=== PATIENT | male | born 1940 | race Caucasian/White ===

== ENCOUNTER 2019-04-06 12:00 | Observation (INO) ==
[~2019-04-06 12:00] MED LIST: ZOFRAN INJ 4 MG VIAL ONE
--- NOTE | 2019-04-06 12:14 | DR.GENAD ---
HPI Time Seen Time Seen by Provider: 04/06/19 12:06 PMH PMH Past Medical History: Coronary Artery Disease, Dyslipidemia, GERD, Hypertension and Hypothyroidism Past Surgical History: Yes Surgical History: Angioplasty/Stents Family History Family Medical History: Diabetes Mellitus, Cancer, [place] and Coronary Artery Disease Social History Do you use any recreational Drugs:: No PE Vital Signs Vitals: Temperature 98.6 F Pulse Rate 87 Respiratory Rate 16 Blood Pressure [Right Arm] 155/79 Blood Pressure 118/80 O2 Sat by Pulse Oximetry 100 ROR Labs Reviewed Result Diagrams: 04/06/19 13:40 04/06/19 13:40 Laboratory: WBC 19.1 X10^3/uL (3.6-10.0) H 04/06/19 13:40 RBC 5.04 X10^6/uL (4.7-6.0) 04/06/19 13:40 Hgb 15.9 g/dL (13.5-18.0) 04/06/19 13:40 Hct 46.4 % (42.0-54.0) 04/06/19 13:40 MCV 92.2 fL (80.0-100.0) 04/06/19 13:40 MCH 31.5 pg (27.0-34.0) 04/06/19 13:40 MCHC 34.2 g/dL (33.0-35.0) 04/06/19 13:40 RDW 13.7 % (11.6-16.5) 04/06/19 13:40 Plt Count 173 X10^3/uL (150.0-450.0) 04/06/19 13:40 Plt Count Comment Adequate (ADEQUATE) 04/06/19 13:40 MPV 10.0 fL (7.4-11.0) 04/06/19 13:40 Neut % (Auto) 90.4 % (42.0-75.0) H 04/06/19 13:40 Lymph % (Auto) 5.4 % (21.0-51.0) L 04/06/19 13:40 [place] % (Auto) 3.9 % (0.0-13.0) 04/06/19 13:40 Eos % (Auto) 0.0 % (0.9-2.9) L 04/06/19 13:40 Baso % (Auto) 0.3 % (0.2-1.0) 04/06/19 13:40 Neut # (Auto) 17.2 x10^3/uL (2.2-4.8) H 04/06/19 13:40 Lymph # (Auto) 1.0 X10^3/uL (1.3-2.9) L 04/06/19 13:40 [place] # (Auto) 0.7 x10^3/uL (0.3-0.8) 04/06/19 13:40 Eos # (Auto) 0.0 x10^3/uL (0.0-0.2) 04/06/19 13:40 Baso # (Auto) 0.1 X10^3/uL (0.0-0.1) 04/06/19 13:40 Absolute Nucleated RBC 0.1 /100WBC 04/06/19 13:40 Total Counted 100 04/06/19 13:40 Neutrophils % (Manual) 68 % (39-76) 04/06/19 13:40 Band Neutrophils % 22 % (0-10) H 04/06/19 13:40 Lymphocytes % (Manual) 5 % (13-43) L 04/06/19 13:40 Monocytes % (Manual) 5 % (4-9) 04/06/19 13:40 Plt Morphology Comment Normal (NORMAL) 04/06/19 13:40 RBC Morphology Normal (NORMAL) 04/06/19 13:40 Sodium 139 mmol/L (136-145) 04/06/19 13:40 Corrected Sodium 140 mmol/L (136-145) 04/06/19 13:40 Potassium 3.7 mmol/L (3.5-5.1) 04/06/19 13:40 Chloride 100 mmol/L (98-107) 04/06/19 13:40 Carbon Dioxide 25.0 mmol/L (21-32) 04/06/19 13:40 BUN 26 mg/dL (7-18) H 04/06/19 13:40 Creatinine 1.75 mg/dL (0.70-1.30) H 04/06/19 13:40 Est GFR (MDRD) Af Amer 49 (>60) L 04/06/19 13:40 Est GFR (MDRD) Non-Af 40 (>60) L 04/06/19 13:40 Glucose 150 mg/dL (65-99) H 04/06/19 13:40 Calcium 9.7 mg/dL (8.5-10.1) 04/06/19 13:40 Corrected Calcium TNP 04/06/19 13:40 Total Bilirubin 1.70 mg/dL (0.2-1.0) H 04/06/19 13:40 AST 33 Units/L (15-37) 04/06/19 13:40 ALT 37 Units/L (12-78) 04/06/19 13:40 Alkaline Phosphatase 81 Units/L (46-116) 04/06/19 13:40 Total Protein 8.8 g/dL (6.4-8.2) H 04/06/19 13:40 Albumin 4.5 g/dL (3.4-5.0) 04/06/19 13:40 Globulin 4.3 g/dL (2.5-4.5) 04/06/19 13:40 Albumin/Globulin Ratio 1.0 Ratio (1.1-2.1) L 04/06/19 13:40 Opioid Opioid Risk Tool Total: 0 Total Score Risk Category: Low Risk Copyright: Juanito BARRETT predicting aberrant behaviors
--- NOTE | 2019-04-06 12:52 | RAD ---
HISTORY: Severe constipation. Study: KUB Comparison: No priors Findings: There is a large amount of stool present involving the cecum and ascending colon regions. There is a 6.5 cm rectal fecal impaction. Mild gaseous distention of small bowel loops is seen in the right abdomen. The findings have the appearance of a small bowel ileus. No evidence of bowel obstruction is seen. There is no evidence of opaque stone. Osseous structures are intact. IMPRESSION: Large amount of stool present in the cecum and ascending colon regions. 6.5 cm rectal fecal impaction. Mild small bowel ileus pattern. No bowel obstruction is seen. Reported By:
[2019-04-06 13:47] LABS: BASOPHILS # (AUTO) 0.1 X10^3/uL (0.0-0.1); BASOPHILS % (AUTO) 0.3 % (0.2-1.0); HEMATOCRIT 46.4 % (42.0-54.0); HEMOGLOBIN 15.9 g/dL (13.5-18.0); LYMPHOCYTES % (AUTO) 5.4 % (21.0-51.0); MEAN CORPUSCULAR HEMOGLOBIN 31.5 pg (27.0-34.0); MEAN CORPUSCULAR HGB CONC 34.2 g/dL (33.0-35.0); MEAN CORPUSCULAR VOLUME 92.2 fL (80.0-100.0); MONOCYTES # (AUTO) 0.7 x10^3/uL (0.3-0.8); MONOCYTES % (AUTO) 3.9 % (0.0-13.0); NEUTROPHILS # (AUTO) 17.2 x10^3/uL (2.2-4.8); NEUTROPHILS % (AUTO) 90.4 % (42.0-75.0); PLATELET COUNT 173 X10^3/uL (150.0-450.0); RED BLOOD COUNT 5.04 X10^6/uL (4.7-6.0); RED CELL DISTRIBUTION WIDTH 13.7 % (11.6-16.5); WHITE BLOOD COUNT 19.1 X10^3/uL (3.6-10.0)
[2019-04-06 14:01] LABS: ALANINE AMINOTRANSFERASE 37 Units/L (12-78); ALBUMIN 4.5 g/dL (3.4-5.0); ALKALINE PHOSPHATASE 81 Units/L (46-116); ASPARTATE AMINO TRANSFERASE 33 Units/L (15-37); BLOOD UREA NITROGEN 26 mg/dL (7-18); CALCIUM 9.7 mg/dL (8.5-10.1); CHLORIDE 100 mmol/L (98-107); COR NA(FOR HYPERGLY) 140 mmol/L (136-145); CREATININE 1.75 mg/dL (0.70-1.30); SODIUM 139 mmol/L (136-145); TOTAL PROTEIN 8.8 g/dL (6.4-8.2); eGFR NON BLACK RACES 40 (>60)
[2019-04-06 14:11] LABS: BAND NEUTROPHILS % 22 % (0-10); PLATELET MORPHOLOGY COMMENT NORMAL (NORMAL)
[2019-04-06 16:14] VITALS: BMI 22.6
[2019-04-06] MEDS ORDERED: PATIENT'S HOME MEDICATION (Lisinopril 20 MG) PO SCH (21:00)
[2019-04-06] MEDS ORDERED: PATIENT'S HOME MEDICATION (Metoprolol Tartrate [Lopressor Tab 100 Mg] 100 MG) PO SCH (21:00)
[2019-04-06] MEDS: LIPITOR TAB 20 MG PO SCH (21:11)
[2019-04-06] MEDS: LOPRESSOR TAB 50 MG PO SCH (21:12)
[2019-04-06] MEDS: AMBIEN PO SCH (21:12)
[2019-04-06] MEDS: ZESTRIL TAB 10 MG PO SCH (21:13)
--- NOTE | 2019-04-06 21:49 | DR.H&P ---
H&P - History & Physical for Day of: H&P Date: 04/06/19 - Chief Complaint Chief Complaint: ABDOMINAL PAIN, CONSTIPATION - History of Present Illness History of Present Illness: IS A 79 YEAR OLD PATIENT OF OURS. HE PRESENTED TO THE ER WITH COMPLAINTS OF SEVERE PRESSURE TO RECTUM, ABDOMINAL PAIN, AND UNABLE TO HAVE A BOWEL MOVMEMENT. SYMPTOMS REPORTEDLY STARTED TODAY. ON ARRIVAL TO THE ER, VITALS WERE 98.6-16-87-100%-118/80. LABS WERE OBTAINED. ABNORMAL LAB VALUES INCLUDE THE FOLLOWING: WBC 19.1, BUN 26, CREATININE 1.75, GLUCOSE 150, TOTAL BILI 1.70, TOTAL PROTEIN 8.8. A KUB WAS OBTAINED AND REVEALED: Large amount of stool present in the cecum and ascending colon regions. 6.5 cm rectal fecal impaction. Mild small bowel ileus pattern. No bowel obstruction is seen. HE WAS ADMITTED TO THE HOSPITAL FOR FURTHER EVALUATION AND TREATMENT. ON ADMISSION, WE PLAN TO ADMINISTER SOAP SUDS ENEMAS UNTIL CLEAR. OTHERWISE, WE WILL FOLLOW UP WITH AM LABS AND CONTINUE TO MONITOR. - Past Medical History Past Medical History: Coronary Artery Disease, Hypertension, Dyslipidemia, Hypothyroidism, GERD - Past Surgical History Surgical History: Angioplasty/Stents, CABG/Valve Surgery - Family History Family Medical History: Diabetes Mellitus, Cancer, [place], Hypertension - Social History Does patient currently use any type of tobacco product: No Have you used tobacco products in the last 12 months: No Type of Tobacco Use: None Does any household member use tobacco: No Alcohol Use: None Drug Use: None - Medications Home Medications: Penicillins Allergy (Verified 04/06/19 12:01) - Review of Systems Constitutional: See HPI Eyes: No Symptoms Reported ENT: No Symptoms Reported Respiratory: No Symptoms Reported Cardiovascular: No Symptoms Reported Gastrointestinal: Abdominal Pain, Constipation Genitourinary: No Symptoms Reported Musculoskeletal: No Symptoms Reported Skin: No Symptoms Reported Neurological: No Symptoms Reported - Physical Exam Vital Signs: Temperature 98.1 F Pulse Rate [Bilateral Radial] 80 Pulse Rate 75 Respiratory Rate 10 Blood Pressure [Right Arm] 132/79 Blood Pressure 160/81 O2 Sat by Pulse Oximetry 98 Oriented: Normal Eyes: Normal Ear: Normal Nose: Normal Throat: Normal Respiratory: Diminished Throughout Cardiovascular: Normal : Normal Auscultation: Bowel Sounds: Decreased Tenderness: Diffuse, Severe Skin: Normal Musculoskeletal: Normal Psychiatric: Normal Mood Description: Calm Affect: Normal Speech Pattern: Clear - Assessment/Plan (1) Fecal impaction Status: Acute Plan: SOAP SUDS ENEMAS UNTIL CLEAR, CONTINUE TO MONITOR - Allergies Allergies/Adverse Reactions: Allergies Allergy/AdvReac Type Severity Reaction Status Date / Time Penicillins Allergy Verified 04/06/19 12:01
[2019-04-07 05:43] LABS: BASOPHILS # (AUTO) 0.1 X10^3/uL (0.0-0.1); BASOPHILS % (AUTO) 0.4 % (0.2-1.0); EOSINOPHILS # (AUTO) 0.1 x10^3/uL (0.0-0.2); EOSINOPHILS % (AUTO) 0.4 % (0.9-2.9); HEMATOCRIT 37.7 % (42.0-54.0); LYMPHOCYTES # (AUTO) 1.7 X10^3/uL (1.3-2.9); LYMPHOCYTES % (AUTO) 11.9 % (21.0-51.0); MEAN CORPUSCULAR HEMOGLOBIN 31.5 pg (27.0-34.0); MEAN CORPUSCULAR HGB CONC 34.1 g/dL (33.0-35.0); MEAN CORPUSCULAR VOLUME 92.4 fL (80.0-100.0); MEAN PLATELET VOLUME 10.6 fL (7.4-11.0); MONOCYTES # (AUTO) 1.1 x10^3/uL (0.3-0.8); MONOCYTES % (AUTO) 7.5 % (0.0-13.0); NEUTROPHILS # (AUTO) 11.2 x10^3/uL (2.2-4.8); NEUTROPHILS % (AUTO) 79.8 % (42.0-75.0); PLATELET COUNT 111 X10^3/uL (150.0-450.0); RED BLOOD COUNT 4.09 X10^6/uL (4.7-6.0); RED CELL DISTRIBUTION WIDTH 13.4 % (11.6-16.5); WHITE BLOOD COUNT 14.1 X10^3/uL (3.6-10.0)
[2019-04-07 05:51] LABS: HEMOGLOBIN 12.9 g/dL (13.5-18.0)
[2019-04-07 05:53] LABS: ALBUMIN 3.1 g/dL (3.4-5.0); CALCIUM 8.7 mg/dL (8.5-10.1); CARBON DIOXIDE 28.8 mmol/L (21-32); COR CA(FOR HYPOALB) 9.4 mg/dL (8.5-10.1); CREATININE 1.49 mg/dL (0.70-1.30); TOTAL PROTEIN 6.3 g/dL (6.4-8.2)
--- NOTE | 2019-04-07 08:11 | RAD ---
Examination: KUB History: Constipation Comparison 04/06/2019 Findings: There is mild gaseous distention of scattered segments of small bowel and colon in a nonobstructing pattern. No discrete mass, fecal excess or ascites is demonstrated. The previously described fecal impaction is no longer seen. Impression: Interval decrease in fecal distention of the colon. Residual mild nonobstructive distention. Reported By:
[2019-04-07] MEDS: LOPRESSOR TAB 50 MG PO SCH ×2 (09:10→20:28)
[2019-04-07] MEDS: PriLOSEC PO SCH ×2 (09:13→09:16)
[2019-04-07] MEDS: SYNTHROID 100 mcg TAB PO SCH (09:13)
[2019-04-07] MEDS: PROCARDIA XL PO SCH (09:14)
[2019-04-07] MEDS: FOLIC ACID TAB 1 MG PO SCH (09:14)
[2019-04-07] MEDS: COLACE CAP 100 MG PO SCH ×2 (15:22→20:29)
[2019-04-07] MEDS: MILK OF MAGNESIA PO SCH ×3 (15:22→20:28)
[2019-04-07] MEDS: MIRALAX POWDER (1 DOSE 17 G) PO SCH (15:22)
[2019-04-07] MEDS: ASPIRIN 81 MG CHEWTAB PO SCH (20:29)
[2019-04-07] MEDS: ZESTRIL TAB 10 MG PO SCH (20:29)
[2019-04-07] MEDS: AMBIEN PO SCH (20:29)
[2019-04-07] MEDS: LIPITOR TAB 20 MG PO SCH (20:29)
[2019-04-08 05:52] LABS: BASOPHILS # (AUTO) 0.1 X10^3/uL (0.0-0.1); BASOPHILS % (AUTO) 0.6 % (0.2-1.0); EOSINOPHILS # (AUTO) 0.3 x10^3/uL (0.0-0.2); EOSINOPHILS % (AUTO) 3.2 % (0.9-2.9); HEMATOCRIT 38.5 % (42.0-54.0); HEMOGLOBIN 13.1 g/dL (13.5-18.0); LYMPHOCYTES # (AUTO) 1.8 X10^3/uL (1.3-2.9); LYMPHOCYTES % (AUTO) 18.8 % (21.0-51.0); MEAN CORPUSCULAR HEMOGLOBIN 31.7 pg (27.0-34.0); MEAN CORPUSCULAR VOLUME 93.4 fL (80.0-100.0); MEAN PLATELET VOLUME 10.4 fL (7.4-11.0); MONOCYTES # (AUTO) 0.8 x10^3/uL (0.3-0.8); MONOCYTES % (AUTO) 7.8 % (0.0-13.0); NEUTROPHILS # (AUTO) 6.8 x10^3/uL (2.2-4.8); NEUTROPHILS % (AUTO) 69.6 % (42.0-75.0); PLATELET COUNT 112 X10^3/uL (150.0-450.0); RED BLOOD COUNT 4.12 X10^6/uL (4.7-6.0); RED CELL DISTRIBUTION WIDTH 13.9 % (11.6-16.5); WHITE BLOOD COUNT 9.8 X10^3/uL (3.6-10.0)
[2019-04-08 06:02] LABS: ALANINE AMINOTRANSFERASE 32 Units/L (12-78); ALKALINE PHOSPHATASE 56 Units/L (46-116); ASPARTATE AMINO TRANSFERASE 28 Units/L (15-37); BLOOD UREA NITROGEN 15 mg/dL (7-18); CALCIUM 8.8 mg/dL (8.5-10.1); CARBON DIOXIDE 28.8 mmol/L (21-32); CHLORIDE 105 mmol/L (98-107); COR CA(FOR HYPOALB) 9.6 mg/dL (8.5-10.1); COR NA(FOR HYPERGLY) 141 mmol/L (136-145); CREATININE 1.33 mg/dL (0.70-1.30); SODIUM 141 mmol/L (136-145); TOTAL PROTEIN 6.5 g/dL (6.4-8.2); eGFR NON BLACK RACES 55 (>60)
--- NOTE | 2019-04-08 06:45 | RAD ---
HISTORY: Abdominal pain Study: Two views of the abdomen Comparison: 04/07/2019 Findings: Bowel gas pattern is nonobstructive with decreased stool in the colon and rectum. No free intraperitoneal air. Lung bases are clear. No abnormal calcification or soft tissue mass identified. The bony structures are intact. IMPRESSION: 1. Normal bowel gas pattern. Reported By:
[2019-04-08] MEDS: MIRALAX POWDER (1 DOSE 17 G) PO SCH (08:42)
[2019-04-08] MEDS: ASPIRIN 81 MG CHEWTAB PO SCH (08:43)
[2019-04-08] MEDS: PriLOSEC PO SCH (08:43)
[2019-04-08] MEDS: COLACE CAP 100 MG PO SCH (08:43)
[2019-04-08] MEDS: SYNTHROID 100 mcg TAB PO SCH (08:43)
[2019-04-08] MEDS: PROCARDIA XL PO SCH (08:43)
[2019-04-08] MEDS: MILK OF MAGNESIA PO SCH (08:43)
[2019-04-08] MEDS: LOPRESSOR TAB 50 MG PO SCH (08:44)
[2019-04-08] MEDS: FOLIC ACID TAB 1 MG PO SCH (08:45)
[2019-04-08 09:31] VITALS: BP 118/68
--- NOTE | 2019-04-08 21:29 | PCM.PROG ---
Progress Note - Progress Note for Day of Date of Exam: 04/07/19 - Subjective Subjective: WAS ADMITTED FOR FECAL IMPACTION. TODAY, HE IS ALERT AND ORIENTED, LYING IN BED ON MORNING ROUNDS. HE CONTINUES WITH DIFFUSE ABDOMINAL PAIN. HE RECEIVED A SOAP SUDS ENEMA YESTERDAY, AND HAD A LARGE BOWEL MOVEMENT. ON EXAMINATION, HEART IS REGULAR IN RATE AND RHYTHM. BILATERAL LUNGS ARE CLEAR TO AUSCULTATION. ABDOMEN IS DISTENDED AND NOTED WITH DIFFUSE TENDERNESS. HYPOACTIVE BOWEL SOUNDS NOTED TO AUSCULTATION. HIS VITALS THIS MORNING ARE: 98.7-69-18-97%-143/69. LABS WERE OBTAINED. ABNORMAL LAB VALUES INCLUDE THE FOLLOWING: WBC 14.1, RBC 4.09, HGB 12.9, HCT 37.7, PLT 111, BUN 22, CREATININE 1.49, GLUCOSE 120, TOTAL BILI 1.80, TOTAL PROTEIN 6.3, ALBUMIN 3.1. A KUB WAS OBTAINED AND REVEALED: Interval decrease in fecal distention of the colon. Residual mild nonobstructive distention. TODAY, WE WILL START MILK OF MAGNESIA QID, COLACE BID, AND MIRALAX DAILY. WE WILL REPEAT A KUB IN THE MORNING. OTHERWISE, WE WILL FOLLOW UP WITH AM LABS AND CONTINUE TO MONITOR. - Past Medical Family Social History Past Med/Fam/Surg Hx: No changes since H&P Allergies: Allergies Penicillins Allergy (Verified 04/06/19 12:01) - Review of Systems ROS: No change since H&P - Vital Signs and I&O's Vital Signs: Temperature 98.6 F Pulse Rate [Bilateral Radial] 80 Pulse Rate 63 Respiratory Rate 17 Blood Pressure [Right Arm] 132/79 Blood Pressure 118/68 O2 Sat by Pulse Oximetry 97 Intake and Output: Intake & Output 04/06/19 04/07/19 04/08/19 04/09/19 11:59 11:59 11:59 11:59 Intake Total 240 / 240 490 / 490 Balance 240 / 240 490 / 490 - Physical Exam Oriented: Normal Eyes: Normal Ear: Normal Nose: Normal Throat: Normal Cardiovascular: Normal : Normal Auscultation: Bowel Sounds: Decreased Tenderness: Diffuse, Mild Skin: Normal Musculoskeletal: Normal Psychiatric: Normal Mood Description: Calm Affect: Normal Speech Pattern: Clear, Appropriate - Laboratory and Diagnostics Result Diagrams: 04/08/19 05:39 04/08/19 05:39 Labs: Laboratory WBC 9.8 X10^3/uL (3.6-10.0) 04/08/19 05:39 RBC 4.12 X10^6/uL (4.7-6.0) L 04/08/19 05:39 Hgb 13.1 g/dL (13.5-18.0) L 04/08/19 05:39 Hct 38.5 % (42.0-54.0) L 04/08/19 05:39 MCV 93.4 fL (80.0-100.0) 04/08/19 05:39 MCH 31.7 pg (27.0-34.0) 04/08/19 05:39 MCHC 34.0 g/dL (33.0-35.0) 04/08/19 05:39 RDW 13.9 % (11.6-16.5) 04/08/19 05:39 Plt Count 112 X10^3/uL (150.0-450.0) L 04/08/19 05:39 Plt Count Comment Adequate (ADEQUATE) 04/06/19 13:40 MPV 10.4 fL (7.4-11.0) 04/08/19 05:39 Neut % (Auto) 69.6 % (42.0-75.0) 04/08/19 05:39 Lymph % (Auto) 18.8 % (21.0-51.0) L 04/08/19 05:39 [place] % (Auto) 7.8 % (0.0-13.0) 04/08/19 05:39 Eos % (Auto) 3.2 % (0.9-2.9) H 04/08/19 05:39 Baso % (Auto) 0.6 % (0.2-1.0) 04/08/19 05:39 Neut # (Auto) 6.8 x10^3/uL (2.2-4.8) H 04/08/19 05:39 Lymph # (Auto) 1.8 X10^3/uL (1.3-2.9) 04/08/19 05:39 [place] # (Auto) 0.8 x10^3/uL (0.3-0.8) 04/08/19 05:39 Eos # (Auto) 0.3 x10^3/uL (0.0-0.2) H 04/08/19 05:39 Baso # (Auto) 0.1 X10^3/uL (0.0-0.1) 04/08/19 05:39 Absolute Nucleated RBC 0.0 /100WBC 04/08/19 05:39 Total Counted 100 04/06/19 13:40 Neutrophils % (Manual) 68 % (39-76) 04/06/19 13:40 Band Neutrophils % 22 % (0-10) H 04/06/19 13:40 Lymphocytes % (Manual) 5 % (13-43) L 04/06/19 13:40 Monocytes % (Manual) 5 % (4-9) 04/06/19 13:40 Plt Morphology Comment Normal (NORMAL) 04/06/19 13:40 RBC Morphology Normal (NORMAL) 04/06/19 13:40 Sodium 141 mmol/L (136-145) 04/08/19 05:39 Corrected Sodium 141 mmol/L (136-145) 04/08/19 05:39 Potassium 4.2 mmol/L (3.5-5.1) 04/08/19 05:39 Chloride 105 mmol/L (98-107) 04/08/19 05:39 Carbon Dioxide 28.8 mmol/L (21-32) 04/08/19 05:39 BUN 15 mg/dL (7-18) 04/08/19 05:39 Creatinine 1.33 mg/dL (0.70-1.30) H 04/08/19 05:39 Est GFR (MDRD) Af Amer > 60 (>60) 04/08/19 05:39 Est GFR (MDRD) Non-Af 55 (>60) L 04/08/19 05:39 Glucose 119 mg/dL (65-99) H 04/08/19 05:39 Calcium 8.8 mg/dL (8.5-10.1) 04/08/19 05:39 Corrected Calcium 9.6 mg/dL (8.5-10.1) 04/08/19 05:39 Magnesium 2.0 mg/dL (1.7-2.9) 04/06/19 13:40 Total Bilirubin 1.10 mg/dL (0.2-1.0) H 04/08/19 05:39 AST 28 Units/L (15-37) 04/08/19 05:39 ALT 32 Units/L (12-78) 04/08/19 05:39 Alkaline Phosphatase 56 Units/L (46-116) 04/08/19 05:39 Total Protein 6.5 g/dL (6.4-8.2) 04/08/19 05:39 Albumin 3.0 g/dL (3.4-5.0) L 04/08/19 05:39 Globulin 3.5 g/dL (2.5-4.5) 04/08/19 05:39 Albumin/Globulin Ratio 0.9 Ratio (1.1-2.1) L 04/08/19 05:39 - Plan (1) Fecal impaction Status: Acute Plan: MILK OF MAGNESIA, COLACE, MIRALAX, CONTINUE TO MONITOR
== END 2019-04-08 10:00 | disposition home or self-care (01) ==
LOC: ICU 12:00 → ER 12:00 → ICU 14:50
PROVIDERS: ADMIT Internal Medicine; ATTEND Internal Medicine
DX: E80.6 Other disorders of bilirubin metabolism; E03.8 Other specified hypothyroidism; Z79.899 Other long term (current) drug therapy; R94.4 Abnormal results of kidney function studies; K56.41 Fecal impaction; I25.10 Atherosclerotic heart disease of native coronary artery without angina pectoris; I10 Essential (primary) hypertension; R73.09 Other abnormal glucose; E78.2 Mixed hyperlipidemia; R10.84 Generalized abdominal pain; K21.9 Gastro-esophageal reflux disease without esophagitis
CPT/HCPCS: 36415; 74000; 74018; 80053; 83735; 85025; 96365; 96374; 99284; A4216; A4222; G0378; J2405

== ENCOUNTER 2023-04-14 19:23 | Inpatient (IN) ==
[2023-04-14 19:42] VITALS: BMI 23.6
--- NOTE | 2023-04-14 20:07 | DR.GENAD ---
HPI Time Seen Time Seen by Provider: 04/14/23 19:51 PCP Primary Care Physician: Humberto Complaint/Symptoms Chief Complaint Doctors Comments: Patient's son states that he fell on 04/05/2023 he had a bourbon and coke at son's house.Got home took his ambien and went to bed awoke to go to bathroom and fell hitting his chest. He went to his pcp the next day and found out he had a rib fx.Patient fell yesterday and fell today. Patient felt dizzy, unsteady on his feet, and has nausea.He take asa BID. Patient denies: chest pain,abdl pain,back pain,sob,headache, Chief Complaint:: Patient was brought in via [facility] due to increased falls. Patient stated that he has been unsteady on his feet and dizzy he fell two weeks ago and broke his ribs the patient stated that he also fell yesterday and today as well. COVID-19 Coronavirus risk:travel/contact w/high risk person: No Has patient experienced Coronavirus symptoms: No Source History Provided: Patient Mode of Arrival Mode of Arrival: EMS Timing Onset of Chief Complaint: 04/05/23 PMH PMH Past Medical History: Yes Past Medical History: Coronary Artery Disease, Dyslipidemia, GERD, Hypertension and Hypothyroidism Past Surgical History: Yes Surgical History: Angioplasty/Stents and CABG/Valve Surgery Family History History of Family Medical Conditions: Yes Family Medical History: Diabetes Mellitus, Cancer, [place] and Coronary Artery Dise ase Social History Do you use any recreational Drugs:: No Travel Risk Coronavirus risk:travel/contact w/high risk person: No Has patient experienced Coronavirus symptoms: No Infectious screening In the last 2 months have you had wt loss of >10#?: NO Have you had fever, night sweats or hemotysis?: No Have you traveled outside the country in the last 6 months?: No Isolation: Standard ROS Review of Systems Constitutional: No Symptoms Reported Eyes: No Symptoms Reported ENTM: No Symptoms Reported Respiratoy: No Symptoms Reported Cardiovascular: No Symptoms Reported; negative Chest Pain, Palpitations or Syncope Gastrointestinal/Abdominal: No Symptoms Reported Genitourinary: No Symptoms Reported Neurological: No Symptoms Reported, Dizziness and Problems Walking (Gait instability); negative Headache, Numbness, Paresthesia or Tingling Musculoskeletal: No Symptoms Reported Integumentary: No Symptoms Reported Hematologic/Lymphatic: No Symptoms Reported Endocrine: No Symptoms Reported Psychiatric: No Symptoms Reported All Other Systems: Reviewed and Negative PE Vital Signs Vitals: Vital Signs Temperature 98.5 F Pulse Rate 56 Pulse Rate 56 Pulse Rate 57 Pulse Rate 56 Pulse Rate 60 Pulse Rate 60 Pulse Rate 63 Pulse Rate 68 Respiratory Rate 24 Respiratory Rate 30 Respiratory Rate 15 Respiratory Rate 19 Respiratory Rate 28 Respiratory Rate 19 Respiratory Rate 17 Respiratory Rate 20 Blood Pressure 166/86 Blood Pressure 137/77 Blood Pressure 124/74 Blood Pressure 146/79 O2 Sat by Pulse Oximetry 100 O2 Sat by Pulse Oximetry 98 O2 Sat by Pulse Oximetry 98 O2 Sat by Pulse Oximetry 98 O2 Sat by Pulse Oximetry 97 O2 Sat by Pulse Oximetry 97 O2 Sat by Pulse Oximetry 98 General Limitations: No Limitations General Appearance: Alert and In No Apparent Distress Head Head Exam: Normal Inspection Eyes Eye exam: Normal Appearance ENT ENT Exam: Normal Exam External Ear Exam: Normal External Inspection TM/Canal Exam: Bilateral: Normal Nose Exam: Normal Nose Exam Mouth Exam: Normal Inspection Throat Exam: Normal Inspection Neck Neck Exam: Normal Inspection Chest Chest Inspection: Normal Inspection Respiratory Respiratory Exam: Normal Lung Sounds Bilat Respiratory Exam: Bilateral: Clear to Auscultation Cardiovascular Cardiovascular Exam: Regular Rate and Normal Rhythm Abdominal Exam Abdominal Exam: Normal Inspection, Normal Bowel Sounds and Soft Extremities Extremities Exam: Normal Inspection Back Back Exam: Normal Inspection Neurologic Neurological Exam: Alert, Oriented X3 and CN II-XII Intact Psychiatric Psychiatric Exam: Normal Affect and Normal Mood Skin Skin Exam: Warm, Dry, Intact and Normal Color MDM Differential Diagnosis Differential Diagnosis: Electrolyte abnormality,CVA,Intracranial bleed,UTI,[place],a rrhythmia COURSE Treatment Treatment: 19:51 Examined patient 20:28 Lab called to state that irma has a sodium of 111.Order NS @ 90ml/hr iv 20:31 Reviewed patient's labs: Mg 1.5., creat 1.50.Ordered MgS04 2g iv. 21:[address] Paul who accepts patient to his service.Patient's heda CT w/o contrats revealed probable dural lesion and Rt frontoparietal lesion. Dr Paul requested MRI w/ contrast to be done tomorrow.Patient has been stable in the ED.His EKG does not reveal ischemic changes his trop #1 is nml.U/A is neg. ROR Labs Reviewed Laboratory Results Reviewed?: Yes Result Diagrams: 04/14/23 19:58 04/14/23 19:58 Laboratory: WBC 9.9 X10^3/uL (3.6-10.0) 04/14/23 19:58 RBC 3.75 X10^6/uL (4.7-6.0) L 04/14/23 19:58 Hgb 11.6 g/dL (13.5-18.0) L 04/14/23 19:58 Hct 31.5 % (42.0-54.0) L 04/14/23 19:58 MCV 84.0 fL (80.0-100.0) 04/14/23 19:58 MCH 31.0 pg (27.0-34.0) 04/14/23 19:58 MCHC 36.9 g/dL (33.0-35.0) H 04/14/23 19:58 RDW 13.8 % (11.6-16.5) 04/14/23 19:58 Plt Count 207 X10^3/uL (150.0-450.0) 04/14/23 19:58 MPV 8.6 fL (7.4-11.0) 04/14/23 19:58 Neut % (Auto) 78.5 % (42.0-75.0) H 04/14/23 19:58 Lymph % (Auto) 11.3 % (21.0-51.0) L 04/14/23 19:58 [place] % (Auto) 9.8 % (0.0-13.0) 04/14/23 19:58 Eos % (Auto) 0.1 % (0.9-2.9) L 04/14/23 19:58 Baso % (Auto) 0.3 % (0.2-1.0) 04/14/23 19:58 Neut # (Auto) 7.8 x10^3/uL (2.2-4.8) H 04/14/23 19:58 Lymph # (Auto) 1.1 X10^3/uL (1.3-2.9) L 04/14/23 19:58 [place] # (Auto) 1.0 x10^3/uL (0.3-0.8) H 04/14/23 19:58 Eos # (Auto) 0.0 x10^3/uL (0.0-0.2) 04/14/23 19:58 Baso # (Auto) 0.0 X10^3/uL (0.0-0.1) 04/14/23 19:58 Absolute Nucleated RBC 0.0 /100WBC 04/14/23 19:58 Sodium 111 mmol/L (136-145) L* 04/14/23 19:58 Corrected Sodium 112 mmol/L (136-145) L 04/14/23 19:58 Potassium 3.8 mmol/L (3.5-5.1) 04/14/23 19:58 Chloride 77 mmol/L (98-107) L* 04/14/23 19:58 Carbon Dioxide 27.1 mmol/L (21-32) 04/14/23 19:58 BUN 17 mg/dL (7-18) 04/14/23 19:58 Creatinine 1.50 mg/dL (0.70-1.30) H 04/14/23 19:58 Est GFR (MDRD) Af Amer 57 (>60) L 04/14/23 19:58 Est GFR (MDRD) Non-Af 48 (>60) L 04/14/23 19:58 Glucose 140 mg/dL (65-99) H 04/14/23 19:58 Calcium 8.0 mg/dL (8.5-10.1) L 04/14/23 19:58 Corrected Calcium TNP 04/14/23 19:58 Magnesium 1.5 mg/dL (2.0-2.9) L 04/14/23 19:58 Total Bilirubin 2.30 mg/dL (0.2-1.0) H 04/14/23 19:58 AST 59 Units/L (15-37) H 04/14/23 19:58 ALT 46 Units/L (12-78) 04/14/23 19:58 Alkaline Phosphatase 87 Units/L (46-116) 04/14/23 19:58 Creatine Kinase 845 Units/L (39-308) H 04/14/23 19:58 Troponin I High Sens 13.6 ng/L (4.0-60.0) 04/14/23 19:58 Total Protein 6.5 g/dL (6.4-8.2) 04/14/23 19:58 Albumin 3.7 g/dL (3.4-5.0) 04/14/23 19:58 Globulin 2.8 g/dL (2.5-4.5) 04/14/23 19:58 Albumin/Globulin Ratio 1.3 Ratio (1.1-2.1) 04/14/23 19:58 Specimen Type Clean catch urine 04/14/23 20:52 Urine Color Pale yellow (YELLOW) 04/14/23 20:52 Urine Appearance Clear (CLEAR) 04/14/23 20:52 Urine pH 7.0 (5.0 - 8.0) 04/14/23 20:52 Ur Specific [place] 1.015 (1.000-1.030) 04/14/23 20:52 Urine Protein 2+ (NEGATIVE) 04/14/23 20:52 Urine Glucose (UA) Negative (NEGATIVE) 04/14/23 20:52 Urine Ketones Negative (NEGATIVE) 04/14/23 20:52 Urine Blood Negative (NEGATIVE) 04/14/23 20:52 Urine Nitrite Negative (NEGATIVE) 04/14/23 20:52 Urine Bilirubin Negative (NEGATIVE) 04/14/23 20:52 Urine Urobilinogen 1+ (NORMAL) 04/14/23 20:52 Ur Leukocyte Esterase Negative (NEGATIVE) 04/14/23 20:52 Urine RBC None seen /HPF (0-3) 04/14/23 20:52 Urine WBC None seen /HPF (0-5) 04/14/23 20:52 Ur Squamous Epith Cells Rare /HPF (NEGATIVE) 04/14/23 20:52 Urine Bacteria Negative /HPF (NEGATIVE) 04/14/23 20:52 Ur Culture Indicated? No/not indicated 04/14/23 20:52 XRAY XRAY Interpreted by: Radiologist X-ray Results: BRAIN W/O CON CLINICAL INDICATION: Increased falls TECHNIQUE: Images were obtained through the head per standard CT protocol. Multiplanar reformatted images were generated from the CT dataset. Dose reduction techniques including Automated Exposure Control (AEC) and adjustment of mA and kV were utlized. COMPARISON:None FINDINGS: Diffuse patchy and confluent periventricular and subcortical hypoattenuation with associated volume loss. Small region of hyperattenuation along the right paramedian falx for example on series 7, image 20 and series 6, image 22. There appear to be dural tails particularly on axial. Questionable region of gyral hyperattenuation within the left frontoparietal lobe on series 6, image 23. This may represent volume averaging. There is no evidence of acute infarction, intracranial hemorrhage, mass effect, or abnormal extra-axial collection . The density of the larger dural venous sinuses is normal. Age-related, ex-vacuo dilatation of the ventricles and sulci . The skull base and calvarium are normal . The included paranasal sinuses and mastoid air cells are predominantly clear . IMPRESSION: 1. No acute intracranial abnormality. Chronic microangiopathic changes and ex vacuo dilatation of the ventricles and sulci. [2. Parasagittal common presumably dural-based lesion on the right as above. This may represent a meningioma. This could be further evaluated by nonemergent MRI with without contrast. 3. Questionable hyperattenuation in a right frontoparietal sulcus/gyrus]. This is indeterminate and may be artifactual however further evaluation with MRI of the brain with without contrast on a nonemergent basis could be performed to evaluate for lesion. Electronically signed by: STEFFANIE ZARATE (Apr 14, 2023 20:44:59) EKG Compared to prior EKG Dated: 04/14/23 Rate: 58 [place]: Normal (Negative axis) Rhythm: SB Opioid Opioid Risk Tool Age (Angelito box if 16-45): No History of Preadolescent Sexual Abuse: No Total: 0 Total Score Risk Category: Low Risk Copyright: Juanito BARRETT predicting aberrant behaviors Discharge Plan Diagnosis Discharge Problem: Acute hyponatremia, Hypomagnesemia Discharge Plan Patient Disposition: 09 ADMITTED INPATIENT Condition: Stable Prescriptions: No Action celecoxib 200 mg capsule 1 tab PO BID atorvastatin 10 mg tablet 1 tab PO QDAY azithromycin 250 mg tablet 1 tab PO DIRECTED azithromycin 250 mg tablet 1 tab PO DIRECTED ondansetron 8 mg tablet,disintegrating 1 tab PO TID levothyroxine 100 mcg tablet 1 tab PO QDAY lisinopril 10 mg tablet 1 tab PO QDAY omeprazole 20 mg capsule,delayed release(DR/EC) 1 cap PO QDAY methylprednisolone 4 mg tablets,dose pack 4 mg PO PRN PRN metoprolol tartrate 25 mg tablet 1 tab PO BID Health Concerns: Post Hospitalization: new medications and changes needed to prevent readmission or further decline. Pt educated and given instructions on all concerns. Plan of Treatment: Continue with present treatment and follow up plan. Pt is to keep follow up appointment as instructed and take medications as ordered. Follow ups/Referrals Follow ups/Referrals: Avni Paul [Primary Care Provider] - 3 days Instructions Stand Alone Forms: Post Hospital Follow Up Care
--- NOTE | 2023-04-14 20:16 | EKG ---
Test Reason : frequent falls Blood Pressure : */* mmHG Vent. Rate : 58 BPM Atrial Rate : 58 BPM P-R Int : 130 ms QRS Dur : 84 ms QT Int : 424 ms P-R-T Axes : 33 -34 45 degrees QTc Int : 416 ms Sinus bradycardia Left axis deviation Minimal voltage criteria for LVH, may be normal variant ( R in aVL ) Abnormal ECG No previous ECGs available Confirmed by Manuel Brown ([id number]) on 04/15/2023 7:29:13 AM Referred By: Confirmed By: Manuel Brown
[2023-04-14 20:18] LABS: BASOPHILS % (AUTO) 0.3 % (0.2-1.0); EOSINOPHILS % (AUTO) 0.1 % (0.9-2.9); HEMATOCRIT 31.5 % (42.0-54.0); HEMOGLOBIN 11.6 g/dL (13.5-18.0); LYMPHOCYTES # (AUTO) 1.1 X10^3/uL (1.3-2.9); LYMPHOCYTES % (AUTO) 11.3 % (21.0-51.0); MEAN CORPUSCULAR HGB CONC 36.9 g/dL (33.0-35.0); MEAN PLATELET VOLUME 8.6 fL (7.4-11.0); MONOCYTES % (AUTO) 9.8 % (0.0-13.0); NEUTROPHILS # (AUTO) 7.8 x10^3/uL (2.2-4.8); NEUTROPHILS % (AUTO) 78.5 % (42.0-75.0); PLATELET COUNT 207 X10^3/uL (150.0-450.0); RED BLOOD COUNT 3.75 X10^6/uL (4.7-6.0); RED CELL DISTRIBUTION WIDTH 13.8 % (11.6-16.5); WHITE BLOOD COUNT 9.9 X10^3/uL (3.6-10.0)
[2023-04-14 20:24] LABS: ALANINE AMINOTRANSFERASE 46 Units/L (12-78); ALBUMIN 3.7 g/dL (3.4-5.0); ALKALINE PHOSPHATASE 87 Units/L (46-116); ASPARTATE AMINO TRANSFERASE 59 Units/L (15-37); BLOOD UREA NITROGEN 17 mg/dL (7-18); CARBON DIOXIDE 27.1 mmol/L (21-32); COR NA(FOR HYPERGLY) 112 mmol/L (136-145); CREATINE KINASE 845 Units/L (39-308); GLUCOSE 140 mg/dL (65-99); MAGNESIUM 1.5 mg/dL (2.0-2.9); POTASSIUM 3.8 mmol/L (3.5-5.1); TOTAL PROTEIN 6.5 g/dL (6.4-8.2); eGFR NON BLACK RACES 48 (>60)
[2023-04-14 20:27] LABS: CHLORIDE 77 mmol/L (98-107); SODIUM 111 mmol/L (136-145)
[2023-04-14] MEDS ORDERED: MAGNESIUM SULFATE 1 GRAM/100 mL PREMIX 1 G/100 ML BAG IV ONE ×4 (20:30→21:14)
[2023-04-14] MEDS ORDERED: NS 1,000 ML IV 1,000 ML ONE (20:31)
[2023-04-14] MEDS: NS 1,000 ML IV 1,000 ML IV SCH (20:36)
--- NOTE | 2023-04-14 20:46 | CT ---
BRAIN W/O CONCLINICAL INDICATION: Increased fallsTECHNIQUE: Images were obtained through the head per standard CT protocol. Multiplanar reformatted images were generated from the CT dataset. Dose reduction techniques including Automated Exposure Control (AEC) and adjustment of mA and kV were utlized.COMPARISON:NoneFINDINGS:Diffuse patchy and confluent periventricular and subcortical hypoattenuation with associated volume loss. Small region of hyperattenuation along the right paramedian falx for example on series 7, image 20 and series 6, image 22. There appear to be dural tails particularly on axial. Questionable region of gyral hyperattenuation within the left frontoparietal lobe on series 6, image 23. This may represent volume averaging. There is no evidence of acute infarction, intracranial hemorrhage, mass effect, or abnormal extra-axial collection . The density of the larger dural venous sinuses is normal. Age-related, ex-vacuo dilatation of the ventricles and sulci . The skull base and calvarium are normal . The included paranasal sinuses and mastoid air cells are predominantly clear .IMPRESSION:1. No acute intracranial abnormality. Chronic microangiopathic changes and ex vacuo dilatation of the ventricles and sulci.[2. Parasagittal common presumably dural-based lesion on the right as above. This may represent a meningioma. This could be further evaluated by nonemergent MRI with without contrast.3. Questionable hyperattenuation in a right frontoparietal sulcus/gyrus]. This is indeterminate and may be artifactual however further evaluation with MRI of the brain with without contrast on a nonemergent basis could be performed to evaluate for lesion.Electronically signed by: STEFFANIE ZARATE (Apr 14, 2023 20:44:59)
[2023-04-14 21:06] LABS: BILIRUBIN,URINE NEGATIVE (NEGATIVE); BLOOD/HEMOGLOBIN,URINE NEGATIVE (NEGATIVE); GLUCOSE, URINE NEGATIVE (NEGATIVE); KETONES,URINE NEGATIVE (NEGATIVE); LEUKOCYTE ESTERASE ,URINE NEGATIVE (NEGATIVE); NITRITES,URINE NEGATIVE (NEGATIVE); PROTEIN,URINE 2+ (NEGATIVE); UROBILINOGEN,URINE 1+ (NORMAL)
[2023-04-14 21:13] LABS: APPEARANCE,URINE CLEAR (CLEAR); BACTERIA,URINE NEGATIVE /HPF (NEGATIVE); COLOR,URINE PALE YELLOW (YELLOW); RBC,URINE NONE SEEN /HPF (0-3); SQUAMOUS EPITHELIAL CELL,UR RARE /HPF (NEGATIVE)
[2023-04-14] MEDS: ZOFRAN TAB 4 MG PO SCH (23:19)
[2023-04-15 05:13] LABS: BASOPHILS % (AUTO) 0.3 % (0.2-1.0); EOSINOPHILS # (AUTO) 0.1 x10^3/uL (0.0-0.2); EOSINOPHILS % (AUTO) 0.7 % (0.9-2.9); HEMATOCRIT 33.5 % (42.0-54.0); LYMPHOCYTES # (AUTO) 1.4 X10^3/uL (1.3-2.9); LYMPHOCYTES % (AUTO) 17.1 % (21.0-51.0); MEAN CORPUSCULAR HEMOGLOBIN 30.8 pg (27.0-34.0); MEAN CORPUSCULAR HGB CONC 35.9 g/dL (33.0-35.0); MEAN CORPUSCULAR VOLUME 85.8 fL (80.0-100.0); MEAN PLATELET VOLUME 8.8 fL (7.4-11.0); MONOCYTES # (AUTO) 0.9 x10^3/uL (0.3-0.8); MONOCYTES % (AUTO) 11.7 % (0.0-13.0); NEUTROPHILS # (AUTO) 5.6 x10^3/uL (2.2-4.8); NEUTROPHILS % (AUTO) 70.2 % (42.0-75.0); PLATELET COUNT 188 X10^3/uL (150.0-450.0); RED BLOOD COUNT 3.91 X10^6/uL (4.7-6.0); RED CELL DISTRIBUTION WIDTH 13.8 % (11.6-16.5)
[2023-04-15] MEDS: ZOFRAN TAB 4 MG PO SCH ×3 (05:25→22:09)
[2023-04-15 05:45] LABS: ALANINE AMINOTRANSFERASE 50 Units/L (12-78); ALBUMIN 3.8 g/dL (3.4-5.0); ALKALINE PHOSPHATASE 94 Units/L (46-116); ASPARTATE AMINO TRANSFERASE 62 Units/L (15-37); BLOOD UREA NITROGEN 15 mg/dL (7-18); CALCIUM 8.1 mg/dL (8.5-10.1); CARBON DIOXIDE 27.9 mmol/L (21-32); CREATININE 1.37 mg/dL (0.70-1.30); GLUCOSE 97 mg/dL (65-99); POTASSIUM 3.5 mmol/L (3.5-5.1); TOTAL PROTEIN 6.7 g/dL (6.4-8.2); eGFR NON BLACK RACES 53 (>60)
[2023-04-15 05:50] LABS: CHLORIDE 79 mmol/L (98-107); SODIUM 114 mmol/L (136-145)
[2023-04-15] MEDS ORDERED: CONSULT PHARMACY - POTASSIUM & MAGNESIUM XX SCH (07:00)
[2023-04-15] MEDS: LOPRESSOR TAB 25 MG PO SCH ×2 (08:52→21:47)
[2023-04-15] MEDS: CELEBREX PO SCH ×2 (08:56→21:47)
[2023-04-15] MEDS: NS 1,000 ML IV 1,000 ML IV SCH ×4 (08:57→22:14)
[2023-04-15] MEDS ORDERED: K-DUR TAB 20 MEQ PO SCH (09:00)
[2023-04-15] MEDS ORDERED: LIPITOR TAB 10 MG PO SCH (09:00)
[2023-04-15] MEDS: SYNTHROID 100 mcg TAB PO SCH (09:06)
[2023-04-15] MEDS: ZESTRIL TAB 10 MG PO SCH (12:00)
[2023-04-15] MEDS: FLOMAX PO SCH (12:00)
[2023-04-15] MEDS: PriLOSEC PO SCH (13:19)
[2023-04-15] MEDS ORDERED: MULTIHANCE INJ VIAL ONE (14:19)
--- NOTE | 2023-04-15 19:44 | MRI ---
EXAM: MRI OF THE BRAIN WITHOUT AND WITH CONTRASTHISTORY: Acute hyponatremia.TECHNIQUE: Multiplanar (axial, sagittal, and coronal) T1, T2, FLAIR, diffusion, and gradient echo images are obtained through the brain without administration of gadolinium. Additional axial and coronal T1 weighted images were obtained after the administration of 16 mL IV gadolinium (MultiHance).COMPARISON: Head CT dated April 14, 2023.FINDINGS:There is evidence for an approximately 2 cm x 1.3 cm area of hyperintense FLAIR signal and diffusion restriction within the right posterior lateral inferior cerebellum (axial image 4, series 502 and 503), right side of the posterior corpus callosum (axial image 14, series 502 and 503), and medial parafalcine left posterior frontal lobe (axial image 16, series 502 and 503), in keeping with acute multifocal cerebral infarctions in the appropriate clinical setting; DDx includes embolic disease.There is no evidence for intraparenchymal mass lesion, hemorrhage, or demyelinating plaque disease seen. There is moderate to severe diffuse cerebral cortical atrophy. The centrum semiovale, basal ganglia, cerebellum and brain stem are otherwise unremarkable. There is no extra-axial mass lesion or abnormal fluid collection seen. No midline shift or other mass effect is evident. No cerebellar tonsillar herniation is identified.There is no ventriculomegaly. The third and fourth ventricles are widely patent. The cerebello-pontine angles and internal acoustic canals are within normal limits. The vestibulocochlear nerves are unremarkable. There is no abnormal fluid signal seen within the temporal bones or mastoid air cells. The paranasal sinuses are clear. No suprasellar mass lesion or optic chiasm compression is observed. The cerebrovascular structures are grossly unremarkable for a nondedicated exam. No gross intra-orbital abnormality is evident.IMPRESSION:1. Approximately 2 cm x 1.3 cm area of hyperintense FLAIR signal and diffusion restriction within the right posterior lateral inferior cerebellum (axial image 4, series 502 and 503), right side of the posterior corpus callosum (axial image 14, series 502 and 503), and medial parafalcine left posterior frontal lobe (axial image 16, series 502 and 503), in keeping with acute multifocal cerebral infarctions in the appropriate clinical setting; DDx includes embolic disease.2. Moderate to severe diffuse cerebral cortical atrophy.3. Otherwise unremarkable MRI of the brain with IV contrast, as described above.Electronically signed by: Alejandro Mantilla 14, 2023 19:42:34)
--- NOTE | 2023-04-15 21:20 | DR.H&P ---
H&P - History & Physical for Day of: H&P Date: 04/14/23 - Chief Complaint Chief Complaint: WEAKNESS AND FREQUENT FALLS - History of Present Illness History of Present Illness: IS A 83 YEAR OLD PATIENT OF OURS. HE HAS A PMH OF CAD, DYSLIPIDEMIA, GERD, HTN, HYPOTHYROIDISM, CARDIAC STENTS, CABG. HE PRESENTED TO THE ER WITH COMPLAINTS OF INCREASING WEAKNESS AND FREQUENT FALLS FOR THE PAST TWO WEEKS. HE REPORTS THAT HE FELL TWO WEEKS AGO AND HIT HIS CHEST. A CHEST XRAY WAS OBTAINED AT THAT TIME AND REVEALED A RIB FRACTURE. HE HAS FALLEN AT LEAST TWO MORE TIMES SINCE THEN. ON ARRIVAL TO THE HOSPITAL, HIS VITALS WERE: 98.5-68-20-98%-146/79. LABS WERE OBTAINED. WBC 9.9, RBC 3.75, HGB 11.6, HCT 31, HCT 31.5, PLT COUNT 207, SODIUM 111, POTASSIUM 3.8, CHLORIDE 77, BUN 17, CREATININE 1.50, GLUCOSE 140, CALCIUM 8.0, MAGNESIUM 1.5, TOTAL BILIRUBIN 2.30, AST 2.30, ALT 46, ALK PHOS 87, CREATINE KINASE 845, TROPONIN 13.6, TOTAL PROTEIN 6.5, ALBUMIN 3.7. A URINALYSIS WAS OBTAINED AND WAS UNREMARKABLE. A BRAIN CT WITHOUT CONTRAST WAS OBTAINED AND REVEALED: 1. No acute intracranial abnormality. Chronic microangiopathic changes and ex vacuo dilatation of the ventricles and sulci. 2. Parasagittal common presumably dural- based lesion on the right. This may represent a meningioma. This could be further evaluated by nonemergent MRI with without contrast. 3. Questionable hyperattenuation in a right frontoparietal sulcus/gyrus]. This is indeterminate and may be artifactual however further evaluation with MRI of the brain with without contrast on a nonemergent basis could be performed to evaluate for lesion. AN EKG WAS OBTAINED AND REVEALED SINUS BRADYCARDIA WITH HR 58 BPM. IN THE ER, HE WAS GIVEN MAGNESIUM 2G. HE WAS ADMITTED TO THE HOSPITAL INPATIENT STATUS FOR FURTHER EVALUATION AND TREATMENT OF ACUTE HYPONATREMIA, GENERALIZED WEAKNESS, FREQUENT FALLS. HE WAS STARTED ON NORMAL SALINE AT 90 ML/HR AND HIS HOME MEDICATIONS WERE RESUMED. HOME MEDS INCLUDE: LIPITOR, CELEBREX, SYNTHROID, ZESTRIL, LOPRESSOR, PRILOSEC, ZOFRAN, AND FLOMAX. WE WILL OBTAIN A BRAIN MRI WITH AND WITHOUT CONTRAST. WE WILL HAVE PT/OT EVALUATE HIM. OTHERWISE, WE WILL FOLLOW UP WITH AM LABS AND CONTINUE TO MONITOR. TIME SPENT ON CLINICAL ASSESSMENT, REVIEWING LABS AND IMAGING, DECISION MAKING, AND DOCUMENTATION GREATER THAN 75 MINUTES. - Past Medical History Past Medical History: Coronary Artery Disease, Hypertension, Dyslipidemia, Hypothyroidism, GERD - Past Surgical History Surgical History: Angioplasty/Stents, CABG/Valve Surgery - Family History Family Medical History: Diabetes Mellitus, Cancer, [place], Coronary Artery Disease - Social History Does patient currently use any type of tobacco product: No Type of Tobacco Use: None Does any household member use tobacco: Yes Alcohol Use: None Drug Use: None - Review of Systems Constitutional: Weakness, Other (FREQUENT FALLS) Eyes: No Symptoms Reported ENT: No Symptoms Reported Respiratory: No Symptoms Reported Cardiovascular: No Symptoms Reported Gastrointestinal: No Symptoms Reported Genitourinary: No Symptoms Reported Musculoskeletal: No Symptoms Reported Skin: No Symptoms Reported Neurological: Weakness - Physical Exam Vital Signs: Vital Signs Temperature 97.5 F Temperature 97.4 F Pulse Rate 57 Pulse Rate 60 Pulse Rate 60 Pulse Rate 54 Pulse Rate 60 Pulse Rate 61 Pulse Rate 60 Pulse Rate 71 Pulse Rate 68 Pulse Rate 58 Respiratory Rate 23 Respiratory Rate 24 Respiratory Rate 32 Respiratory Rate 26 Respiratory Rate 22 Respiratory Rate 25 Respiratory Rate 29 Respiratory Rate 20 Blood Pressure 115/60 Blood Pressure 108/57 Blood Pressure 111/62 Blood Pressure 104/58 Blood Pressure 122/60 Blood Pressure 140/87 Blood Pressure 139/76 O2 Sat by Pulse Oximetry 99 O2 Sat by Pulse Oximetry 98 O2 Sat by Pulse Oximetry 94 O2 Sat by Pulse Oximetry 99 O2 Sat by Pulse Oximetry 97 O2 Sat by Pulse Oximetry 98 O2 Sat by Pulse Oximetry 97 O2 Sat by Pulse Oximetry 100 O2 Sat by Pulse Oximetry 99 O2 Sat by Pulse Oximetry 100 Oriented: Normal Eyes: Normal Ear: Normal Nose: Normal Throat: Normal Respiratory: Clear Throughout Cardiovascular: Normal : Normal Auscultation: Bowel Sounds: Normal Palpation: Normal Tenderness: Normal Skin: Decreased [place] Musculoskeletal: Normal Psychiatric: Normal Mood Description: Calm Affect: Normal Speech Pattern: Clear - Assessment/Plan (1) Acute hyponatremia Status: Acute Plan: ADMIT, NORMAL SALINE AT 90 ML/HR, RESUME HOME MEDS (2) Frequent falls Status: Acute Plan: PT/OT, OBTAIN BRAIN MRI (3) Generalized weakness Status: Acute Plan: PT/OT, OBTAIN BRAIN MRI (4) HTN (hypertension) Qualifiers: Hypertension type: primary hypertension Qualified Code(s): I10 - Essential (primary) hypertension Status: Chronic Plan: CONTINUE ZESTRIL AND LOPRESSOR (5) CAD (coronary artery disease) Qualifiers: Coronary Disease-Associated Artery/Lesion type: bypass graft [place] vs. transplanted heart: [place] heart Associated angina: without angina Qualified Code(s): I25.810 - Atherosclerosis of coronary artery bypass graft(s) without angina pectoris Status: Chronic (6) Hyperlipidemia Qualifiers: Hyperlipidemia type: mixed hyperlipidemia Qualified Code(s): E78.2 - Mixed hyperlipidemia Status: Chronic Plan: CONTINUE LIPITOR (7) GERD (gastroesophageal reflux disease) Qualifiers: Esophagitis presence: esophagitis presence not specified Qualified Code(s): K21.9 - Gastro-esophageal reflux disease without esophagitis Status: Chronic Plan: CONTINUE PRILOSEC (8) Hypothyroidism Qualifiers: Hypothyroidism type: acquired Qualified Code(s): E03.9 - Hypothyroidism, unspecified Status: Chronic Plan: CONTINUE SYNTHROID - Allergies Allergies/Adverse Reactions: Allergies Allergy/AdvReac Type Severity Reaction Status Date / Time Penicillins Allergy Verified 04/14/23 19:42 - Medications Home Medications: Home Medications Medication Instructions Recorded Confirmed atorvastatin 10 mg tablet 1 tab PO QDAY 04/14/23 04/14/23 azithromycin 250 mg tablet 1 tab PO DIRECTED 04/14/23 04/14/23 azithromycin 250 mg tablet 1 tab PO DIRECTED 04/14/23 04/14/23 celecoxib 200 mg capsule 1 tab PO BID 04/14/23 04/14/23 levothyroxine 100 mcg tablet 1 tab PO QDAY 04/14/23 04/14/23 lisinopril 10 mg tablet 1 tab PO QDAY 04/14/23 04/14/23 methylprednisolone 4 mg tablets in 4 mg PO PRN PRN 04/14/23 04/14/23 a dose pack metoprolol tartrate 25 mg tablet 1 tab PO BID 04/14/23 04/14/23 omeprazole 20 mg capsule,delayed 1 cap PO QDAY 04/14/23 04/14/23 release ondansetron 8 mg disintegrating 1 tab PO TID 04/14/23 04/14/23 tablet
[2023-04-15] MEDS: LIPITOR TAB 10 MG PO SCH (21:47)
[2023-04-16] MEDS: NS 1,000 ML IV 1,000 ML IV SCH ×5 (04:28→18:28)
[2023-04-16] MEDS: ZOFRAN TAB 4 MG PO SCH ×3 (05:46→23:40)
[2023-04-16 06:39] LABS: BASOPHILS % (AUTO) 0.3 % (0.2-1.0); EOSINOPHILS # (AUTO) 0.1 x10^3/uL (0.0-0.2); EOSINOPHILS % (AUTO) 1.2 % (0.9-2.9); HEMATOCRIT 31.2 % (42.0-54.0); HEMOGLOBIN 11.3 g/dL (13.5-18.0); LYMPHOCYTES % (AUTO) 12.6 % (21.0-51.0); MEAN CORPUSCULAR HEMOGLOBIN 31.1 pg (27.0-34.0); MEAN CORPUSCULAR HGB CONC 36.1 g/dL (33.0-35.0); MEAN CORPUSCULAR VOLUME 86.1 fL (80.0-100.0); MEAN PLATELET VOLUME 8.6 fL (7.4-11.0); MONOCYTES # (AUTO) 1.1 x10^3/uL (0.3-0.8); MONOCYTES % (AUTO) 13.6 % (0.0-13.0); NEUTROPHILS % (AUTO) 72.3 % (42.0-75.0); PLATELET COUNT 162 X10^3/uL (150.0-450.0); RED BLOOD COUNT 3.63 X10^6/uL (4.7-6.0); RED CELL DISTRIBUTION WIDTH 13.7 % (11.6-16.5); WHITE BLOOD COUNT 8.3 X10^3/uL (3.6-10.0)
[2023-04-16 06:50] LABS: AMMONIA 16 umol/L (11-32)
[2023-04-16 07:22] LABS: ALANINE AMINOTRANSFERASE 48 Units/L (12-78); ALBUMIN 3.4 g/dL (3.4-5.0); ALKALINE PHOSPHATASE 102 Units/L (46-116); ASPARTATE AMINO TRANSFERASE 53 Units/L (15-37); BLOOD UREA NITROGEN 16 mg/dL (7-18); CALCIUM 7.8 mg/dL (8.5-10.1); CARBON DIOXIDE 24.8 mmol/L (21-32); CHLORIDE 88 mmol/L (98-107); CREATININE 1.33 mg/dL (0.70-1.30); GLUCOSE 103 mg/dL (65-99); POTASSIUM 4.2 mmol/L (3.5-5.1); eGFR NON BLACK RACES 55 (>60)
[2023-04-16 07:29] LABS: SODIUM 120 mmol/L (136-145)
[2023-04-16 07:33] LABS: T4 (THYROXINE) 7.9 ug/dL (4.7-13.3); TSH (3RD GENERATION) 2.662 uIU/mL (0.358-3.74)
[2023-04-16 08:31] LABS: PLATELET MORPHOLOGY COMMENT NORMAL (NORMAL)
[2023-04-16] MEDS: PriLOSEC PO SCH (08:39)
[2023-04-16] MEDS: SYNTHROID 100 mcg TAB PO SCH (08:39)
[2023-04-16] MEDS: CELEBREX PO SCH ×2 (08:40→20:42)
[2023-04-16] MEDS: ASPIRIN 81 MG CHEWTAB PO SCH (08:40)
[2023-04-16] MEDS: FLOMAX PO SCH (08:40)
[2023-04-16] MEDS: LOPRESSOR TAB 25 MG PO SCH ×2 (08:40→20:42)
[2023-04-16] MEDS: ZESTRIL TAB 10 MG PO SCH (08:40)
[2023-04-16] MEDS ORDERED: ATIVAN TAB 0.5 MG PO PRN (10:15)
[2023-04-16] MEDS ORDERED: RESTORIL CAP 15 MG PO PRN (10:15)
--- NOTE | 2023-04-16 11:41 | PCM.PROG ---
Progress Note Progress Note for Day of Date of Exam: 04/16/23 Subjective Subjective: Patient is a 83-year-old male admitted for acute CVA and hyponatremia. This morning patient is resting comfortably in a recliner. No acute events overnight. Per nursing patient will have episodes of agitation. Labs/imaging: WBC 8.3, Hgb 11.3, Platelets 162, Sodium 120, Potassium 4.2, Crea tinine 1.33, Glucose 103. MRI was obtained that revealed: Approximately 2 cm x 1.3 cm area of hyperintense FLAIR signal and diffusion restriction within the right posterior lateral inferior cerebellum, right side of the posterior corpus callosum, and medial parafalcine left posterior frontal lobe, in keeping with acute multifocal cerebral infarctions in the appropriate clinical setting. Will continue neuro-checks, physical therapy, home medications, optimizing medications to reduce stroke risk. [facility], appreciate the recommendations. Continue IVF and monitor sodium levels. Added low dose seroquel BID for agitation. Carotid U/S and Echo will need to be ordered Tuesday when services are available. Otherwise, continue to closely monitor. Follow up labs in the morning. Past Medical Family Social History Allergies: Allergies Penicillins Allergy (Verified 04/14/23 19:42) Review of Systems ROS changes noted: See HPI Vital Signs and I&O's Vital Signs: Vital Signs Temperature 97.0 F Pulse Rate 56 Pulse Rate 57 Pulse Rate 65 Respiratory Rate 17 Respiratory Rate 19 Blood Pressure 125/64 Blood Pressure 131/66 Blood Pressure 131/66 O2 Sat by Pulse Oximetry 100 O2 Sat by Pulse Oximetry 100 O2 Sat by Pulse Oximetry 100 O2 Sat by Pulse Oximetry 97 Intake and Output: Intake & Output 04/13/23 04/14/23 04/15/23 04/16/23 23:59 23:59 23:59 23:59 Intake Total 2161 / 2161 0 / 0 Output Total 1225 / 1225 Balance 936 / 936 0 / 0 Physical Exam Oriented: Normal Eyes: Normal Ear: Normal Nose: Normal Throat: Normal Respiratory: Normal Cardiovascular: Normal : Normal Auscultation: Bowel Sounds: Normal Tenderness: Normal Skin: Normal Musculoskeletal: Normal Psychiatric: Normal Mood Description: Calm Affect: Normal Speech Pattern: Clear and Appropriate Laboratory and Diagnostics Result Diagrams: 04/16/23 06:20 04/16/23 06:20 Labs: Laboratory WBC 8.3 X10^3/uL (3.6-10.0) 04/16/23 06:20 RBC 3.63 X10^6/uL (4.7-6.0) L 04/16/23 06:20 Hgb 11.3 g/dL (13.5-18.0) L 04/16/23 06:20 Hct 31.2 % (42.0-54.0) L 04/16/23 06:20 MCV 86.1 fL (80.0-100.0) 04/16/23 06:20 MCH 31.1 pg (27.0-34.0) 04/16/23 06:20 MCHC 36.1 g/dL (33.0-35.0) H 04/16/23 06:20 RDW 13.7 % (11.6-16.5) 04/16/23 06:20 Plt Count 162 X10^3/uL (150.0-450.0) 04/16/23 06:20 Plt Count Comment Adequate (ADEQUATE) 04/16/23 06:20 MPV 8.6 fL (7.4-11.0) 04/16/23 06:20 Neut % (Auto) 72.3 % (42.0-75.0) 04/16/23 06:20 Lymph % (Auto) 12.6 % (21.0-51.0) L 04/16/23 06:20 [place] % (Auto) 13.6 % (0.0-13.0) H 04/16/23 06:20 Eos % (Auto) 1.2 % (0.9-2.9) 04/16/23 06:20 Baso % (Auto) 0.3 % (0.2-1.0) 04/16/23 06:20 Neut # (Auto) 6.0 x10^3/uL (2.2-4.8) H 04/16/23 06:20 Lymph # (Auto) 1.0 X10^3/uL (1.3-2.9) L 04/16/23 06:20 [place] # (Auto) 1.1 x10^3/uL (0.3-0.8) H 04/16/23 06:20 Eos # (Auto) 0.1 x10^3/uL (0.0-0.2) 04/16/23 06:20 Baso # (Auto) 0.0 X10^3/uL (0.0-0.1) 04/16/23 06:20 Absolute Nucleated RBC 0.0 /100WBC 04/16/23 06:20 Total Counted 100 04/16/23 06:20 Neutrophils % (Manual) 73 % (39-76) 04/16/23 06:20 Lymphocytes % (Manual) 12 % (13-43) L 04/16/23 06:20 Monocytes % (Manual) 13 % (4-9) H 04/16/23 06:20 Eosinophils % (Manual) 2 % (0-6) 04/16/23 06:20 Plt Morphology Comment Normal (NORMAL) 04/16/23 06:20 RBC Morphology Normal (NORMAL) 04/16/23 06:20 Sodium 120 mmol/L (136-145) L* 04/16/23 06:20 Corrected Sodium TNP 04/16/23 06:20 Potassium 4.2 mmol/L (3.5-5.1) 04/16/23 06:20 Potassium Cancelled 04/16/23 06:20 Chloride 88 mmol/L (98-107) L 04/16/23 06:20 Carbon Dioxide 24.8 mmol/L (21-32) 04/16/23 06:20 BUN 16 mg/dL (7-18) 04/16/23 06:20 Creatinine 1.33 mg/dL (0.70-1.30) H 04/16/23 06:20 Est GFR (MDRD) Af Amer > 60 (>60) 04/16/23 06:20 Est GFR (MDRD) Non-Af 55 (>60) L 04/16/23 06:20 Glucose 103 mg/dL (65-99) H 04/16/23 06:20 Calcium 7.8 mg/dL (8.5-10.1) L 04/16/23 06:20 Corrected Calcium TNP 04/16/23 06:20 Magnesium 2.0 mg/dL (2.0-2.9) 04/15/23 04:40 Total Bilirubin 1.30 mg/dL (0.2-1.0) H 04/16/23 06:20 AST 53 Units/L (15-37) H 04/16/23 06:20 ALT 48 Units/L (12-78) 04/16/23 06:20 Alkaline Phosphatase 102 Units/L (46-116) 04/16/23 06:20 Ammonia 16 umol/L (11-32) 04/16/23 06:20 Creatine Kinase 858 Units/L (39-308) H 04/14/23 22:05 Troponin I High Sens 15.6 ng/L (4.0-60.0) 04/14/23 22:05 Total Protein 6.0 g/dL (6.4-8.2) L 04/16/23 06:20 Albumin 3.4 g/dL (3.4-5.0) 04/16/23 06:20 Globulin 2.6 g/dL (2.5-4.5) 04/16/23 06:20 Albumin/Globulin Ratio 1.3 Ratio (1.1-2.1) 04/16/23 06:20 Vitamin B12 520 pg/mL (193-986) 04/16/23 06:20 Folate > 20.0 ng/mL (>8.6) 04/16/23 06:20 Thyroxine (T4) 7.9 ug/dL (4.7-13.3) 04/16/23 06:20 TSH 3rd Generation 2.662 uIU/mL (0.358-3.74) 04/16/23 06:20 Specimen Type Clean catch urine 04/14/23 20:52 Urine Color Pale yellow (YELLOW) 04/14/23 20:52 Urine Appearance Clear (CLEAR) 04/14/23 20:52 Urine pH 7.0 (5.0 - 8.0) 04/14/23 20:52 Ur Specific [place] 1.015 (1.000-1.030) 04/14/23 20:52 Urine Protein 2+ (NEGATIVE) 04/14/23 20:52 Urine Glucose (UA) Negative (NEGATIVE) 04/14/23 20:52 Urine Ketones Negative (NEGATIVE) 04/14/23 20:52 Urine Blood Negative (NEGATIVE) 04/14/23 20:52 Urine Nitrite Negative (NEGATIVE) 04/14/23 20:52 Urine Bilirubin Negative (NEGATIVE) 04/14/23 20:52 Urine Urobilinogen 1+ (NORMAL) 04/14/23 20:52 Ur Leukocyte Esterase Negative (NEGATIVE) 04/14/23 20:52 Urine RBC None seen /HPF (0-3) 04/14/23 20:52 Urine WBC None seen /HPF (0-5) 04/14/23 20:52 Ur Squamous Epith Cells Rare /HPF (NEGATIVE) 04/14/23 20:52 Urine Bacteria Negative /HPF (NEGATIVE) 04/14/23 20:52 Ur Culture Indicated? No/not indicated 04/14/23 20:52 RPR Nonreactive (NONREACTIVE) 04/16/23 06:20 Plan (1) Acute CVA (cerebrovascular accident): Status: Acute (2) Acute hyponatremia: Status: Acute Plan: ADMIT, NORMAL SALINE AT 90 ML/HR, RESUME HOME MEDS (3) Frequent falls: Status: Acute Plan: PT/OT, (4) Generalized weakness: Status: Acute Plan: PT/OT, (5) HTN (hypertension): Status: Chronic Qualifiers: Hypertension type: primary hypertension Qualified Code(s): I10 - Essent ial (primary) hypertension Plan: CONTINUE ZESTRIL AND LOPRESSOR (6) CAD (coronary artery disease): Status: Chronic Qualifiers: Coronary Disease-Associated Artery/Lesion type: bypass graft [place] vs. transplanted heart: [place] heart Associated angina: without angina Qualified Code(s): I25.810 - Atherosclerosis of coronary artery bypass graft(s) without angina pectoris (7) Hyperlipidemia: Status: Chronic Qualifiers: Hyperlipidemia type: mixed hyperlipidemia Qualified Code(s): E78.2 - Mixed hyperlipidemia Plan: CONTINUE LIPITOR (8) GERD (gastroesophageal reflux disease): Status: Chronic Qualifiers: Esophagitis presence: esophagitis presence not specified Qualified Code(s): K21.9 - Gastro-esophageal reflux disease without esophagitis Plan: CONTINUE PRILOSEC (9) Hypothyroidism: Status: Chronic Qualifiers: Hypothyroidism type: acquired Qualified Code(s): E03.9 - Hypothyroidism, unspecified Plan: CONTINUE SYNTHROID
[2023-04-16 12:50] LABS: BILIRUBIN,URINE NEGATIVE (NEGATIVE); BLOOD/HEMOGLOBIN,URINE 2+ (NEGATIVE); GLUCOSE, URINE NEGATIVE (NEGATIVE); KETONES,URINE NEGATIVE (NEGATIVE); LEUKOCYTE ESTERASE ,URINE NEGATIVE (NEGATIVE); NITRITES,URINE NEGATIVE (NEGATIVE); PROTEIN,URINE NEGATIVE (NEGATIVE); UROBILINOGEN,URINE NORMAL (NORMAL)
[2023-04-16 13:00] LABS: APPEARANCE,URINE CLEAR (CLEAR); BACTERIA,URINE NEGATIVE /HPF (NEGATIVE); COLOR,URINE STRAW (YELLOW); RBC,URINE 0-2 /HPF (0-3); SQUAMOUS EPITHELIAL CELL,UR NEGATIVE /HPF (NEGATIVE)
[2023-04-16 13:01] LABS: RENAL EPITHELIAL CELLS,URINE RARE /HPF (NEGATIVE)
[2023-04-16 17:25] LABS: BLOOD UREA NITROGEN 14 mg/dL (7-18); CALCIUM 7.9 mg/dL (8.5-10.1); CARBON DIOXIDE 26.8 mmol/L (21-32); CHLORIDE 92 mmol/L (98-107); COR NA(FOR HYPERGLY) 128 mmol/L (136-145); CREATININE 1.32 mg/dL (0.70-1.30); GLUCOSE 125 mg/dL (65-99); SODIUM 127 mmol/L (136-145); eGFR NON BLACK RACES 55 (>60)
[2023-04-16] MEDS: SEROquel TAB 25 mg PO SCH (17:30)
[2023-04-16] MEDS: LIPITOR TAB 10 MG PO SCH (20:43)
[2023-04-16] MEDS: RESTORIL CAP 15 MG PO PRN (20:47)
[2023-04-17] MEDS: NS 1,000 ML IV 1,000 ML IV SCH ×4 (01:37→20:11)
[2023-04-17 04:45] LABS: BASOPHILS # (AUTO) 0.1 X10^3/uL (0.0-0.1); BASOPHILS % (AUTO) 0.9 % (0.2-1.0); EOSINOPHILS # (AUTO) 0.3 x10^3/uL (0.0-0.2); EOSINOPHILS % (AUTO) 3.7 % (0.9-2.9); LYMPHOCYTES # (AUTO) 1.6 X10^3/uL (1.3-2.9); LYMPHOCYTES % (AUTO) 21.8 % (21.0-51.0); MEAN CORPUSCULAR HEMOGLOBIN 30.9 pg (27.0-34.0); MEAN CORPUSCULAR HGB CONC 35.4 g/dL (33.0-35.0); MEAN CORPUSCULAR VOLUME 87.4 fL (80.0-100.0); MEAN PLATELET VOLUME 8.8 fL (7.4-11.0); MONOCYTES # (AUTO) 0.5 x10^3/uL (0.3-0.8); NEUTROPHILS # (AUTO) 4.8 x10^3/uL (2.2-4.8); NEUTROPHILS % (AUTO) 66.6 % (42.0-75.0); PLATELET COUNT 165 X10^3/uL (150.0-450.0); RED BLOOD COUNT 3.55 X10^6/uL (4.7-6.0); RED CELL DISTRIBUTION WIDTH 14.2 % (11.6-16.5); WHITE BLOOD COUNT 7.2 X10^3/uL (3.6-10.0)
[2023-04-17 04:55] LABS: ALANINE AMINOTRANSFERASE 44 Units/L (12-78); ALBUMIN 3.2 g/dL (3.4-5.0); ALKALINE PHOSPHATASE 106 Units/L (46-116); ASPARTATE AMINO TRANSFERASE 42 Units/L (15-37); BLOOD UREA NITROGEN 13 mg/dL (7-18); CALCIUM 7.9 mg/dL (8.5-10.1); CHLORIDE 99 mmol/L (98-107); COR CA(FOR HYPOALB) 8.5 mg/dL (8.5-10.1); CREATININE 1.22 mg/dL (0.70-1.30); GLUCOSE 87 mg/dL (65-99); POTASSIUM 4.1 mmol/L (3.5-5.1); SODIUM 133 mmol/L (136-145); TOTAL PROTEIN 5.7 g/dL (6.4-8.2); eGFR NON BLACK RACES > 60 (>60)
[2023-04-17] MEDS: ZOFRAN TAB 4 MG PO SCH ×3 (06:41→22:20)
--- NOTE | 2023-04-17 07:32 | RAD ---
HISTORYHyponatremiaSTUDYPortable AP chestCOMPARISONNoneFINDINGSThe heart is not significantly enlarged. Sternal wires are present. The lungs and pleural spaces are clear of active disease. There is no evidence for CHF or pneumonia. Air-containing colon segments are interposed between the right diaphragm and the liver.IMPRESSIONNo acute or significant findings.Electronically signed by: MARGARET HAWLEY (Apr 17, 2023 07:30:10)
[2023-04-17] MEDS ORDERED: MILK OF MAGNESIA ONE (08:19)
[2023-04-17] MEDS: ASPIRIN 81 MG CHEWTAB PO SCH (08:31)
[2023-04-17] MEDS: SYNTHROID 100 mcg TAB PO SCH (08:31)
[2023-04-17] MEDS: PriLOSEC PO SCH (08:31)
[2023-04-17] MEDS: LOPRESSOR TAB 25 MG PO SCH ×2 (08:31→20:12)
[2023-04-17] MEDS: MILK OF MAGNESIA PO SCH ×2 (08:31→20:12)
[2023-04-17] MEDS: SEROquel TAB 25 mg PO SCH ×2 (08:31→17:05)
[2023-04-17] MEDS: ZESTRIL TAB 10 MG PO SCH (08:31)
[2023-04-17] MEDS: FLOMAX PO SCH (08:31)
[2023-04-17] MEDS: CELEBREX PO SCH ×2 (08:32→20:12)
--- NOTE | 2023-04-17 12:17 | PCM.PROG ---
Progress Note Progress Note for Day of Date of Exam: 04/17/23 Subjective Subjective: Patient is a 83-year-old male admitted for acute CVA and hyponatremia. This morning patient sitting in recliner chair. He reports feeling better and eating well. Per family his mood has improved with the addition of seroquel and he was able to sleep well at night. Labs/imaging: WBC 7.2, Hgb 11, Platelets 165, Sodium 133, Potassium 4.1, Creatinine 1.22, Glucose 87. MRI was obtained that revealed: Approximately 2 cm x 1.3 cm area of hyperintense FLAIR signal and diffusion restriction within the right posterior lateral inferior cerebellum, right side of the posterior corpus callosum, and medial parafalcine left posterior frontal lobe, in keeping with acute multifocal cerebral infarctions in the appropriate clinical setting. Will continue neuro- checks, physical therapy, home medications, optimizing medications to reduce stroke risk. [id number] consulted, appreciate the recommendations. Continue IVF and can decrease rate to 75ml/h. Monitor sodium levels. Hyponatremia improved almost to wnl. Continue seroquel BID for agitation. Carotid U/S and Echo ordered for Tuesday when services are available. Pt is on aspirin will start on plavix tomorrow. Lipitor increased to 40mg. Otherwise continue with current treatment plan. Closely monitor. Follow up labs in the morning. Past Medical Family Social History Allergies: Allergies Penicillins Allergy (Verified 04/14/23 19:42) Review of Systems ROS changes noted: see HPI Vital Signs and I&O's Vital Signs: Vital Signs Pulse Rate 60 Pulse Rate 56 Pulse Rate 57 Pulse Rate 57 Pulse Rate 58 Pulse Rate 62 Pulse Rate 61 Pulse Rate 61 Pulse Rate 65 Pulse Rate 52 Pulse Rate 72 Pulse Rate 50 Pulse Rate 50 Pulse Rate 53 Respiratory Rate 20 Respiratory Rate 29 Respiratory Rate 15 Respiratory Rate 19 Respiratory Rate 23 Respiratory Rate 21 Respiratory Rate 14 Respiratory Rate 25 Respiratory Rate 22 Respiratory Rate 21 Respiratory Rate 19 Respiratory Rate 12 Respiratory Rate 11 Respiratory Rate 11 Blood Pressure 160/76 Blood Pressure 168/76 Blood Pressure 153/72 Blood Pressure 173/78 Blood Pressure 159/85 Blood Pressure 144/70 Blood Pressure 143/72 Blood Pressure 121/65 Blood Pressure 92/54 O2 Sat by Pulse Oximetry 100 O2 Sat by Pulse Oximetry 92 O2 Sat by Pulse Oximetry 97 O2 Sat by Pulse Oximetry 100 O2 Sat by Pulse Oximetry 100 O2 Sat by Pulse Oximetry 100 O2 Sat by Pulse Oximetry 100 O2 Sat by Pulse Oximetry 99 O2 Sat by Pulse Oximetry 100 O2 Sat by Pulse Oximetry 100 O2 Sat by Pulse Oximetry 100 O2 Sat by Pulse Oximetry 99 O2 Sat by Pulse Oximetry 99 O2 Sat by Pulse Oximetry 97 Intake and Output: Intake & Output 04/14/23 04/15/23 04/16/23 04/17/23 23:59 23:59 23:59 23:59 Intake Total 2161 / 2161 3045 / 3045 633 / 633 Output Total 1225 / 1225 3200 / 3200 300 / 300 Balance 936 / 936 -155 / -155 333 / 333 Physical Exam Oriented: Normal Eyes: Normal Ear: Normal Nose: Normal Throat: Normal Respiratory: Normal Cardiovascular: Normal : Normal Auscultation: Bowel Sounds: Normal Tenderness: Normal Skin: Normal Musculoskeletal: Normal Psychiatric: Normal Mood Description: Calm Affect: Normal Speech Pattern: Clear and Appropriate Laboratory and Diagnostics Result Diagrams: 04/17/23 04:18 04/17/23 04:18 Labs: Laboratory WBC 7.2 X10^3/uL (3.6-10.0) 04/17/23 04:18 RBC 3.55 X10^6/uL (4.7-6.0) L 04/17/23 04:18 Hgb 11.0 g/dL (13.5-18.0) L 04/17/23 04:18 Hct 31.0 % (42.0-54.0) L 04/17/23 04:18 MCV 87.4 fL (80.0-100.0) 04/17/23 04:18 MCH 30.9 pg (27.0-34.0) 04/17/23 04:18 MCHC 35.4 g/dL (33.0-35.0) H 04/17/23 04:18 RDW 14.2 % (11.6-16.5) 04/17/23 04:18 Plt Count 165 X10^3/uL (150.0-450.0) 04/17/23 04:18 Plt Count Comment Adequate (ADEQUATE) 04/16/23 06:20 MPV 8.8 fL (7.4-11.0) 04/17/23 04:18 Neut % (Auto) 66.6 % (42.0-75.0) 04/17/23 04:18 Lymph % (Auto) 21.8 % (21.0-51.0) 04/17/23 04:18 [place] % (Auto) 7.0 % (0.0-13.0) 04/17/23 04:18 Eos % (Auto) 3.7 % (0.9-2.9) H 04/17/23 04:18 Baso % (Auto) 0.9 % (0.2-1.0) 04/17/23 04:18 Neut # (Auto) 4.8 x10^3/uL (2.2-4.8) 04/17/23 04:18 Lymph # (Auto) 1.6 X10^3/uL (1.3-2.9) 04/17/23 04:18 [place] # (Auto) 0.5 x10^3/uL (0.3-0.8) 04/17/23 04:18 Eos # (Auto) 0.3 x10^3/uL (0.0-0.2) H 04/17/23 04:18 Baso # (Auto) 0.1 X10^3/uL (0.0-0.1) 04/17/23 04:18 Absolute Nucleated RBC 0.0 /100WBC 04/17/23 04:18 Total Counted 100 04/16/23 06:20 Neutrophils % (Manual) 73 % (39-76) 04/16/23 06:20 Lymphocytes % (Manual) 12 % (13-43) L 04/16/23 06:20 Monocytes % (Manual) 13 % (4-9) H 04/16/23 06:20 Eosinophils % (Manual) 2 % (0-6) 04/16/23 06:20 Plt Morphology Comment Normal (NORMAL) 04/16/23 06:20 RBC Morphology Normal (NORMAL) 04/16/23 06:20 Sodium 133 mmol/L (136-145) L 04/17/23 04:18 Corrected Sodium TNP 04/17/23 04:18 Potassium 4.1 mmol/L (3.5-5.1) 04/17/23 04:18 Chloride 99 mmol/L (98-107) 04/17/23 04:18 Carbon Dioxide 26.0 mmol/L (21-32) 04/17/23 04:18 BUN 13 mg/dL (7-18) 04/17/23 04:18 Creatinine 1.22 mg/dL (0.70-1.30) 04/17/23 04:18 Est GFR (MDRD) Af Amer > 60 (>60) 04/17/23 04:18 Est GFR (MDRD) Non-Af > 60 (>60) 04/17/23 04:18 Glucose 87 mg/dL (65-99) 04/17/23 04:18 Calcium 7.9 mg/dL (8.5-10.1) L 04/17/23 04:18 Corrected Calcium 8.5 mg/dL (8.5-10.1) 04/17/23 04:18 Magnesium 2.0 mg/dL (2.0-2.9) 04/15/23 04:40 Total Bilirubin 0.90 mg/dL (0.2-1.0) 04/17/23 04:18 AST 42 Units/L (15-37) H 04/17/23 04:18 ALT 44 Units/L (12-78) 04/17/23 04:18 Alkaline Phosphatase 106 Units/L (46-116) 04/17/23 04:18 Ammonia 16 umol/L (11-32) 04/16/23 06:20 Creatine Kinase 858 Units/L (39-308) H 04/14/23 22:05 Troponin I High Sens 15.6 ng/L (4.0-60.0) 04/14/23 22:05 Total Protein 5.7 g/dL (6.4-8.2) L 04/17/23 04:18 Albumin 3.2 g/dL (3.4-5.0) L 04/17/23 04:18 Globulin 2.5 g/dL (2.5-4.5) 04/17/23 04:18 Albumin/Globulin Ratio 1.3 Ratio (1.1-2.1) 04/17/23 04:18 Vitamin B12 520 pg/mL (193-986) 04/16/23 06:20 Folate > 20.0 ng/mL (>8.6) 04/16/23 06:20 Thyroxine (T4) 7.9 ug/dL (4.7-13.3) 04/16/23 06:20 TSH 3rd Generation 2.662 uIU/mL (0.358-3.74) 04/16/23 06:20 Specimen Type Clean catch urine 04/16/23 12:35 Urine Color Straw (YELLOW) 04/16/23 12:35 Urine Appearance Clear (CLEAR) 04/16/23 12:35 Urine pH 6.0 (5.0 - 8.0) 04/16/23 12:35 Ur Specific [place] 1.015 (1.000-1.030) 04/16/23 12:35 Urine Protein Negative (NEGATIVE) 04/16/23 12:35 Urine Glucose (UA) Negative (NEGATIVE) 04/16/23 12:35 Urine Ketones Negative (NEGATIVE) 04/16/23 12:35 Urine Blood 2+ (NEGATIVE) 04/16/23 12:35 Urine Nitrite Negative (NEGATIVE) 04/16/23 12:35 Urine Bilirubin Negative (NEGATIVE) 04/16/23 12:35 Urine Urobilinogen Normal (NORMAL) 04/16/23 12:35 Ur Leukocyte Esterase Negative (NEGATIVE) 04/16/23 12:35 Urine RBC 0-2 /HPF (0-3) 04/16/23 12:35 Urine WBC None seen /HPF (0-5) 04/16/23 12:35 Ur Squamous Epith Cells Negative /HPF (NEGATIVE) 04/16/23 12:35 Ur Renal Epithelial Cell Rare /HPF (NEGATIVE) 04/16/23 12:35 Urine Bacteria Negative /HPF (NEGATIVE) 04/16/23 12:35 Ur Culture Indicated? No/not indicated 04/16/23 12:35 RPR Nonreactive (NONREACTIVE) 04/16/23 06:20 Plan (1) Acute CVA (cerebrovascular accident): Status: Acute (2) Acute hyponatremia: Status: Acute Plan: NORMAL SALINE AT 75 ML/HR, RESUME HOME MEDS (3) Frequent falls: Status: Acute Plan: PT/OT, (4) Generalized weakness: Status: Acute Plan: PT/OT, (5) HTN (hypertension): Status: Chronic Qualifiers: Hypertension type: primary hypertension Qualified Code(s): I10 - Essential (primary) hypertension Plan: CONTINUE ZESTRIL AND LOPRESSOR (6) CAD (coronary artery disease): Status: Chronic Qualifiers: Coronary Disease-Associated Artery/Lesion type: bypass graft [place] vs. transplanted heart: [place] heart Associated angina: without angina Qualified Code(s): I25.810 - Atherosclerosis of coronary artery bypass graft(s) without angina pectoris (7) Hyperlipidemia: Status: Chronic Qualifiers: Hyperlipidemia type: mixed hyperlipidemia Qualified Code(s): E78.2 - Mixed hyperlipidemia Plan: CONTINUE LIPITOR (8) GERD (gastroesophageal reflux disease): Status: Chronic Qualifiers: Esophagitis presence: esophagitis presence not specified Qualified Code(s): K21.9 - Gastro-esophageal reflux disease without esophagitis Plan: CONTINUE PRILOSEC (9) Hypothyroidism: Status: Chronic Qualifiers: Hypothyroidism type: acquired Qualified Code(s): E03.9 - Hy pothyroidism, unspecified Plan: CONTINUE SYNTHROID
[2023-04-17 17:11] LABS: CALCIUM 7.5 mg/dL (8.5-10.1); CARBON DIOXIDE 28.7 mmol/L (21-32); CREATININE 1.45 mg/dL (0.70-1.30); POTASSIUM 4.3 mmol/L (3.5-5.1)
[2023-04-17] MEDS: LIPITOR TAB 40 MG PO SCH (20:11)
[2023-04-17] MEDS: COLACE CAP 100 MG PO SCH (20:11)
[2023-04-17] MEDS: RESTORIL CAP 15 MG PO PRN (20:12)
[2023-04-18] MEDS: NS 1,000 ML IV 1,000 ML IV SCH ×5 (01:18→20:21)
[2023-04-18 05:47] LABS: BASOPHILS # (AUTO) 0.1 X10^3/uL (0.0-0.1); BASOPHILS % (AUTO) 0.8 % (0.2-1.0); EOSINOPHILS # (AUTO) 0.4 x10^3/uL (0.0-0.2); EOSINOPHILS % (AUTO) 4.9 % (0.9-2.9); HEMATOCRIT 27.3 % (42.0-54.0); HEMOGLOBIN 9.7 g/dL (13.5-18.0); LYMPHOCYTES # (AUTO) 1.9 X10^3/uL (1.3-2.9); LYMPHOCYTES % (AUTO) 23.8 % (21.0-51.0); MEAN CORPUSCULAR HEMOGLOBIN 31.5 pg (27.0-34.0); MEAN CORPUSCULAR HGB CONC 35.6 g/dL (33.0-35.0); MEAN CORPUSCULAR VOLUME 88.5 fL (80.0-100.0); MEAN PLATELET VOLUME 8.6 fL (7.4-11.0); MONOCYTES # (AUTO) 0.8 x10^3/uL (0.3-0.8); MONOCYTES % (AUTO) 10.3 % (0.0-13.0); NEUTROPHILS # (AUTO) 4.8 x10^3/uL (2.2-4.8); NEUTROPHILS % (AUTO) 60.2 % (42.0-75.0); PLATELET COUNT 175 X10^3/uL (150.0-450.0); RED BLOOD COUNT 3.09 X10^6/uL (4.7-6.0); RED CELL DISTRIBUTION WIDTH 14.7 % (11.6-16.5); WHITE BLOOD COUNT 7.9 X10^3/uL (3.6-10.0)
[2023-04-18 05:54] LABS: ALANINE AMINOTRANSFERASE 39 Units/L (12-78); ALBUMIN 2.5 g/dL (3.4-5.0); ALKALINE PHOSPHATASE 117 Units/L (46-116); ASPARTATE AMINO TRANSFERASE 32 Units/L (15-37); BLOOD UREA NITROGEN 13 mg/dL (7-18); CALCIUM 7.4 mg/dL (8.5-10.1); CARBON DIOXIDE 28.5 mmol/L (21-32); CHLORIDE 103 mmol/L (98-107); COR CA(FOR HYPOALB) 8.6 mg/dL (8.5-10.1); CREATININE 1.25 mg/dL (0.70-1.30); GLUCOSE 101 mg/dL (65-99); POTASSIUM 4.1 mmol/L (3.5-5.1); SODIUM 136 mmol/L (136-145); TOTAL PROTEIN 4.9 g/dL (6.4-8.2); eGFR NON BLACK RACES 59 (>60)
[2023-04-18] MEDS: ZOFRAN TAB 4 MG PO SCH ×3 (06:04→21:51)
[2023-04-18] MEDS ORDERED: CELEBREX PO ONE (09:16)
[2023-04-18] MEDS: SEROquel TAB 25 mg PO SCH ×2 (09:40→18:27)
[2023-04-18] MEDS: CELEBREX PO SCH ×2 (09:40→20:20)
[2023-04-18] MEDS: FLOMAX PO SCH (09:40)
[2023-04-18] MEDS: LOPRESSOR TAB 25 MG PO SCH ×2 (09:40→20:21)
[2023-04-18] MEDS: ASPIRIN EC 81 MG PO SCH (09:40)
[2023-04-18] MEDS: PLAVIX PO SCH (09:41)
[2023-04-18] MEDS: MILK OF MAGNESIA PO SCH ×2 (09:41→20:21)
[2023-04-18] MEDS: SYNTHROID 100 mcg TAB PO SCH (09:44)
[2023-04-18] MEDS: PriLOSEC PO SCH (09:44)
[2023-04-18] MEDS: ZESTRIL TAB 10 MG PO SCH (09:44)
[2023-04-18 13:03] LABS: BASOPHILS # (AUTO) 0.1 X10^3/uL (0.0-0.1); BASOPHILS % (AUTO) 1.5 % (0.2-1.0); EOSINOPHILS # (AUTO) 0.4 x10^3/uL (0.0-0.2); HEMATOCRIT 31.8 % (42.0-54.0); HEMOGLOBIN 11.4 g/dL (13.5-18.0); LYMPHOCYTES # (AUTO) 1.8 X10^3/uL (1.3-2.9); LYMPHOCYTES % (AUTO) 18.7 % (21.0-51.0); MEAN CORPUSCULAR HEMOGLOBIN 31.8 pg (27.0-34.0); MEAN CORPUSCULAR HGB CONC 35.7 g/dL (33.0-35.0); MEAN CORPUSCULAR VOLUME 88.9 fL (80.0-100.0); MONOCYTES # (AUTO) 0.9 x10^3/uL (0.3-0.8); MONOCYTES % (AUTO) 9.1 % (0.0-13.0); NEUTROPHILS # (AUTO) 6.3 x10^3/uL (2.2-4.8); NEUTROPHILS % (AUTO) 66.7 % (42.0-75.0); PLATELET COUNT 201 X10^3/uL (150.0-450.0); RED BLOOD COUNT 3.58 X10^6/uL (4.7-6.0); RED CELL DISTRIBUTION WIDTH 14.4 % (11.6-16.5); WHITE BLOOD COUNT 9.5 X10^3/uL (3.6-10.0)
--- NOTE | 2023-04-18 14:20 | VAS ---
HISTORY: Concern for carotid artery stenosis. [Carotid atherosclerosis].EXAM: BILATERAL DOPPLER CAROTID ULTRASOUND EXAMTechnique: Multiple potts scale and color flow Doppler images of the right and left carotid arterial system were obtained. The vertebral arterial system was evaluated as well.Findings:Nonocclusive color flow Doppler is seen throughout the right and left carotid arterial system. No hemodynamically significant carotid arterial stenosis is seen based on velocity criteria. There is [qibc-ju-mkklerfa carotid] atherosclerosis and [mixed atherosclerotic] plaque formation of the bilateral carotid bulbs and ICAs with associated intimal thickening but [without] evidence for high-grade stenosis (>70%) or occlusion of the carotid arteries. The right and left vertebral artery demonstrate antegrade flow.IMPRESSION:[Ssqo-gx-jiipcamd carotid] atherosclerosis and [mixed atherosclerotic] plaque formation of the bilateral carotid bulbs and [in both] ICAs with [[id number]-[id number]] associated carotid intimal thickening but without evidence for high-grade stenosis or occlusion of the carotid arteries, based on Doppler velocity criteria.Appropriate, antegrade, vertebral arterial flow.[place] right ICA velocity: [82] centimeter/seconds.Peak right CCA velocity: [55] centimeter/seconds.Peak left ICA velocity: [67] centimeter/seconds.Peak left CCA velocity: [52] centimeter/seconds.Right ICA to CCA ratio: [2.1].Left ICA to CCA ratio: [1.9].Electronically signed by: DAMI BERNARD III (Apr 18, 2023 14:18:31)
[2023-04-18] MEDS: LIPITOR TAB 40 MG PO SCH (20:20)
[2023-04-18] MEDS: COLACE CAP 100 MG PO SCH (20:20)
[2023-04-18] MEDS: RESTORIL CAP 15 MG PO PRN (20:21)
--- NOTE | 2023-04-18 20:41 | PCM.PROG ---
Progress Note - Progress Note for Day of Date of Exam: 04/18/23 - Subjective Subjective: IS A 83 YEAR OLD PATIENT OF OURS. HE IS CURRENTLY INPATIENT STATUS. HE WAS ADMITTED FOR TREATMENT OF ACUTE HYPONATREMIA, FREQUENT FALLS, AND GENERALIZED WEAKNESS. HE HAS A PMH OF HTN, CAD, HYPERLIPIDEMIA, GERD, AND HYPOTHYRODISM. A BRAIN MRI WAS OBTAINED ON TUESDAY AND REVEALED: Approximately 2 cm x 1.3 cm area of hyperintense FLAIR signal and diffusion restriction within the right posterior lateral inferior cerebellum, right side of the posterior corpus callosum, and medial parafalcine left posterior frontal lobe, in keeping with acute multifocal cerebral infarctions in the appropriate clinical setting. TODAY, HE IS ALERT, LYING IN BED ON MORNING ROUNDS. HE IS ABLE TO ANSWER QUESTIONS APPROPRIATELY THIS MORNING. HE REPORTS FEELING WELL, OTHER THAN SOME CONTINUED WEAKNESS. HE HAD AN UNEVENTFUL NIGHT. HE HAD APPARENTLY BEEN AGITATED OVER THE WEEKEND AND HAD SOME CONFUSION. HE WAS STARTED ON ATIVAN AND SEROQUEL. THIS DID CALM HIM DOWN AND HELPED HIM SLEEP BETTER. HIS FAMILY REPORTS THAT HE CONTINUES WITH WEAKNESS AND DIFFICULTY EXPRESSING WHAT HE IS TRYING TO SAY AT TIMES. THEY REPORT THAT HE IS UNSTEADY ON AMBULATION AND STANDING. ON EXAMINATION TODAY, HEART IS REGULAR IN RATE AND RHYTHM. BILATERAL LUNGS ARE CLEAR TO AUSCULTAITON. ABDOMEN IS ROUND, SOFT, AND NON-TENDER WITH NORMAL BOWEL SOUNDS NOTED IN ALL QUADRANTS. WEAKNESS OF LOWER EXTREMITIES NOTED. NO EDEMA N OTED TO UPPER OR LOWER EXTREMITIES. HIS VITALS THIS MORNING ARE: 98.6-67-22-100%-162/76. LABS WERE OBTAINED. WBC 7.9, RBC 3.09, HGB 9.7, HCT 27.3, PLT COUNT 175, SODIUM 136, POTASSIUM 4.1, CHLORIDE 103, BUN 13, CREATININE 1.25, GLUCOSE 101, CALCIUM 7.4, AST 32, ALT 39, ALK PHOS 117, TOTAL PROTEIN 4.9, ALBUMIN 2.5. A CAROTID ARTERY ULTRASOUND WAS OBTAINED THIS MORNING AND REVEALED: [Fafc-ot-thzjqtgl carotid] atherosclerosis and [mixed atherosclerotic] plaque formation of the bilateral carotid bulbs and [in both] ICAs with [ilku-qi-yrxrgqdm] associated carotid intimal thickening but without evidence for high-grade stenosis or occlusion of the carotid arteries, based on Doppler velocity criteria. AN ECHO WAS OBTAINED AND REVEALED AN EJECTION FRACTION OF 62%. PHYSICAL THERAPY WORKED WITH HIM TODAY AND REPORT THAT HE WAS UNSTEADY STANDING AND AMBULATING. HE REQUIRED MODERATE ASSISTANCE TO STAND. PT FEELS THAT HE WOULD BENEFIT FROM SKILLED REHAB FACILITY TO REGAIN HIGHEST LEVEL OF FUNCTIONING BEFORE RETURNING HOME. HE IS CURRENTLY RECEIVING NORMAL SALINE AT 75 ML/HR, ECOTRIN 81MG DAILY, PLAVIX 75MG DAILY, COLACE 200MG HS, MILK OF MAGNESIA 30ML BID, SEROQUEL 25MG BID, RESTORIL 15MG HS PRN, AND HIS HOME MEDICATIONS WERE RESUMED. HOME MEDS INCLUDE: LIPITOR, CELEBREX, SYNTHROID, ZESTRIL, L OPRESSOR, PRILOSEC, ZOFRAN, AND FLOMAX. WE WILL HAVE SPEECH THERAPY EVALUATE HIM. WE WILL DISCUSS PLAN OF CARE WITH PATIENT AND HIS FAMILY AND MAKE FURTHER DECISIONS REGARDING REHAB. OTHERWISE, WE WILL FOLLOW-UP WITH AM LABS AND CONTINUE TO MONITOR. TIME SPENT ON CLINICAL ASSESSMENT, REVIEWING LABS AND IMAGING, DECISION MAKING, AND DOCUMENTATION GREATER THAN 45 MINUTES. - Past Medical Family Social History Past Med/Fam/Surg Hx: No changes since H&P Allergies: Allergies Penicillins Allergy (Verified 04/14/23 19:42) - Review of Systems ROS: No change since H&P - Vital Signs and I&O's Vital Signs: Vital Signs Temperature 97.3 F Pulse Rate 68 Pulse Rate 63 Pulse Rate 62 Pulse Rate 74 Pulse Rate 59 Pulse Rate 63 Respiratory Rate 23 Respiratory Rate 20 Respiratory Rate 22 Respiratory Rate 22 Respiratory Rate 25 Respiratory Rate 20 Blood Pressure 173/92 Blood Pressure 172/85 Blood Pressure 170/85 Blood Pressure 133/109 Blood Pressure 160/76 Blood Pressure 176/133 Blood Pressure 176/133 O2 Sat by Pulse Oximetry 97 O2 Sat by Pulse Oximetry 97 O2 Sat by Pulse Oximetry 100 O2 Sat by Pulse Oximetry 100 O2 Sat by Pulse Oximetry 100 O2 Sat by Pulse Oximetry 100 Intake and Output: Intake & Output 04/16/23 04/17/23 04/18/23 04/19/23 11:59 11:59 11:59 11:59 Intake Total 1531 / 1531 3678 / 3678 2628 / 2628 1348 / 1348 Output Total 375 / 375 3500 / 3500 3200 / 3200 550 / 550 Balance 1156 / 1156 178 / 178 -572 / -572 798 / 798 - Physical Exam Oriented: Normal Eyes: Normal Ear: Normal Nose: Normal Throat: Normal Respiratory: Normal Cardiovascular: Normal : Normal Auscultation: Bowel Sounds: Normal Palpation: Normal Tenderness: Normal Skin: Normal Musculoskeletal: Normal Psychiatric: Normal Mood Description: Calm Affect: Normal Speech Pattern: Clear, Appropriate - Laboratory and Diagnostics Result Diagrams: 04/18/23 12:45 04/18/23 04:13 Labs: Laboratory WBC 9.5 X10^3/uL (3.6-10.0) 04/18/23 12:45 RBC 3.58 X10^6/uL (4.7-6.0) L 04/18/23 12:45 Hgb 11.4 g/dL (13.5-18.0) L 04/18/23 12:45 Hct 31.8 % (42.0-54.0) L 04/18/23 12:45 MCV 88.9 fL (80.0-100.0) 04/18/23 12:45 MCH 31.8 pg (27.0-34.0) 04/18/23 12:45 MCHC 35.7 g/dL (33.0-35.0) H 04/18/23 12:45 RDW 14.4 % (11.6-16.5) 04/18/23 12:45 Plt Count 201 X10^3/uL (150.0-450.0) 04/18/23 12:45 Plt Count Comment Adequate (ADEQUATE) 04/16/23 06:20 MPV 8.0 fL (7.4-11.0) 04/18/23 12:45 Neut % (Auto) 66.7 % (42.0-75.0) 04/18/23 12:45 Lymph % (Auto) 18.7 % (21.0-51.0) L 04/18/23 12:45 [place] % (Auto) 9.1 % (0.0-13.0) 04/18/23 12:45 Eos % (Auto) 4.0 % (0.9-2.9) H 04/18/23 12:45 Baso % (Auto) 1.5 % (0.2-1.0) H 04/18/23 12:45 Neut # (Auto) 6.3 x10^3/uL (2.2-4.8) H 04/18/23 12:45 Lymph # (Auto) 1.8 X10^3/uL (1.3-2.9) 04/18/23 12:45 [place] # (Auto) 0.9 x10^3/uL (0.3-0.8) H 04/18/23 12:45 Eos # (Auto) 0.4 x10^3/uL (0.0-0.2) H 04/18/23 12:45 Baso # (Auto) 0.1 X10^3/uL (0.0-0.1) 04/18/23 12:45 Absolute Nucleated RBC 0.1 /100WBC 04/18/23 12:45 Total Counted 100 04/16/23 06:20 Neutrophils % (Manual) 73 % (39-76) 04/16/23 06:20 Lymphocytes % (Manual) 12 % (13-43) L 04/16/23 06:20 Monocytes % (Manual) 13 % (4-9) H 04/16/23 06:20 Eosinophils % (Manual) 2 % (0-6) 04/16/23 06:20 Plt Morphology Comment Normal (NORMAL) 04/16/23 06:20 RBC Morphology Normal (NORMAL) 04/16/23 06:20 Sodium 136 mmol/L (136-145) 04/18/23 04:13 Corrected Sodium TNP 04/18/23 04:13 Potassium 4.1 mmol/L (3.5-5.1) 04/18/23 04:13 Chloride 103 mmol/L (98-107) 04/18/23 04:13 Carbon Dioxide 28.5 mmol/L (21-32) 04/18/23 04:13 BUN 13 mg/dL (7-18) 04/18/23 04:13 Creatinine 1.25 mg/dL (0.70-1.30) 04/18/23 04:13 Est GFR (MDRD) Af Amer > 60 (>60) 04/18/23 04:13 Est GFR (MDRD) Non-Af 59 (>60) 04/18/23 04:13 Glucose 101 mg/dL (65-99) H 04/18/23 04:13 Calcium 7.4 mg/dL (8.5-10.1) L 04/18/23 04:13 Corrected Calcium 8.6 mg/dL (8.5-10.1) 04/18/23 04:13 Magnesium 2.0 mg/dL (2.0-2.9) 04/15/23 04:40 Total Bilirubin 0.60 mg/dL (0.2-1.0) 04/18/23 04:13 AST 32 Units/L (15-37) 04/18/23 04:13 ALT 39 Units/L (12-78) 04/18/23 04:13 Alkaline Phosphatase 117 Units/L (46-116) H 04/18/23 04:13 Ammonia 16 umol/L (11-32) 04/16/23 06:20 Creatine Kinase 858 Units/L (39-308) H 04/14/23 22:05 Troponin I High Sens 15.6 ng/L (4.0-60.0) 04/14/23 22:05 Total Protein 4.9 g/dL (6.4-8.2) L 04/18/23 04:13 Albumin 2.5 g/dL (3.4-5.0) L 04/18/23 04:13 Globulin 2.4 g/dL (2.5-4.5) L 04/18/23 04:13 Albumin/Globulin Ratio 1.0 Ratio (1.1-2.1) L 04/18/23 04:13 Vitamin B12 520 pg/mL (193-986) 04/16/23 06:20 Folate > 20.0 ng/mL (>8.6) 04/16/23 06:20 Thyroxine (T4) 7.9 ug/dL (4.7-13.3) 04/16/23 06:20 TSH 3rd Generation 2.662 uIU/mL (0.358-3.74) 04/16/23 06:20 Specimen Type Clean catch urine 04/16/23 12:35 Urine Color Straw (YELLOW) 04/16/23 12:35 Urine Appearance Clear (CLEAR) 04/16/23 12:35 Urine pH 6.0 (5.0 - 8.0) 04/16/23 12:35 Ur Specific [place] 1.015 (1.000-1.030) 04/16/23 12:35 Urine Protein Negative (NEGATIVE) 04/16/23 12:35 Urine Glucose (UA) Negative (NEGATIVE) 04/16/23 12:35 Urine Ketones Negative (NEGATIVE) 04/16/23 12:35 Urine Blood 2+ (NEGATIVE) 04/16/23 12:35 Urine Nitrite Negative (NEGATIVE) 04/16/23 12:35 Urine Bilirubin Negative (NEGATIVE) 04/16/23 12:35 Urine Urobilinogen Normal (NORMAL) 04/16/23 12:35 Ur Leukocyte Esterase Negative (NEGATIVE) 04/16/23 12:35 Urine RBC 0-2 /HPF (0-3) 04/16/23 12:35 Urine WBC None seen /HPF (0-5) 04/16/23 12:35 Ur Squamous Epith Cells Negative /HPF (NEGATIVE) 04/16/23 12:35 Ur Renal Epithelial Cell Rare /HPF (NEGATIVE) 04/16/23 12:35 Urine Bacteria Negative /HPF (NEGATIVE) 04/16/23 12:35 Ur Culture Indicated? No/not indicated 04/16/23 12:35 RPR Nonreactive (NONREACTIVE) 04/16/23 06:20 - Plan (1) Acute CVA (cerebrovascular accident) Status: Acute Plan: PT/OT, SPEECH THERAPY, NORMAL SALINE AT 75ML/HR, ECOTRIN 81MG DAILY, PLAVIX 75MG DAILY, COLACE 200MG HS, MILK OF MAGNESIA 30ML BID, SEROQUEL 25MG BID, RESTORIL 15MG HS PRN, AND HIS HOME MEDICATIONS WERE RESUMED. HOME MEDS INCLUDE: LIPITOR, CELEBREX, SYNTHROID, ZESTRIL, LOPRESSOR, PRILOSEC, ZOFRAN, AND FLOMAX. (2) Acute hyponatremia Status: Acute (3) Frequent falls Status: Acute Plan: PT/OT, (4) Generalized weakness Status: Acute Plan: PT/OT, (5) HTN (hypertension) Status: Chronic Qualifiers: Hypertension type: primary hypertension Qualified Code(s): I10 - Essential (primary) hypertension Plan: CONTINUE ZESTRIL AND LOPRESSOR (6) CAD (coronary artery disease) Status: Chronic Qualifiers: Coronary Disease-Associated Artery/Lesion type: bypass graft [place] vs. transplanted heart: [place] heart Associated angina: without angina Qualified Code(s): I25.810 - Atherosclerosis of coronary artery bypass graft(s) without angina pectoris (7) Hyperlipidemia Status: Chronic Qualifiers: Hyperlipidemia type: mixed hyperlipidemia Qualified Code(s): E78.2 - Mixed hyperlipidemia Plan: CONTINUE LIPITOR (8) GERD (gastroesophageal reflux disease) Status: Chronic Qualifiers: Esophagitis presence: esophagitis presence not specified Qualified Code(s): K21.9 - Gastro-esophageal reflux disease without esophagitis Plan: CONTINUE PRILOSEC (9) Hypothyroidism Status: Chronic Qualifiers: Hypothyroidism type: acquired Qualified Code(s): E03.9 - Hypothyroidism, unspecified Plan: CONTINUE SYNTHROID
[2023-04-19] MEDS: NS 1,000 ML IV 1,000 ML IV SCH ×4 (01:22→17:34)
[2023-04-19] MEDS: ZOFRAN TAB 4 MG PO SCH ×3 (05:17→22:07)
[2023-04-19 05:21] LABS: BASOPHILS # (AUTO) 0.1 X10^3/uL (0.0-0.1); BASOPHILS % (AUTO) 0.6 % (0.2-1.0); EOSINOPHILS # (AUTO) 0.5 x10^3/uL (0.0-0.2); EOSINOPHILS % (AUTO) 5.3 % (0.9-2.9); HEMATOCRIT 29.7 % (42.0-54.0); HEMOGLOBIN 10.4 g/dL (13.5-18.0); LYMPHOCYTES # (AUTO) 1.8 X10^3/uL (1.3-2.9); LYMPHOCYTES % (AUTO) 17.6 % (21.0-51.0); MEAN CORPUSCULAR HEMOGLOBIN 31.3 pg (27.0-34.0); MEAN CORPUSCULAR VOLUME 89.2 fL (80.0-100.0); MEAN PLATELET VOLUME 8.3 fL (7.4-11.0); MONOCYTES # (AUTO) 0.7 x10^3/uL (0.3-0.8); MONOCYTES % (AUTO) 7.1 % (0.0-13.0); NEUTROPHILS # (AUTO) 6.9 x10^3/uL (2.2-4.8); NEUTROPHILS % (AUTO) 69.4 % (42.0-75.0); PLATELET COUNT 183 X10^3/uL (150.0-450.0); RED BLOOD COUNT 3.33 X10^6/uL (4.7-6.0); RED CELL DISTRIBUTION WIDTH 14.6 % (11.6-16.5)
[2023-04-19 05:44] LABS: ALANINE AMINOTRANSFERASE 44 Units/L (12-78); ALBUMIN 2.7 g/dL (3.4-5.0); ALKALINE PHOSPHATASE 124 Units/L (46-116); ASPARTATE AMINO TRANSFERASE 31 Units/L (15-37); BLOOD UREA NITROGEN 15 mg/dL (7-18); CALCIUM 7.6 mg/dL (8.5-10.1); CARBON DIOXIDE 28.2 mmol/L (21-32); CHLORIDE 102 mmol/L (98-107); COR CA(FOR HYPOALB) 8.6 mg/dL (8.5-10.1); CREATININE 1.33 mg/dL (0.70-1.30); GLUCOSE 110 mg/dL (65-99); POTASSIUM 4.2 mmol/L (3.5-5.1); SODIUM 137 mmol/L (136-145); TOTAL PROTEIN 5.3 g/dL (6.4-8.2); eGFR NON BLACK RACES 55 (>60)
[2023-04-19] MEDS: SYNTHROID 100 mcg TAB PO SCH ×2 (06:16→09:50)
[2023-04-19] MEDS: MILK OF MAGNESIA PO SCH ×3 (09:46→20:09)
[2023-04-19] MEDS: FLOMAX PO SCH (09:48)
[2023-04-19] MEDS: SEROquel TAB 25 mg PO SCH ×2 (09:49→17:46)
[2023-04-19] MEDS: ASPIRIN EC 81 MG PO SCH (09:49)
[2023-04-19] MEDS: LOPRESSOR TAB 25 MG PO SCH ×2 (09:49→20:09)
[2023-04-19] MEDS: ZESTRIL TAB 10 MG PO SCH (09:49)
[2023-04-19] MEDS: PriLOSEC PO SCH (09:49)
[2023-04-19] MEDS: CELEBREX PO SCH ×2 (09:49→20:08)
[2023-04-19] MEDS: PLAVIX PO SCH (09:49)
--- NOTE | 2023-04-19 19:24 | PCM.PROG ---
Progress Note - Progress Note for Day of Date of Exam: 04/19/23 - Subjective Subjective: IS A 83 YEAR OLD PATIENT OF OURS. HE IS CURRENTLY INPATIENT STATUS. HE WAS ADMITTED FOR TREATMENT OF ACUTE HYPONATREMIA, FREQUENT FALLS, AND GENERALIZED WEAKNESS. HE HAS A PMH OF HTN, CAD, HYPERLIPIDEMIA, GERD, AND HYPOTHYRODISM. A BRAIN MRI WAS OBTAINED ON TUESDAY AND REVEALED: Approximately 2 cm x 1.3 cm area of hyperintense FLAIR signal and diffusion restriction within the right posterior lateral inferior cerebellum, right side of the posterior corpus callosum, and medial parafalcine left posterior frontal lobe, in keeping with acute multifocal cerebral infarctions in the appropriate clinical setting. TODAY, HE IS ALERT, LYING IN BED ON MORNING ROUNDS. HE IS ABLE TO ANSWER QUESTIONS APPROPRIATELY THIS MORNING. HE REPORTS FEELING WELL, OTHER THAN SOME CONTINUED WEAKNESS. HE HAD AN UNEVENTFUL NIGHT. HIS FAMILY REPORTS THAT HE CONTINUES WITH WEAKNESS AND DIFFICULTY EXPRESSING WHAT HE IS TRYING TO SAY AT TIMES. THEY REPORT THAT HE IS UNSTEADY ON AMBULATION AND STANDING. ON EXAMINATION TODAY, HEART IS REGULAR IN RATE AND RHYTHM. BILATERAL LUNGS ARE CLEAR TO AUSCULTAITON. ABDOMEN IS ROUND, SOFT, AND NON-TENDER WITH NORMAL BOWEL SOUNDS NOTED IN ALL QUADRANTS. WEAKNESS OF LOWER EXTREMITIES NOTED. NO EDEMA NOTED TO UPPER OR LOWER EXTREMITIES. HIS VITALS THIS MORNING ARE: 98.2-60-22-100%-147/78. LABS WERE OBTAINED. WBC 10.0, RBC 3.33, HGB 10.4, HCT 29.7, SODIUM 137, POTASSIUM 4.2, CHLORIDE 102, CARBON DIOXIDE 28.2, BUN 15, CREATININE 1.33, GLUCOSE 110, CALCIUM 7.6, AST 31, ALT 44, ALK PHOS 124, TOTAL PROTEIN 5.3, ALBUMIN 2.7. A CAROTID ARTERY ULTRASOUND WAS OBTAINED THIS MORNING AND REVEALED: [[id number] carotid] atherosclerosis and [mixed atherosclerotic] plaque formation of the bilateral carotid bulbs and [in both] ICAs with [[id number]] associated carotid intimal thickening but without evidence for high-grade stenosis or occlusion of the carotid arteries, based on Doppler velocity criteria. AN ECHO WAS OBTAINED AND REVEALED AN EJECTION FRACTIO N OF 62%, GRADE I DIASTOLIC DYSFUNCTION, LEFT ATRIAL CAVITY SEVERELY DILATED, MILD ATHEROSCLEROTIC CHANGES IN THE AORTA, STRUCTURALLY NORMAL MITRAL VALVE WITH MILD TO MODERATE REGURGITATION. PHYSICAL THERAPY HAS WORKED WITH HIM FOR THE PAST FEW DAYS AND REPORT THAT HE WAS UNSTEADY STANDING AND AMBULATING. HE REQUIRED MODERATE ASSISTANCE TO STAND. PT FEELS THAT HE WOULD BENEFIT FROM SKILLED REHAB FACILITY TO REGAIN HIGHEST LEVEL OF FUNCTIONING BEFORE RETURNING HOME. HE IS CURRENTLY RECEIVING NORMAL SALINE AT 75 ML/HR, ECOTRIN 81MG DAILY, PLAVIX 75MG DAILY, COLACE 200MG HS, MILK OF MAGNESIA 30ML BID, SEROQUEL 25MG BID, RESTORIL 15MG HS PRN, AND HIS HOME MEDICATIONS WERE RESUMED. HOME MEDS INCL UDE: LIPITOR, CELEBREX, SYNTHROID, ZESTRIL, LOPRESSOR, PRILOSEC, ZOFRAN, AND FLOMAX. WE WILL HAVE SPEECH THERAPY EVALUATE HIM. PATIENTS DAUGHTER REPORTS THAT PATIENT HAD AN EPISODE OF CHEST PAIN A FEW WEEKS AGO. WE WILL HAVE , C WEB DEVELOPER, CONSULT WITH HIM TOMORORW. IF PATIENT IS CLEARED FOR DISCHARGE FOR REHAB, WE WILL DISCHARGE HIM TO [facility] IN [place], [place]. OTHERWISE, WE WILL FOLLOW-UP WITH AM LABS AND CONTINUE TO MONITOR. TIME SPENT ON CLINICAL ASSESSMENT, REVIEWING LABS AND IMAGING, DECISION MAKING, AND DOCUMENTATION GREATER THAN 45 MINUTES. - Past Medical Family Social History Past Med/Fam/Surg Hx: No changes since H&P Allergies: Allergies Penicillins Allergy (Verified 04/14/23 19:42) - Review of Systems ROS: No change since H&P - Vital Signs and I&O's Vital Signs: Vital Signs Pulse Rate 59 Pulse Rate 59 Pulse Rate 54 Respiratory Rate 18 Respiratory Rate 17 Respiratory Rate 17 Respiratory Rate 16 Blood Pressure 152/79 Blood Pressure 143/72 Blood Pressure 178/78 Blood Pressure 165/80 O2 Sat by Pulse Oximetry 97 Intake and Output: Intake & Output 04/17/23 04/18/23 04/19/23 04/20/23 11:59 11:59 11:59 11:59 Intake Total 3678 / 3678 2628 / 2628 2429 / 2429 1973 Output Total 3500 / 3500 3200 / 3200 1750 / 1750 2600 / 2600 Balance 178 / 178 -572 / -572 679 / 679 -626 / -626 - Physical Exam Oriented: Normal Eyes: Normal Ear: Normal Nose: Normal Throat: Normal Respiratory: Normal Cardiovascular: Normal : Normal Auscultation: Bowel Sounds: Normal Palpation: Normal Tenderness: Normal Skin: Normal Musculoskeletal: Normal Psychiatric: Normal Mood Description: Calm Affect: Normal Speech Pattern: Clear, Appropriate - Laboratory and Diagnostics Result Diagrams: 04/19/23 04:18 04/19/23 04:18 Labs: Laboratory WBC 10.0 X10^3/uL (3.6-10.0) 04/19/23 04:18 RBC 3.33 X10^6/uL (4.7-6.0) L 04/19/23 04:18 Hgb 10.4 g/dL (13.5-18.0) L 04/19/23 04:18 Hct 29.7 % (42.0-54.0) L 04/19/23 04:18 MCV 89.2 fL (80.0-100.0) 04/19/23 04:18 MCH 31.3 pg (27.0-34.0) 04/19/23 04:18 MCHC 35.0 g/dL (33.0-35.0) 04/19/23 04:18 RDW 14.6 % (11.6-16.5) 04/19/23 04:18 Plt Count 183 X10^3/uL (150.0-450.0) 04/19/23 04:18 Plt Count Comment Adequate (ADEQUATE) 04/16/23 06:20 MPV 8.3 fL (7.4-11.0) 04/19/23 04:18 Neut % (Auto) 69.4 % (42.0-75.0) 04/19/23 04:18 Lymph % (Auto) 17.6 % (21.0-51.0) L 04/19/23 04:18 [place] % (Auto) 7.1 % (0.0-13.0) 04/19/23 04:18 Eos % (Auto) 5.3 % (0.9-2.9) H 04/19/23 04:18 Baso % (Auto) 0.6 % (0.2-1.0) 04/19/23 04:18 Neut # (Auto) 6.9 x10^3/uL (2.2-4.8) H 04/19/23 04:18 Lymph # (Auto) 1.8 X10^3/uL (1.3-2.9) 04/19/23 04:18 [place] # (Auto) 0.7 x10^3/uL (0.3-0.8) 04/19/23 04:18 Eos # (Auto) 0.5 x10^3/uL (0.0-0.2) H 04/19/23 04:18 Baso # (Auto) 0.1 X10^3/uL (0.0-0.1) 04/19/23 04:18 Absolute Nucleated RBC 0.0 /100WBC 04/19/23 04:18 Total Counted 100 04/16/23 06:20 Neutrophils % (Manual) 73 % (39-76) 04/16/23 06:20 Lymphocytes % (Manual) 12 % (13-43) L 04/16/23 06:20 Monocytes % (Manual) 13 % (4-9) H 04/16/23 06:20 Eosinophils % (Manual) 2 % (0-6) 04/16/23 06:20 Plt Morphology Comment Normal (NORMAL) 04/16/23 06:20 RBC Morphology Normal (NORMAL) 04/16/23 06:20 Sodium 137 mmol/L (136-145) 04/19/23 04:18 Corrected Sodium TNP 04/19/23 04:18 Potassium 4.2 mmol/L (3.5-5.1) 04/19/23 04:18 Chloride 102 mmol/L (98-107) 04/19/23 04:18 Carbon Dioxide 28.2 mmol/L (21-32) 04/19/23 04:18 BUN 15 mg/dL (7-18) 04/19/23 04:18 Creatinine 1.33 mg/dL (0.70-1.30) H 04/19/23 04:18 Est GFR (MDRD) Af Amer > 60 (>60) 04/19/23 04:18 Est GFR (MDRD) Non-Af 55 (>60) L 04/19/23 04:18 Glucose 110 mg/dL (65-99) H 04/19/23 04:18 Calcium 7.6 mg/dL (8.5-10.1) L 04/19/23 04:18 Corrected Calcium 8.6 mg/dL (8.5-10.1) 04/19/23 04:18 Magnesium 2.0 mg/dL (2.0-2.9) 04/15/23 04:40 Total Bilirubin 0.60 mg/dL (0.2-1.0) 04/19/23 04:18 AST 31 Units/L (15-37) 04/19/23 04:18 ALT 44 Units/L (12-78) 04/19/23 04:18 Alkaline Phosphatase 124 Units/L (46-116) H 04/19/23 04:18 Ammonia 16 umol/L (11-32) 04/16/23 06:20 Creatine Kinase 858 Units/L (39-308) H 04/14/23 22:05 Troponin I High Sens 15.6 ng/L (4.0-60.0) 04/14/23 22:05 Total Protein 5.3 g/dL (6.4-8.2) L 04/19/23 04:18 Albumin 2.7 g/dL (3.4-5.0) L 04/19/23 04:18 Globulin 2.6 g/dL (2.5-4.5) 04/19/23 04:18 Albumin/Globulin Ratio 1.0 Ratio (1.1-2.1) L 04/19/23 04:18 Vitamin B12 520 pg/mL (193-986) 04/16/23 06:20 Folate > 20.0 ng/mL (>8.6) 04/16/23 06:20 Thyroxine (T4) 7.9 ug/dL (4.7-13.3) 04/16/23 06:20 TSH 3rd Generation 2.662 uIU/mL (0.358-3.74) 04/16/23 06:20 Specimen Type Clean catch urine 04/16/23 12:35 Urine Color Straw (YELLOW) 04/16/23 12:35 Urine Appearance Clear (CLEAR) 04/16/23 12:35 Urine pH 6.0 (5.0 - 8.0) 04/16/23 12:35 Ur Specific [place] 1.015 (1.000-1.030) 04/16/23 12:35 Urine Protein Negative (NEGATIVE) 04/16/23 12:35 Urine Glucose (UA) Negative (NEGATIVE) 04/16/23 12:35 Urine Ketones Negative (NEGATIVE) 04/16/23 12:35 Urine Blood 2+ (NEGATIVE) 04/16/23 12:35 Urine Nitrite Negative (NEGATIVE) 04/16/23 12:35 Urine Bilirubin Negative (NEGATIVE) 04/16/23 12:35 Urine Urobilinogen Normal (NORMAL) 04/16/23 12:35 Ur Leukocyte Esterase Negative (NEGATIVE) 04/16/23 12:35 Urine RBC 0-2 /HPF (0-3) 04/16/23 12:35 Urine WBC None seen /HPF (0-5) 04/16/23 12:35 Ur Squamous Epith Cells Negative /HPF (NEGATIVE) 04/16/23 12:35 Ur Renal Epithelial Cell Rare /HPF (NEGATIVE) 04/16/23 12:35 Urine Bacteria Negative /HPF (NEGATIVE) 04/16/23 12:35 Ur Culture Indicated? No/not indicated 04/16/23 12:35 RPR Nonreactive (NONREACTIVE) 04/16/23 06:20 - Plan (1) Acute CVA (cerebrovascular accident) Status: Acute Plan: PT/OT, SPEECH THERAPY, NORMAL SALINE AT 75ML/HR, ECOTRIN 81MG DAILY, PLAVIX 75MG DAILY, COLACE 200MG HS, MILK OF MAGNESIA 30ML BID, SEROQUEL 25MG BID, RESTORIL 15MG HS PRN, AND HIS HOME MEDICATIONS WERE RESUMED. HOME MEDS INCLUDE: LIPITOR, CELEBREX, SYNTHROID, ZESTRIL, LOPRESSOR, PRILOSEC, ZOFRAN, AND FLOMAX. (2) Acute hyponatremia Status: Acute Plan: NORMAL SALINE AT 75 ML/HR, RESUME HOME MEDS (3) Frequent falls Status: Acute Plan: PT/OT, (4) Generalized weakness Status: Acute Plan: PT/OT, (5) HTN (hypertension) Status: Chronic Qualifiers: Hypertension type: primary hypertension Qualified Code(s): I10 - Essential (primary) hypertension Plan: CONTINUE ZESTRIL AND LOPRESSOR (6) CAD (coronary artery disease) Status: Chronic Qualifiers: Coronary Disease-Associated Artery/Lesion type: bypass graft [place] vs. transplanted heart: [place]mi heart Associated angina: without angina Qualified Code(s): I25.810 - Atherosclerosis of coronary artery bypass graft(s) without angina pectoris (7) Hyperlipidemia Status: Chronic Qualifiers: Hyperlipidemia type: mixed hyperlipidemia Qualified Code(s): E78.2 - Mixed hyperlipidemia Plan: CONTINUE LIPITOR (8) GERD (gastroesophageal reflux disease) Status: Chronic Qualifiers: Esophagitis presence: esophagitis presence not specified Qualified Code(s): K21.9 - Gastro-esophageal reflux disease without esophagitis Plan: CONTINUE PRILOSEC (9) Hypothyroidism Status: Chronic Qualifiers: Hypothyroidism type: acquired Qualified Code(s): E03.9 - Hypothyroidism, unspecified Plan: CONTINUE SYNTHROID
[2023-04-19] MEDS: COLACE CAP 100 MG PO SCH (20:08)
[2023-04-19] MEDS: LIPITOR TAB 40 MG PO SCH (20:08)
[2023-04-19] MEDS: DULCOLAX SUPPOSITORY 10 MG RECTAL ONE (20:09)
[2023-04-19] MEDS: RESTORIL CAP 15 MG PO PRN (20:09)
[2023-04-20 00:04] VITALS: RESP 20
[2023-04-20] MEDS: NS 1,000 ML IV 1,000 ML IV SCH ×2 (01:00→09:09)
[2023-04-20 04:56] VITALS: BP 164/96; TEMP 97.6
[2023-04-20] MEDS: DULCOLAX SUPPOSITORY 10 MG RECTAL ONE (04:58)
[2023-04-20 05:08] LABS: BASOPHILS # (AUTO) 0.1 X10^3/uL (0.0-0.1); BASOPHILS % (AUTO) 0.6 % (0.2-1.0); EOSINOPHILS # (AUTO) 0.7 x10^3/uL (0.0-0.2); EOSINOPHILS % (AUTO) 6.5 % (0.9-2.9); HEMATOCRIT 29.6 % (42.0-54.0); HEMOGLOBIN 10.4 g/dL (13.5-18.0); LYMPHOCYTES % (AUTO) 18.9 % (21.0-51.0); MEAN CORPUSCULAR HEMOGLOBIN 31.3 pg (27.0-34.0); MEAN CORPUSCULAR HGB CONC 35.2 g/dL (33.0-35.0); MEAN PLATELET VOLUME 8.1 fL (7.4-11.0); MONOCYTES # (AUTO) 0.8 x10^3/uL (0.3-0.8); MONOCYTES % (AUTO) 7.3 % (0.0-13.0); NEUTROPHILS # (AUTO) 6.9 x10^3/uL (2.2-4.8); NEUTROPHILS % (AUTO) 66.7 % (42.0-75.0); PLATELET COUNT 176 X10^3/uL (150.0-450.0); RED BLOOD COUNT 3.33 X10^6/uL (4.7-6.0); RED CELL DISTRIBUTION WIDTH 14.4 % (11.6-16.5); WHITE BLOOD COUNT 10.3 X10^3/uL (3.6-10.0)
[2023-04-20 05:21] LABS: ALANINE AMINOTRANSFERASE 44 Units/L (12-78); ALBUMIN 2.8 g/dL (3.4-5.0); ALKALINE PHOSPHATASE 123 Units/L (46-116); ASPARTATE AMINO TRANSFERASE 30 Units/L (15-37); BLOOD UREA NITROGEN 16 mg/dL (7-18); CARBON DIOXIDE 30.5 mmol/L (21-32); CHLORIDE 103 mmol/L (98-107); CREATININE 1.23 mg/dL (0.70-1.30); GLUCOSE 108 mg/dL (65-99); POTASSIUM 4.1 mmol/L (3.5-5.1); SODIUM 138 mmol/L (136-145); TOTAL PROTEIN 5.4 g/dL (6.4-8.2); eGFR NON BLACK RACES 60 (>60)
[2023-04-20] MEDS: ZOFRAN TAB 4 MG PO SCH (05:43)
[2023-04-20] MEDS: LOPRESSOR TAB 25 MG PO SCH ×2 (05:43→09:08)
[2023-04-20] MEDS: SYNTHROID 100 mcg TAB PO SCH ×2 (05:44→09:08)
[2023-04-20] MEDS: MILK OF MAGNESIA PO SCH (09:06)
[2023-04-20] MEDS: PLAVIX PO SCH (09:06)
[2023-04-20] MEDS: ASPIRIN EC 81 MG PO SCH (09:06)
[2023-04-20] MEDS: FLOMAX PO SCH (09:06)
[2023-04-20] MEDS: SEROquel TAB 25 mg PO SCH (09:07)
[2023-04-20] MEDS: ZESTRIL TAB 10 MG PO SCH (09:07)
[2023-04-20] MEDS: PriLOSEC PO SCH (09:09)
[2023-04-20] MEDS: CELEBREX PO SCH (09:09)
[2023-04-20 09:14] VITALS: PULSE 65; O2SAT 98
== END 2023-04-20 12:10 | DRG 65 ==
LOC: ER 19:23 → ICU 21:21
PROVIDERS: ADMIT Internal Medicine; ATTEND Internal Medicine

== ENCOUNTER 2024-08-21 10:55 | Inpatient (IN) ==
[2024-08-21 11:15] VITALS: BMI 23.3
[2024-08-21] MEDS: NS 1,000 ML IV 1,000 ML IV ONE (11:26)
[2024-08-21] MEDS: ZOFRAN INJ 4 MG VIAL IVP ONE (11:48)
[2024-08-21 11:49] LABS: BASOPHILS # (AUTO) 0.1 X10^3/uL (0.0-0.1); BASOPHILS % (AUTO) 0.4 % (0.2-1.0); EOSINOPHILS # (AUTO) 0.1 x10^3/uL (0.0-0.2); EOSINOPHILS % (AUTO) 0.7 % (0.9-2.9); HEMATOCRIT 30.9 % (42.0-54.0); HEMOGLOBIN 10.3 g/dL (13.5-18.0); LYMPHOCYTES # (AUTO) 1.3 X10^3/uL (1.3-2.9); LYMPHOCYTES % (AUTO) 6.3 % (21.0-51.0); MEAN CORPUSCULAR HEMOGLOBIN 28.4 pg (27.0-34.0); MEAN CORPUSCULAR HGB CONC 33.1 g/dL (33.0-35.0); MEAN CORPUSCULAR VOLUME 85.5 fL (80.0-100.0); MEAN PLATELET VOLUME 8.7 fL (7.4-11.0); MONOCYTES # (AUTO) 1.4 x10^3/uL (0.3-0.8); NEUTROPHILS # (AUTO) 17.2 x10^3/uL (2.2-4.8); NEUTROPHILS % (AUTO) 85.6 % (42.0-75.0); PLATELET COUNT 237 X10^3/uL (150.0-450.0); RED BLOOD COUNT 3.62 X10^6/uL (4.7-6.0); RED CELL DISTRIBUTION WIDTH 14.5 % (11.6-16.5); WHITE BLOOD COUNT 20.1 X10^3/uL (3.6-10.0)
[2024-08-21 12:04] LABS: ALBUMIN 2.2 g/dL (3.4-5.0); CALCIUM 9.2 mg/dL (8.5-10.1); CARBON DIOXIDE 22.6 mmol/L (21-32); COR CA(FOR HYPOALB) 10.6 mg/dL (8.5-10.1); CREATININE 1.93 mg/dL (0.70-1.30); POTASSIUM 4.7 mmol/L (3.5-5.1); TOTAL PROTEIN 6.2 g/dL (6.4-8.2)
--- NOTE | 2024-08-21 13:06 | DR.GENAD ---
HPI Time Seen Time Seen by Provider: 08/21/24 13:02 PCP Primary Care Physician: Avni Paul Complaint/Symptoms Chief Complaint Doctors Comments: Weakness with intractable nausea and vomiting since August 15. Chief Complaint:: Pt family states pt has been "sluggish, weak and been throwing up since the ". Pt was 95% on RA when EMS arrived, so pt placed on 2 L NC. Pt 100%. Nurses notes reviewed Nurses Notes Review: Yes Source History Provided: Patient, Family Member and EMS Mode of Arrival Mode of Arrival: EMS Timing Onset of Chief Complaint: 08/15/24 Duration Duration: Since Onset (Since August 15 patient has had intractable nausea and vomiting.) Severity Severity: Severe PMH PMH Past Medical History: Yes Past Medical History: Anxiety, Coronary Artery Disease, CVA, Depression, Dyslipidemia, GERD, Hypertension and Hypothyroidism Past Surgical History: Yes Surgical History: Angioplasty/Stents and CABG/Valve Surgery Family History History of Family Medical Conditions: Yes Family Medical History: Diabetes Mellitus, Cancer, [place], Coronary Artery Disease, Heart Failure and Hypertension Social History Alcohol Use: None Do you use any recreational Drugs:: No Lives With: Spouse Lives Where: Home Infectious screening Have you traveled outside the country in the last 6 months?: No Isolation: Standard ROS Review of Systems Constitutional: No Symptoms Reported, Weakness and Fatigue Eyes: No Symptoms Reported ENTM: No Symptoms Reported Respiratoy: No Symptoms Reported Cardiovascular: No Symptoms Reported, See HPI and Other Gastrointestinal/Abdominal: No Symptoms Reported, See HPI and Vomiting Genitourinary: No Symptoms Reported Neurological: No Symptoms Reported Musculoskeletal: No Symptoms Reported Integumentary: No Symptoms Reported Hematologic/Lymphatic: No Symptoms Reported Endocrine: No Symptoms Reported Psychiatric: No Symptoms Reported All Other Systems: Reviewed and Negative PE Vital Signs Vitals: Vital Signs Temperature 98.9 F Pulse Rate 89 Pulse Rate 89 Pulse Rate 90 Pulse Rate 76 Pulse Rate 91 Pulse Rate 76 Pulse Rate 78 Pulse Rate 92 Pulse Rate 93 Pulse Rate 92 Pulse Rate 94 Pulse Rate 96 Pulse Rate 83 Pulse Rate 93 Pulse Rate 94 Pulse Rate 97 Pulse Rate 97 Pulse Rate 103 Respiratory Rate 16 Respiratory Rate 18 Respiratory Rate 15 Respiratory Rate 15 Respiratory Rate 17 Respiratory Rate 19 Respiratory Rate 23 Respiratory Rate 20 Respiratory Rate 16 Respiratory Rate 19 Respiratory Rate 17 Respiratory Rate 17 Respiratory Rate 18 Respiratory Rate 16 Blood Pressure 121/74 Blood Pressure 139/84 Blood Pressure 139/84 Blood Pressure 107/71 Blood Pressure 112/72 Blood Pressure 110/79 O2 Sat by Pulse Oximetry 99 O2 Sat by Pulse Oximetry 100 O2 Sat by Pulse Oximetry 100 O2 Sat by Pulse Oximetry 100 O2 Sat by Pulse Oximetry 99 O2 Sat by Pulse Oximetry 100 O2 Sat by Pulse Oximetry 98 O2 Sat by Pulse Oximetry 97 O2 Sat by Pulse Oximetry 97 O2 Sat by Pulse Oximetry 97 O2 Sat by Pulse Oximetry 97 O2 Sat by Pulse Oximetry 98 O2 Sat by Pulse Oximetry 97 O2 Sat by Pulse Oximetry 99 O2 Sat by Pulse Oximetry 99 O2 Sat by Pulse Oximetry 100 O2 Sat by Pulse Oximetry 100 O2 Sat by Pulse Oximetry 100 General Limitations: No Limitations General Appearance: Alert and In No Apparent Distress Head Head Exam: Normal Inspection Eyes Eye exam: Normal Appearance ENT ENT Exam: Normal Exam External Ear Exam: Normal External Inspection TM/Canal Exam: Bilateral: Normal Nose Exam: Normal Nose Exam Mouth Exam: Normal Inspection Throat Exam: Normal Inspection Neck Neck Exam: Normal Inspection Chest Chest Inspection: Normal Inspection Respiratory Respiratory Exam: Normal Lung Sounds Bilat Respiratory Exam: Bilateral: Clear to Auscultation Cardiovascular Cardiovascular Exam: Regular Rate and Normal Rhythm Abdominal Exam Abdominal Exam: Normal Inspection, Normal Bowel Sounds and Soft Extremities Extremities Exam: Normal Inspection and Full ROM Back Back Exam: Normal Inspection Neurologic Neurological Exam: Alert, Oriented X3 and Motor Sensory Deficit Psychiatric Psychiatric Exam: Normal Affect and Normal Mood Skin Skin Exam: Warm, Dry, Intact and Normal Color COURSE Reevaluation 1st: Unchanged 2nd: Unchanged 3rd: Unchanged ROR Labs Reviewed 08/21/24 11:46 08/21/24 11:46 Laboratory: WBC 20.1 X10^3/uL (3.6-10.0) H 08/21/24 11:46 RBC 3.62 X10^6/uL (4.7-6.0) L 08/21/24 11:46 Hgb 10.3 g/dL (13.5-18.0) L 08/21/24 11:46 Hct 30.9 % (42.0-54.0) L 08/21/24 11:46 MCV 85.5 fL (80.0-100.0) 08/21/24 11:46 MCH 28.4 pg (27.0-34.0) 08/21/24 11:46 MCHC 33.1 g/dL (33.0-35.0) 08/21/24 11:46 RDW 14.5 % (11.6-16.5) 08/21/24 11:46 Plt Count 237 X10^3/uL (150.0-450.0) 08/21/24 11:46 MPV 8.7 fL (7.4-11.0) 08/21/24 11:46 Neut % (Auto) 85.6 % (42.0-75.0) H 08/21/24 11:46 Lymph % (Auto) 6.3 % (21.0-51.0) L 08/21/24 11:46 [place] % (Auto) 7.0 % (0.0-13.0) 08/21/24 11:46 Eos % (Auto) 0.7 % (0.9-2.9) L 08/21/24 11:46 Baso % (Auto) 0.4 % (0.2-1.0) 08/21/24 11:46 Neut # (Auto) 17.2 x10^3/uL (2.2-4.8) H 08/21/24 11:46 Lymph # (Auto) 1.3 X10^3/uL (1.3-2.9) 08/21/24 11:46 [place] # (Auto) 1.4 x10^3/uL (0.3-0.8) H 08/21/24 11:46 Eos # (Auto) 0.1 x10^3/uL (0.0-0.2) 08/21/24 11:46 Baso # (Auto) 0.1 X10^3/uL (0.0-0.1) 08/21/24 11:46 Absolute Nucleated RBC 0.0 /100WBC 08/21/24 11:46 PT 15.1 SECONDS (11.8-14.3) 08/21/24 15:53 INR Target Range - 08/21/24 15:53 INR 1.22 (0.8-1.3) 08/21/24 15:53 APTT 38.8 SECONDS (22.9-36.5) H 08/21/24 15:53 PTT Comment - 08/21/24 15:53 Sodium 136 mmol/L (136-145) 08/21/24 11:46 Corrected Sodium 136 mmol/L (136-145) 08/21/24 11:46 Potassium 4.7 mmol/L (3.5-5.1) 08/21/24 11:46 Chloride 101 mmol/L (98-107) 08/21/24 11:46 Carbon Dioxide 22.6 mmol/L (21-32) 08/21/24 11:46 BUN 22 mg/dL (7-18) H 08/21/24 11:46 Creatinine 1.93 mg/dL (0.70-1.30) H 08/21/24 11:46 Est GFR (MDRD) Af Amer 43 (>60) L 08/21/24 11:46 Est GFR (MDRD) Non-Af 35 (>60) L 08/21/24 11:46 Glucose 116 mg/dL (65-99) H 08/21/24 11:46 Lactic Acid 4.0 mmol/L (0.4-2.0) H* 08/21/24 14:10 Calcium 9.2 mg/dL (8.5-10.1) 08/21/24 11:46 Corrected Calcium 10.6 mg/dL (8.5-10.1) H 08/21/24 11:46 Total Bilirubin 1.80 mg/dL (0.2-1.0) H 08/21/24 11:46 AST 62 Units/L (15-37) H 08/21/24 11:46 ALT 44 Units/L (12-78) 08/21/24 11:46 Alkaline Phosphatase 117 Units/L (46-116) H 08/21/24 11:46 Total Protein 6.2 g/dL (6.4-8.2) L 08/21/24 11:46 Albumin 2.2 g/dL (3.4-5.0) L 08/21/24 11:46 Globulin 4.0 g/dL (2.5-4.5) 08/21/24 11:46 Albumin/Globulin Ratio 0.6 Ratio (1.1-2.1) L 08/21/24 11:46 Specimen Type Clean catch urine 08/21/24 15:37 Urine Color Dark yellow (YELLOW) 08/21/24 15:37 Urine Appearance Clear (CLEAR) 08/21/24 15:37 Urine pH 6.0 (5.0 - 8.0) 08/21/24 15:37 Ur Specific [place] 1.015 (1.000-1.030) 08/21/24 15:37 Urine Protein 2+ (NEGATIVE) 08/21/24 15:37 Urine Glucose (UA) Negative (NEGATIVE) 08/21/24 15:37 Urine Ketones Negative (NEGATIVE) 08/21/24 15:37 Urine Blood 1+ (NEGATIVE) 08/21/24 15:37 Urine Nitrite Negative (NEGATIVE) 08/21/24 15:37 Urine Bilirubin Negative (NEGATIVE) 08/21/24 15:37 Urine Urobilinogen Normal (NORMAL) 08/21/24 15:37 Ur Leukocyte Esterase Negative (NEGATIVE) 08/21/24 15:37 Urine RBC 0-2 /HPF (0-3) 08/21/24 15:37 Urine WBC None seen /HPF (0-5) 08/21/24 15:37 Ur Squamous Epith Cells Rare /HPF (NEGATIVE) 08/21/24 15:37 Urine Bacteria Negative /HPF (NEGATIVE) 08/21/24 15:37 Ur Culture Indicated? No/not indicated 08/21/24 15:37 Opioid Opioid Risk Tool Age ([place] box if 16-45): No History of Preadolescent Sexual Abuse: No Total: 0 Total Score Risk Category: Low Risk Copyright: Juanito BARRETT predicting aberrant behaviors Discharge Plan Diagnosis Discharge Problem: Sepsis Discharge Plan Patient Disposition: 09 ADMITTED INPATIENT Condition: Stable Orders to Discharge Patient Discharge Orders: Transfer (Routine); Ordered 08/21/24 Ordered By: Trip Webster ADDITIONAL NOTES Additional Notes Additional Notes: [place] advisedTime 2024 patient's condition and agrees to admit patient under his care. Plan see orders.
--- NOTE | 2024-08-21 14:30 | RAD ---
EXAM:CHEST, 1 VIEWHISTORY:SOB, HX LUNG CANCER; HTN, OPEN HEART SXCOMPARISON:Prior study or studies were utilized for comparison during interpretation with the most relevant dated 08/11/2024TECHNIQUE:CHEST, 1 VIEWFINDINGS:Chest:Lines and tubes: Cardiac leads overlie the chest.Mediastinum: Median sternotomy wires are present. Cardiac shadow is normal in size.Pulmonary vessels: No pulmonary vascular congestion.Lung calle: No suspicious airspace opacity.Pleura: No effusion. No pneumothorax.Bones and soft tissues: No acute osseous or soft tissue abnormality.IMPRESSION:1. No acute cardiopulmonary abnormalityTHIS IS AN ELECTRONICALLY VERIFIED FINAL [id number]/21/2024 2:27 PM - Electronically signed by Juan Claros MD
[2024-08-21] MEDS: NS 1,000 ML IV 1,000 ML IV SCH (15:41)
[2024-08-21] MEDS: VANCOMYCIN HCL 1 G in NS 250 ML IV 250 ML IV SCH (15:56)
[2024-08-21] MEDS ORDERED: PHARMACY CONSULT - VANCOMYCIN XX SCH (16:00)
[2024-08-21] MEDS: VANCOMYCIN IV *PREMIX 1 G/200 ML BAG 1 G/200 ML PIGGYBACK IV SCH (16:04)
[2024-08-21 16:10] LABS: BILIRUBIN,URINE NEGATIVE (NEGATIVE); BLOOD/HEMOGLOBIN,URINE 1+ (NEGATIVE); GLUCOSE, URINE NEGATIVE (NEGATIVE); KETONES,URINE NEGATIVE (NEGATIVE); LEUKOCYTE ESTERASE ,URINE NEGATIVE (NEGATIVE); NITRITES,URINE NEGATIVE (NEGATIVE); PROTEIN,URINE 2+ (NEGATIVE); UROBILINOGEN,URINE NORMAL (NORMAL)
[2024-08-21 16:18] LABS: INR 1.22 (0.8-1.3)
[2024-08-21 16:20] LABS: APPEARANCE,URINE CLEAR (CLEAR); COLOR,URINE DARK YELLOW (YELLOW)
[2024-08-21 16:31] LABS: BACTERIA,URINE NEGATIVE /HPF (NEGATIVE); RBC,URINE 0-2 /HPF (0-3); SQUAMOUS EPITHELIAL CELL,UR RARE /HPF (NEGATIVE)
[2024-08-21] MEDS ORDERED: CONSULT PHARMACY - POTASSIUM & MAGNESIUM XX SCH (17:10)
[2024-08-21] MEDS: NS 1,000 ML IV 1,000 ML ONE (17:12)
--- NOTE | 2024-08-21 17:14 | DR.GENAD ---
HPI Time Seen Time Seen by Provider: 08/21/24 13:02 PCP Primary Care Physician: Dr. Paul Complaint/Symptoms Chief Complaint:: Pt family states pt has been "sluggish, weak and been throwing up since the ". Pt was 95% on RA when EMS arrived, so pt placed on 2 L NC. Pt 100%. COVID-19 Coronavirus risk:travel/contact w/high risk person: No Has patient experienced Coronavirus symptoms: No Nurses notes reviewed Nurses Notes Review: Yes Source History Provided: Patient, Family Member and EMS Mode of Arrival Mode of Arrival: EMS Timing Onset of Chief Complaint: 08/15/24 Duration Duration: Since Onset (Since August 15 patient has had intractable nausea and vomiting.) Severity Severity: Severe PMH PMH Past Medical History: Yes Past Medical History: Anxiety, Coronary Artery Disease, CVA, Depression, Dyslipidemia, GERD, Hypertension and Hypothyroidism Past Surgical History: Yes Surgical History: Angioplasty/Stents and CABG/Valve Surgery Family History History of Family Medical Conditions: Yes Family Medical History: Diabetes Mellitus, Cancer, [place], Coronary Artery Disease, Heart Failure and Hypertension Social History Does patient currently use any type of tobacco product: No Type of Tobacco Use: None Does any household member use tobacco: No Alcohol Use: None Do you use any recreational Drugs:: No Lives With: Spouse Lives Where: Home Travel Risk Coronavirus risk:travel/contact w/high risk person: No Has patient experienced Coronavirus symptoms: No Infectious screening Have you traveled outside the country in the last 6 months?: No Isolation: Standard PE Vital Signs Vitals: Vital Signs Temperature 98.9 F Pulse Rate 89 Pulse Rate 89 Pulse Rate 90 Pulse Rate 76 Pulse Rate 91 Pulse Rate 76 Pulse Rate 78 Pulse Rate 92 Pulse Rate 93 Pulse Rate 92 Pulse Rate 94 Pulse Rate 96 Pulse Rate 83 Pulse Rate 93 Pulse Rate 94 Pulse Rate 97 Pulse Rate 97 Pulse Rate 103 Respiratory Rate 16 Respiratory Rate 18 Respiratory Rate 15 Respiratory Rate 15 Respiratory Rate 17 Respiratory Rate 19 Respiratory Rate 23 Respiratory Rate 20 Respiratory Rate 16 Respiratory Rate 19 Respiratory Rate 17 Respiratory Rate 17 Respiratory Rate 18 Respiratory Rate 16 Blood Pressure 121/74 Blood Pressure 139/84 Blood Pressure 139/84 Blood Pressure 107/71 Blood Pressure 112/72 Blood Pressure 110/79 O2 Sat by Pulse Oximetry 99 O2 Sat by Pulse Oximetry 100 O2 Sat by Pulse Oximetry 100 O2 Sat by Pulse Oximetry 100 O2 Sat by Pulse Oximetry 99 O2 Sat by Pulse Oximetry 100 O2 Sat by Pulse Oximetry 98 O2 Sat by Pulse Oximetry 97 O2 Sat by Pulse Oximetry 97 O2 Sat by Pulse Oximetry 97 O2 Sat by Pulse Oximetry 97 O2 Sat by Pulse Oximetry 98 O2 Sat by Pulse Oximetry 97 O2 Sat by Pulse Oximetry 99 O2 Sat by Pulse Oximetry 99 O2 Sat by Pulse Oximetry 100 O2 Sat by Pulse Oximetry 100 O2 Sat by Pulse Oximetry 100 ROR Labs Reviewed 08/21/24 11:46 08/21/24 11:46 Laboratory: WBC 20.1 X10^3/uL (3.6-10.0) H 08/21/24 11:46 RBC 3.62 X10^6/uL (4.7-6.0) L 08/21/24 11:46 Hgb 10.3 g/dL (13.5-18.0) L 08/21/24 11:46 Hct 30.9 % (42.0-54.0) L 08/21/24 11:46 MCV 85.5 fL (80.0-100.0) 08/21/24 11:46 MCH 28.4 pg (27.0-34.0) 08/21/24 11:46 MCHC 33.1 g/dL (33.0-35.0) 08/21/24 11:46 RDW 14.5 % (11.6-16.5) 08/21/24 11:46 Plt Count 237 X10^3/uL (150.0-450.0) 08/21/24 11:46 MPV 8.7 fL (7.4-11.0) 08/21/24 11:46 Neut % (Auto) 85.6 % (42.0-75.0) H 08/21/24 11:46 Lymph % (Auto) 6.3 % (21.0-51.0) L 08/21/24 11:46 [place] % (Auto) 7.0 % (0.0-13.0) 08/21/24 11:46 Eos % (Auto) 0.7 % (0.9-2.9) L 08/21/24 11:46 Baso % (Auto) 0.4 % (0.2-1.0) 08/21/24 11:46 Neut # (Auto) 17.2 x10^3/uL (2.2-4.8) H 08/21/24 11:46 Lymph # (Auto) 1.3 X10^3/uL (1.3-2.9) 08/21/24 11:46 [place] # (Auto) 1.4 x10^3/uL (0.3-0.8) H 08/21/24 11:46 Eos # (Auto) 0.1 x10^3/uL (0.0-0.2) 08/21/24 11:46 Baso # (Auto) 0.1 X10^3/uL (0.0-0.1) 08/21/24 11:46 Absolute Nucleated RBC 0.0 /100WBC 08/21/24 11:46 PT 15.1 SECONDS (11.8-14.3) 08/21/24 15:53 INR Target Range - 08/21/24 15:53 INR 1.22 (0.8-1.3) 08/21/24 15:53 APTT 38.8 SECONDS (22.9-36.5) H 08/21/24 15:53 PTT Comment - 08/21/24 15:53 Sodium 136 mmol/L (136-145) 08/21/24 11:46 Corrected Sodium 136 mmol/L (136-145) 08/21/24 11:46 Potassium 4.7 mmol/L (3.5-5.1) 08/21/24 11:46 Chloride 101 mmol/L (98-107) 08/21/24 11:46 Carbon Dioxide 22.6 mmol/L (21-32) 08/21/24 11:46 BUN 22 mg/dL (7-18) H 08/21/24 11:46 Creatinine 1.93 mg/dL (0.70-1.30) H 08/21/24 11:46 Est GFR (MDRD) Af Amer 43 (>60) L 08/21/24 11:46 Est GFR (MDRD) Non-Af 35 (>60) L 08/21/24 11:46 Glucose 116 mg/dL (65-99) H 08/21/24 11:46 Lactic Acid 4.0 mmol/L (0.4-2.0) H* 08/21/24 14:10 Calcium 9.2 mg/dL (8.5-10.1) 08/21/24 11:46 Corrected Calcium 10.6 mg/dL (8.5-10.1) H 08/21/24 11:46 Total Bilirubin 1.80 mg/dL (0.2-1.0) H 08/21/24 11:46 AST 62 Units/L (15-37) H 08/21/24 11:46 ALT 44 Units/L (12-78) 08/21/24 11:46 Alkaline Phosphatase 117 Units/L (46-116) H 08/21/24 11:46 Total Protein 6.2 g/dL (6.4-8.2) L 08/21/24 11:46 Albumin 2.2 g/dL (3.4-5.0) L 08/21/24 11:46 Globulin 4.0 g/dL (2.5-4.5) 08/21/24 11:46 Albumin/Globulin Ratio 0.6 Ratio (1.1-2.1) L 08/21/24 11:46 Specimen Type Clean catch urine 08/21/24 15:37 Urine Color Dark yellow (YELLOW) 08/21/24 15:37 Urine Appearance Clear (CLEAR) 08/21/24 15:37 Urine pH 6.0 (5.0 - 8.0) 08/21/24 15:37 Ur Specific [place] 1.015 (1.000-1.030) 08/21/24 15:37 Urine Protein 2+ (NEGATIVE) 08/21/24 15:37 Urine Glucose (UA) Negative (NEGATIVE) 08/21/24 15:37 Urine Ketones Negative (NEGATIVE) 08/21/24 15:37 Urine Blood 1+ (NEGATIVE) 08/21/24 15:37 Urine Nitrite Negative (NEGATIVE) 08/21/24 15:37 Urine Bilirubin Negative (NEGATIVE) 08/21/24 15:37 Urine Urobilinogen Normal (NORMAL) 08/21/24 15:37 Ur Leukocyte Esterase Negative (NEGATIVE) 08/21/24 15:37 Urine RBC 0-2 /HPF (0-3) 08/21/24 15:37 Urine WBC None seen /HPF (0-5) 08/21/24 15:37 Ur Squamous Epith Cells Rare /HPF (NEGATIVE) 08/21/24 15:37 Urine Bacteria Negative /HPF (NEGATIVE) 08/21/24 15:37 Ur Culture Indicated? No/not indicated 08/21/24 15:37 Opioid Opioid Risk Tool Age (Angelito box if 16-45): No History of Preadolescent Sexual Abuse: No Total: 0 Total Score Risk Category: Low Risk Copyright: Juanito BARRETT predicting aberrant behaviors Discharge Plan Diagnosis Discharge Problem: Sepsis Discharge Plan Patient Disposition: 09 ADMITTED INPATIENT Condition: Stable
[2024-08-21] MEDS: SOLU-Cortef INJ IVP SCH (17:34)
[2024-08-21] MEDS: THIAMINE HCL INJ IVP SCH (17:34)
[2024-08-21] MEDS: FORTAZ or TAZICEF VIAL INJ 1 G in NS 100 ML IV 100 ML IV SCH (17:37)
[2024-08-21] MEDS: MEGACE PO SCH (20:44)
[2024-08-21] MEDS: ASCORBIC ACID INJ MULTI-DOSE VIAL 1,500 MG in NS 50 ML IV 50 ML IV SCH (20:45)
[2024-08-21] MEDS: RESTORIL CAP 15 MG PO PRN (20:45)
[2024-08-21] MEDS: SEROquel TAB 25 mg PO ONE (21:01)
[2024-08-22 05:20] LABS: BASOPHILS % (AUTO) 0.3 % (0.2-1.0); HEMATOCRIT 26.6 % (42.0-54.0); LYMPHOCYTES # (AUTO) 0.9 X10^3/uL (1.3-2.9); LYMPHOCYTES % (AUTO) 7.6 % (21.0-51.0); MEAN CORPUSCULAR HEMOGLOBIN 28.6 pg (27.0-34.0); MEAN CORPUSCULAR HGB CONC 33.8 g/dL (33.0-35.0); MEAN CORPUSCULAR VOLUME 84.6 fL (80.0-100.0); MEAN PLATELET VOLUME 9.1 fL (7.4-11.0); MONOCYTES # (AUTO) 0.4 x10^3/uL (0.3-0.8); MONOCYTES % (AUTO) 3.1 % (0.0-13.0); NEUTROPHILS # (AUTO) 10.8 x10^3/uL (2.2-4.8); PLATELET COUNT 211 X10^3/uL (150.0-450.0); RED BLOOD COUNT 3.14 X10^6/uL (4.7-6.0); RED CELL DISTRIBUTION WIDTH 14.3 % (11.6-16.5); WHITE BLOOD COUNT 12.2 X10^3/uL (3.6-10.0)
[2024-08-22 05:26] LABS: ALBUMIN 1.8 g/dL (3.4-5.0); CALCIUM 8.4 mg/dL (8.5-10.1); CARBON DIOXIDE 22.7 mmol/L (21-32); COR CA(FOR HYPOALB) 10.2 mg/dL (8.5-10.1); CREATININE 1.71 mg/dL (0.70-1.30); POTASSIUM 4.6 mmol/L (3.5-5.1); TOTAL PROTEIN 5.4 g/dL (6.4-8.2)
[2024-08-22] MEDS: SYNTHROID 100 mcg TAB PO SCH (06:03)
[2024-08-22] MEDS: PLAVIX PO SCH (08:48)
[2024-08-22] MEDS: FOLIC ACID TAB 1 MG PO SCH (08:48)
[2024-08-22] MEDS: LIPITOR TAB 40 MG PO SCH (08:48)
[2024-08-22] MEDS: MAG-OX TAB PO SCH (08:49)
[2024-08-22] MEDS: ASPIRIN EC 81 MG PO SCH (08:49)
[2024-08-22] MEDS: XALATAN OP SCH (08:56)
[2024-08-22] MEDS: FLOMAX PO SCH (09:06)
--- NOTE | 2024-08-22 16:45 | DR.H&P ---
H&P History & Physical for Day of: H&P Date: 08/22/24 Chief Complaint Chief Complaint: "I don't know whether I've got a bladder infection or not." History of Present Illness History of Present Illness: This is Cameron Blank JaqcuelineJr. 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 He has a history of multiple bypass surgeries. He presents with concerns regarding weakness, difficulty walking, and a previously suspected bladder infection. Symptoms began for an unspecified duration, with intermittent issues in the morning when he has trouble getting steady on his legs. His urine was reported as clear yesterday. The patient has also been experiencing a dry cough for 1 week without any sputum or signs of fever. He has noted that at night, when he attempts to go to the bathroom, he has severe leg weakness, needing assistance and grab bars to stand. Home therapy was received in the past, but he did not pursue continued rehabilitation. He expresses significant concern about falling due to extreme weakness, stating, "I made it back to the couch and just fell in it." Past Medical History Past Medical History: Anxiety, Coronary Artery Disease, CVA, Depression, Dyslipidemia, GERD, Hypertension and Hypothyroidism Past Surgical History Surgical History: Angioplasty/Stents and CABG/Valve Surgery Family History Family Medical History: Diabetes Mellitus, Cancer, [place], Coronary Artery Disease, Heart Failure and Hypertension Social History Does patient currently use any type of tobacco product: No Type of Tobacco Use: None Does any household member use tobacco: No Alcohol Use: None Drug Use: None Medications Home Medications: Home Medications Medication Instructions Recorded Confirmed Type atorvastatin 40 mg tablet 40 mg PO QDAY 08/21/24 08/21/24 History ciprofloxacin HCl 750 mg tablet 750 mg PO BID 08/21/24 08/21/24 History clopidogrel 75 mg tablet 75 mg PO QDAY 08/21/24 08/21/24 History folic acid 1 mg tablet 1 mg PO QDAY 08/21/24 08/21/24 History latanoprost 0.005 % eye drops 1 drp ophthalmic (eye) DAILY 08/21/24 08/21/24 History levothyroxine 100 mcg tablet 100 mcg PO QDAY 08/21/24 08/21/24 History lisinopril 40 mg tablet 40 mg PO BID 08/21/24 08/21/24 History magnesium oxide 400 mg (241.3 mg 400 mg PO QDAY 08/21/24 08/21/24 History magnesium) tablet megestrol 40 mg tablet 40 mg PO BID 08/21/24 08/21/24 History metoprolol tartrate 50 mg tablet 50 mg PO BID 08/21/24 08/21/24 History ondansetron 8 mg disintegrating 8 mg PO TID 08/21/24 08/21/24 History tablet pantoprazole 40 mg tablet,delayed 40 mg PO QDAY 08/21/24 08/21/24 History release quetiapine 150 mg tablet,extended 150 mg PO QPM 08/21/24 08/21/24 History release 24 hr tamsulosin 0.4 mg capsule 0.4 mg PO QDAY 08/21/24 08/21/24 History temazepam 15 mg capsule 15 mg PO QPM PRN 08/21/24 08/21/24 History temazepam 7.5 mg capsule 7.5 mg PO QPM PRN 08/21/24 08/21/24 History Allergies Allergies Allergy/AdvReac Type Severity Reaction Status Date / Time Penicillins Allergy Verified 08/21/24 11:15 Labs 08/22/24 04:44 08/22/24 04:44 Labs: Laboratory WBC 12.2 X10^3/uL (3.6-10.0) H 08/22/24 04:44 RBC 3.14 X10^6/uL (4.7-6.0) L 08/22/24 04:44 Hgb 9.0 g/dL (13.5-18.0) L 08/22/24 04:44 Hct 26.6 % (42.0-54.0) L 08/22/24 04:44 MCV 84.6 fL (80.0-100.0) 08/22/24 04:44 MCH 28.6 pg (27.0-34.0) 08/22/24 04:44 MCHC 33.8 g/dL (33.0-35.0) 08/22/24 04:44 RDW 14.3 % (11.6-16.5) 08/22/24 04:44 Plt Count 211 X10^3/uL (150.0-450.0) 08/22/24 04:44 MPV 9.1 fL (7.4-11.0) 08/22/24 04:44 Neut % (Auto) 89.0 % (42.0-75.0) H 08/22/24 04:44 Lymph % (Auto) 7.6 % (21.0-51.0) L 08/22/24 04:44 [place] % (Auto) 3.1 % (0.0-13.0) 08/22/24 04:44 Eos % (Auto) 0.0 % (0.9-2.9) L 08/22/24 04:44 Baso % (Auto) 0.3 % (0.2-1.0) 08/22/24 04:44 Neut # (Auto) 10.8 x10^3/uL (2.2-4.8) H 08/22/24 04:44 Lymph # (Auto) 0.9 X10^3/uL (1.3-2.9) L 08/22/24 04:44 [place] # (Auto) 0.4 x10^3/uL (0.3-0.8) 08/22/24 04:44 Eos # (Auto) 0.0 x10^3/uL (0.0-0.2) 08/22/24 04:44 Baso # (Auto) 0.0 X10^3/uL (0.0-0.1) 08/22/24 04:44 Absolute Nucleated RBC 0.0 /100WBC 08/22/24 04:44 PT 15.1 SECONDS (11.8-14.3) 08/21/24 15:53 INR Target Range - 08/21/24 15:53 INR 1.22 (0.8-1.3) 08/21/24 15:53 APTT 38.8 SECONDS (22.9-36.5) H 08/21/24 15:53 PTT Comment - 08/21/24 15:53 Sodium 138 mmol/L (136-145) 08/22/24 04:44 Corrected Sodium 139 mmol/L (136-145) 08/22/24 04:44 Potassium 4.6 mmol/L (3.5-5.1) 08/22/24 04:44 Chloride 106 mmol/L (98-107) 08/22/24 04:44 Carbon Dioxide 22.7 mmol/L (21-32) 08/22/24 04:44 BUN 27 mg/dL (7-18) H 08/22/24 04:44 Creatinine 1.71 mg/dL (0.70-1.30) H 08/22/24 04:44 Est GFR (MDRD) Af Amer 49 (>60) L 08/22/24 04:44 Est GFR (MDRD) Non-Af 41 (>60) L 08/22/24 04:44 Glucose 130 mg/dL (65-99) H 08/22/24 04:44 Lactic Acid 2.4 mmol/L (0.4-2.0) H 08/22/24 04:44 Calcium 8.4 mg/dL (8.5-10.1) L 08/22/24 04:44 Corrected Calcium 10.2 mg/dL (8.5-10.1) H 08/22/24 04:44 Total Bilirubin 1.00 mg/dL (0.2-1.0) 08/22/24 04:44 AST 57 Units/L (15-37) H 08/22/24 04:44 ALT 36 Units/L (12-78) 08/22/24 04:44 Alkaline Phosphatase 102 Units/L (46-116) 08/22/24 04:44 Total Protein 5.4 g/dL (6.4-8.2) L 08/22/24 04:44 Albumin 1.8 g/dL (3.4-5.0) L 08/22/24 04:44 Globulin 3.6 g/dL (2.5-4.5) 08/22/24 04:44 Albumin/Globulin Ratio 0.5 Ratio (1.1-2.1) L 08/22/24 04:44 Specimen Type Clean catch urine 08/21/24 15:37 Urine Color Dark yellow (YELLOW) 08/21/24 15:37 Urine Appearance Clear (CLEAR) 08/21/24 15:37 Urine pH 6.0 (5.0 - 8.0) 08/21/24 15:37 Ur Specific [place] 1.015 (1.000-1.030) 08/21/24 15:37 Urine Protein 2+ (NEGATIVE) 08/21/24 15:37 Urine Glucose (UA) Negative (NEGATIVE) 08/21/24 15:37 Urine Ketones Negative (NEGATIVE) 08/21/24 15:37 Urine Blood 1+ (NEGATIVE) 08/21/24 15:37 Urine Nitrite Negative (NEGATIVE) 08/21/24 15:37 Urine Bilirubin Negative (NEGATIVE) 08/21/24 15:37 Urine Urobilinogen Normal (NORMAL) 08/21/24 15:37 Ur Leukocyte Esterase Negative (NEGATIVE) 08/21/24 15:37 Urine RBC 0-2 /HPF (0-3) 08/21/24 15:37 Urine WBC None seen /HPF (0-5) 08/21/24 15:37 Ur Squamous Epith Cells Rare /HPF (NEGATIVE) 08/21/24 15:37 Urine Bacteria Negative /HPF (NEGATIVE) 08/21/24 15:37 Ur Culture Indicated? No/not indicated 08/21/24 15:37 Review of Systems Constitutional: Weakness and Malaise Eyes: No Symptoms Reported ENT: No Symptoms Reported Respiratory: Cough and Dry; denies Hemoptysis, Pleuritic Pain or Sputum Cardiovascular: Orthopnea and Light Headedness; denies Chest Pain, Palpitations, Paroxysmal Noc. Dyspnea or Edema Gastrointestinal: denies Nausea, Vomiting, Abdominal Pain, Diarrhea, Constipation, Melena or Hematochezia Genitourinary: Dysuria; denies Incontinence or Hematuria Musculoskeletal: No Symptoms Reported Skin: No Symptoms Reported Neurological: Weakness; denies Numbness or Confusion Physical Exam Vital Signs: Vital Signs Temperature 97.2 F Temperature 98.6 F Pulse Rate [Brachial] 93 Pulse Rate [Brachial] 83 Respiratory Rate 18 Respiratory Rate 18 Blood Pressure [Right Arm] 126/80 Blood Pressure [Right Arm] 132/78 O2 Sat by Pulse Oximetry 97 O2 Sat by Pulse Oximetry 97 Oriented: Normal, Time, Person and Place Eyes: Normal Ear: Normal Nose: Normal Throat: Normal Respiratory: Clear Throughout Cardiovascular: Normal Auscultation: Bowel Sounds: Normal Palpation: Normal Tenderness: Normal Skin: Normal Musculoskeletal: Normal Psychiatric: Normal Mood Description: Calm Affect: Normal Speech Pattern: Clear and Appropriate Assessment/Plan (1) Dehydration: Status: Acute Plan: IV hydration. Repeat CMP in a.m. to reevaluate estimated GFR level. (2) Weakness: Status: Acute Plan: Treat underlying cause of patient's leukocytosis and suspect his weakness will improve. We will also obtain a physical therapy consultation in the meantime. (3) Nausea & vomiting: Status: Acute Plan: Ondansetron as needed nausea. (4) Leukocytosis: Status: Acute Plan: Mr. Phillips is likely suffering from an underlying infection contributing to his acute weakness and collapse episodes. Differential diagnoses include urinary tract infection or other infections given his elevated white count. I recommend discontinuing tamsulosin to assess blood pressure changes, initiating a referral for physical therapy to boost mobility, and considering follow-up imaging to track conditions like mastoiditis. Recommendations also include monitoring blood pressure and urine output closely. Follow-up visit scheduled in one week to assess progress. (5) Persistent dry cough: Status: Acute Plan: Repeat chest x-ray tomorrow morning. Review H&P Reviewed: Yes Patient was examined?: Yes
[2024-08-22] MEDS: QUETIAPINE 150 MG PO SCH (20:37)
[2024-08-23 06:24] LABS: BASOPHILS # (AUTO) 0.1 X10^3/uL (0.0-0.1); BASOPHILS % (AUTO) 0.8 % (0.2-1.0); HEMATOCRIT 26.3 % (42.0-54.0); HEMOGLOBIN 8.8 g/dL (13.5-18.0); LYMPHOCYTES # (AUTO) 1.3 X10^3/uL (1.3-2.9); MEAN CORPUSCULAR HEMOGLOBIN 28.5 pg (27.0-34.0); MEAN CORPUSCULAR HGB CONC 33.6 g/dL (33.0-35.0); MEAN CORPUSCULAR VOLUME 84.8 fL (80.0-100.0); MEAN PLATELET VOLUME 8.9 fL (7.4-11.0); MONOCYTES # (AUTO) 0.6 x10^3/uL (0.3-0.8); MONOCYTES % (AUTO) 3.6 % (0.0-13.0); NEUTROPHILS # (AUTO) 14.4 x10^3/uL (2.2-4.8); NEUTROPHILS % (AUTO) 87.6 % (42.0-75.0); PLATELET COUNT 239 X10^3/uL (150.0-450.0); RED CELL DISTRIBUTION WIDTH 14.3 % (11.6-16.5); WHITE BLOOD COUNT 16.4 X10^3/uL (3.6-10.0)
[2024-08-23 06:50] LABS: ALBUMIN 1.8 g/dL (3.4-5.0); CALCIUM 8.6 mg/dL (8.5-10.1); CARBON DIOXIDE 21.2 mmol/L (21-32); COR CA(FOR HYPOALB) 10.4 mg/dL (8.5-10.1); CREATININE 1.82 mg/dL (0.70-1.30); POTASSIUM 4.1 mmol/L (3.5-5.1); TOTAL PROTEIN 5.3 g/dL (6.4-8.2)
[2024-08-23] MEDS ORDERED: CANDIDA ALBICANS SKIN TEST ID ONE (16:13)
[2024-08-23] MEDS: APLISOL ID ONE (17:47)
--- NOTE | 2024-08-23 19:52 | PCM.PROG ---
Progress Note Progress Note for Day of Date of Exam: 08/23/24 Subjective Subjective: History/Background Cameron PhillipsJr. presented with an elevated white blood cell count indicative of a possible infection. Previous medical history includes a recent MRI that suggested possible mastoiditis and episodes of constipation. There was a mention of being on antibiotics before this visit. Clinical Observations Upon examination, the patient was hemodynamically stable with no active fever. A Mini Mental Status Exam revealed the patient was alert and oriented to date and location, although there were some difficulties with recall and sequencing. The patient displayed signs of slight cognitive slowing, likely related to previous ischemic insults and aging. No sores or wounds were noted on examination of the skin, and the patient reported no pain upon palpation of sinus areas. The patient expressed having difficulty with balance and mobility and was noted to have decreased strength, particularly in the legs. Past Medical Family Social History Allergies: Allergies Penicillins Allergy (Verified 08/21/24 11:15) Review of Systems ROS: No change since H&P Vital Signs and I&O's Vital Signs: Vital Signs Temperature 97.5 F Temperature 97.2 F Pulse Rate [Brachial] 67 Pulse Rate [Brachial] 66 Respiratory Rate 18 Respiratory Rate 18 Blood Pressure [Left Arm] 152/74 Blood Pressure [Left Arm] 153/77 O2 Sat by Pulse Oximetry 97 O2 Sat by Pulse Oximetry 98 Intake and Output: Intake & Output 08/21/24 08/22/24 08/23/24 08/24/24 11:59 11:59 11:59 11:59 Intake Total 1779 / 1779 3479 / 3479 700 / 700 Balance 1779 / 1779 3479 / 3479 700 / 700 Physical Exam Oriented: Normal, Time, Person and Place Eyes: Normal Ear: Normal Nose: Normal Throat: Normal Cardiovascular: Normal Auscultation: Bowel Sounds: Normal Tenderness: Normal Skin: Normal Musculoskeletal: Normal Psychiatric: Normal Mood Description: Calm Affect: Normal Speech Pattern: Clear and Appropriate Laboratory and Diagnostics 08/23/24 05:55 08/23/24 05:55 Labs: 08/21/24 15:53 Blood Blood Culture - Preliminary 08/21/24 15:48 Blood Blood Culture - Preliminary Laboratory WBC 16.4 X10^3/uL (3.6-10.0) H 08/23/24 05:55 RBC 3.10 X10^6/uL (4.7-6.0) L 08/23/24 05:55 Hgb 8.8 g/dL (13.5-18.0) L 08/23/24 05:55 Hct 26.3 % (42.0-54.0) L 08/23/24 05:55 MCV 84.8 fL (80.0-100.0) 08/23/24 05:55 MCH 28.5 pg (27.0-34.0) 08/23/24 05:55 MCHC 33.6 g/dL (33.0-35.0) 08/23/24 05:55 RDW 14.3 % (11.6-16.5) 08/23/24 05:55 Plt Count 239 X10^3/uL (150.0-450.0) 08/23/24 05:55 MPV 8.9 fL (7.4-11.0) 08/23/24 05:55 Neut % (Auto) 87.6 % (42.0-75.0) H 08/23/24 05:55 Lymph % (Auto) 8.0 % (21.0-51.0) L 08/23/24 05:55 [place] % (Auto) 3.6 % (0.0-13.0) 08/23/24 05:55 Eos % (Auto) 0.0 % (0.9-2.9) L 08/23/24 05:55 Baso % (Auto) 0.8 % (0.2-1.0) 08/23/24 05:55 Neut # (Auto) 14.4 x10^3/uL (2.2-4.8) H 08/23/24 05:55 Lymph # (Auto) 1.3 X10^3/uL (1.3-2.9) 08/23/24 05:55 [place] # (Auto) 0.6 x10^3/uL (0.3-0.8) 08/23/24 05:55 Eos # (Auto) 0.0 x10^3/uL (0.0-0.2) 08/23/24 05:55 Baso # (Auto) 0.1 X10^3/uL (0.0-0.1) 08/23/24 05:55 Absolute Nucleated RBC 0.0 /100WBC 08/23/24 05:55 PT 15.1 SECONDS (11.8-14.3) 08/21/24 15:53 INR Target Range - 08/21/24 15:53 INR 1.22 (0.8-1.3) 08/21/24 15:53 APTT 38.8 SECONDS (22.9-36.5) H 08/21/24 15:53 PTT Comment - 08/21/24 15:53 Sodium 142 mmol/L (136-145) 08/23/24 05:55 Corrected Sodium 143 mmol/L (136-145) 08/23/24 05:55 Potassium 4.1 mmol/L (3.5-5.1) 08/23/24 05:55 Chloride 110 mmol/L (98-107) H 08/23/24 05:55 Carbon Dioxide 21.2 mmol/L (21-32) 08/23/24 05:55 BUN 27 mg/dL (7-18) H 08/23/24 05:55 Creatinine 1.82 mg/dL (0.70-1.30) H 08/23/24 05:55 Est GFR (MDRD) Af Amer 46 (>60) L 08/23/24 05:55 Est GFR (MDRD) Non-Af 38 (>60) L 08/23/24 05:55 Glucose 123 mg/dL (65-99) H 08/23/24 05:55 Lactic Acid 3.4 mmol/L (0.4-2.0) H 08/23/24 19:13 Calcium 8.6 mg/dL (8.5-10.1) 08/23/24 05:55 Corrected Calcium 10.4 mg/dL (8.5-10.1) H 08/23/24 05:55 Magnesium 2.0 mg/dL (2.0-2.9) 08/23/24 05:55 Total Bilirubin 0.50 mg/dL (0.2-1.0) 08/23/24 05:55 AST 60 Units/L (15-37) H 08/23/24 05:55 ALT 39 Units/L (12-78) 08/23/24 05:55 Alkaline Phosphatase 110 Units/L (46-116) 08/23/24 05:55 Total Protein 5.3 g/dL (6.4-8.2) L 08/23/24 05:55 Albumin 1.8 g/dL (3.4-5.0) L 08/23/24 05:55 Globulin 3.5 g/dL (2.5-4.5) 08/23/24 05:55 Albumin/Globulin Ratio 0.5 Ratio (1.1-2.1) L 08/23/24 05:55 Specimen Type Clean catch urine 08/21/24 15:37 Urine Color Dark yellow (YELLOW) 08/21/24 15:37 Urine Appearance Clear (CLEAR) 08/21/24 15:37 Urine pH 6.0 (5.0 - 8.0) 08/21/24 15:37 Ur Specific [place] 1.015 (1.000-1.030) 08/21/24 15:37 Urine Protein 2+ (NEGATIVE) 08/21/24 15:37 Urine Glucose (UA) Negative (NEGATIVE) 08/21/24 15:37 Urine Ketones Negative (NEGATIVE) 08/21/24 15:37 Urine Blood 1+ (NEGATIVE) 08/21/24 15:37 Urine Nitrite Negative (NEGATIVE) 08/21/24 15:37 Urine Bilirubin Negative (NEGATIVE) 08/21/24 15:37 Urine Urobilinogen Normal (NORMAL) 08/21/24 15:37 Ur Leukocyte Esterase Negative (NEGATIVE) 08/21/24 15:37 Urine RBC 0-2 /HPF (0-3) 08/21/24 15:37 Urine WBC None seen /HPF (0-5) 08/21/24 15:37 Ur Squamous Epith Cells Rare /HPF (NEGATIVE) 08/21/24 15:37 Urine Bacteria Negative /HPF (NEGATIVE) 08/21/24 15:37 Ur Culture Indicated? No/not indicated 08/21/24 15:37 Resp Viral Panel (PCR) See scanned report 08/22/24 08:54 Radiology Reviewed: Yes Plan (1) Dehydration: Status: Acute Narrative Support Text: Improved hydration status since admission. Plan: IV hydration. Repeat CMP in a.m. to reevaluate estimated GFR level. (2) Weakness: Status: Acute Plan: Treat underlying cause of patient's leukocytosis and suspect his weakness will improve. We will also obtain a physical therapy consultation in the meantime. (3) Nausea & vomiting: Status: Acute Plan: Ondansetron as needed nausea. (4) Leukocytosis: Status: Acute Plan: Plan/Recommendations on 08/23/2024: Continued monitoring of white blood cell count and blood cultures to identify any potential infection sources. Given the cognitive assessment, further evaluation for possible mental health components is recommended, including a referral for psychological assessment. Consideration for physical therapy to address mobility issues and weakness in the legs upon discharge. Assess the patient's current medication regimen for potential interactions and adjust dosages of temazepam as necessary to minimize fall risk. Discussed the possibility of rehabilitation after hospitalization to further support physical recovery. Check MRI of the patient's head without contrast since he is allergic to gadolinium, looking for change or progression of possible underlying mastoiditis. Mr. Phillips is likely suffering from an underlying infection contributing to his acute weakness and collapse episodes. Differential diagnoses include urinary tract infection or other infections given his elevated white count. I recommend discontinuing tamsulosin to assess blood pressure changes, initiating a referral for physical therapy to boost mobility, and considering follow-up imaging to track conditions like mastoiditis. Recommendations also include monitoring blood pressure and urine output closely. Follow-up visit scheduled in one week to assess progress. (5) Persistent dry cough: Status: Acute Narrative Support Text: Results of the patient's chest x-ray this morning showed that his lungs were clear. No infiltrates or consolidations are seen indicating underlying pneumonia or bronchitis. (6) Impaired communication with impaired cognition: Status: Acute Narrative Support Text: The family tells me that they feel that the patient has impaired communication and worsening memory problems and would like his mental status checked today. A Mini-Mental status exam was done, however at this time it does not indicate any significantly disturbed cognition problems. Plan: The family would like the patient's mental status checked as they feel like his thought process is slower and he seems to be more forgetful since his stroke earlier this year. A Mini-Mental status exam was done and it is not look like the patient has any significant memory loss or impaired cognition. A copy of the results of the Mini-Mental status exam will be copied to his chart for his record.
[2024-08-23] MEDS: PATIENT'S HOME MEDICATION PO SCH (21:12)
--- NOTE | 2024-08-24 01:59 | RAD ---
PROCEDURE: Chest X-ray 1 View.HISTORY: SEPSIS, WEAKNESS; LUNG CA, HTN SX: OPEN HEART SURG .TECHNIQUE: AP portable view.COMPARISON: August 21 this year.TECHNICAL QUALITY: Satisfactory.FINDINGS:Normal-sized heart with previous sternotomy.Mediastinum and hilar regions show no masses or lymphadenopathy.Normal central vascularity.Some increased density behind the heart apex of the left base could represent pneumonia more apparent than on previous study. Right lung calle clear. No pleural fluid.No acute bony abnormality.IMPRESSION:Questionable left basilar pneumonia and follow-up films may be helpful.THIS IS AN ELECTRONICALLY VERIFIED FINAL [id number]/2024 1:56 AM - Electronically signed by Aric Santos MD
[2024-08-24 06:17] LABS: ALBUMIN 1.8 g/dL (3.4-5.0); CALCIUM 8.1 mg/dL (8.5-10.1); CARBON DIOXIDE 21.3 mmol/L (21-32); COR CA(FOR HYPOALB) 9.9 mg/dL (8.5-10.1); CREATININE 1.63 mg/dL (0.70-1.30); POTASSIUM 3.3 mmol/L (3.5-5.1); TOTAL PROTEIN 5.2 g/dL (6.4-8.2)
[2024-08-24 06:24] LABS: BASOPHILS % (AUTO) 0.1 % (0.2-1.0); HEMATOCRIT 26.7 % (42.0-54.0); LYMPHOCYTES # (AUTO) 1.4 X10^3/uL (1.3-2.9); LYMPHOCYTES % (AUTO) 8.3 % (21.0-51.0); MEAN CORPUSCULAR HEMOGLOBIN 28.6 pg (27.0-34.0); MEAN CORPUSCULAR HGB CONC 33.6 g/dL (33.0-35.0); MEAN CORPUSCULAR VOLUME 85.2 fL (80.0-100.0); MEAN PLATELET VOLUME 8.7 fL (7.4-11.0); MONOCYTES # (AUTO) 0.9 x10^3/uL (0.3-0.8); MONOCYTES % (AUTO) 5.1 % (0.0-13.0); NEUTROPHILS # (AUTO) 15.1 x10^3/uL (2.2-4.8); NEUTROPHILS % (AUTO) 86.5 % (42.0-75.0); PLATELET COUNT 245 X10^3/uL (150.0-450.0); RED BLOOD COUNT 3.14 X10^6/uL (4.7-6.0); RED CELL DISTRIBUTION WIDTH 14.4 % (11.6-16.5); WHITE BLOOD COUNT 17.5 X10^3/uL (3.6-10.0)
--- NOTE | 2024-08-24 09:19 | RAD ---
EXAMINATION:LUMBAR SPINE, COMPLETEHISTORY:back pain, leg weakness; .COMPARISON STUDY:None.TECHNIQUE:5 views of the lumbar spine were obtained.FINDINGS:Vertebral body heights and alignment are maintained throughout. There are 5 lumbar-type vertebral bodies. Disc spaces are maintained throughout. Facet joints are maintained. There are no osteolytic or osteoblastic lesions. SI joints are maintained. Paraspinal soft tissues are unremarkable. Underpenetrated films with osteopenia. Anterior osteophytes at multiple levels. Early degenerative changes at L4-5 and L5-S1. No significant scoliosis present.IMPRESSION:No Acute Bony Process.THIS IS AN ELECTRONICALLY VERIFIED FINAL [id number]/2024 9:15 AM - Electronically signed by Bill Falk MD
--- NOTE | 2024-08-24 10:08 | PCM.PROG ---
Progress Note Progress Note for Day of Date of Exam: 08/24/24 Subjective Subjective: History/Background Patient has a history of pneumonia and is currently experiencing elevated white blood cell count, likely exacerbated by steroid use. The patient expressed concerns about the hospital environment and has mentioned being a little uneasy with all the activity around. Clinical Observations Patient appears well, in good spirits despite current health issues. Lungs clear upon auscultation, no distress noted. Patient is currently on IV antibiotics and awaiting a CT scan to evaluate for possible mastoiditis. The patient maintains a desire to return to regular activities and is motivated to improve. The patient's chest x-ray shows a left basilar infiltrate today and this will be the source of his leukocytosis and likely underlying weakness. Past Medical Family Social History Allergies: Allergies Penicillins Allergy (Verified 08/21/24 11:15) Review of Systems ROS: No change since H&P Vital Signs and I&O's Vital Signs: Vital Signs Temperature 98.1 F Pulse Rate [Brachial] 67 Respiratory Rate 18 Blood Pressure [Left Arm] 163/80 O2 Sat by Pulse Oximetry 98 Intake and Output: Intake & Output 08/21/24 08/22/24 08/23/24 08/24/24 11:59 11:59 11:59 11:59 Intake Total 1779 / 1779 3479 / 3479 3961 / 3961 Balance 1779 / 177 3479 / 3479 3961 / 3961 Physical Exam Oriented: Normal, Time, Person and Place Eyes: Normal Ear: Normal Nose: Normal Throat: Normal Respiratory: Normal Cardiovascular: Normal Auscultation: Bowel Sounds: Normal Tenderness: Normal Skin: Normal Musculoskeletal: Normal Psychiatric: Normal Mood Description: Calm Affect: Normal Speech Pattern: Clear and Appropriate Laboratory and Diagnostics 08/24/24 05:45 08/24/24 05:45 Labs: 08/21/24 15:53 Blood Blood Culture - Preliminary 08/21/24 15:48 Blood Blood Culture - Preliminary Laboratory WBC 17.5 X10^3/uL (3.6-10.0) H 08/24/24 05:45 RBC 3.14 X10^6/uL (4.7-6.0) L 08/24/24 05:45 Hgb 9.0 g/dL (13.5-18.0) L 08/24/24 05:45 Hct 26.7 % (42.0-54.0) L 08/24/24 05:45 MCV 85.2 fL (80.0-100.0) 08/24/24 05:45 MCH 28.6 pg (27.0-34.0) 08/24/24 05:45 MCHC 33.6 g/dL (33.0-35.0) 08/24/24 05:45 RDW 14.4 % (11.6-16.5) 08/24/24 05:45 Plt Count 245 X10^3/uL (150.0-450.0) 08/24/24 05:45 MPV 8.7 fL (7.4-11.0) 08/24/24 05:45 Neut % (Auto) 86.5 % (42.0-75.0) H 08/24/24 05:45 Lymph % (Auto) 8.3 % (21.0-51.0) L 08/24/24 05:45 [place] % (Auto) 5.1 % (0.0-13.0) 08/24/24 05:45 Eos % (Auto) 0.0 % (0.9-2.9) L 08/24/24 05:45 Baso % (Auto) 0.1 % (0.2-1.0) L 08/24/24 05:45 Neut # (Auto) 15.1 x10^3/uL (2.2-4.8) H 08/24/24 05:45 Lymph # (Auto) 1.4 X10^3/uL (1.3-2.9) 08/24/24 05:45 [place] # (Auto) 0.9 x10^3/uL (0.3-0.8) H 08/24/24 05:45 Eos # (Auto) 0.0 x10^3/uL (0.0-0.2) 08/24/24 05:45 Baso # (Auto) 0.0 X10^3/uL (0.0-0.1) 08/24/24 05:45 Absolute Nucleated RBC 0.0 /100WBC 08/24/24 05:45 PT 15.1 SECONDS (11.8-14.3) 08/21/24 15:53 INR Target Range - 08/21/24 15:53 INR 1.22 (0.8-1.3) 08/21/24 15:53 APTT 38.8 SECONDS (22.9-36.5) H 08/21/24 15:53 PTT Comment - 08/21/24 15:53 Sodium 144 mmol/L (136-145) 08/24/24 05:45 Corrected Sodium 145 mmol/L (136-145) 08/24/24 05:45 Potassium 3.3 mmol/L (3.5-5.1) L 08/24/24 05:45 Chloride 111 mmol/L (98-107) H 08/24/24 05:45 Carbon Dioxide 21.3 mmol/L (21-32) 08/24/24 05:45 BUN 24 mg/dL (7-18) H 08/24/24 05:45 Creatinine 1.63 mg/dL (0.70-1.30) H 08/24/24 05:45 Est GFR (MDRD) Af Amer 52 (>60) L 08/24/24 05:45 Est GFR (MDRD) Non-Af 43 (>60) L 08/24/24 05:45 Glucose 126 mg/dL (65-99) H 08/24/24 05:45 Lactic Acid 3.1 mmol/L (0.4-2.0) H 08/24/24 09:05 Calcium 8.1 mg/dL (8.5-10.1) L 08/24/24 05:45 Corrected Calcium 9.9 mg/dL (8.5-10.1) 08/24/24 05:45 Magnesium 2.0 mg/dL (2.0-2.9) 08/24/24 05:45 Total Bilirubin 0.40 mg/dL (0.2-1.0) 08/24/24 05:45 AST 57 Units/L (15-37) H 08/24/24 05:45 ALT 51 Units/L (12-78) 08/24/24 05:45 Alkaline Phosphatase 126 Units/L (46-116) H 08/24/24 05:45 Total Protein 5.2 g/dL (6.4-8.2) L 08/24/24 05:45 Albumin 1.8 g/dL (3.4-5.0) L 08/24/24 05:45 Globulin 3.4 g/dL (2.5-4.5) 08/24/24 05:45 Albumin/Globulin Ratio 0.5 Ratio (1.1-2.1) L 08/24/24 05:45 Specimen Type Clean catch urine 08/21/24 15:37 Urine Color Dark yellow (YELLOW) 08/21/24 15:37 Urine Appearance Clear (CLEAR) 08/21/24 15:37 Urine pH 6.0 (5.0 - 8.0) 08/21/24 15:37 Ur Specific [place] 1.015 (1.000-1.030) 08/21/24 15:37 Urine Protein 2+ (NEGATIVE) 08/21/24 15:37 Urine Glucose (UA) Negative (NEGATIVE) 08/21/24 15:37 Urine Ketones Negative (NEGATIVE) 08/21/24 15:37 Urine Blood 1+ (NEGATIVE) 08/21/24 15:37 Urine Nitrite Negative (NEGATIVE) 08/21/24 15:37 Urine Bilirubin Negative (NEGATIVE) 08/21/24 15:37 Urine Urobilinogen Normal (NORMAL) 08/21/24 15:37 Ur Leukocyte Esterase Negative (NEGATIVE) 08/21/24 15:37 Urine RBC 0-2 /HPF (0-3) 08/21/24 15:37 Urine WBC None seen /HPF (0-5) 08/21/24 15:37 Ur Squamous Epith Cells Rare /HPF (NEGATIVE) 08/21/24 15:37 Urine Bacteria Negative /HPF (NEGATIVE) 08/21/24 15:37 Ur Culture Indicated? No/not indicated 08/21/24 15:37 Resp Viral Panel (PCR) See scanned report 08/22/24 08:54 Plan (1) Dehydration: Status: Acute Plan: IV hydration. Repeat CMP in a.m. to reevaluate estimated GFR level. (2) Weakness: Status: Acute Plan: Treat underlying cause of patient's leukocytosis and suspect his weakness will improve. We will also obtain a physical therapy consultation in the meantime. (3) Nausea & vomiting: Status: Acute Plan: Ondansetron as needed nausea. (4) Leukocytosis: Status: Acute Plan: Plan/Recommendations on 08/24/2024: Continue administering IV antibiotics as prescribed. CT scan is scheduled for this afternoon; no contrast will be used. The patient will be allowed to eat prior to the CT scan. Plan to reassess the white blood cell count and pneumonia symptoms. Safety measures will be taken by relocating the patient to a quieter room to reduce disturbance. Encourage mobility to promote recovery. IV ciprofloxacin 4 mg IV every 12 hours along with his other IV antibiotics this morning. Plan/Recommendations on 08/23/2024: Continued monitoring of white blood cell count and blood cultures to identify any potential infection sources. Given the cognitive assessment, further evaluation for possible mental health components is recommended, including a referral for psychological assessment. Consideration for physical therapy to address mobility issues and weakness in the legs upon discharge. Assess the patient's current medication regimen for potential interactions and adjust dosages of temazepam as necessary to minimize fall risk. Discussed the possibility of rehabilitation after hospitalization to further support physical recovery. Check MRI of the patient's head without contrast since he is allergic to gadolinium, looking for change or progression of possible underlying mastoiditis. Plan/recommendations on 08/22/2024: Mr. Phillips is likely suffering from an underlying infection contributing to his acute weakness and collapse episodes. Differential diagnoses include urinary tract infection or other infections given his elevated white count. I recommend discontinuing tamsulosin to assess blood pressure changes, initiating a referral for physical therapy to boost mobility, and considering follow-up imaging to track conditions like mastoiditis. Recommendations also include monitoring blood pressure and urine output closely. Follow-up visit scheduled in one week to assess progress. (5) Persistent dry cough: Status: Acute Plan: Repeat chest x-ray tomorrow morning. (6) Impaired communication with impaired cognition: Status: Acute Plan: The family would like the patient's mental status checked as they feel like his thought process is slower and he seems to be more forgetful since his stroke earlier this year. A Mini-Mental status exam was done and it is not look like the patient has any significant memory loss or impaired cognition. A copy of the results of the Mini-Mental status exam will be copied to his chart for his record.
[2024-08-24] MEDS: APLISOL ID ONE (10:15)
[2024-08-24] MEDS: CIPRO IV 400 MG PREMIX* 400 MG/200 ML IV.SOLN. IV SCH (11:00)
--- NOTE | 2024-08-24 11:16 | CT ---
EXAMINATION: BRAIN W/O CON HISTORY: mastoiditis; COMPARISON: CT brain 08/11/2024 TECHNIQUE: Contiguous noncontrast axial CT images of the brain. Images reviewed in the axial imaging plane with reformatted sagittal and coronal images.The above CT scan was done with automated exposure control a nd the mA and kV was adjusted to obtain quality images according to patient size. FINDINGS: No evidence of acute intracranial hemorrhage, mass effect, or midline shift. Moderate diffuse brain parenchyma atrophy. Mild dilatation of the lateral ventricles bilaterally and 3rd ventricle without evidence of acute mass effect. Calvarium appears intact. Minimal mucosal thickening/partial opacification of the mastoid sinus air cells bilaterally predomina ntly on the right. No evidence of bone destruction of the mastoid sinuses. The paranasal sinuses are well-aerated. IMPRESSION: Chronic appearing brain parenchymal changes. Inflammatory changes of the mastoid sinuses as discussed above. THIS IS AN ELECTRONICALLY VERIFIED FINAL REPORT 08/24/2024 11:13 AM - Electronically signed by Julia Naylor MD
[2024-08-24] MEDS: NS 1,000 ML IV 1,000 ML IV SCH (12:19)
[2024-08-24] MEDS: PROTONIX INJ 40 MG VIAL IVP SCH (13:45)
[2024-08-24] MEDS: PHARMACY COMMENT IV ONE (13:55)
[2024-08-24] MEDS: RESTORIL CAP 15 MG PO PRN (20:59)
[2024-08-24] MEDS: NS 250 ML IV 25 ML IV PRN (22:05)
[2024-08-25 06:46] LABS: MEAN PLATELET VOLUME 8.5 fL (7.4-11.0); MONOCYTES # (AUTO) 0.9 x10^3/uL (0.3-0.8); NEUTROPHILS # (AUTO) 14.6 x10^3/uL (2.2-4.8)
[2024-08-25 06:53] LABS: BASOPHILS % (AUTO) 0.1 % (0.2-1.0); EOSINOPHILS % (AUTO) 0.1 % (0.9-2.9); HEMATOCRIT 30.1 % (42.0-54.0); LYMPHOCYTES # (AUTO) 1.6 X10^3/uL (1.3-2.9); LYMPHOCYTES % (AUTO) 9.5 % (21.0-51.0); MEAN CORPUSCULAR HEMOGLOBIN 28.5 pg (27.0-34.0); MEAN CORPUSCULAR HGB CONC 33.4 g/dL (33.0-35.0); MEAN CORPUSCULAR VOLUME 85.3 fL (80.0-100.0); MONOCYTES % (AUTO) 5.5 % (0.0-13.0); NEUTROPHILS % (AUTO) 84.8 % (42.0-75.0); PLATELET COUNT 252 X10^3/uL (150.0-450.0); RED BLOOD COUNT 3.52 X10^6/uL (4.7-6.0); RED CELL DISTRIBUTION WIDTH 14.1 % (11.6-16.5); WHITE BLOOD COUNT 17.2 X10^3/uL (3.6-10.0)
[2024-08-25 06:59] LABS: ALANINE AMINOTRANSFERASE 56 Units/L (12-78); ALBUMIN 2.2 g/dL (3.4-5.0); ALKALINE PHOSPHATASE 137 Units/L (46-116); ASPARTATE AMINO TRANSFERASE 51 Units/L (15-37); BLOOD UREA NITROGEN 22 mg/dL (7-18); CALCIUM 8.6 mg/dL (8.5-10.1); CARBON DIOXIDE 21.7 mmol/L (21-32); CHLORIDE 109 mmol/L (98-107); CREATININE 1.53 mg/dL (0.70-1.30); GLUCOSE 97 mg/dL (65-99); POTASSIUM 3.2 mmol/L (3.5-5.1); SODIUM 145 mmol/L (136-145); eGFR NON BLACK RACES 46 (>60)
[2024-08-25] MEDS ORDERED: CONSULT PHARMACY - POTASSIUM & MAGNESIUM XX SCH (08:00)
[2024-08-25] MEDS: K-DUR TAB 20 MEQ PO SCH (08:25)
[2024-08-25] MEDS: MERREM VIAL 500 MG in NS 50 ML IV 50 ML IV SCH (14:31)
[2024-08-25] MEDS: SEROquel TAB 25 mg PO ONE (14:47)
--- NOTE | 2024-08-25 21:11 | PCM.PROG ---
Progress Note Progress Note for Day of Date of Exam: 08/25/24 Subjective Subjective: History/Background Mr. Cameron Phillips has an elevated lactic acid level of 4.5. He reports experiencing abdominal discomfort when thinking about eating or drinking, often leading to vomiting, particularly after consuming water or coffee. He has a history of constipation and is currently experiencing irregular bowel movements with reports of passing primarily gas. He had a colonoscopy 5 years ago, and his last white blood cell count was elevated at 17,000, indicating a possible infe ction or response to steroids. He is currently on Cipro and has a history of being on vancomycin. Clinical Observations The patient is alert but reports feelings of exhaustion when attempting to a mbulate. Bowel sounds are hypoactive, indicating decreased activity, which correlates with his complaints of constipation. There is no acute abdominal pain noted during the examination. An x-ray has been ordered to check for any indications of bowel obstruction. He is also experiencing thickening and opacification of the mastoid sinus bilaterally, with the right side being worse, which could explain some dizziness. Past Medical Family Social History Allergies: Allergies Penicillins Allergy (Verified 08/21/24 11:15) Review of Systems ROS: No change since H&P Vital Signs and I&O's Vital Signs: Vital Signs Temperature 98.6 F Temperature 97.9 F Pulse Rate [Brachial] 86 Pulse Rate [Brachial] 89 Respiratory Rate 20 Respiratory Rate 19 Blood Pressure [Left Arm] 167/87 Blood Pressure [Right Arm] 175/92 O2 Sat by Pulse Oximetry 97 O2 Sat by Pulse Oximetry 97 Intake and Output: Intake & Output 08/23/24 08/24/24 08/25/24 08/26/24 11:59 11:59 11:59 11:59 Intake Total 9759 / 3479 3961 / 3961 2579 / 2579 764 / 764 Balance 3479 / 3479 3961 / 3961 2579 / 2579 764 / 764 Physical Exam Oriented: Normal, Time, Person and Place Eyes: Normal Ear: Normal Nose: Normal Throat: Normal Respiratory: Normal Cardiovascular: Normal Auscultation: Bowel Sounds: Normal Tenderness: Normal Skin: Normal Musculoskeletal: Normal Psychiatric: Normal Mood Description: Calm Affect: Normal Speech Pattern: Clear and Appropriate Laboratory and Diagnostics 08/25/24 06:11 08/25/24 06:11 Labs: 08/21/24 15:53 Blood Blood Culture - Preliminary 08/21/24 15:48 Blood Blood Culture - Preliminary Laboratory WBC 17.2 X10^3/uL (3.6-10.0) H 08/25/24 06:11 RBC 3.52 X10^6/uL (4.7-6.0) L 08/25/24 06:11 Hgb 10.0 g/dL (13.5-18.0) L 08/25/24 06:11 Hct 30.1 % (42.0-54.0) L 08/25/24 06:11 MCV 85.3 fL (80.0-100.0) 08/25/24 06:11 MCH 28.5 pg (27.0-34.0) 08/25/24 06:11 MCHC 33.4 g/dL (33.0-35.0) 08/25/24 06:11 RDW 14.1 % (11.6-16.5) 08/25/24 06:11 Plt Count 252 X10^3/uL (150.0-450.0) 08/25/24 06:11 MPV 8.5 fL (7.4-11.0) 08/25/24 06:11 Neut % (Auto) 84.8 % (42.0-75.0) H 08/25/24 06:11 Lymph % (Auto) 9.5 % (21.0-51.0) L 08/25/24 06:11 [place] % (Auto) 5.5 % (0.0-13.0) 08/25/24 06:11 Eos % (Auto) 0.1 % (0.9-2.9) L 08/25/24 06:11 Baso % (Auto) 0.1 % (0.2-1.0) L 08/25/24 06:11 Neut # (Auto) 14.6 x10^3/uL (2.2-4.8) H 08/25/24 06:11 Lymph # (Auto) 1.6 X10^3/uL (1.3-2.9) 08/25/24 06:11 [place] # (Auto) 0.9 x10^3/uL (0.3-0.8) H 08/25/24 06:11 Eos # (Auto) 0.0 x10^3/uL (0.0-0.2) 08/25/24 06:11 Baso # (Auto) 0.0 X10^3/uL (0.0-0.1) 08/25/24 06:11 Absolute Nucleated RBC 0.0 /100WBC 08/25/24 06:11 PT 15.1 SECONDS (11.8-14.3) 08/21/24 15:53 INR Target Range - 08/21/24 15:53 INR 1.22 (0.8-1.3) 08/21/24 15:53 APTT 38.8 SECONDS (22.9-36.5) H 08/21/24 15:53 PTT Comment - 08/21/24 15:53 Sodium 145 mmol/L (136-145) 08/25/24 06:11 Corrected Sodium TNP 08/25/24 06:11 Potassium 3.2 mmol/L (3.5-5.1) L 08/25/24 06:11 Chloride 109 mmol/L (98-107) H 08/25/24 06:11 Carbon Dioxide 21.7 mmol/L (21-32) 08/25/24 06:11 BUN 22 mg/dL (7-18) H 08/25/24 06:11 Creatinine 1.53 mg/dL (0.70-1.30) H 08/25/24 06:11 Est GFR (MDRD) Af Amer 56 (>60) L 08/25/24 06:11 Est GFR (MDRD) Non-Af 46 (>60) L 08/25/24 06:11 Glucose 97 mg/dL (65-99) 08/25/24 06:11 Lactic Acid 4.5 mmol/L (0.4-2.0) H* 08/25/24 09:39 Calcium 8.6 mg/dL (8.5-10.1) 08/25/24 06:11 Corrected Calcium 10.0 mg/dL (8.5-10.1) 08/25/24 06:11 Magnesium 2.0 mg/dL (2.0-2.9) 08/24/24 05:45 Total Bilirubin 0.60 mg/dL (0.2-1.0) 08/25/24 06:11 AST 51 Units/L (15-37) H 08/25/24 06:11 ALT 56 Units/L (12-78) 08/25/24 06:11 Alkaline Phosphatase 137 Units/L (46-116) H 08/25/24 06:11 Total Protein 6.0 g/dL (6.4-8.2) L 08/25/24 06:11 Albumin 2.2 g/dL (3.4-5.0) L 08/25/24 06:11 Globulin 3.8 g/dL (2.5-4.5) 08/25/24 06:11 Albumin/Globulin Ratio 0.6 Ratio (1.1-2.1) L 08/25/24 06:11 Specimen Type Clean catch urine 08/21/24 15:37 Urine Color Dark yellow (YELLOW) 08/21/24 15:37 Urine Appearance Clear (CLEAR) 08/21/24 15:37 Urine pH 6.0 (5.0 - 8.0) 08/21/24 15:37 Ur Specific [place] 1.015 (1.000-1.030) 08/21/24 15:37 Urine Protein 2+ (NEGATIVE) 08/21/24 15:37 Urine Glucose (UA) Negative (NEGATIVE) 08/21/24 15:37 Urine Ketones Negative (NEGATIVE) 08/21/24 15:37 Urine Blood 1+ (NEGATIVE) 08/21/24 15:37 Urine Nitrite Negative (NEGATIVE) 08/21/24 15:37 Urine Bilirubin Negative (NEGATIVE) 08/21/24 15:37 Urine Urobilinogen Normal (NORMAL) 08/21/24 15:37 Ur Leukocyte Esterase Negative (NEGATIVE) 08/21/24 15:37 Urine RBC 0-2 /HPF (0-3) 08/21/24 15:37 Urine WBC None seen /HPF (0-5) 08/21/24 15:37 Ur Squamous Epith Cells Rare /HPF (NEGATIVE) 08/21/24 15:37 Urine Bacteria Negative /HPF (NEGATIVE) 08/21/24 15:37 Ur Culture Indicated? No/not indicated 08/21/24 15:37 Resp Viral Panel (PCR) See scanned report 08/22/24 08:54 S. pyogenes (TEM-PCR) Not detected (NOT DETECT) 08/25/24 11:22 Plan (1) Dehydration: Status: Acute Plan: IV hydration. Repeat CMP in a.m. to reevaluate estimated GFR level. (2) Weakness: Status: Acute Plan: Treat underlying cause of patient's leukocytosis and suspect his weakness will improve. We will also obtain a physical therapy consultation in the meantime. (3) Nausea & vomiting: Status: Acute Plan: Ondansetron as needed nausea. (4) Leukocytosis: Status: Acute Plan: Tuesday, 25 August 2024: The patient still has an elevated white blood cell count is 17,200. We are discontinuing his current IV antibiotics and changing him to Meropenem. Repeat CBC in AM. Plan/Recommendations on 08/24/2024: Continue administering IV antibiotics as prescribed. CT scan is scheduled for this afternoon; no contrast will be used. The patient will be allowed to eat prior to the CT scan. Plan to reassess the white blood cell count and pneumonia symptoms. Safety measures will be taken by relocating the patient to a quieter room to reduce disturbance. Encourage mobility to promote recovery. IV ciprofloxacin 4 mg IV every 12 hours along with his other IV antibiotics this morning. Plan/Recommendations on 08/23/2024: Continued monitoring of white blood cell count and blood cultures to identify any potential infection sources. Given the cognitive assessment, further evaluation for possible mental health components is recommended, including a referral for psychological assessment. Consideration for physical therapy to address mobility issues and weakness in the legs upon discharge. Assess the patient's current medication regimen for potential interactions and adjust dosages of temazepam as necessary to minimize fall risk. Discussed the possibility of rehabilitation after hospitalization to further support physical recovery. Check MRI of the patient's head without contrast since he is allergic to gadolinium, looking for change or progression of possible underlying mastoiditis. Plan/recommendations on 08/22/2024: Mr. Phillips is likely suffering from an underlying infection contributing to his acute weakness and collapse episodes. Differential diagnoses include urinary tract infection or other infections given his elevated white count. I recommend discontinuing tamsulosin to assess blood pressure changes, initiating a referral for physical therapy to boost mobility, and considering follow-up imaging to track conditions like mastoiditis. Recommendations also include monitoring blood pressure and urine output closely. Follow-up visit scheduled in one week to assess progress. (5) Persistent dry cough: Status: Acute Plan: Repeat chest x-ray tomorrow morning. (6) Impaired communication with impaired cognition: Status: Acute Plan: The family would like the patient's mental status checked as they feel like his thought process is slower and he seems to be more forgetful since his stroke earlier this year. A Mini-Mental status exam was done and it is not look like the patient has any significant memory loss or impaired cognition. A copy of the results of the Mini-Mental status exam will be copied to his chart for his record. (7) Constipation: Status: Acute Plan: Plan/Recommendations We plan to monitor his bowel activity closely and may intervene with medications to aid in constipation. An x-ray of the abdomen will be conducted to rule out obstruction. The current antibiotic regimen with Cipro will be adjusted, with a recommendation to start meropenem, considering the possibility of cross- reactivity with penicillin and monitoring for signs of allergic reaction. Follow-up consultations will address any changes in his condition and to ensure accurate medication adjustments are maintained. The patient also expressed difficulties with sleep due to medication adjustments; therefore, we will reassess the dosage of Restoril and Seroquel to find an effective sleep aid.
--- NOTE | 2024-08-26 00:32 | EKG ---
Test Reason : HYPERTENSION PROTOCOL Blood Pressure : */* mmHG Vent. Rate : 63 BPM Atrial Rate : 63 BPM P-R Int : 126 ms QRS Dur : 96 ms QT Int : 432 ms P-R-T Axes : 29 -18 9 degrees QTc Int : 442 ms Normal sinus rhythm Minimal voltage criteria for LVH, may be normal variant ( R in aVL ) Borderline ECG When compared with ECG of 14-APR-2023 20:13, No significant change was found Confirmed by Mario Gilman MD ([id number]) on 08/27/2024 7:30:59 AM Referred By: Confirmed By: Mario Gilman MD
[2024-08-26] MEDS: CATAPRES TAB 0.1 MG PO ONE (00:58)
[2024-08-26] MEDS: APRESOLINE INJ 20 MG VIAL IVP ONE (02:46)
[2024-08-26 06:31] LABS: BASOPHILS # (AUTO) 0.1 X10^3/uL (0.0-0.1); BASOPHILS % (AUTO) 0.5 % (0.2-1.0); EOSINOPHILS % (AUTO) 0.1 % (0.9-2.9); HEMOGLOBIN 10.3 g/dL (13.5-18.0); LYMPHOCYTES # (AUTO) 1.7 X10^3/uL (1.3-2.9); LYMPHOCYTES % (AUTO) 9.5 % (21.0-51.0); MEAN CORPUSCULAR HEMOGLOBIN 28.1 pg (27.0-34.0); MEAN CORPUSCULAR HGB CONC 33.2 g/dL (33.0-35.0); MEAN CORPUSCULAR VOLUME 84.7 fL (80.0-100.0); MEAN PLATELET VOLUME 9.1 fL (7.4-11.0); MONOCYTES # (AUTO) 1.1 x10^3/uL (0.3-0.8); MONOCYTES % (AUTO) 5.8 % (0.0-13.0); NEUTROPHILS # (AUTO) 15.5 x10^3/uL (2.2-4.8); NEUTROPHILS % (AUTO) 84.1 % (42.0-75.0); PLATELET COUNT 179 X10^3/uL (150.0-450.0); RED BLOOD COUNT 3.66 X10^6/uL (4.7-6.0); RED CELL DISTRIBUTION WIDTH 14.9 % (11.6-16.5); WHITE BLOOD COUNT 18.4 X10^3/uL (3.6-10.0)
[2024-08-26 07:27] LABS: ALANINE AMINOTRANSFERASE 45 Units/L (12-78); ALBUMIN 1.9 g/dL (3.4-5.0); ALKALINE PHOSPHATASE 117 Units/L (46-116); ASPARTATE AMINO TRANSFERASE 39 Units/L (15-37); BLOOD UREA NITROGEN 24 mg/dL (7-18); CARBON DIOXIDE 23.7 mmol/L (21-32); CHLORIDE 106 mmol/L (98-107); COR CA(FOR HYPOALB) 9.7 mg/dL (8.5-10.1); CREATININE 1.46 mg/dL (0.70-1.30); GLUCOSE 98 mg/dL (65-99); MAGNESIUM 1.5 mg/dL (2.0-2.9); SODIUM 143 mmol/L (136-145); TOTAL PROTEIN 5.3 g/dL (6.4-8.2); eGFR NON BLACK RACES 49 (>60)
[2024-08-26 07:29] LABS: POTASSIUM 2.8 mmol/L (3.5-5.1)
[2024-08-26] MEDS: NS 50 ML IV 50 ML IV ONE (08:58)
[2024-08-26] MEDS: FORTAZ or TAZICEF VIAL INJ ONE (08:58)
[2024-08-26] MEDS ORDERED: CONSULT PHARMACY - POTASSIUM & MAGNESIUM XX SCH (09:00)
[2024-08-26] MEDS: MILK OF MAGNESIA PO PRN (10:16)
[2024-08-26] MEDS: COLACE CAP 100 MG PO PRN (10:16)
[2024-08-26] MEDS: K-DUR TAB 20 MEQ PO ONE (10:16)
[2024-08-26] MEDS ORDERED: CONSULT PHARMACY - GENTAMICIN XX SCH (13:00)
[2024-08-26] MEDS: COZAAR PO SCH (14:03)
[2024-08-26] MEDS: GENTAMICIN INJ 160 MG in NS 100 ML IV 100 ML IV SCH (14:03)
[2024-08-26] MEDS: DIFLUCAN 200 MG IV PREMIX* 200 MG/100 ML BAG IV SCH (19:11)
[2024-08-26] MEDS ORDERED: ASCORBIC ACID INJ MULTI-DOSE VIAL IV ONE (20:25)
--- NOTE | 2024-08-26 22:21 | PCM.PROG ---
Progress Note Progress Note for Day of Date of Exam: 08/26/24 Subjective Subjective: Subjective: - Admitted on 17 Aug 2024 with multiple falls and unsteadiness ("I have been moore ving trouble with my sciatic nerve") - Reports chronic dry cough while on lisinopril - Reports claustrophobia ("They're not gonna strap me in where I can't breathe, are they?") - Reports sciatic nerve issues that are infrequent and resolve quickly ("I have had trouble with my sciatic nerve... but very rare... it's just rare... not anything that wouldn't pass pretty quick") Clinical Observations The patient's blood pressure is elevated at 153/96. Notable lab findings include a white blood cell count of 18,400, which indicates a possible infection. Lactic acid levels have improved. Kidney function shows creatinine levels of 1.46 with a GFR of 49, indicating some recovery. The patient is receiving treatment for low magnesium and potassium, with medication adjustments made. He is currently alert but expresses concern about potential hospitalization for rehabilitation. Past Medical Family Social History Allergies: Allergies Penicillins Allergy (Verified 08/21/24 11:15) Review of Systems ROS: Changes notes (describe) (Review of Systems: - Constitutional symptoms: None reported - Eyes: None reported - Ears, Nose, Mouth, Throat: Negative for strep throat on recent testing - Cardiovascular: Elevated blood pressure 153/96 - Respiratory: Chronic dry cough - Gastrointestinal: None reported - Genitourinary: None reporte) Vital Signs and I&O's Vital Signs: Vital Signs Temperature 98.0 F Temperature 98.3 F Pulse Rate [Brachial] 82 Pulse Rate [Brachial] 84 Pulse Rate 81 Respiratory Rate 18 Respiratory Rate 16 Blood Pressure [Left Arm] 155/93 Blood Pressure [Left Arm] 168/95 O2 Sat by Pulse Oximetry 98 O2 Sat by Pulse Oximetry 97 O2 Sat by Pulse Oximetry 99 Intake and Output: Intake & Output 08/24/24 08/25/24 08/26/24 08/27/24 11:59 11:59 11:59 11:59 Intake Total 3961 / 3961 2579 / 2579 2796 / 2796 960 / 960 Balance 3961 / 3961 2579 / 2579 2796 / 2796 960 / 960 Physical Exam Oriented: Normal, Time, Person and Place Eyes: Normal Ear: Normal Nose: Normal Throat: Normal Respiratory: Normal Cardiovascular: Normal Auscultation: Bowel Sounds: Normal Tenderness: Normal Skin: Normal Musculoskeletal: Normal Psychiatric: Normal Mood Description: Calm Affect: Normal Speech Pattern: Clear and Appropriate Laboratory and Diagnostics 08/26/24 05:35 08/26/24 06:45 Labs: 08/21/24 15:53 Blood Blood Culture - Preliminary 08/21/24 15:48 Blood Blood Culture - Preliminary Laboratory WBC 18.4 X10^3/uL (3.6-10.0) H 08/26/24 05:35 RBC 3.66 X10^6/uL (4.7-6.0) L 08/26/24 05:35 Hgb 10.3 g/dL (13.5-18.0) L 08/26/24 05:35 Hct 31.0 % (42.0-54.0) L 08/26/24 05:35 MCV 84.7 fL (80.0-100.0) 08/26/24 05:35 MCH 28.1 pg (27.0-34.0) 08/26/24 05:35 MCHC 33.2 g/dL (33.0-35.0) 08/26/24 05:35 RDW 14.9 % (11.6-16.5) 08/26/24 05:35 Plt Count 179 X10^3/uL (150.0-450.0) 08/26/24 05:35 MPV 9.1 fL (7.4-11.0) 08/26/24 05:35 Neut % (Auto) 84.1 % (42.0-75.0) H 08/26/24 05:35 Lymph % (Auto) 9.5 % (21.0-51.0) L 08/26/24 05:35 [place] % (Auto) 5.8 % (0.0-13.0) 08/26/24 05:35 Eos % (Auto) 0.1 % (0.9-2.9) L 08/26/24 05:35 Baso % (Auto) 0.5 % (0.2-1.0) 08/26/24 05:35 Neut # (Auto) 15.5 x10^3/uL (2.2-4.8) H 08/26/24 05:35 Lymph # (Auto) 1.7 X10^3/uL (1.3-2.9) 08/26/24 05:35 [place] # (Auto) 1.1 x10^3/uL (0.3-0.8) H 08/26/24 05:35 Eos # (Auto) 0.0 x10^3/uL (0.0-0.2) 08/26/24 05:35 Baso # (Auto) 0.1 X10^3/uL (0.0-0.1) 08/26/24 05:35 Absolute Nucleated RBC 0.1 /100WBC 08/26/24 05:35 PT 15.1 SECONDS (11.8-14.3) 08/21/24 15:53 INR Target Range - 08/21/24 15:53 INR 1.22 (0.8-1.3) 08/21/24 15:53 APTT 38.8 SECONDS (22.9-36.5) H 08/21/24 15:53 PTT Comment - 08/21/24 15:53 Sodium 143 mmol/L (136-145) 08/26/24 06:45 Corrected Sodium TNP 08/26/24 06:45 Potassium 2.8 mmol/L (3.5-5.1) L* 08/26/24 06:45 Chloride 106 mmol/L (98-107) 08/26/24 06:45 Carbon Dioxide 23.7 mmol/L (21-32) 08/26/24 06:45 BUN 24 mg/dL (7-18) H 08/26/24 06:45 Creatinine 1.46 mg/dL (0.70-1.30) H 08/26/24 06:45 Est GFR (MDRD) Af Amer 59 (>60) 08/26/24 06:45 Est GFR (MDRD) Non-Af 49 (>60) L 08/26/24 06:45 Glucose 98 mg/dL (65-99) 08/26/24 06:45 Lactic Acid 4.6 mmol/L (0.4-2.0) H* 08/26/24 20:51 Calcium 8.0 mg/dL (8.5-10.1) L 08/26/24 06:45 Corrected Calcium 9.7 mg/dL (8.5-10.1) 08/26/24 06:45 Magnesium 1.5 mg/dL (2.0-2.9) L 08/26/24 06:45 Total Bilirubin 0.60 mg/dL (0.2-1.0) 08/26/24 06:45 AST 39 Units/L (15-37) H 08/26/24 06:45 ALT 45 Units/L (12-78) 08/26/24 06:45 Alkaline Phosphatase 117 Units/L (46-116) H 08/26/24 06:45 Total Protein 5.3 g/dL (6.4-8.2) L 08/26/24 06:45 Albumin 1.9 g/dL (3.4-5.0) L 08/26/24 06:45 Globulin 3.4 g/dL (2.5-4.5) 08/26/24 06:45 Albumin/Globulin Ratio 0.6 Ratio (1.1-2.1) L 08/26/24 06:45 Specimen Type Clean catch urine 08/21/24 15:37 Urine Color Dark yellow (YELLOW) 08/21/24 15:37 Urine Appearance Clear (CLEAR) 08/21/24 15:37 Urine pH 6.0 (5.0 - 8.0) 08/21/24 15:37 Ur Specific [place] 1.015 (1.000-1.030) 08/21/24 15:37 Urine Protein 2+ (NEGATIVE) 08/21/24 15:37 Urine Glucose (UA) Negative (NEGATIVE) 08/21/24 15:37 Urine Ketones Negative (NEGATIVE) 08/21/24 15:37 Urine Blood 1+ (NEGATIVE) 08/21/24 15:37 Urine Nitrite Negative (NEGATIVE) 08/21/24 15:37 Urine Bilirubin Negative (NEGATIVE) 08/21/24 15:37 Urine Urobilinogen Normal (NORMAL) 08/21/24 15:37 Ur Leukocyte Esterase Negative (NEGATIVE) 08/21/24 15:37 Urine RBC 0-2 /HPF (0-3) 08/21/24 15:37 Urine WBC None seen /HPF (0-5) 08/21/24 15:37 Ur Squamous Epith Cells Rare /HPF (NEGATIVE) 08/21/24 15:37 Urine Bacteria Negative /HPF (NEGATIVE) 08/21/24 15:37 Ur Culture Indicated? No/not indicated 08/21/24 15:37 Resp Viral Panel (PCR) See scanned report 08/24/24 11:11 S. pyogenes (TEM-PCR) Not detected (NOT DETECT) 08/25/24 11:22 Plan (1) Dehydration: Status: Acute Plan: IV hydration. Repeat CMP in a.m. to reevaluate estimated GFR level. (2) Weakness: Status: Acute Plan: Treat underlying cause of patient's leukocytosis and suspect his weakness will improve. We will also obtain a physical therapy consultation in the meantime. (3) Nausea & vomiting: Status: Acute Plan: Ondansetron as needed nausea. (4) Leukocytosis: Status: Acute (5) Persistent dry cough: Status: Acute Plan: Repeat chest x-ray tomorrow morning. Discontinue lisinopril as his cough may be secondary to ART inhibitor. I will replace lisinopril with losartan 25 mg daily to see if his dry persistent cough goes away. (6) Impaired communication with impaired cognition: Status: Acute Plan: The family would like the patient's mental status checked as they feel like his thought process is slower and he seems to be more forgetful since his stroke earlier this year. A Mini-Mental status exam was done and it is not look like the patient has any significant memory loss or impaired cognition. A copy of the results of the Mini-Mental status exam will be copied to his chart for his record. (7) Constipation: Status: Acute Plan: Plan/Recommendations We plan to monitor his bowel activity closely and may intervene with medications to aid in constipation. An x-ray of the abdomen will be conducted to rule out obstruction. The current antibiotic regimen with Cipro will be adjusted, with a recommendation to start meropenem, considering the possibility of cross- reactivity with penicillin and monitoring for signs of allergic reaction. Follow-up consultations will address any changes in his condition and to ensure accurate medication adjustments are maintained. The patient also expressed difficulties with sleep due to medication adjustments; therefore, we will reassess the dosage of Restoril and Seroquel to find an effective sleep aid. (8) Hypertension: Status: Acute Qualifiers: Hypertension type: primary hypertension Qualified Code(s): I10 - Essential (primary) hypertension Plan: 1. Hypertension - Discontinuing lisinopril due to ART inhibitor-induced cough - Starting ARB 25mg daily (9) Cough due to ART inhibitor: Status: Acute Plan: Discontinue lisinopril. (10) Declining functional status: Status: Acute Plan: Assessment & Plan: 1. Hypertension - Discontinuing lisinopril due to ART inhibitor-induced cough - Starting ARB 25mg daily 2. Electrolyte Abnormalities - Magnesium replacement ordered - Potassium replacement to follow after magnesium correction 3. Elevated WBC - Additional antibiotic ordered - Continuing to monitor blood cultures 4. Lumbar Spine Disease - MRI ordered with Valium pre-medication for claustrophobia - Evaluating for possible nerve root impingement 5. Functional Decline - Plan for temporary inpatient physical therapy at [facility] - Anticipated length of stay approximately 20 days - Transfer planned for 28 Aug 2024 6. Medication Management - Currently receiving quetiapine 150mg (3 tablets of 50mg) as scheduled - Home supply of risperidone and quetiapine provided to nursing staff
[2024-08-27 06:09] LABS: BASOPHILS % (AUTO) 0.3 % (0.2-1.0); EOSINOPHILS % (AUTO) 0.1 % (0.9-2.9); HEMATOCRIT 27.1 % (42.0-54.0); HEMOGLOBIN 9.1 g/dL (13.5-18.0); LYMPHOCYTES # (AUTO) 1.4 X10^3/uL (1.3-2.9); MEAN CORPUSCULAR HEMOGLOBIN 27.9 pg (27.0-34.0); MEAN CORPUSCULAR HGB CONC 33.4 g/dL (33.0-35.0); MEAN CORPUSCULAR VOLUME 83.4 fL (80.0-100.0); MEAN PLATELET VOLUME 8.7 fL (7.4-11.0); MONOCYTES # (AUTO) 0.9 x10^3/uL (0.3-0.8); NEUTROPHILS % (AUTO) 86.6 % (42.0-75.0); PLATELET COUNT 241 X10^3/uL (150.0-450.0); RED BLOOD COUNT 3.25 X10^6/uL (4.7-6.0); RED CELL DISTRIBUTION WIDTH 14.8 % (11.6-16.5); WHITE BLOOD COUNT 17.3 X10^3/uL (3.6-10.0)
[2024-08-27 06:21] LABS: ALANINE AMINOTRANSFERASE 39 Units/L (12-78); ALBUMIN 1.8 g/dL (3.4-5.0); ALKALINE PHOSPHATASE 112 Units/L (46-116); ASPARTATE AMINO TRANSFERASE 38 Units/L (15-37); BLOOD UREA NITROGEN 22 mg/dL (7-18); CALCIUM 8.1 mg/dL (8.5-10.1); CHLORIDE 106 mmol/L (98-107); COR CA(FOR HYPOALB) 9.9 mg/dL (8.5-10.1); CREATININE 1.28 mg/dL (0.70-1.30); GLUCOSE 106 mg/dL (65-99); POTASSIUM 3.1 mmol/L (3.5-5.1); SODIUM 143 mmol/L (136-145); TOTAL PROTEIN 5.2 g/dL (6.4-8.2); eGFR NON BLACK RACES 57 (>60)
[2024-08-27] MEDS ORDERED: CONSULT PHARMACY - POTASSIUM & MAGNESIUM XX SCH (07:00)
[2024-08-27] MEDS ORDERED: DIFLUCAN 100 MG IV (MIX by PHARMACY)* 100 MG/50 ML BAG IV SCH (09:00)
[2024-08-27] MEDS ORDERED: K-DUR TAB 20 MEQ PO SCH (09:00)
[2024-08-27] MEDS: NS + KCL 40 MEQ/L 1,000 ML IV SCH (09:34)
--- NOTE | 2024-08-27 10:00 | RAD ---
EXAM:KUB x-ray one viewHISTORY:abd pain -COMPARISON:None.FINDINGS:There is mild constipation in the region of the hepatic flexure, transverse colon and extending into the mid descending colon. Unusual air shadow is seen overlying the region of the rectosigmoid colon. There is mild gaseous dilation of the sigmoid colon proximal to this region and an obstructing mass cannot be excluded.IMPRESSION:Mild constipation.Unusual air shadow in the region of the rectosigmoid colon raises concern for possible obstructing lesion. Suggest further evaluation with sigmoidoscopy or colonoscopy if not performed recently. Otherwise, barium enema or CT of the abdomen and pelvis could be performed.THIS IS AN ELECTRONICALLY VERIFIED FINAL [id number]/2024 9:56 AM - Electronically signed by Bill Phipps MD
--- NOTE | 2024-08-27 10:24 | PCM.PROG ---
Progress Note Progress Note for Day of Date of Exam: 08/27/24 Subjective Subjective: Patient seen at bedside, no acute events overnight. He is currently being treated for generalized weakness, recurrent falls, possible pneumonia and RICA. He also had low K and Mag. This morning, he states he is feeling fine. Denies SOB, cough, N/V/D. He has been ambulating with PT using a walker. His lactic acid was elevated at 4.6 yesterday. His CXR from 08/23/24 was concerning for left basilar infiltrate. CT-brain done prior showed chronic mastoiditis. He remains on room air. All cultures have been negative. His WBC is elevated at 17.3. He has been afebrile. He has also been getting hydrocortisone for sepsis. He is currently on Diflucan, Gentamicin and Meropenem. Due to his leg weakness, MRI lumbar is ordered for today. He has been accepted at an assisted living facility. Labs/imaging reviewed: -WBC 17.3 Hgb 9.1 K 3.1 BUN/Cr 24/10.28 LA 4.6 -CXR pending - KUB 08/25/24 reviewed - AIT negative -Blood Cx: neg Plan: Repeat lactic acid. Continue IV antibiotics and fluids for now. Stop steroids. Follow CXR, KUB and MRI-lumbar. Replace electrolytes as per protocol. Continue home medications. Monitor BP. Continue PT as tolerated. Patient has been accepted at [facility]. Time spent for clinical assessment, reviewing labs/imaging, physical exam, decision making and documentation greater than 45 mins. Past Medical Family Social History Allergies: Allergies Penicillins Allergy (Verified 08/21/24 11:15) Review of Systems ROS: Changes notes (describe) (Review of Systems: - Constitutional symptoms: None reported - Eyes: None reported - Ears, Nose, Mouth, Throat: Negative for strep throat on recent testing - Cardiovascular: Elevated blood pressure 153/96 - Respiratory: Chronic dry cough - Gastrointestinal: None reported - Genitourinary: None reporte) Vital Signs and I&O's Vital Signs: Vital Signs Temperature 97.6 F Pulse Rate [Brachial] 71 Respiratory Rate 19 Blood Pressure [Left Arm] 171/97 O2 Sat by Pulse Oximetry 98 Intake and Output: Intake & Output 08/24/24 08/25/24 08/26/24 08/27/24 23:59 23:59 23:59 23:59 Intake Total 2805 / 2805 1926 / 1926 3513 / 3513 466 / 466 Output Total / 3 Balance 2805 / 2805 1926 3513 / 3513 463 / 463 Physical Exam Oriented: Normal, Time, Person and Place Eyes: Normal Ear: Normal Nose: Normal Throat: Normal Respiratory: Normal Cardiovascular: Normal Auscultation: Bowel Sounds: Normal Palpation: Normal Tenderness: Normal Skin: Normal Musculoskeletal: Normal Psychiatric: Normal Mood Description: Calm Affect: Normal Speech Pattern: Clear and Appropriate Laboratory and Diagnostics 08/27/24 05:50 08/27/24 05:50 Labs: 08/21/24 15:53 Blood Blood Culture - Final 08/21/24 15:48 Blood Blood Culture - Final Laboratory WBC 17.3 X10^3/uL (3.6-10.0) H 08/27/24 05:50 RBC 3.25 X10^6/uL (4.7-6.0) L 08/27/24 05:50 Hgb 9.1 g/dL (13.5-18.0) L 08/27/24 05:50 Hct 27.1 % (42.0-54.0) L 08/27/24 05:50 MCV 83.4 fL (80.0-100.0) 08/27/24 05:50 MCH 27.9 pg (27.0-34.0) 08/27/24 05:50 MCHC 33.4 g/dL (33.0-35.0) 08/27/24 05:50 RDW 14.8 % (11.6-16.5) 08/27/24 05:50 Plt Count 241 X10^3/uL (150.0-450.0) 08/27/24 05:50 MPV 8.7 fL (7.4-11.0) 08/27/24 05:50 Neut % (Auto) 86.6 % (42.0-75.0) H 08/27/24 05:50 Lymph % (Auto) 8.0 % (21.0-51.0) L 08/27/24 05:50 [place] % (Auto) 5.0 % (0.0-13.0) 08/27/24 05:50 Eos % (Auto) 0.1 % (0.9-2.9) L 08/27/24 05:50 Baso % (Auto) 0.3 % (0.2-1.0) 08/27/24 05:50 Neut # (Auto) 15.0 x10^3/uL (2.2-4.8) H 08/27/24 05:50 Lymph # (Auto) 1.4 X10^3/uL (1.3-2.9) 08/27/24 05:50 [place] # (Auto) 0.9 x10^3/uL (0.3-0.8) H 08/27/24 05:50 Eos # (Auto) 0.0 x10^3/uL (0.0-0.2) 08/27/24 05:50 Baso # (Auto) 0.0 X10^3/uL (0.0-0.1) 08/27/24 05:50 Absolute Nucleated RBC 0.0 /100WBC 08/27/24 05:50 PT 15.1 SECONDS (11.8-14.3) 08/21/24 15:53 INR Target Range - 08/21/24 15:53 INR 1.22 (0.8-1.3) 08/21/24 15:53 APTT 38.8 SECONDS (22.9-36.5) H 08/21/24 15:53 PTT Comment - 08/21/24 15:53 Sodium 143 mmol/L (136-145) 08/27/24 05:50 Corrected Sodium TNP 08/27/24 05:50 Potassium 3.1 mmol/L (3.5-5.1) L 08/27/24 05:50 Chloride 106 mmol/L (98-107) 08/27/24 05:50 Carbon Dioxide 25.0 mmol/L (21-32) 08/27/24 05:50 BUN 22 mg/dL (7-18) H 08/27/24 05:50 Creatinine 1.28 mg/dL (0.70-1.30) 08/27/24 05:50 Est GFR (MDRD) Af Amer > 60 (>60) 08/27/24 05:50 Est GFR (MDRD) Non-Af 57 (>60) L 08/27/24 05:50 Glucose 106 mg/dL (65-99) H 08/27/24 05:50 Lactic Acid 4.6 mmol/L (0.4-2.0) H* 08/26/24 20:51 Calcium 8.1 mg/dL (8.5-10.1) L 08/27/24 05:50 Corrected Calcium 9.9 mg/dL (8.5-10.1) 08/27/24 05:50 Magnesium 2.0 mg/dL (2.0-2.9) 08/27/24 05:50 Total Bilirubin 0.60 mg/dL (0.2-1.0) 08/27/24 05:50 AST 38 Units/L (15-37) H 08/27/24 05:50 ALT 39 Units/L (12-78) 08/27/24 05:50 Alkaline Phosphatase 112 Units/L (46-116) 08/27/24 05:50 Total Protein 5.2 g/dL (6.4-8.2) L 08/27/24 05:50 Albumin 1.8 g/dL (3.4-5.0) L 08/27/24 05:50 Globulin 3.4 g/dL (2.5-4.5) 08/27/24 05:50 Albumin/Globulin Ratio 0.5 Ratio (1.1-2.1) L 08/27/24 05:50 Specimen Type Clean catch urine 08/21/24 15:37 Urine Color Dark yellow (YELLOW) 08/21/24 15:37 Urine Appearance Clear (CLEAR) 08/21/24 15:37 Urine pH 6.0 (5.0 - 8.0) 08/21/24 15:37 Ur Specific [place] 1.015 (1.000-1.030) 08/21/24 15:37 Urine Protein 2+ (NEGATIVE) 08/21/24 15:37 Urine Glucose (UA) Negative (NEGATIVE) 08/21/24 15:37 Urine Ketones Negative (NEGATIVE) 08/21/24 15:37 Urine Blood 1+ (NEGATIVE) 08/21/24 15:37 Urine Nitrite Negative (NEGATIVE) 08/21/24 15:37 Urine Bilirubin Negative (NEGATIVE) 08/21/24 15:37 Urine Urobilinogen Normal (NORMAL) 08/21/24 15:37 Ur Leukocyte Esterase Negative (NEGATIVE) 08/21/24 15:37 Urine RBC 0-2 /HPF (0-3) 08/21/24 15:37 Urine WBC None seen /HPF (0-5) 08/21/24 15:37 Ur Squamous Epith Cells Rare /HPF (NEGATIVE) 08/21/24 15:37 Urine Bacteria Negative /HPF (NEGATIVE) 08/21/24 15:37 Ur Culture Indicated? No/not indicated 08/21/24 15:37 Resp Viral Panel (PCR) See scanned report 08/24/24 11:11 S. pyogenes (TEM-PCR) Not detected (NOT DETECT) 08/25/24 11:22 Plan (1) Lactic acid acidosis: Status: Acute (2) Dehydration: Status: Acute (3) Pneumonia: Status: Acute Qualifiers: Pneumonia type: due to unspecified organism Laterality: left Lung location: lower lobe of lung Qualified Code(s): J18.9 - Pneumonia, unspecified organism (4) Weakness: Status: Acute (5) Leukocytosis: Status: Acute Qualifiers: Leukocytosis type: unspecified Qualified Code(s): D72.829 - Elevated white blood cell count, unspecified (6) Hypokalemia: Status: Acute (7) Hypertension: Status: Chronic Qualifiers: Hypertension type: primary hypertension Qualified Code(s): I10 - Essential (primary) hypertension (8) Declining functional status: Status: Chronic (9) Risk for falls: Status: Acute (10) Mastoiditis: Status: Chronic Qualifiers: Laterality: unspecified laterality Qualified Code(s): H70.90 - Unspeci fied mastoiditis, unspecified ear
[2024-08-27] MEDS: NS 500 ML IV 500 ML IV ONE (11:07)
[2024-08-27 13:09] LABS: BILIRUBIN,URINE NEGATIVE (NEGATIVE); BLOOD/HEMOGLOBIN,URINE NEGATIVE (NEGATIVE); GLUCOSE, URINE NEGATIVE (NEGATIVE); KETONES,URINE NEGATIVE (NEGATIVE); LEUKOCYTE ESTERASE ,URINE NEGATIVE (NEGATIVE); NITRITES,URINE NEGATIVE (NEGATIVE); PROTEIN,URINE 1+ (NEGATIVE); UROBILINOGEN,URINE NORMAL (NORMAL)
[2024-08-27 13:27] LABS: APPEARANCE,URINE CLEAR (CLEAR); COLOR,URINE STRAW (YELLOW)
[2024-08-27 13:32] LABS: BACTERIA,URINE NEGATIVE /HPF (NEGATIVE); RBC,URINE NONE SEEN /HPF (0-3); SQUAMOUS EPITHELIAL CELL,UR RARE /HPF (NEGATIVE)
[2024-08-27] MEDS ORDERED: ATIVAN INJ 2 MG VIAL ONE (15:47)
[2024-08-27] MEDS: ATIVAN INJ 2 MG VIAL IVP ONE (15:48)
--- NOTE | 2024-08-27 17:33 | MRI ---
EXAM: MRI OF THE LUMBAR SPINE WITHOUT CONTRASTHISTORY: Weakness in the legs.TECHNIQUE: Sagittal T1, T2 and STIR T2 weighted images and axial T1 and T2 weighted images were obtained through the lumbar spine without the administration of gadolinium.COMPARISON: None available.FINDINGS:BONES: There is no gross spondylolisthesis, retrolisthesis or spondylolysis seen. No vertebral body fractures or deformity is observed. The bone marrow signal is homogenous and unremarkable throughout, demonstrating no evidence for an interosseous mass or edema.SOFT TISSUES: The distal spinal cord/conus medullaris terminates at the T12/L1 level, and it demonstrates no evidence for a mass lesion, hemorrhage or demyelinating plaque disease. There is no intrathecal or paraspinal soft tissue mass seen.INTERVERTEBRAL DISC LEVELS:T11-L1: Unremarkable. There is no evidence for significant degenerative disc disease, disc herniation, or disc bulging. The posterior elements, including the facet joints and ligamentum flavum, are unremarkable.L1/2: DDD marked by disc space narrowing, desiccation, chronic anterior disc bulge/marginal osteophyte complex (projecting 6.8 mm AP and encroaching upon the prevertebral soft tissues), and chronic appearing diffuse posterior disc bulge (projecting 3.2 mm AP) encroaching upon the anterior thecal sac, without discernible neural impingement. Sagittal image 8; axial image 9.L2/3: DDD marked by anterior disc space narrowing, desiccation, prominent chronic anterior disc bulge/marginal osteophyte complex (projecting 8.3 mm AP and encroaching upon the prevertebral soft tissues), and diffuse posterior disc bulge (projecting 5.3 mm AP) encroaching upon the anterior thecal sac, lateral recesses, and neuroforamen, without discernible gross neural impingement. Sagittal image 4-12; axial image 16.L3/4: Mild desiccation; disc height is preserved; left posterior lateral broad-based intraforaminal HNP (approximately 2.5 cm wide at its base and projecting 6.5 mm AP) with encroachment upon the left lateral recess and left neural foramen and mild impingement of the left L4 and undersurface of the left L3 nerve root, respectively. Sagittal image 8-12; axial image 20-21.L4/5: DDD marked by asymmetrical disc space narrowing and desiccation, with prominent right paracentral posterior HNP and small disc extrusion (approximately 1.9 cm transverse by 5.3 mm AP by 1.9 cm CC). Sagittal image 7; axial image 26.L5/S1; mild desiccation and mild posterior disc space narrowing; otherwise unremarkable.IMPRESSION:1. No gross vertebral fracture or malalignment seen.2. L3/4: Left posterior lateral broad-based intraforaminal HNP (approximately 2.5 cm wide at its base and projecting 6.5 mm AP) with encroachment upon the left lateral recess and left neural foramen and mild impingement of the left L4 and undersurface of the left L3 nerve root, respectively. Sagittal image 8-12; axial image 20-21.3. L4/5: DDD with prominent right paracentral posterior HNP and small disc extrusion (approximately 1.9 cm transverse by 5.3 mm AP by 1.9 cm CC). Sagittal image 7; axial image 26.4. No gross intrathecal or paraspinal soft tissue mass seen.THIS IS AN ELECTRONICALLY VERIFIED FINAL [id number] 5:30 PM - Electronically signed by Alejandro Geronimo MD
[2024-08-27] MEDS ORDERED: NS 50 ML IV 50 ML IV ONE (22:10)
[2024-08-28] MEDS: ZOFRAN INJ 4 MG VIAL IVP PRN
--- NOTE | 2024-08-28 04:23 | EKG ---
Test Reason : TACHY Blood Pressure : */* mmHG Vent. Rate : 129 BPM Atrial Rate : * BPM P-R Int : * ms QRS Dur : 78 ms QT Int : 390 ms P-R-T Axes : * -30 21 degrees QTc Int : 571 ms sinus tach with pacs Left axis deviation Minimal voltage criteria for LVH, may be normal variant ( R in aVL ) T wave abnormality, consider lateral ischemia Abnormal ECG When compared with ECG of 26-AUG-2024 00:16, Vent. rate has increased BY 66 BPM Nonspecific T wave abnormality now evident in Lateral leads Confirmed by Mario Gilman MD ([id number]) on 08/28/2024 7:31:54 AM Referred By: Confirmed By: Mario Gilman MD
[2024-08-28] MEDS: LOPRESSOR TAB 50 MG PO SCH (04:43)
[2024-08-28 06:20] LABS: RED CELL DISTRIBUTION WIDTH 15.2 % (11.6-16.5)
[2024-08-28 06:31] LABS: ALANINE AMINOTRANSFERASE 35 Units/L (12-78); ALBUMIN 1.9 g/dL (3.4-5.0); ALKALINE PHOSPHATASE 125 Units/L (46-116); ASPARTATE AMINO TRANSFERASE 68 Units/L (15-37); BLOOD UREA NITROGEN 22 mg/dL (7-18); CALCIUM 8.4 mg/dL (8.5-10.1); CARBON DIOXIDE 23.1 mmol/L (21-32); CHLORIDE 105 mmol/L (98-107); COR CA(FOR HYPOALB) 10.1 mg/dL (8.5-10.1); GLUCOSE 82 mg/dL (65-99); MAGNESIUM 1.9 mg/dL (2.0-2.9); POTASSIUM 3.7 mmol/L (3.5-5.1); SODIUM 143 mmol/L (136-145); TOTAL PROTEIN 5.6 g/dL (6.4-8.2); eGFR NON BLACK RACES 44 (>60)
[2024-08-28 07:08] LABS: BASOPHILS # (AUTO) 0.2 X10^3/uL (0.0-0.1); BASOPHILS % (AUTO) 0.4 % (0.2-1.0); EOSINOPHILS # (AUTO) 0.2 x10^3/uL (0.0-0.2); EOSINOPHILS % (AUTO) 0.4 % (0.9-2.9); HEMATOCRIT 30.7 % (42.0-54.0); HEMOGLOBIN 10.2 g/dL (13.5-18.0); LYMPHOCYTES # (AUTO) 2.1 X10^3/uL (1.3-2.9); LYMPHOCYTES % (AUTO) 4.7 % (21.0-51.0); MEAN CORPUSCULAR HEMOGLOBIN 27.9 pg (27.0-34.0); MEAN CORPUSCULAR HGB CONC 33.1 g/dL (33.0-35.0); MEAN CORPUSCULAR VOLUME 84.5 fL (80.0-100.0); MEAN PLATELET VOLUME 8.1 fL (7.4-11.0); MONOCYTES # (AUTO) 2.1 x10^3/uL (0.3-0.8); MONOCYTES % (AUTO) 4.7 % (0.0-13.0); NEUTROPHILS # (AUTO) 40.1 x10^3/uL (2.2-4.8); NEUTROPHILS % (AUTO) 89.8 % (42.0-75.0); PLATELET COUNT 234 X10^3/uL (150.0-450.0); RED BLOOD COUNT 3.64 X10^6/uL (4.7-6.0)
--- NOTE | 2024-08-28 07:27 | RAD ---
EXAM:CHEST, 1 VIEWHISTORY:PNEUMONIA;COMPARISON: 024FINDINGS:The cardiomediastinal silhouette is stable. Similar post sternotomy changes.No acute airspace disease. No pneumothorax or effusion.No acute osseous abnormality.IMPRESSION:No acute cardiopulmonary disease.THIS IS AN ELECTRONICALLY VERIFIED FINAL [id number]/2024 7:24 AM - Electronically signed by Jose Pride MD
--- NOTE | 2024-08-28 07:28 | RAD ---
EXAM:KUBHISTORY:f/u prev KUB;COMPARISON:08/25/2024FINDINGS:Evalua tion of the abdomen demonstrates a nonobstructive bowel gas pattern. Moderate colonic fecal burden. No evidence of pneumoperitoneum. No pathologic soft tissue calcification. No acute osseous abnormality.IMPRESSION:Moderate colonic stool without evidence of obstruction.THIS IS AN ELECTRONICALLY VERIFIED FINAL [id number]/2024 7:25 AM - Electronically signed by Jose Pride MD
[2024-08-28 07:29] LABS: WHITE BLOOD COUNT 44.7 X10^3/uL (3.6-10.0)
[2024-08-28 07:34] LABS: BAND NEUTROPHILS % 12 % (0-10); PLATELET MORPHOLOGY COMMENT NORMAL (NORMAL)
[2024-08-28] MEDS ORDERED: CONSULT PHARMACY - POTASSIUM & MAGNESIUM XX SCH (08:00)
[2024-08-28 09:03] LABS: FREE T4 (FREE THYROXINE) 1.04 ng/dL (0.76-1.46); TSH (3RD GENERATION) 3.814 uIU/mL (0.358-3.74)
[2024-08-28] MEDS: NS + KCL 40 MEQ/L 1,000 ML with MAGNESIUM SULFATE 50% INJ VIAL 1 G IV SCH (09:49)
[2024-08-28] MEDS: DIFLUCAN 100 MG IV (MIX by PHARMACY)* 100 MG/50 ML BAG IV SCH (09:51)
--- NOTE | 2024-08-28 10:11 | CT ---
EXAM: CT abdomen pelvis without contrast HISTORY: Leukocytosis, constipation TECHNIQUE: Axial noncontrast images with coronal and sagittal reformats. Dose reduction procedures were used wi th mA/kv adjusted for body size. This examination is limited due to the lack of intravenous and oral contrast. The examination was performed in this non unenhanced manner at the SOLE DIRECTION of the ordering caregiver. COMPARISON: None FINDINGS: Lung bases are clear. Liver is normal in size and configuration but slightly decreased in attenuat ion suggestive of diffuse fatty infiltration. No opaque stones are present within the gallbladder. Spleen, adrenal glands, and pancreas are within normal limits. Kidneys are unobstructed and without stones or masses. There is a left renal cyst present. No ureteral calculi are identified. Appendix is not identified with absolute certainty. There are no secondary signs of appendicitis present. M ild calcific atherosclerotic changes present in the nondilated abdominal aorta. No significant intra peritoneal or retroperitoneal lymphadenopathy identified. There are no findings suggestive of enteri tis, colitis, or diverticulitis. There is a large amount of stool throughout the entire colon sugges tive of possible constipation. Examination of the pelvis demonstrated no evidence for pelvic masses, pelvic fluid, or pelvic lymphadenopathy. No bladder abnormality is identified. There is a left ing uinal hernia containing mesenteric fat, a small amount of fluid, and unobstructed stool-filled sigmoi d colon. No definite evidence for strangulation. Incarceration must be clinically excluded. Diffus e increased attenuation in the subcutaneous fat of the abdominal wall suggest 3rd spacing of fluid. No lytic or blastic skeletal lesions of significance identified. IMPRESSION: Limited examination due to the lack of intravenous and oral contrast Large left inguinal hernia containing mesenteric fat, a minimal amount of fluid, and nondilated but s tool-filled sigmoid colon. No definite findings to suggest strangulation. Incarceration must be cli nically excluded. Surgical evaluation recommended. Large amount of stool throughout the colon suggestive of constipation Increased attenuation in the subcutaneous tissues suggestive of third spacing of fluid. Mild diffuse fatty infiltration of the liver THIS IS AN ELECTRONICALLY VERIFIED FINAL REPORT 08/28/2024 10:07 AM - Electronically signed by Jose Pride MD
[2024-08-28] MEDS: NS 50 ML IV 0 ML IV ONE (10:29)
--- NOTE | 2024-08-28 10:47 | PCM.PROG ---
Progress Note Progress Note for Day of Date of Exam: 08/28/24 Subjective Subjective: Patient seen at bedside, patient was noted to have elevated HR earlier this morning, HR in 130s. He was started on metoprolol tartrate 50 mg BID. He denied having any chest pain or SOB. He does report having N/V yesterday evening. He is currently being treated for generalized weakness, recurrent falls, possible pneumonia and RICA. He has had elevated lactic acid since admission. He has been on IV fluids, all cultures including blood and AIT panels have been negative. Repeat UA was also negative. CXR done yesterday did not show any acute process. KUB showed moderate stool burden. He has been on IV antibiotics since admission. He denies SOB or cough. He has been afebrile. His WBC jumped up to 54K, repeat 44K this morning. Lactic acid is 4.9. MRI-lumbar was also done yesterday. Patient reports having a hx of tachycardia and PVCs. He used to see Dr Brown. Patient was supposed to go to [facility] today but due to worsening lab abnormalities, that has been cancelled. Patient also declined to go to [facility]. Labs/imaging reviewed: -WBC 44 Hgb 10.2 K 3.7 BUN/Cr 22/1.60 LA 4.9 - CXR: no acute process - KUB: moderate stool burden - AIT negative -Blood Cx: neg -Repeat UA negative -MRI lumbar: see scanned report Plan: Will order CTAP stat. Stop Gentamicin and Diflucan. Continue Meropenem. Repeat blood cultures. Consult tele-[place] for further recommendations. Consult cardiology. Continue metoprolol tartrate. Replace electrolytes as per protocol. Continue home medications. Continue telemetry, monitor vital signs. Monitor AM labs/imaging. PT/OT as tolerated. Time spent for clinical assessment, reviewing labs/imaging, physical exam, decision making and documentation greater than 45 mins. Past Medical Family Social History Allergies: Allergies Penicillins Allergy (Verified 08/21/24 11:15) Review of Systems ROS: Changes notes (describe) (Review of Systems: - Constitutional symptoms: None reported - Eyes: None reported - Ears, Nose, Mouth, Throat: Negative for strep throat on recent testing - Cardiovascular: Elevated blood pressure 153/96 - Respiratory: Chronic dry cough - Gastrointestinal: None reported - Genitourinary: None reporte) Vital Signs and I&O's Vital Signs: Vital Signs Temperature 97.6 F Temperature 98.6 F Pulse Rate [Brachial] 117 Pulse Rate [Brachial] 126 Respiratory Rate 21 Respiratory Rate 20 Blood Pressure [Left Arm] 122/80 Blood Pressure [Right Arm] 134/90 O2 Sat by Pulse Oximetry 95 O2 Sat by Pulse Oximetry 95 Intake and Output: Intake & Output 08/25/24 08/26/24 08/27/24 08/28/24 23:59 23:59 23:59 23:59 Intake Total 1926 3513 / 3513 3939 / 3939 340 / 340 Output Total Balance 1926 3513 / 3513 3936 / 3936 340 / 340 Physical Exam Oriented: Normal, Time, Person and Place Eyes: Normal Ear: Normal Nose: Normal Throat: Normal Respiratory: Normal Cardiovascular: Normal Auscultation: Bowel Sounds: Normal Palpation: Normal Tenderness: Normal Skin: Normal Musculoskeletal: Normal Psychiatric: Normal Mood Description: Calm Affect: Normal Speech Pattern: Clear and Appropriate Laboratory and Diagnostics 08/28/24 05:52 08/28/24 05:52 Labs: 08/21/24 15:53 Blood Blood Culture - Final 08/21/24 15:48 Blood Blood Culture - Final Laboratory WBC 44.7 X10^3/uL (3.6-10.0) H* D 08/28/24 05:52 RBC 3.64 X10^6/uL (4.7-6.0) L 08/28/24 05:52 Hgb 10.2 g/dL (13.5-18.0) L 08/28/24 05:52 Hct 30.7 % (42.0-54.0) L 08/28/24 05:52 MCV 84.5 fL (80.0-100.0) 08/28/24 05:52 MCH 27.9 pg (27.0-34.0) 08/28/24 05:52 MCHC 33.1 g/dL (33.0-35.0) 08/28/24 05:52 RDW 15.2 % (11.6-16.5) 08/28/24 05:52 Plt Count 234 X10^3/uL (150.0-450.0) 08/28/24 05:52 Plt Count Comment Adequate (ADEQUATE) 08/28/24 05:52 MPV 8.1 fL (7.4-11.0) 08/28/24 05:52 Neut % (Auto) 89.8 % (42.0-75.0) H 08/28/24 05:52 Lymph % (Auto) 4.7 % (21.0-51.0) L 08/28/24 05:52 Gregory % (Auto) 4.7 % (0.0-13.0) 08/28/24 05:52 Eos % (Auto) 0.4 % (0.9-2.9) L 08/28/24 05:52 Baso % (Auto) 0.4 % (0.2-1.0) 08/28/24 05:52 Neut # (Auto) 40.1 x10^3/uL (2.2-4.8) H 08/28/24 05:52 Lymph # (Auto) 2.1 X10^3/uL (1.3-2.9) 08/28/24 05:52 Gregory # (Auto) 2.1 x10^3/uL (0.3-0.8) H 08/28/24 05:52 Eos # (Auto) 0.2 x10^3/uL (0.0-0.2) 08/28/24 05:52 Baso # (Auto) 0.2 X10^3/uL (0.0-0.1) H 08/28/24 05:52 Absolute Nucleated RBC 0.0 /100WBC 08/28/24 05:52 Total Counted 100 08/28/24 05:52 Neutrophils % (Manual) 73 % (39-76) 08/28/24 05:52 Band Neutrophils % 12 % (0-10) H 08/28/24 05:52 Lymphocytes % (Manual) 13 % (13-43) 08/28/24 05:52 Monocytes % (Manual) 2 % (4-9) L 08/28/24 05:52 Plt Morphology Comment Normal (NORMAL) 08/28/24 05:52 RBC Morphology Normal (NORMAL) 08/28/24 05:52 PT 15.1 SECONDS (11.8-14.3) 08/21/24 15:53 INR Target Range - 08/21/24 15:53 INR 1.22 (0.8-1.3) 08/21/24 15:53 APTT 38.8 SECONDS (22.9-36.5) H 08/21/24 15:53 PTT Comment - 08/21/24 15:53 Sodium 143 mmol/L (136-145) 08/28/24 05:52 Corrected Sodium TNP 08/28/24 05:52 Potassium 3.7 mmol/L (3.5-5.1) 08/28/24 05:52 Chloride 105 mmol/L (98-107) 08/28/24 05:52 Carbon Dioxide 23.1 mmol/L (21-32) 08/28/24 05:52 BUN 22 mg/dL (7-18) H 08/28/24 05:52 Creatinine 1.60 mg/dL (0.70-1.30) H 08/28/24 05:52 Est GFR (MDRD) Af Amer 53 (>60) L 08/28/24 05:52 Est GFR (MDRD) Non-Af 44 (>60) L 08/28/24 05:52 Glucose 82 mg/dL (65-99) 08/28/24 05:52 Lactic Acid 4.9 mmol/L (0.4-2.0) H* 08/28/24 05:50 Calcium 8.4 mg/dL (8.5-10.1) L 08/28/24 05:52 Corrected Calcium 10.1 mg/dL (8.5-10.1) 08/28/24 05:52 Magnesium 1.9 mg/dL (2.0-2.9) L 08/28/24 05:52 Total Bilirubin 1.30 mg/dL (0.2-1.0) H 08/28/24 05:52 AST 68 Units/L (15-37) H 08/28/24 05:52 ALT 35 Units/L (12-78) 08/28/24 05:52 Alkaline Phosphatase 125 Units/L (46-116) H 08/28/24 05:52 Total Protein 5.6 g/dL (6.4-8.2) L 08/28/24 05:52 Albumin 1.9 g/dL (3.4-5.0) L 08/28/24 05:52 Globulin 3.7 g/dL (2.5-4.5) 08/28/24 05:52 Albumin/Globulin Ratio 0.5 Ratio (1.1-2.1) L 08/28/24 05:52 Free T4 1.04 ng/dL (0.76-1.46) 08/28/24 05:25 TSH 3rd Generation 3.814 uIU/mL (0.358-3.74) H 08/28/24 05:25 Specimen Type Clean catch urine 08/27/24 12:55 Urine Color Straw (YELLOW) 08/27/24 12:55 Urine Appearance Clear (CLEAR) 08/27/24 12:55 Urine pH 6.0 (5.0 - 8.0) 08/27/24 12:55 Ur Specific [employer] 1.015 (1.000-1.030) 08/27/24 12:55 Urine Protein 1+ (NEGATIVE) 08/27/24 12:55 Urine Glucose (UA) Negative (NEGATIVE) 08/27/24 12:55 Urine Ketones Negative (NEGATIVE) 08/27/24 12:55 Urine Blood Negative (NEGATIVE) 08/27/24 12:55 Urine Nitrite Negative (NEGATIVE) 08/27/24 12:55 Urine Bilirubin Negative (NEGATIVE) 08/27/24 12:55 Urine Urobilinogen Normal (NORMAL) 08/27/24 12:55 Ur Leukocyte Esterase Negative (NEGATIVE) 08/27/24 12:55 Urine RBC None seen /HPF (0-3) 08/27/24 12:55 Urine WBC None seen /HPF (0-5) 08/27/24 12:55 Ur Squamous Epith Cells Rare /HPF (NEGATIVE) 08/27/24 12:55 Urine Bacteria Negative /HPF (NEGATIVE) 08/27/24 12:55 Ur Culture Indicated? No/not indicated 08/27/24 12:55 Resp Viral Panel (PCR) See scanned report 08/24/24 11:11 S. pyogenes (TEM-PCR) Not detected (NOT DETECT) 08/25/24 11:22 Plan (1) Leukocytosis: Status: Acute Qualifiers: Leukocytosis type: unspecified Qualified Code(s): D72.829 - Elevated white blood cell count, unspecified (2) Lactic acid acidosis: Status: Acute (3) RICA (acute kidney injury): Status: Acute (4) Constipation: Status: Acute Qualifiers: Constipation type: unspecified constipation type Qualified Code(s): K59.00 - Constipation, unspecified (5) Pneumonia: Status: Acute Qualifiers: Laterality: left Lung location: lower lobe of lung Pneumonia type: due to unspecified organism Qualified Code(s): J18.9 - Pneumonia, unspecified organism (6) Weakness: Status: Acute (7) Hypokalemia: Status: Acute (8) Hypertension: Status: Chronic Qualifiers: Hypertension type: primary hypertension Qualified Code(s): I10 - Essential (primary) hypertension (9) Risk for falls: Status: Acute (10) Mastoiditis: Status: Chronic Qualifiers: Laterality: unspecified laterality Qualified Code(s): H70.90 - Unspecified mastoiditis, unspecified ear
[2024-08-28] MEDS: MERREM VIAL 1 G in NS 100 ML IV 100 ML IV SCH (11:27)
--- NOTE | 2024-08-28 14:22 | DR.CONSULT ---
CONSULT Consultation for Day of: Date: 08/28/24 Chief Complaint Chief Complaint: elevated HR Allergies Allergies Allergy/AdvReac Type Severity Reaction Status Date / Time Penicillins Allergy Verified 08/21/24 11:15 History of Present Illness History of Present Illness: 84 yo male- h/o cabg- last stress 2017/last echo 2022: good lv, mild to mod mr- month ago was walking at gym w/o isuue for 30 min- admitted for weakness/infection- was on cipro for mastoiditis- ? of pna on one cxr/? of uti though urine looked ok- blood cultures negative to date- hr went up yesterday- ekg: st/pacs- was not getting his normal BB dose- lisinopril was switched to cozaar for htn- BB resumed and hr 100 sinus- echo pending- labs concerning for sepsis/bp stable Past Medical History Past Medical History: Anxiety, Coronary Artery Disease, CVA, Depression, Dyslipidemia, GERD, Hypertension and Hypothyroidism Past Surgical History Surgical History: Angioplasty/Stents and CABG/Valve Surgery Family History Family Medical History: Diabetes Mellitus, Cancer, [place], Coronary Artery Disease, Heart Failure and Hypertension Social History Does patient currently use any type of tobacco product: No Type of Tobacco Use: None Does any household member use tobacco: No Alcohol Use: None Drug Use: None Medications Home Medications: Penicillins Allergy (Verified 08/21/24 11:15) CONTINUE taking the following medications atorvastatin 40 mg tablet 40 mg PO QDAY 08/21/24 [History] ciprofloxacin HCl 750 mg tablet 750 mg PO BID 08/21/24 [History] clopidogrel 75 mg tablet 75 mg PO QDAY 08/21/24 [History] folic acid 1 mg tablet 1 mg PO QDAY 08/21/24 [History] latanoprost 0.005 % eye drops 1 drp ophthalmic (eye) DAILY 08/21/24 [History] levothyroxine 100 mcg tablet 100 mcg PO QDAY 08/21/24 [History] lisinopril 40 mg tablet 40 mg PO BID 08/21/24 [History] magnesium oxide 400 mg (241.3 mg magnesium) tablet 400 mg PO QDAY 08/21/24 [History] megestrol 40 mg tablet 40 mg PO BID 08/21/24 [History] metoprolol tartrate 50 mg tablet 50 mg PO BID 08/21/24 [History] ondansetron 8 mg disintegrating tablet 8 mg PO TID 08/21/24 [History] pantoprazole 40 mg tablet,delayed release 40 mg PO QDAY 08/21/24 [History] quetiapine 150 mg tablet,extended release 24 hr 150 mg PO QPM 08/21/24 [History] tamsulosin 0.4 mg capsule 0.4 mg PO QDAY 08/21/24 [History] temazepam 15 mg capsule 15 mg PO QPM PRN 08/21/24 [History] temazepam 7.5 mg capsule 7.5 mg PO QPM PRN 08/21/24 [History] Physical Exam Vital Signs: Vital Signs Temperature 97.0 F Temperature 97.6 F Pulse Rate [Brachial] 100 Pulse Rate [Brachial] 117 Respiratory Rate 19 Respiratory Rate 21 Blood Pressure [Left Arm] 122/81 Blood Pressure [Left Arm] 122/80 O2 Sat by Pulse Oximetry 94 O2 Sat by Pulse Oximetry 95 alert ox3 clear lungs tachy/regular minimal edema/non tender legs labs: wbc up to 44k with positive lactic acidosis, hct 30 cr 1.6 lactate 4.9 alb 1.9 alk phos 125 ast 68 tb 1.3 tsh low but t4 ok cxr: first one few days ago suggested pna- f/u nad ct:large left inguinal hernia kub: stool ekg: st/pacs echo: pending Plan (1) Leukocytosis: Status: Acute Qualifiers: Leukocytosis type: unspecified Qualified Code(s): D72.829 - Elevated white blood cell count, unspecified (2) Lactic acid acidosis: Status: Acute (3) Constipation: Status: Acute Qualifiers: Constipation type: unspecified constipation type Qualified Code(s): K59.00 - Constipation, unspecified (4) Hypertension: Status: Chronic Qualifiers: Hypertension type: primary hypertension Qualified Code(s): I10 - Essential (primary) hypertension (5) Mastoiditis: Status: Chronic Qualifiers: Laterality: unspecified laterality Qualified Code(s): H70.90 - Unspe cified mastoiditis, unspecified ear (6) CAD (coronary artery disease): Status: Chronic Qualifiers: Coronary Disease-Associated Artery/Lesion type: bypass graft [place] vs. transplanted heart: [place] heart Associated angina: without angina Qualified Code(s): I25.810 - Atherosclerosis of coronary artery bypass graft(s) without angina pectoris (7) Sinus tachycardia: Status: Acute Narrative Support Text: was off bb/sepsis/lactic acidosis elevating HR Plan: resume bb as done- treat infection- await echo- be careful with bp meds -look for bp dropping- ef on echo if good feel better if needs fluids
[2024-08-28] MEDS: NS 500 ML IV 500 ML IV ONE (17:32)
[2024-08-28] MEDS: NS 1,000 ML IV 1,000 ML IV SCH (19:30)
--- NOTE | 2024-08-28 20:37 | DR.CONSULT ---
CONSULT Consultation for Day of: Date: 08/28/24 Chief Complaint Chief Complaint: elevated white blood cell count and incarcerated left inguinal hernia . Allergies Allergies Allergy/AdvReac Type Severity Reaction Status Date / Time Iodinated Contrast Media Allergy Verified 08/28/24 16:33 Penicillins Allergy Verified 08/21/24 11:15 History of Present Illness History of Present Illness: 84 yo male admitted 08/22/2024 for weakness, presumed UTI , not a lot better with WBC count increasing from 17 k yesterday to [address] of abdomen shows sigmoid colon incarcerated in a left inginal hernia with no evidence of abscess or ischemia . Having bowel movements and has not had any complaints of abdominal pain. Significant past history of coronary artery disease. Elevated lactic acid Past Medical History Past Medical History: Anxiety, Coronary Artery Disease, CVA, Depression, Dyslipidemia, GERD, Hypertension and Hypothyroidism Past Surgical History Surgical History: Angioplasty/Stents and CABG/Valve Surgery Family History Family Medical History: Diabetes Mellitus, Cancer, [place], Coronary Artery Disease, Heart Failure and Hypertension Social History Does patient currently use any type of tobacco product: No Type of Tobacco Use: None Does any household member use tobacco: No Alcohol Use: None Drug Use: None Medications Home Medications: Iodinated Contrast Media Allergy (Verified 08/28/24 16:33) Penicillins Allergy (Verified 08/21/24 11:15) CONTINUE taking the following medications atorvastatin 40 mg tablet 40 mg PO QDAY 08/21/24 [History] ciprofloxacin HCl 750 mg tablet 750 mg PO BID 08/21/24 [History] clopidogrel 75 mg tablet 75 mg PO QDAY 08/21/24 [History] folic acid 1 mg tablet 1 mg PO QDAY 08/21/24 [History] latanoprost 0.005 % eye drops 1 drp ophthalmic (eye) DAILY 08/21/24 [History] levothyroxine 100 mcg tablet 100 mcg PO QDAY 08/21/24 [History] lisinopril 40 mg tablet 40 mg PO BID 08/21/24 [History] magnesium oxide 400 mg (241.3 mg magnesium) tablet 400 mg PO QDAY 08/21/24 [History] megestrol 40 mg tablet 40 mg PO BID 08/21/24 [History] metoprolol tartrate 50 mg tablet 50 mg PO BID 08/21/24 [History] ondansetron 8 mg disintegrating tablet 8 mg PO TID 08/21/24 [History] pantoprazole 40 mg tablet,delayed release 40 mg PO QDAY 08/21/24 [History] quetiapine 150 mg tablet,extended release 24 hr 150 mg PO QPM 08/21/24 [History] tamsulosin 0.4 mg capsule 0.4 mg PO QDAY 08/21/24 [History] temazepam 15 mg capsule 15 mg PO QPM PRN 08/21/24 [History] temazepam 7.5 mg capsule 7.5 mg PO QPM PRN 08/21/24 [History] Review of Systems Constitutional: See HPI Eyes: No Symptoms Reported ENT: No Symptoms Reported Respiratory: No Symptoms Reported Cardiovascular: No Symptoms Reported Gastrointestinal: See HPI Genitourinary: See HPI Musculoskeletal: See HPI Skin: No Symptoms Reported Neurological: No Symptoms Reported Physical Exam Vital Signs: Vital Signs Temperature 97.1 F Pulse Rate [Brachial] 99 Respiratory Rate 18 Blood Pressure [Left Arm] 136/78 O2 Sat by Pulse Oximetry 98 Oriented: Normal, Time, Person and Place Eyes: Normal Ear: Normal Nose: Normal Throat: Normal Respiratory: Clear Throughout Cardiovascular: Normal : Normal Auscultation: Bowel Sounds: Normal Palpation: Other (hernia cannot be reduced, no tenderness) Tenderness: Normal Skin: Normal Musculoskeletal: Normal Psychiatric: Normal Mood Description: Calm Affect: Normal Plan (1) Leukocytosis: Status: Acute Qualifiers: Leukocytosis type: unspecified Qualified Code(s): D72.829 - Elevated white blood cell count, unspecified Plan: No evidence the incarcerated hernia is the cause of this. Receiving hydration. Will observe (2) Lactic acid acidosis: Status: Acute (3) Constipation: Status: Acute Qualifiers: Constipation type: unspecified constipation type Qualified Code(s): K59.00 - Constipation, unspecified (4) Hypertension: Status: Chronic Qualifiers: Hypertension type: primary hypertension Qualified Code(s): I10 - Essential (primary) hypertension (5) Mastoiditis: Status: Chronic Qualifiers: Laterality: unspecified laterality Qualified Code(s): H70.90 - Unspecified mastoiditis, unspecified ear (6) CAD (coronary artery disease): Status: Chronic Qualifiers: Associated angina: without angina Coronary Disease-Associated Artery/Lesion type: bypass graft [place] vs. transplanted heart: [place] heart Qualified Code(s): I25.810 - Atherosclerosis of coronary artery bypass graft(s) without angina pectoris (7) Sinus tachycardia: Status: Acute
--- NOTE | 2024-08-28 20:41 | NOTE.SOAP ---
Soap Note Note for Day of Date of Exam: 08/28/24 Objective Data Temperature: 97.1 F Pulse Rate: 99 Respiratory Rate: 18 Blood Pressure: 136/78 O2 Sat by Pulse Oximetry: 98 Objective Data: H& P done earlier today, re-evaluated and hernia not tender . Has had BM and is tolerating clear liquid s Assessment Assessment: elevated WBC count , doubt this is related to incarcerated hernia Plan Plan: serial labs and exams
[2024-08-29 05:55] LABS: ALANINE AMINOTRANSFERASE 29 Units/L (12-78); ALBUMIN 1.5 g/dL (3.4-5.0); ALKALINE PHOSPHATASE 115 Units/L (46-116); ASPARTATE AMINO TRANSFERASE 70 Units/L (15-37); BLOOD UREA NITROGEN 20 mg/dL (7-18); CALCIUM 8.1 mg/dL (8.5-10.1); CARBON DIOXIDE 26.2 mmol/L (21-32); CHLORIDE 104 mmol/L (98-107); COR CA(FOR HYPOALB) 10.1 mg/dL (8.5-10.1); CREATININE 1.43 mg/dL (0.70-1.30); GLUCOSE 86 mg/dL (65-99); POTASSIUM 3.1 mmol/L (3.5-5.1); SODIUM 140 mmol/L (136-145); TOTAL PROTEIN 4.6 g/dL (6.4-8.2); eGFR NON BLACK RACES 50 (>60)
[2024-08-29 05:56] LABS: BASOPHILS # (AUTO) 0.1 X10^3/uL (0.0-0.1); BASOPHILS % (AUTO) 0.5 % (0.2-1.0); EOSINOPHILS # (AUTO) 0.4 x10^3/uL (0.0-0.2); EOSINOPHILS % (AUTO) 1.6 % (0.9-2.9); HEMATOCRIT 26.2 % (42.0-54.0); HEMOGLOBIN 8.9 g/dL (13.5-18.0); LYMPHOCYTES # (AUTO) 1.9 X10^3/uL (1.3-2.9); LYMPHOCYTES % (AUTO) 6.9 % (21.0-51.0); MEAN CORPUSCULAR HEMOGLOBIN 28.4 pg (27.0-34.0); MEAN CORPUSCULAR VOLUME 83.6 fL (80.0-100.0); MEAN PLATELET VOLUME 9.1 fL (7.4-11.0); MONOCYTES # (AUTO) 1.3 x10^3/uL (0.3-0.8); MONOCYTES % (AUTO) 4.8 % (0.0-13.0); NEUTROPHILS # (AUTO) 23.9 x10^3/uL (2.2-4.8); NEUTROPHILS % (AUTO) 86.2 % (42.0-75.0); PLATELET COUNT 180 X10^3/uL (150.0-450.0); RED BLOOD COUNT 3.14 X10^6/uL (4.7-6.0); RED CELL DISTRIBUTION WIDTH 15.2 % (11.6-16.5); WHITE BLOOD COUNT 27.7 X10^3/uL (3.6-10.0)
[2024-08-29 06:26] LABS: BAND NEUTROPHILS % 3 % (0-10)
[2024-08-29 06:27] LABS: PLATELET MORPHOLOGY COMMENT NORMAL (NORMAL)
--- NOTE | 2024-08-29 07:50 | RAD ---
EXAM: ACUTE ABDOMEN SERI ES HISTORY: PER MD'S REQUEST; COMPARISON: None. TECHNIQUE: One view of the chest and two views of the abdomen obtained FINDINGS: Previous median sternotomy with mild cardiomegaly. Minimal infiltrate in the left retrocardiac regio n. No pneumothorax. Hilar and mediastinal structures and bony structures are unremarkable. EKG albertina ds overlie the chest. The overall bowel gas pattern is normal. No free air, dilated loops or significant air-fluid levels are noted. Moderate stool in the colon. No abnormal calcifications in the distribution of the kidne ys or ureters. Vascular calcifications in the upper abdomen. Dextroscoliosis. IMPRESSION: Constipation. No acute findings in the abdomen. Atelectasis or developing infiltrate within the left retrocardiac region. Follow-up recommended. THIS IS AN ELECTRONICALLY VERIFIED FINAL REPORT 08/29/2024 7:34 AM - Electronically signed by Bill Falk MD
[2024-08-29] MEDS: K-DUR TAB 20 MEQ PO SCH (11:01)
--- NOTE | 2024-08-29 11:32 | NOTE.SOAP ---
Soap Note Note for Day of Date of Exam: 08/29/24 Subjective Data Subjective Data: c/o global weaknees, denies abdominal pain Objective Data Temperature: 98.0 F Pulse Rate: 109 Respiratory Rate: 24 Blood Pressure: 142/83 O2 Sat by Pulse Oximetry: 97 Objective Data: Benign abdomen . WBC decrease to 27 k Assessment Assessment: incarcerated left inguinal hernia , not an acute problem, refer to me after discharge, I will sign off Plan Plan: as above
[2024-08-29] MEDS ORDERED: PHARMACY COMMENT IV ONE ×2 (14:00→16:00)
--- NOTE | 2024-08-29 14:00 | NOTE.SOAP ---
Soap Note Note for Day of Date of Exam: 08/29/24 Subjective Data Subjective Data: weak Objective Data Objective Data: no temps- pulse 98-110 bp 140s labs: wbc down to 27 from 44, hct down from30 to 26 k 3.11 cr 1.47 lactic acid down from 6.2 to 3.5 alb 1.5 echo: good LV lungs : clear cor : anisha tachy/regular mild edema blood cultures: negative Assessment Assessment: cad s/p cabg/ sepsis/lactic acidosis improving-htn/sinus tachycardia Plan Plan: cont current therapy
--- NOTE | 2024-08-29 14:03 | PCM.PROG ---
Progress Note Progress Note for Day of Date of Exam: 08/29/24 Subjective Subjective: Patient seen at bedside, no acute events overnight. Patient is complaining about his leg weakness. He states he has no leg pain but when he stands up he feels like his legs are weak. He has been ambulating with a walker with physical therapy. He was able to tolerate p.o. intake, denies any nausea or vomiting. Denies abdominal pain. He did have multiple bowel movements yesterday. Cardiology and general surgery have been following. Dr. Alvarez did not recommend any intervention at this time. Telemetry [facility] consult was also done. Patient's lactic acid was elevated in the evening at 6.5. He was given normal saline bolus and started on maintenance fluids. It did come down to 3.5 this morning. His white count has improved to 27K. His renal function has also improved. All his cultures and ENT panels have been negative. Repeat blood cultures were done yesterday. Labs/imaging reviewed: -WBC 27.7 Hgb 8.9 K 3.1 BUN/Cr 20/1.43 LA 3.5 creatinine kinase normal - AIT negative -Blood Cx: neg repeat blood cultures pending -Repeat UA negative -MRI lumbar: see scanned report -CTAP reviewed Plan: Follow surgery and cardiology recommendations. Follow [place] telemetry recommendations. Check anemia panel, BNP. Follow chest x-ray. Follow echocardiogram results. Continue IV fluids, replace electrolytes as per protocol. No clear etiology for infection. Elevated WBC likely reactive. Will DC meropenem as all cultures and AIT results have been negative. Patient has been afebrile. Continue telemetry. Continue stool softeners as needed. Continue home medications. Monitor AM labs/imaging. PT/OT as tolerated. Time spent for clinical assessment, reviewing labs/imaging, physical exam, decision making and documentation greater than 45 mins. Past Medical Family Social History Allergies: Allergies Iodinated Contrast Media Allergy (Verified 08/28/24 16:33) pt states that last time he had contrast he felt like he was burning up and was having a little hard time breathing Penicillins Allergy (Verified 08/21/24 11:15) Review of Systems ROS: Changes notes (describe) (Review of Systems: - Constitutional symptoms: None reported - Eyes: None reported - Ears, Nose, Mouth, Throat: Negative for strep throat on recent testing - Cardiovascular: Elevated blood pressure 153/96 - Respiratory: Chronic dry cough - Gastrointestinal: None reported - Genitourinary: None reporte) Vital Signs and I&O's Vital Signs: Vital Signs Temperature 98.0 F Temperature 98.0 F Temperature 98.0 F Pulse Rate [Brachial] 109 Pulse Rate [Brachial] 109 Pulse Rate 109 Respiratory Rate 24 Respiratory Rate 24 Respiratory Rate 24 Blood Pressure [Left Arm] 142/83 Blood Pressure [Left Arm] 142/83 Blood Pressure 142/83 O2 Sat by Pulse Oximetry 97 O2 Sat by Pulse Oximetry 97 O2 Sat by Pulse Oximetry 97 Intake and Output: Intake & Output 08/26/24 08/27/24 08/28/24 08/29/24 23:59 23:59 23:59 23:59 Intake Total 3513 / 3513 3939 / 3939 2694 / 2694 691 / 691 Output Total Balance 3513 / 3513 3936 / 3936 2694 / 2694 688 / 688 Physical Exam Oriented: Normal, Time, Person and Place Eyes: Normal Ear: Normal Nose: Normal Throat: Normal Respiratory: Normal Cardiovascular: Normal : Normal Auscultation: Bowel Sounds: Normal Palpation: Normal Tenderness: Normal Skin: Normal Musculoskeletal: Normal Psychiatric: Normal Mood Description: Calm Affect: Normal Speech Pattern: Clear and Appropriate Laboratory and Diagnostics 08/29/24 05:20 08/29/24 05:20 Labs: 08/21/24 15:53 Blood Blood Culture - Final 08/21/24 15:48 Blood Blood Culture - Final Laboratory WBC 27.7 X10^3/uL (3.6-10.0) H D 08/29/24 05:20 RBC 3.14 X10^6/uL (4.7-6.0) L 08/29/24 05:20 Hgb 8.9 g/dL (13.5-18.0) L 08/29/24 05:20 Hct 26.2 % (42.0-54.0) L 08/29/24 05:20 MCV 83.6 fL (80.0-100.0) 08/29/24 05:20 MCH 28.4 pg (27.0-34.0) 08/29/24 05:20 MCHC 34.0 g/dL (33.0-35.0) 08/29/24 05:20 RDW 15.2 % (11.6-16.5) 08/29/24 05:20 Plt Count 180 X10^3/uL (150.0-450.0) 08/29/24 05:20 Plt Count Comment Adequate (ADEQUATE) 08/29/24 05:20 MPV 9.1 fL (7.4-11.0) 08/29/24 05:20 Neut % (Auto) 86.2 % (42.0-75.0) H 08/29/24 05:20 Lymph % (Auto) 6.9 % (21.0-51.0) L 08/29/24 05:20 [place] % (Auto) 4.8 % (0.0-13.0) 08/29/24 05:20 Eos % (Auto) 1.6 % (0.9-2.9) 08/29/24 05:20 Baso % (Auto) 0.5 % (0.2-1.0) 08/29/24 05:20 Neut # (Auto) 23.9 x10^3/uL (2.2-4.8) H 08/29/24 05:20 Lymph # (Auto) 1.9 X10^3/uL (1.3-2.9) 08/29/24 05:20 [place] # (Auto) 1.3 x10^3/uL (0.3-0.8) H 08/29/24 05:20 Eos # (Auto) 0.4 x10^3/uL (0.0-0.2) H 08/29/24 05:20 Baso # (Auto) 0.1 X10^3/uL (0.0-0.1) 08/29/24 05:20 Absolute Nucleated RBC 0.0 /100WBC 08/29/24 05:20 Total Counted 100 08/29/24 05:20 Neutrophils % (Manual) 83 % (39-76) H 08/29/24 05:20 Band Neutrophils % 3 % (0-10) 08/29/24 05:20 Lymphocytes % (Manual) 7 % (13-43) L 08/29/24 05:20 Monocytes % (Manual) 2 % (4-9) L 08/29/24 05:20 Eosinophils % (Manual) 5 % (0-6) 08/29/24 05:20 Plt Morphology Comment Normal (NORMAL) 08/29/24 05:20 RBC Morphology Normal (NORMAL) 08/29/24 05:20 PT 15.1 SECONDS (11.8-14.3) 08/21/24 15:53 INR Target Range - 08/21/24 15:53 INR 1.22 (0.8-1.3) 08/21/24 15:53 APTT 38.8 SECONDS (22.9-36.5) H 08/21/24 15:53 PTT Comment - 08/21/24 15:53 Sodium 140 mmol/L (136-145) 08/29/24 05:20 Corrected Sodium TNP 08/29/24 05:20 Potassium 3.1 mmol/L (3.5-5.1) L 08/29/24 05:20 Chloride 104 mmol/L (98-107) 08/29/24 05:20 Carbon Dioxide 26.2 mmol/L (21-32) 08/29/24 05:20 BUN 20 mg/dL (7-18) H 08/29/24 05:20 Creatinine 1.43 mg/dL (0.70-1.30) H 08/29/24 05:20 Est GFR (MDRD) Af Amer > 60 (>60) 08/29/24 05:20 Est GFR (MDRD) Non-Af 50 (>60) L 08/29/24 05:20 Glucose 86 mg/dL (65-99) 08/29/24 05:20 Lactic Acid 3.5 mmol/L (0.4-2.0) H 08/29/24 05:20 Calcium 8.1 mg/dL (8.5-10.1) L 08/29/24 05:20 Corrected Calcium 10.1 mg/dL (8.5-10.1) 08/29/24 05:20 Magnesium 2.0 mg/dL (2.0-2.9) 08/29/24 05:20 Total Bilirubin 1.30 mg/dL (0.2-1.0) H 08/29/24 05:20 AST 70 Units/L (15-37) H 08/29/24 05:20 ALT 29 Units/L (12-78) 08/29/24 05:20 Alkaline Phosphatase 115 Units/L (46-116) 08/29/24 05:20 Creatine Kinase 222 Units/L (39-308) 08/29/24 05:20 Total Protein 4.6 g/dL (6.4-8.2) L 08/29/24 05:20 Albumin 1.5 g/dL (3.4-5.0) L 08/29/24 05:20 Globulin 3.1 g/dL (2.5-4.5) 08/29/24 05:20 Albumin/Globulin Ratio 0.5 Ratio (1.1-2.1) L 08/29/24 05:20 Free T4 1.04 ng/dL (0.76-1.46) 08/28/24 05:25 TSH 3rd Generation 3.814 uIU/mL (0.358-3.74) H 08/28/24 05:25 Specimen Type Clean catch urine 08/27/24 12:55 Urine Color Straw (YELLOW) 08/27/24 12:55 Urine Appearance Clear (CLEAR) 08/27/24 12:55 Urine pH 6.0 (5.0 - 8.0) 08/27/24 12:55 Ur Specific [place] 1.015 (1.000-1.030) 08/27/24 12:55 Urine Protein 1+ (NEGATIVE) 08/27/24 12:55 Urine Glucose (UA) Negative (NEGATIVE) 08/27/24 12:55 Urine Ketones Negative (NEGATIVE) 08/27/24 12:55 Urine Blood Negative (NEGATIVE) 08/27/24 12:55 Urine Nitrite Negative (NEGATIVE) 08/27/24 12:55 Urine Bilirubin Negative (NEGATIVE) 08/27/24 12:55 Urine Urobilinogen Normal (NORMAL) 08/27/24 12:55 Ur Leukocyte Esterase Negative (NEGATIVE) 08/27/24 12:55 Urine RBC None seen /HPF (0-3) 08/27/24 12:55 Urine WBC None seen /HPF (0-5) 08/27/24 12:55 Ur Squamous Epith Cells Rare /HPF (NEGATIVE) 08/27/24 12:55 Urine Bacteria Negative /HPF (NEGATIVE) 08/27/24 12:55 Ur Culture Indicated? No/not indicated 08/27/24 12:55 Resp Viral Panel (PCR) See scanned report 08/24/24 11:11 S. pyogenes (TEM-PCR) Not detected (NOT DETECT) 08/25/24 11:22 Plan (1) Leukocytosis: Status: Acute Qualifiers: Leukocytosis type: unspecified Qualified Code(s): D72.829 - Elevated white blood cell count, unspecified (2) Lactic acid acidosis: Status: Acute (3) Sinus tachycardia: Status: Acute (4) Constipation: Status: Acute Qualifiers: Constipation type: unspecified constipation type Qualified Code(s): K59.00 - Constipation, unspecified (5) Hypertension: Status: Chronic Qualifiers: Hypertension type: primary hypertension Qualified Code(s): I10 - Essential (primary) hypertension (6) Mastoiditis: Status: Chronic Qualifiers: Laterality: unspecified laterality Qualified Code(s): H70.90 - Unspecified mastoiditis, unspecified ear (7) CAD (coronary artery disease): Status: Chronic Qualifiers: Associated angina: without angina Coronary Disease-Associated Artery/Lesion type: bypass graft [place] vs. transplanted heart: [place] heart Qualified Code(s): I25.810 - Atherosclerosis of coronary artery bypass graft(s) without angina pectoris (8) Anemia: Status: Chronic Qualifiers: Anemia type: unspecified type Qualified Code(s): D64.9 - Anemia, unspecified (9) Risk for falls: Status: Chronic (10) Acute renal failure: Status: Acute Qualifiers: Acute renal failure type: unspecified Qualified Code(s): N17.9 - Acute kidney failure, unspecified
[2024-08-29 15:37] LABS: IRON 13 ug/dL (50-175); TOTAL IRON BINDING CAPACITY 118 ug/dL (250-450)
[2024-08-29] MEDS: MILK OF MAGNESIA PO SCH (20:36)
[2024-08-30 04:32] LABS: BASOPHILS # (AUTO) 0.1 X10^3/uL (0.0-0.1); BASOPHILS % (AUTO) 0.3 % (0.2-1.0); EOSINOPHILS # (AUTO) 0.8 x10^3/uL (0.0-0.2); EOSINOPHILS % (AUTO) 3.3 % (0.9-2.9); HEMATOCRIT 25.1 % (42.0-54.0); HEMOGLOBIN 8.4 g/dL (13.5-18.0); LYMPHOCYTES # (AUTO) 1.8 X10^3/uL (1.3-2.9); LYMPHOCYTES % (AUTO) 7.7 % (21.0-51.0); MEAN CORPUSCULAR HEMOGLOBIN 28.2 pg (27.0-34.0); MEAN CORPUSCULAR HGB CONC 33.6 g/dL (33.0-35.0); MEAN CORPUSCULAR VOLUME 83.8 fL (80.0-100.0); MEAN PLATELET VOLUME 8.9 fL (7.4-11.0); MONOCYTES # (AUTO) 1.4 x10^3/uL (0.3-0.8); MONOCYTES % (AUTO) 5.8 % (0.0-13.0); NEUTROPHILS # (AUTO) 19.5 x10^3/uL (2.2-4.8); NEUTROPHILS % (AUTO) 82.9 % (42.0-75.0); PLATELET COUNT 170 X10^3/uL (150.0-450.0); RED BLOOD COUNT 2.99 X10^6/uL (4.7-6.0); RED CELL DISTRIBUTION WIDTH 15.2 % (11.6-16.5); WHITE BLOOD COUNT 23.5 X10^3/uL (3.6-10.0)
[2024-08-30 04:42] LABS: ALANINE AMINOTRANSFERASE 29 Units/L (12-78); ALBUMIN 1.4 g/dL (3.4-5.0); ALKALINE PHOSPHATASE 104 Units/L (46-116); ASPARTATE AMINO TRANSFERASE 73 Units/L (15-37); BLOOD UREA NITROGEN 20 mg/dL (7-18); CALCIUM 8.1 mg/dL (8.5-10.1); CARBON DIOXIDE 26.3 mmol/L (21-32); CHLORIDE 105 mmol/L (98-107); COR CA(FOR HYPOALB) 10.2 mg/dL (8.5-10.1); CREATININE 1.41 mg/dL (0.70-1.30); GLUCOSE 77 mg/dL (65-99); MAGNESIUM 2.1 mg/dL (2.0-2.9); POTASSIUM 3.6 mmol/L (3.5-5.1); SODIUM 139 mmol/L (136-145); TOTAL PROTEIN 4.5 g/dL (6.4-8.2); eGFR NON BLACK RACES 51 (>60)
[2024-08-30 05:16] LABS: BAND NEUTROPHILS % 2 % (0-10); PLATELET MORPHOLOGY COMMENT NORMAL (NORMAL)
--- NOTE | 2024-08-30 06:41 | RAD ---
EXAM:AP chestHISTORY:Follow-up pneumonia elevated WBCCOMPARISON:08/27/2024FINDINGS:Heart size normal with sternal wires and clear right lung. There are linear areas of parenchymal density in the retrocardiac left lower lobe without dominant mass or lobar consolidation or large pleural effusion. The left upper lobe is clear.IMPRESSION:Described findings at the left base are consistent with inflammatory process/atelectasis.THIS IS AN ELECTRONICALLY VERIFIED FINAL [id number]/30/2024 6:38 AM - Electronically signed by Rigoberto Higgins MD
[2024-08-30 14:08] LABS: BILIRUBIN,URINE NEGATIVE (NEGATIVE); BLOOD/HEMOGLOBIN,URINE 5+ (NEGATIVE); GLUCOSE, URINE NEGATIVE (NEGATIVE); KETONES,URINE 1+ (NEGATIVE); LEUKOCYTE ESTERASE ,URINE NEGATIVE (NEGATIVE); NITRITES,URINE NEGATIVE (NEGATIVE); PROTEIN,URINE 2+ (NEGATIVE); UROBILINOGEN,URINE NORMAL (NORMAL)
[2024-08-30 14:17] LABS: APPEARANCE,URINE SLIGHTLY HAZY (CLEAR); COLOR,URINE YELLOW (YELLOW)
[2024-08-30 14:18] LABS: BACTERIA,URINE TRACE /HPF (NEGATIVE); RBC,URINE 30-50 /HPF (0-3); SQUAMOUS EPITHELIAL CELL,UR RARE /HPF (NEGATIVE)
[2024-08-30 16:13] VITALS: BP 139/84; PULSE 113; RESP 19; TEMP 97.2; O2SAT 94
--- NOTE | 2024-09-05 10:21 | W.DIS.FURT ---
Summary of Discharge Discharge Summary of Date Date of Exam: 08/30/24 Admission Date Date of Admission: 08/21/24 Admission Diagnosis Patient Problems (Updated 08/29/24 @ 14:03 by Mai Benitez MD) Sepsis (Acute) A41.9 Hospital Course: Mr Phillips is a 84y/o male with a PMH of CAD, CHF, HTN, HLD, GERD, BPH and insomnia presented with leg weakness and difficulty walking. He reported having trouble with standing up and walking for a few months. He did have home health in the past for PT. He reported that it had been getting worse and he was concerned he might have a UTI. ER work up showed elevated WBC and lactic acid. He was admitted for sepsis and started on hydration and antibiotics. He was also started on high dose steroids due to sepsis and hypotension. Blood cultures and AIT was collected. UA was negative. Patient's labs were monitored daily. CXR was concerning for pneumonia so he was treated with bronchodilators. All his cultures remained negative. His WBC kept fluctuating along with lactic acid levels. His antibiotics were adjusted for broader coverage. CT-brain and MRI- brain was also done which did not show any acute findings. MRI-lumbar was also done due to leg weakness which showed chronic DDD, stenosis and nerve impingement. Patient was able to ambulate with a walker in the hallway. He had some days where he felt more weak. His WBC jumped up to over 40k, all the cultures and imaging was repeated which did not grow anything. CTAP was done which showed large left inguinal hernia with no strangulation. Dr Alvarez was consulted and recommended serial KUBs and clear liquid. He also had a lot of stool burden so was treated with stool softners which helped. He also had sinus tachycardia, Dr Gilman was consulted. Echo was done, see report. Due to patient's unexplained leukocytosis and lactic acidosis, [facility] was also consulted. Patient's antibiotics were stopped as there was no clear source of infection with all the cultures and tests being negative. Patient's WBC was elevated at 23.5 along with lactic acid 4.1. It was decided that patient needs higher level of care with consultation with heme/onc and ID. Patient agreed to be transferred to [facility]. Patient's case was discussed with hospitalist and oncologist. Patient was accepted for transfer. He was stable for transfer. Labs: Laboratory Last Values WBC 23.5 X10^3/uL (3.6-10.0) H 08/30/24 04:16 RBC 2.99 X10^6/uL (4.7-6.0) L 08/30/24 04:16 Hgb 8.4 g/dL (13.5-18.0) L 08/30/24 04:16 Hct 25.1 % (42.0-54.0) L 08/30/24 04:16 MCV 83.8 fL (80.0-100.0) 08/30/24 04:16 MCH 28.2 pg (27.0-34.0) 08/30/24 04:16 MCHC 33.6 g/dL (33.0-35.0) 08/30/24 04:16 RDW 15.2 % (11.6-16.5) 08/30/24 04:16 Plt Count 170 X10^3/uL (150.0-450.0) 08/30/24 04:16 Plt Count Comment Adequate (ADEQUATE) 08/30/24 04:16 MPV 8.9 fL (7.4-11.0) 08/30/24 04:16 Neut % (Auto) 82.9 % (42.0-75.0) H 08/30/24 04:16 Lymph % (Auto) 7.7 % (21.0-51.0) L 08/30/24 04:16 [place] % (Auto) 5.8 % (0.0-13.0) 08/30/24 04:16 Eos % (Auto) 3.3 % (0.9-2.9) H 08/30/24 04:16 Baso % (Auto) 0.3 % (0.2-1.0) 08/30/24 04:16 Neut # (Auto) 19.5 x10^3/uL (2.2-4.8) H 08/30/24 04:16 Lymph # (Auto) 1.8 X10^3/uL (1.3-2.9) 08/30/24 04:16 [place] # (Auto) 1.4 x10^3/uL (0.3-0.8) H 08/30/24 04:16 Eos # (Auto) 0.8 x10^3/uL (0.0-0.2) H 08/30/24 04:16 Baso # (Auto) 0.1 X10^3/uL (0.0-0.1) 08/30/24 04:16 Absolute Nucleated RBC 0.0 /100WBC 08/30/24 04:16 Total Counted 100 08/30/24 04:16 Neutrophils % (Manual) 87 % (39-76) H 08/30/24 04:16 Band Neutrophils % 2 % (0-10) 08/30/24 04:16 Lymphocytes % (Manual) 7 % (13-43) L 08/30/24 04:16 Monocytes % (Manual) 3 % (4-9) L 08/30/24 04:16 Eosinophils % (Manual) 1 % (0-6) 08/30/24 04:16 Plt Morphology Comment Normal (NORMAL) 08/30/24 04:16 RBC Morphology Normal (NORMAL) 08/30/24 04:16 Smear Path Review See scanned report 08/30/24 04:16 PT 15.1 SECONDS (11.8-14.3) 08/21/24 15:53 INR Target Range - 08/21/24 15:53 INR 1.22 (0.8-1.3) 08/21/24 15:53 APTT 38.8 SECONDS (22.9-36.5) H 08/21/24 15:53 PTT Comment - 08/21/24 15:53 Sodium 139 mmol/L (136-145) 08/30/24 04:16 Corrected Sodium TNP 08/30/24 04:16 Potassium 3.6 mmol/L (3.5-5.1) 08/30/24 04:16 Chloride 105 mmol/L (98-107) 08/30/24 04:16 Carbon Dioxide 26.3 mmol/L (21-32) 08/30/24 04:16 BUN 20 mg/dL (7-18) H 08/30/24 04:16 Creatinine 1.41 mg/dL (0.70-1.30) H 08/30/24 04:16 Est GFR (MDRD) Af Amer > 60 (>60) 08/30/24 04:16 Est GFR (MDRD) Non-Af 51 (>60) L 08/30/24 04:16 Glucose 77 mg/dL (65-99) 08/30/24 04:16 Lactic Acid 4.1 mmol/L (0.4-2.0) H* 08/30/24 07:05 Calcium 8.1 mg/dL (8.5-10.1) L 08/30/24 04:16 Corrected Calcium 10.2 mg/dL (8.5-10.1) H 08/30/24 04:16 Magnesium 2.1 mg/dL (2.0-2.9) 08/30/24 04:16 Iron 13 ug/dL (50-175) L 08/29/24 14:10 TIBC 118 ug/dL (250-450) L 08/29/24 14:10 Ferritin 2517 ng/mL (26-388) H 08/29/24 14:10 Total Bilirubin 1.60 mg/dL (0.2-1.0) H 08/30/24 04:16 AST 73 Units/L (15-37) H 08/30/24 04:16 ALT 29 Units/L (12-78) 08/30/24 04:16 Alkaline Phosphatase 104 Units/L (46-116) 08/30/24 04:16 Creatine Kinase 222 Units/L (39-308) 08/29/24 05:20 B-Natriuretic Peptide 224 pg/mL (0-79) H 08/29/24 14:10 Total Protein 4.5 g/dL (6.4-8.2) L 08/30/24 04:16 Albumin 1.4 g/dL (3.4-5.0) L 08/30/24 04:16 Globulin 3.1 g/dL (2.5-4.5) 08/30/24 04:16 Albumin/Globulin Ratio 0.5 Ratio (1.1-2.1) L 08/30/24 04:16 Vitamin B12 > 2000 pg/mL (193-986) H 08/29/24 14:10 Free T4 1.04 ng/dL (0.76-1.46) 08/28/24 05:25 TSH 3rd Generation 3.814 uIU/mL (0.358-3.74) H 08/28/24 05:25 Specimen Type Catherized urine 08/30/24 14:02 Urine Color Yellow (YELLOW) 08/30/24 14:02 Urine Appearance Slightly hazy (CLEAR) 08/30/24 14:02 Urine pH 6.0 (5.0 - 8.0) 08/30/24 14:02 Ur Specific [place] 1.010 (1.000-1.030) 08/30/24 14:02 Urine Protein 2+ (NEGATIVE) 08/30/24 14:02 Urine Glucose (UA) Negative (NEGATIVE) 08/30/24 14:02 Urine Ketones 1+ (NEGATIVE) 08/30/24 14:02 Urine Blood 5+ (NEGATIVE) 08/30/24 14:02 Urine Nitrite Negative (NEGATIVE) 08/30/24 14:02 Urine Bilirubin Negative (NEGATIVE) 08/30/24 14:02 Urine Urobilinogen Normal (NORMAL) 08/30/24 14:02 Ur Leukocyte Esterase Negative (NEGATIVE) 08/30/24 14:02 Urine RBC 30-50 /HPF (0-3) A 08/30/24 14:02 Urine WBC None seen /HPF (0-5) 08/30/24 14:02 Ur Squamous Epith Cells Rare /HPF (NEGATIVE) 08/30/24 14:02 Urine Bacteria Trace /HPF (NEGATIVE) 08/30/24 14:02 Ur Culture Indicated? No/not indicated 08/30/24 14:02 Resp Viral Panel (PCR) See scanned report 08/24/24 11:11 S. pyogenes (TEM-PCR) Not detected (NOT DETECT) 08/25/24 11:22 Reason For Visit: PNEUMONIA, UROSEPSIS, WEAKNESS Discharge Diagnosis All Active Problems (Updated 08/29/24 @ 14:03 by Mai Benitez MD) Anemia (Chronic) Sinus tachycardia (Acute) RICA (acute kidney injury) (Acute) Mastoiditis (Chronic) Pneumonia (Acute) Lactic acid acidosis (Acute) Hypokalemia (Acute) Risk for falls (Chronic) Declining functional status (Chronic) Cough due to ART inhibitor (Acute) Constipation (Acute) Impaired communication with impaired cognition (Acute) Persistent dry cough (Acute) Leukocytosis (Acute) Nausea & vomiting (Acute) Weakness (Acute) Agitation (Acute) Hypertension (Chronic) Dehydration (Acute) Acute renal failure (Acute) 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 Pt is to keep follow up appointment as instructed and take medications as ordered. Discharge Medications Discharge Medications: Iodinated Contrast Media Allergy (Verified 08/28/24 16:33) Penicillins Allergy (Verified 08/21/24 11:15) CONTINUE taking the following medications atorvastatin 40 mg tablet 40 mg PO QDAY 08/21/24 [History] ciprofloxacin HCl 750 mg tablet 750 mg PO BID 08/21/24 [History] clopidogrel 75 mg tablet 75 mg PO QDAY 08/21/24 [History] folic acid 1 mg tablet 1 mg PO QDAY 08/21/24 [History] latanoprost 0.005 % eye drops 1 drp ophthalmic (eye) DAILY 08/21/24 [History] levothyroxine 100 mcg tablet 100 mcg PO QDAY 08/21/24 [History] lisinopril 40 mg tablet 40 mg PO BID 08/21/24 [History] magnesium oxide 400 mg (241.3 mg magnesium) tablet 400 mg PO QDAY 08/21/24 [History] megestrol 40 mg tablet 40 mg PO BID 08/21/24 [History] metoprolol tartrate 50 mg tablet 50 mg PO BID 08/21/24 [History] ondansetron 8 mg disintegrating tablet 8 mg PO TID 08/21/24 [History] pantoprazole 40 mg tablet,delayed release 40 mg PO QDAY 08/21/24 [History] quetiapine 150 mg tablet,extended release 24 hr 150 mg PO QPM 08/21/24 [History] tamsulosin 0.4 mg capsule 0.4 mg PO QDAY 08/21/24 [History] temazepam 15 mg capsule 15 mg PO QPM PRN 08/21/24 [History] temazepam 7.5 mg capsule 7.5 mg PO QPM PRN 08/21/24 [History] Discharge Disposition Discharge Disposition: [facility] Discharge Condition: stable Discharge Plan Discharge Plan Hospital Course: Mr Phillips is a 84y/o male with a PMH of CAD, CHF, HTN, HLD, GERD, BPH and insomnia presented with leg weakness and difficulty walking. He reported having trouble with standing up and walking for a few months. He did have home health in the past for PT. He reported that it had been getting worse and he was concerned he might have a UTI. ER work up showed elevated WBC and lactic acid. He was admitted for sepsis and started on hydration and antibiotics. He was also started on high dose steroids due to sepsis and hypotension. Blood cultures and AIT was collected. UA was negative. Patient's labs were monitored daily. CXR was concerning for pneumonia so he was treated with bronchodilators. All his cultures remained negative. His WBC kept fluctuating along with lactic acid levels. His antibiotics were adjusted for broader coverage. CT-brain and MRI- brain was also done which did not show any acute findings. MRI-lumbar was also done due to leg weakness which showed chronic DDD, stenosis and nerve impingement. Patient was able to ambulate with a walker in the hallway. He had some days where he felt more weak. His WBC jumped up to over 40k, all the cultu res and imaging was repeated which did not grow anything. CTAP was done which showed large left inguinal hernia with no strangulation. Dr Alvarez was consulted and recommended serial KUBs and clear liquid. He also had a lot of stool burden so was treated with stool softners which helped. He also had sinus tachycardia, Dr Gilman was consulted. Echo was done, see report. Due to patient's unexplained leukocytosis and lactic acidosis, [facility] was also consulted. Patient's antibiotics were stopped as there was no clear source of infection with all the cultures and tests being negative. Patient's WBC was elevated at 23.5 along with lactic acid 4.1. It was decided that patient needs higher level of care with consultation with heme/onc and ID. Patient agreed to be transferred to [facility]. Patient's case was discussed with hospitalist and oncologist. Patient was accepted for transfer. He was stable for transfer. Patient Disposition: [facility] Condition: Stable Health Concerns: Post Hospitalization: new medications and changes needed to prevent readmission or further decline. Pt educated and given instructions on all concerns. Care Plan Goals: Problem: Activity Intolerance Goal: Increased tolerance to activity Instructions: Follow provided instructions. Follow up with primary physician as directed. Contact primary care physician or report to the closest Emergency Room if condition worsens. Plan of Treatment: Continue with present treatment and follow up plan. Pt is to keep follow up appointment as instructed and take medications as ordered. Prescriptions: No Action aspirin 81 mg Tablet,Delayed Release (Dr/Ec) 81 mg PO DAILY 0RF latanoprost 0.005 % drops 1 drp OPHTHALMIC (EYE) DAILY Patient Comments: [NO ORIGINAL SIG] atorvastatin 40 mg tablet 40 mg PO QDAY ciprofloxacin HCl 750 mg tablet 750 mg PO BID clopidogrel 75 mg tablet 75 mg PO QDAY temazepam 7.5 mg capsule 7.5 mg PO QPM PRN ondansetron 8 mg tablet,disintegrating 8 mg PO TID levothyroxine 100 mcg tablet 100 mcg PO QDAY magnesium oxide 400 mg (241.3 mg magnesium) tablet 400 mg PO QDAY temazepam 15 mg capsule 15 mg PO QPM PRN tamsulosin 0.4 mg capsule 0.4 mg PO QDAY pantoprazole 40 mg tablet,delayed release (DR/EC) 40 mg PO QDAY metoprolol tartrate 50 mg tablet 50 mg PO BID megestrol 40 mg tablet 40 mg PO BID folic acid 1 mg tablet 1 mg PO QDAY lisinopril 40 mg tablet 40 mg PO BID quetiapine 150 mg tablet extended release 24 hr 150 mg PO QPM Orders to Discharge Patient Discharge Orders: Discharge by Transfer to Outside Facility (Routine); Ordered 08/30/24 Ordered By: Mai Benitez Follow ups/Referrals Follow ups/Referrals: Avni Paul [STAFF PHYSICIAN] - 1 WEEK Instructions Stand Alone Forms: Find Help Web Site
== END 2024-08-30 15:45 | disposition short-term general hospital (02) | DRG 814 ==
LOC: ER 10:55 → INTOOBSV 16:04 → MED/SURG 16:04
PROVIDERS: ADMIT Obstetrics & Gynecology Obstetrics; ATTEND Internal Medicine
DX: E03.8 Other specified hypothyroidism; Z79.899 Other long term (current) drug therapy; J18.8 Other pneumonia, unspecified organism; R29.6 Repeated falls; R53.81 Other malaise; I48.91 Unspecified atrial fibrillation; R79.1 Abnormal coagulation profile; R05.3 Chronic cough; K40.30 Unilateral inguinal hernia, with obstruction, without gangrene, not specified as recurrent; R11.2 Nausea with vomiting, unspecified; E86.0 Dehydration; K21.9 Gastro-esophageal reflux disease without esophagitis; N17.8 Other acute kidney failure; R53.1 Weakness; H70.90 Unspecified mastoiditis, unspecified ear; K59.09 Other constipation; R74.02 Elevation of levels of lactic acid dehydrogenase [LDH]; E78.5 Hyperlipidemia, unspecified; R00.0 Tachycardia, unspecified; R41.841 Cognitive communication deficit; D72.829 Elevated white blood cell count, unspecified; R10.84 Generalized abdominal pain; R79.89 Other specified abnormal findings of blood chemistry; I10 Essential (primary) hypertension; I25.810 Atherosclerosis of coronary artery bypass graft(s) without angina pectoris; R06.02 Shortness of breath; E87.6 Hypokalemia; D64.89 Other specified anemias; Z91.81 History of falling

== ENCOUNTER 2024-09-11 15:06 | Inpatient (IN) ==
[2024-09-11 16:10] LABS: BASOPHILS # (AUTO) 0.2 X10^3/uL (0.0-0.1); BASOPHILS % (AUTO) 0.9 % (0.2-1.0); EOSINOPHILS # (AUTO) 0.1 x10^3/uL (0.0-0.2); EOSINOPHILS % (AUTO) 0.3 % (0.9-2.9); HEMATOCRIT 30.9 % (42.0-54.0); HEMOGLOBIN 10.1 g/dL (13.5-18.0); LYMPHOCYTES # (AUTO) 2.5 X10^3/uL (1.3-2.9); LYMPHOCYTES % (AUTO) 8.7 % (21.0-51.0); MEAN CORPUSCULAR HEMOGLOBIN 27.3 pg (27.0-34.0); MEAN CORPUSCULAR HGB CONC 32.5 g/dL (33.0-35.0); MEAN CORPUSCULAR VOLUME 84.1 fL (80.0-100.0); MEAN PLATELET VOLUME 9.1 fL (7.4-11.0); MONOCYTES # (AUTO) 1.8 x10^3/uL (0.3-0.8); MONOCYTES % (AUTO) 6.3 % (0.0-13.0); NEUTROPHILS # (AUTO) 24.1 x10^3/uL (2.2-4.8); NEUTROPHILS % (AUTO) 83.8 % (42.0-75.0); PLATELET COUNT 308 X10^3/uL (150.0-450.0); RED BLOOD COUNT 3.68 X10^6/uL (4.7-6.0); RED CELL DISTRIBUTION WIDTH 19.1 % (11.6-16.5); WHITE BLOOD COUNT 28.8 X10^3/uL (3.6-10.0)
[2024-09-11 16:27] LABS: ALANINE AMINOTRANSFERASE 60 Units/L (12-78); ALBUMIN 1.8 g/dL (3.4-5.0); ALKALINE PHOSPHATASE 241 Units/L (46-116); ASPARTATE AMINO TRANSFERASE 123 Units/L (15-37); BLOOD UREA NITROGEN 22 mg/dL (7-18); CALCIUM 8.9 mg/dL (8.5-10.1); CARBON DIOXIDE 25.8 mmol/L (21-32); CHLORIDE 97 mmol/L (98-107); COR CA(FOR HYPOALB) 10.7 mg/dL (8.5-10.1); CREATININE 1.76 mg/dL (0.70-1.30); GLUCOSE 81 mg/dL (65-99); POTASSIUM 3.5 mmol/L (3.5-5.1); SODIUM 136 mmol/L (136-145); TOTAL PROTEIN 5.7 g/dL (6.4-8.2); eGFR NON BLACK RACES 39 (>60)
[2024-09-11 16:41] LABS: BAND NEUTROPHILS % 2 % (0-10)
[2024-09-11 16:42] LABS: ANISOCYTOSIS SLIGHT; PLATELET MORPHOLOGY COMMENT NORMAL (NORMAL)
--- NOTE | 2024-09-11 17:09 | VAS ---
EXAM:LOWER EXT VENOUS, UNILATERALHISTORY:left leg edema; LEFT LEG EDEMACOMPARISON:None.TECHNIQUE:Grayscale and color Doppler imaging of the left lower extremity using compression and augmentation techniques.FINDINGS:There is normal color Doppler flow demonstrated from the common femoral vein through of the posterior tibial vein of the left lower extremity. The vessels augment and compress normally with no DVT identified. Subcutaneous edema is observed.IMPRESSION:No evidence of DVT within the left lower extremityTHIS IS AN ELECTRONICALLY VERIFIED FINAL [id number]/2024 5:06 PM - Electronically signed by Jakub Zamarripa MD
--- NOTE | 2024-09-11 18:49 | DR.GENAD ---
HPI Time Seen Time Seen by Provider: 09/11/24 18:42 PCP Primary Care Physician: Humberto HPI Comment HPI Comment: Patient is a poor historian. He was discharged from [facility] today, however [facility] has not supplied us with any records as of 7:30 PM. Patient apparently had been transferred to [facility] from this hospital recently and stated the last until he was discharged. The patient states he is not sure why he is here that he feels better than before. It appears that family may be having difficult time taking care of him at home since he has significant deconditioning. He did have leukocytosis with a white count of as high as 40 on previous admission and at this time his white count is up to 28.8. Since he did have some swelling in his lower extremities more so on the left lower extremity we did an ultrasound which was negative. I suspect his elevated D-dimer is more likely due to his current condition and not so much of blood clot. His kidney function appears to be unchanged from previous. Complaint/Symptoms Chief Complaint:: EMS brought patient in per family request. EMS states that there was a family dispute regarding weather patient should come or not to the hospital. on arrival patient states that he does not know why he is here. EMS states that patient was discharged home today from [facility] and family seems to think that patient was suppose to be discharged to this hospital. Patient denies pain, vomiting, diarrhea. He does c/o nausea and poor appetite since he has been in [facility]. COVID-19 Coronavirus risk:travel/contact w/high risk person: No Has patient experienced Coronavirus symptoms: No Source History Provided: Patient and EMS Mode of Arrival Mode of Arrival: EMS Timing Onset of Chief Complaint: 09/11/24 PMH PMH Past Medical History: Yes Past Medical History: Anxiety, Coronary Artery Disease, CVA, Depression, Dyslipidemia, GERD, Hypertension and Hypothyroidism Past Medical History Comment: stomach cancer Past Surgical History: Yes Surgical History: Angioplasty/Stents and CABG/Valve Surgery Family History History of Family Medical Conditions: Yes Family Medical History: Diabetes Mellitus, Cancer, [place], Coronary Artery Disease, Heart Failure and Hypertension Social History Type of Tobacco Use: None Alcohol Use: None Do you use any recreational Drugs:: No Lives With: Spouse Lives Where: Home Travel Risk Coronavirus risk:travel/contact w/high risk person: No Has patient experienced Coronavirus symptoms: No Infectious screening Have you traveled outside the country in the last 6 months?: No Isolation: Standard ROS Review of Systems Constitutional: No Symptoms Reported Eyes: No Symptoms Reported ENTM: No Symptoms Reported Respiratoy: No Symptoms Reported Cardiovascular: No Symptoms Reported Gastrointestinal/Abdominal: No Symptoms Reported Genitourinary: No Symptoms Reported Neurological: No Symptoms Reported Musculoskeletal: No Symptoms Reported Integumentary: No Symptoms Reported Hematologic/Lymphatic: No Symptoms Reported Endocrine: No Symptoms Reported Psychiatric: No Symptoms Reported All Other Systems: Reviewed and Negative PE Vital Signs Vitals: Vital Signs Temperature 97.8 F Pulse Rate 110 Respiratory Rate 20 Blood Pressure 116/72 Blood Pressure 128/78 Blood Pressure 107/78 Blood Pressure 120/74 O2 Sat by Pulse Oximetry 99 O2 Sat by Pulse Oximetry 97 O2 Sat by Pulse Oximetry 96 General Limitations: No Limitations General Appearance: Alert and In No Apparent Distress Head Head Exam: Normal Inspection Eyes Eye exam: Normal Appearance ENT ENT Exam: Normal Exam External Ear Exam: Normal External Inspection TM/Canal Exam: Bilateral: Normal Nose Exam: Normal Nose Exam Mouth Exam: Normal Inspection Throat Exam: Normal Inspection Neck Neck Exam: Normal Inspection Chest Chest Inspection: Normal Inspection Respiratory Respiratory Exam: Normal Lung Sounds Bilat Respiratory Exam: Bilateral: Clear to Auscultation Cardiovascular Cardiovascular Exam: Regular Rate and Normal Rhythm Abdominal Exam Abdominal Exam: Normal Inspection, Normal Bowel Sounds and Soft Extremities Extremities Exam: Normal Inspection Back Back Exam: Normal Inspection Neurologic Neurological Exam: Alert and Oriented X3 Psychiatric Psychiatric Exam: Normal Affect and Normal Mood Skin Skin Exam: Warm, Dry, Intact and Normal Color COURSE Consultation Called: 19:26 Consultation Comments: Discussed case with Dr. Salomon. He is agreeable to admission. Since [facility] has not sent records and stated the records would be send later tonight or in the morning, we are unsure what antibiotics if any the patient is on. We are also considering that patient may have leukemia and that may be the cause of the elevated white count but patient is very stable at this time so we will will hold off on antibiotics for now until the morning team can check records with [facility]. [facility] Labs Reviewed 09/11/24 15:57 09/11/24 15:57 Laboratory: WBC 28.8 X10^3/uL (3.6-10.0) H 09/11/24 15:57 RBC 3.68 X10^6/uL (4.7-6.0) L 12/10/24 15:57 Hgb 10.1 g/dL (13.5-18.0) L 09/11/24 15:57 Hct 30.9 % (42.0-54.0) L 09/11/24 15:57 MCV 84.1 fL (80.0-100.0) 09/11/24 15:57 MCH 27.3 pg (27.0-34.0) 09/11/24 15:57 MCHC 32.5 g/dL (33.0-35.0) L 09/11/24 15:57 RDW 19.1 % (11.6-16.5) H 09/11/24 15:57 Plt Count 308 X10^3/uL (150.0-450.0) 09/11/24 15:57 Plt Count Comment Adequate (ADEQUATE) 09/11/24 15:57 MPV 9.1 fL (7.4-11.0) 09/11/24 15:57 Neut % (Auto) 83.8 % (42.0-75.0) H 09/11/24 15:57 Lymph % (Auto) 8.7 % (21.0-51.0) L 09/11/24 15:57 [place] % (Auto) 6.3 % (0.0-13.0) 09/11/24 15:57 Eos % (Auto) 0.3 % (0.9-2.9) L 09/11/24 15:57 Baso % (Auto) 0.9 % (0.2-1.0) 09/11/24 15:57 Neut # (Auto) 24.1 x10^3/uL (2.2-4.8) H 09/11/24 15:57 Lymph # (Auto) 2.5 X10^3/uL (1.3-2.9) 09/11/24 15:57 [place] # (Auto) 1.8 x10^3/uL (0.3-0.8) H 09/11/24 15:57 Eos # (Auto) 0.1 x10^3/uL (0.0-0.2) 09/11/24 15:57 Baso # (Auto) 0.2 X10^3/uL (0.0-0.1) H 09/11/24 15:57 Absolute Nucleated RBC 0.0 /100WBC 09/11/24 15:57 Total Counted 100 09/11/24 15:57 Neutrophils % (Manual) 85 % (39-76) H 09/11/24 15:57 Band Neutrophils % 2 % (0-10) 09/11/24 15:57 Lymphocytes % (Manual) 7 % (13-43) L 09/11/24 15:57 Monocytes % (Manual) 6 % (4-9) 09/11/24 15:57 Plt Morphology Comment Normal (NORMAL) 09/11/24 15:57 RBC Morphology Abnormal (NORMAL) 09/11/24 15:57 Anisocytosis Slight A 09/11/24 15:57 D-Dimer 4.33 ug/ml (0.0-0.57) H 09/11/24 15:57 Sodium 136 mmol/L (136-145) 09/11/24 15:57 Corrected Sodium TNP 09/11/24 15:57 Potassium 3.5 mmol/L (3.5-5.1) 09/11/24 15:57 Chloride 97 mmol/L (98-107) L 09/11/24 15:57 Carbon Dioxide 25.8 mmol/L (21-32) 09/11/24 15:57 BUN 22 mg/dL (7-18) H 09/11/24 15:57 Creatinine 1.76 mg/dL (0.70-1.30) H 09/11/24 15:57 Est GFR (MDRD) Af Amer 48 (>60) L 09/11/24 15:57 Est GFR (MDRD) Non-Af 39 (>60) L 09/11/24 15:57 Glucose 81 mg/dL (65-99) 09/11/24 15:57 Calcium 8.9 mg/dL (8.5-10.1) 09/11/24 15:57 Corrected Calcium 10.7 mg/dL (8.5-10.1) H 09/11/24 15:57 Total Bilirubin 2.00 mg/dL (0.2-1.0) H 09/11/24 15:57 AST 123 Units/L (15-37) H 09/11/24 15:57 ALT 60 Units/L (12-78) 09/11/24 15:57 Alkaline Phosphatase 241 Units/L (46-116) H 09/11/24 15:57 Total Protein 5.7 g/dL (6.4-8.2) L 09/11/24 15:57 Albumin 1.8 g/dL (3.4-5.0) L 09/11/24 15:57 Globulin 3.9 g/dL (2.5-4.5) 09/11/24 15:57 Albumin/Globulin Ratio 0.5 Ratio (1.1-2.1) L 09/11/24 15:57 Opioid Opioid Risk Tool Age (Angelito box if 16-45): No History of Preadolescent Sexual Abuse: No Total: 0 Total Score Risk Category: Low Risk Copyright: Juanito BARRETT predicting aberrant behaviors Discharge Plan Diagnosis Discharge Problem: Adult failure to thrive, Leukocytosis Discharge Plan Patient Disposition: 09 ADMITTED INPATIENT Condition: Stable Prescriptions: No Action latanoprost 0.005 % drops 1 drp OPHTHALMIC (EYE) QPM Patient Comments: [NO ORIGINAL SIG] atorvastatin 40 mg tablet 40 mg PO QPM clopidogrel 75 mg tablet 75 mg PO QDAY temazepam 7.5 mg capsule 7.5 mg PO QPM PRN ondansetron 8 mg tablet,disintegrating 8 mg PO Q8H PRN levothyroxine 100 mcg tablet 100 mcg PO QDAY tamsulosin 0.4 mg capsule 0.4 mg PO QPM pantoprazole 40 mg tablet,delayed release (DR/EC) 40 mg PO QDAY metoprolol tartrate 50 mg tablet 50 mg PO BID megestrol 40 mg tablet 40 mg PO BID folic acid 1 mg tablet 1 mg PO QDAY quetiapine 150 mg tablet extended release 24 hr 150 mg PO QPM Health Concerns: Post Hospitalization: new medications and changes needed to prevent readmission or further decline. Pt educated and given instructions on all concerns. Plan of Treatment: Continue with present treatment and follow up plan. Pt is to keep follow up appointment as instructed and take medications as ordered. Orders to Discharge Patient Discharge Orders: Transfer (Routine); Ordered 09/11/24 Ordered By: Sukhdeep Valdivia Follow ups/Referrals Follow ups/Referrals: Avni Paul [Primary Care Provider] - 3 days Instructions Stand Alone Forms: Find Help Web Site, Post Hospital Follow Up Care
[2024-09-11] MEDS ORDERED: CONSULT PHARMACY - POTASSIUM & MAGNESIUM XX SCH (20:53)
[2024-09-11] MEDS ORDERED: ONDANSETRON 8 MG PO PRN (20:53)
[2024-09-11] MEDS ORDERED: TEMAZEPAM 7.5 MG PO PRN (20:53)
[2024-09-11] MEDS: NS 1,000 ML IV 1,000 ML IV SCH (21:09)
[2024-09-11] MEDS ORDERED: RESTORIL CAP 15 MG PO PRN (21:11)
[2024-09-11] MEDS: FLOMAX PO SCH (22:10)
[2024-09-11] MEDS: LOPRESSOR TAB 50 MG PO SCH (22:10)
[2024-09-11] MEDS: LIPITOR TAB 40 MG PO SCH (22:11)
[2024-09-12] MEDS: QUETIAPINE 150 MG PO SCH (00:27)
[2024-09-12] MEDS: XALATAN OP SCH (00:27)
[2024-09-12 04:29] LABS: BASOPHILS # (AUTO) 0.1 X10^3/uL (0.0-0.1); EOSINOPHILS # (AUTO) 0.3 x10^3/uL (0.0-0.2); MEAN CORPUSCULAR HEMOGLOBIN 27.5 pg (27.0-34.0)
[2024-09-12] MEDS: NS 1,000 ML IV 1,000 ML ONE (04:36)
[2024-09-12 04:38] LABS: ALANINE AMINOTRANSFERASE 48 Units/L (12-78); ALBUMIN 1.4 g/dL (3.4-5.0); ALKALINE PHOSPHATASE 185 Units/L (46-116); ASPARTATE AMINO TRANSFERASE 97 Units/L (15-37); BLOOD UREA NITROGEN 25 mg/dL (7-18); CALCIUM 8.3 mg/dL (8.5-10.1); CARBON DIOXIDE 26.3 mmol/L (21-32); CHLORIDE 99 mmol/L (98-107); COR CA(FOR HYPOALB) 10.4 mg/dL (8.5-10.1); CREATININE 1.54 mg/dL (0.70-1.30); GLUCOSE 91 mg/dL (65-99); POTASSIUM 3.3 mmol/L (3.5-5.1); SODIUM 136 mmol/L (136-145); TOTAL PROTEIN 4.5 g/dL (6.4-8.2); eGFR NON BLACK RACES 46 (>60)
[2024-09-12 04:46] LABS: BASOPHILS % (AUTO) 0.5 % (0.2-1.0); EOSINOPHILS % (AUTO) 1.8 % (0.9-2.9); HEMATOCRIT 24.4 % (42.0-54.0); LYMPHOCYTES # (AUTO) 2.3 X10^3/uL (1.3-2.9); LYMPHOCYTES % (AUTO) 12.3 % (21.0-51.0); MEAN CORPUSCULAR HGB CONC 32.9 g/dL (33.0-35.0); MEAN CORPUSCULAR VOLUME 83.6 fL (80.0-100.0); MEAN PLATELET VOLUME 9.5 fL (7.4-11.0); MONOCYTES # (AUTO) 1.6 x10^3/uL (0.3-0.8); MONOCYTES % (AUTO) 8.2 % (0.0-13.0); NEUTROPHILS # (AUTO) 14.6 x10^3/uL (2.2-4.8); NEUTROPHILS % (AUTO) 77.2 % (42.0-75.0); PLATELET COUNT 234 X10^3/uL (150.0-450.0); RED BLOOD COUNT 2.91 X10^6/uL (4.7-6.0); RED CELL DISTRIBUTION WIDTH 19.1 % (11.6-16.5); WHITE BLOOD COUNT 18.9 X10^3/uL (3.6-10.0)
[2024-09-12] MEDS ORDERED: PROTONIX TAB 40 MG PO ONE (07:15)
[2024-09-12] MEDS ORDERED: PLAVIX ONE (07:15)
[2024-09-12] MEDS ORDERED: SYNTHROID 100 mcg TAB ONE (07:20)
[2024-09-12] MEDS ORDERED: FOLIC ACID TAB 1 MG ONE (07:20)
[2024-09-12] MEDS: FOLIC ACID TAB 1 MG PO SCH (08:03)
[2024-09-12] MEDS: NS + KCL 20 MEQ/L 1,000 ML with MAGNESIUM SULFATE 50% INJ VIAL 1 G IV SCH (08:03)
[2024-09-12] MEDS: PLAVIX PO SCH (08:03)
[2024-09-12] MEDS: SYNTHROID 100 mcg TAB PO SCH (08:06)
[2024-09-12] MEDS: PROTONIX TAB 40 MG PO SCH (08:07)
[2024-09-12] MEDS ORDERED: ZOFRAN INJ 4 MG VIAL ONE (11:49)
[2024-09-12 11:55] LABS: AMYLASE 15 Units/L (25-115); LACTATE DEHYDROGENASE 321 Units/L (85-227); LIPASE 37 Units/L (16-77)
[2024-09-12] MEDS: ZOFRAN INJ 4 MG VIAL IVP PRN (11:57)
[2024-09-12] MEDS ORDERED: NS 1,000 ML IV 1,000 ML IV SCH (12:00)
[2024-09-12] MEDS: HEMOCYTE-PLUS PO SCH (15:51)
[2024-09-12] MEDS: K-DUR TAB 20 MEQ PO SCH (15:51)
[2024-09-12] MEDS: LASIX IVP ONE (15:51)
[2024-09-12] MEDS: ALBUMIN HUMAN 25%- 100 ML 100 ML IV ONE (15:52)
[2024-09-12] MEDS: WOUND CARE XX SCH (18:15)
--- NOTE | 2024-09-12 18:34 | RAD ---
EXAM: CHEST, 1 VIEW HISTORY: Shortness of breath; COMPARISON: Prior study or studies were utilized for comparison during interpretation with the most relevant samara ed 08/29/2024 TECHNIQUE: CHEST, 1 VIEW FINDINGS: Chest: Lines and tubes: Cardiac leads overlie the chest. Mediastinum: Median sternotomy wires are present. Cardiac shadow is normal in size. Pulmonary vessels: No pulmonary vascular congestion. Lung calle: No suspicious airspace opacity. Pleura: No effusion. No pneumothorax. Bones and soft tissues: No acute osseous or soft tissue abnormality. IMPRESSION: 1. No acute cardiopulmonary abnormality THIS IS AN ELECTRONICALLY VERIFIED FINAL REPORT 09/12/2024 6:31 PM - Electronically signed by Juan Claros MD
[2024-09-12] MEDS: ZOLOFT PO SCH (20:30)
[2024-09-13] MEDS ORDERED: BUTT CREAM (COMPOUND) TOP PRN (01:48)
[2024-09-13 06:20] LABS: BASOPHILS # (AUTO) 0.2 X10^3/uL (0.0-0.1); BASOPHILS % (AUTO) 1.1 % (0.2-1.0); EOSINOPHILS # (AUTO) 0.4 x10^3/uL (0.0-0.2); EOSINOPHILS % (AUTO) 2.8 % (0.9-2.9); HEMATOCRIT 23.3 % (42.0-54.0); HEMOGLOBIN 7.7 g/dL (13.5-18.0); LYMPHOCYTES # (AUTO) 1.7 X10^3/uL (1.3-2.9); LYMPHOCYTES % (AUTO) 10.9 % (21.0-51.0); MEAN CORPUSCULAR HEMOGLOBIN 28.1 pg (27.0-34.0); MEAN CORPUSCULAR HGB CONC 33.3 g/dL (33.0-35.0); MEAN CORPUSCULAR VOLUME 84.4 fL (80.0-100.0); MONOCYTES # (AUTO) 1.1 x10^3/uL (0.3-0.8); NEUTROPHILS # (AUTO) 12.2 x10^3/uL (2.2-4.8); NEUTROPHILS % (AUTO) 78.2 % (42.0-75.0); PLATELET COUNT 215 X10^3/uL (150.0-450.0); RED BLOOD COUNT 2.76 X10^6/uL (4.7-6.0); RED CELL DISTRIBUTION WIDTH 20.3 % (11.6-16.5); WHITE BLOOD COUNT 15.7 X10^3/uL (3.6-10.0)
[2024-09-13 06:41] LABS: ALANINE AMINOTRANSFERASE 48 Units/L (12-78); ALBUMIN 1.8 g/dL (3.4-5.0); ALKALINE PHOSPHATASE 199 Units/L (46-116); ASPARTATE AMINO TRANSFERASE 100 Units/L (15-37); BLOOD UREA NITROGEN 25 mg/dL (7-18); CALCIUM 8.4 mg/dL (8.5-10.1); CARBON DIOXIDE 26.6 mmol/L (21-32); CHLORIDE 102 mmol/L (98-107); COR CA(FOR HYPOALB) 10.2 mg/dL (8.5-10.1); CREATININE 1.93 mg/dL (0.70-1.30); GLUCOSE 91 mg/dL (65-99); POTASSIUM 3.1 mmol/L (3.5-5.1); SODIUM 139 mmol/L (136-145); TOTAL PROTEIN 4.8 g/dL (6.4-8.2); eGFR NON BLACK RACES 35 (>60)
[2024-09-13 06:58] LABS: PLATELET MORPHOLOGY COMMENT NORMAL (NORMAL)
[2024-09-13 06:59] LABS: ANISOCYTOSIS 1+; TARGET CELLS SLIGHT
[2024-09-13] MEDS ORDERED: CONSULT PHARMACY - POTASSIUM & MAGNESIUM XX SCH (07:00)
--- NOTE | 2024-09-13 08:48 | DR.H&P ---
H&P History & Physical for Day of: H&P Date: 09/12/24 Chief Complaint Chief Complaint: weakness, sob, abdominal swelling, swelling in legs History of Present Illness History of Present Illness: PT IS 84 WM, ER ADMISSION AFTER PRESENTING WITH CO DIFFUSE WEAKNESS, RELEASED FROM [facility] ON 09/12 AFTER HE WAS SENT FROM [facility] FOR EVALUATION AND TREATMENT OF POSSIBLE MALIGNANCY OF PANCREAS, LIVER, COLON. PT STATES HE HAD A MRI, BUT DID NOT HAVE BIOPSY. RECORDS FROM [facility] Past Medical History Past Medical History: Anxiety, Coronary Artery Disease, CVA, Depression, Dyslipidemia, GERD, Hypertension and Hypothyroidism Past Surgical History Surgical History: Angioplasty/Stents and CABG/Valve Surgery Family History Family Medical History: Diabetes Mellitus, Cancer, [place], Coronary Artery Disease, Heart Failure and Hypertension Social History Does patient currently use any type of tobacco product: No Type of Tobacco Use: None Alcohol Use: None Drug Use: None Medications Home Medications: Home Medications Medication Instructions Recorded Confirmed Type atorvastatin 40 mg tablet 40 mg PO QPM 08/21/24 09/11/24 History clopidogrel 75 mg tablet 75 mg PO QDAY 08/21/24 09/11/24 History folic acid 1 mg tablet 1 mg PO QDAY 08/21/24 09/11/24 History latanoprost 0.005 % eye drops 1 drp ophthalmic (eye) QPM 08/21/24 09/11/24 History levothyroxine 100 mcg tablet 100 mcg PO QDAY 08/21/24 09/11/24 History megestrol 40 mg tablet 40 mg PO BID 08/21/24 09/11/24 History metoprolol tartrate 50 mg tablet 50 mg PO BID 08/21/24 09/11/24 History ondansetron 8 mg disintegrating 8 mg PO Q8H PRN 08/21/24 09/11/24 History tablet pantoprazole 40 mg tablet,delayed 40 mg PO QDAY 08/21/24 09/11/24 History release quetiapine 150 mg tablet,extended 150 mg PO QPM 08/21/24 09/11/24 History release 24 hr tamsulosin 0.4 mg capsule 0.4 mg PO QPM 08/21/24 09/11/24 History temazepam 7.5 mg capsule 7.5 mg PO QPM PRN 08/21/24 09/11/24 History sertraline 50 mg tablet (Zoloft) 50 mg PO HS 09/12/24 09/12/24 History Allergies Allergies Allergy/AdvReac Type Severity Reaction Status Date / Time Iodinated Contrast Media Allergy Verified 09/11/24 15:52 Penicillins Allergy Verified 09/11/24 15:52 Labs 09/13/24 05:55 09/13/24 05:55 Labs: 09/11/24 19:55 Blood Blood Culture - Preliminary 09/11/24 19:45 Blood Blood Culture - Preliminary Laboratory WBC 15.7 X10^3/uL (3.6-10.0) H 09/13/24 05:55 RBC 2.76 X10^6/uL (4.7-6.0) L 09/13/24 05:55 Hgb 7.7 g/dL (13.5-18.0) L 09/13/24 05:55 Hct 23.3 % (42.0-54.0) L 09/13/24 05:55 MCV 84.4 fL (80.0-100.0) 09/13/24 05:55 MCH 28.1 pg (27.0-34.0) 09/13/24 05:55 MCHC 33.3 g/dL (33.0-35.0) 09/13/24 05:55 RDW 20.3 % (11.6-16.5) H 09/13/24 05:55 Plt Count 215 X10^3/uL (150.0-450.0) 09/13/24 05:55 Plt Count Comment Adequate (ADEQUATE) 09/13/24 05:55 MPV 9.0 fL (7.4-11.0) 09/13/24 05:55 Neut % (Auto) 78.2 % (42.0-75.0) H 09/13/24 05:55 Lymph % (Auto) 10.9 % (21.0-51.0) L 09/13/24 05:55 [place] % (Auto) 7.0 % (0.0-13.0) 09/13/24 05:55 Eos % (Auto) 2.8 % (0.9-2.9) 09/13/24 05:55 Baso % (Auto) 1.1 % (0.2-1.0) H 09/13/24 05:55 Neut # (Auto) 12.2 x10^3/uL (2.2-4.8) H 09/13/24 05:55 Lymph # (Auto) 1.7 X10^3/uL (1.3-2.9) 09/13/24 05:55 [place] # (Auto) 1.1 x10^3/uL (0.3-0.8) H 09/13/24 05:55 Eos # (Auto) 0.4 x10^3/uL (0.0-0.2) H 09/13/24 05:55 Baso # (Auto) 0.2 X10^3/uL (0.0-0.1) H 09/13/24 05:55 Absolute Nucleated RBC 0.0 /100WBC 09/13/24 05:55 Total Counted 100 09/11/24 15:57 Neutrophils % (Manual) 85 % (39-76) H 09/11/24 15:57 Band Neutrophils % 2 % (0-10) 09/11/24 15:57 Lymphocytes % (Manual) 7 % (13-43) L 09/11/24 15:57 Monocytes % (Manual) 6 % (4-9) 09/11/24 15:57 Plt Morphology Comment Normal (NORMAL) 09/13/24 05:55 RBC Morphology Abnormal (NORMAL) 09/13/24 05:55 Anisocytosis 1+ A 09/13/24 05:55 Target Cells Slight A 09/13/24 05:55 D-Dimer 4.33 ug/ml (0.0-0.57) H 09/11/24 15:57 Sodium 139 mmol/L (136-145) 09/13/24 05:55 Corrected Sodium TNP 09/13/24 05:55 Potassium 3.1 mmol/L (3.5-5.1) L 09/13/24 05:55 Chloride 102 mmol/L (98-107) 09/13/24 05:55 Carbon Dioxide 26.6 mmol/L (21-32) 09/13/24 05:55 BUN 25 mg/dL (7-18) H 09/13/24 05:55 Creatinine 1.93 mg/dL (0.70-1.30) H 09/13/24 05:55 Est GFR (MDRD) Af Amer 43 (>60) L 09/13/24 05:55 Est GFR (MDRD) Non-Af 35 (>60) L 09/13/24 05:55 Glucose 91 mg/dL (65-99) 09/13/24 05:55 Calcium 8.4 mg/dL (8.5-10.1) L 09/13/24 05:55 Corrected Calcium 10.2 mg/dL (8.5-10.1) H 09/13/24 05:55 Magnesium 2.0 mg/dL (2.0-2.9) 09/13/24 05:55 Total Bilirubin 2.00 mg/dL (0.2-1.0) H 09/13/24 05:55 AST 100 Units/L (15-37) H 09/13/24 05:55 ALT 48 Units/L (12-78) 09/13/24 05:55 Alkaline Phosphatase 199 Units/L (46-116) H 09/13/24 05:55 Lactate Dehydrogenase 321 Units/L (85-227) H 09/12/24 04:15 Total Protein 4.8 g/dL (6.4-8.2) L 09/13/24 05:55 Albumin 1.8 g/dL (3.4-5.0) L 09/13/24 05:55 Globulin 3.0 g/dL (2.5-4.5) 09/13/24 05:55 Albumin/Globulin Ratio 0.6 Ratio (1.1-2.1) L 09/13/24 05:55 Amylase 15 Units/L (25-115) L 09/12/24 04:15 Lipase 37 Units/L (16-77) 09/12/24 04:15 Stl Occult Blood (IFOB) Negative (NEGATIVE) 09/12/24 14:02 Review of Systems Constitutional: Weakness and Malaise Eyes: No Symptoms Reported ENT: No Symptoms Reported Respiratory: Shortness of Breath Cardiovascular: Edema Gastrointestinal: Nausea and Other (appetite loss) Genitourinary: No Symptoms Reported Musculoskeletal: Back Pain Skin: Jaundice (mild), Bruising and Wound (sacral) Neurological: Weakness Physical Exam Vital Signs: Vital Signs Temperature 98.3 F Pulse Rate [Left] 102 Respiratory Rate 20 Blood Pressure [Left Arm] 96/59 O2 Sat by Pulse Oximetry 96 Oriented: Normal Eyes: Other (mild sclera jaundice) Ear: Normal Nose: Normal Throat: Normal Respiratory: RLL Diminished and LLL Diminished Cardiovascular: Tachycardia : Normal Auscultation: Bowel Sounds: Decreased Palpation: Liver Enlarged and Other (diffuse abdominal distention) Tenderness: Diffuse Skin: Decreased Turgur Musculoskeletal: Back:Lumbar Psychiatric: Depression Mood Description: Depressed Affect: Depressed Speech Pattern: Clear and Appropriate Assessment/Plan (1) Pancreatic mass: Status: Acute Plan: ADMIT, OBTAIN RECORDS FROM [facility] ADMISSION LABS, CXR STRICT I&OS, SUPPLEMENTAL O2 OCCULT STOOL, BP AND CARDIAC MONITORING GI CONSULT (2) Liver masses: Status: Acute (3) Adult failure to thrive: Status: Acute (4) Anemia: Qualifiers: Anemia type: unspecified type Qualified Code(s): D64.9 - Anemia, unspecified Status: Chronic (5) Abnormal MRI of abdomen: Status: Acute (6) CAD (coronary artery disease): Qualifiers: Coronary Disease-Associated Artery/Lesion type: bypass graft [place] vs. transplanted heart: [place] heart Associated angina: without angina Qualified Code(s): I25.810 - Atherosclerosis of coronary artery bypass graft(s) without angina pectoris Status: Chronic (7) Hypothyroidism: Qualifiers: Hypothyroidism type: acquired Qualified Code(s): E03.9 - Hypothyroidism, unspecified Status: Chronic (8) Hypomagnesemia: Status: Acute
[2024-09-13] MEDS: NS 1,000 ML IV 1,000 ML IV SCH (10:05)
--- NOTE | 2024-09-13 11:01 | RAD ---
EXAMINATION:CHEST, 1 VIEWHISTORY:LEUKOCYTOSIS ; .COMPARISON STUDY:Chest x-ray 09/12/2024TECHNIQUE:Single portable AP view of the chestFINDINGS:Lungs are expanded. Persistent opacity left pulmonary base with obscuring of the hemidiaphragm. Mild cardiac silhouette enlargement. Normal pulmonary vascular pattern. Postsurgical changes mediastinum. Bones are unchanged.IMPRESSION:Patchy infiltrates left pulmonary base. Mild cardiac silhouette enlargement.THIS IS AN ELECTRONICALLY VERIFIED FINAL [id number]/2024 10:58 AM - Electronically signed by Julia Naylor MD
[2024-09-13] MEDS: NS + KCL 40 MEQ/L 1,000 ML with MAGNESIUM SULFATE 50% INJ VIAL 1 G IV SCH (12:31)
[2024-09-13 15:26] LABS: IRON 23 ug/dL (50-175); TOTAL IRON BINDING CAPACITY 88 ug/dL (250-450)
--- NOTE | 2024-09-13 16:21 | DR.CONSULT ---
Consult - Consultation for Day of: Date: 09/13/24 (GI) - Chief Complaint Chief Complaint: Weakness - History of Present Illness History of Present Illness: Patient is an 84 y/o male who is referred for liver lesions, and abnormal pancreatic imaging. Patient was admitted to [facility] and underwent an abdominal US and MRI, which showed metastatic disease involving liver and possible primary tumor in pancreatic tail. Patient's abd x-ray initially also showed significant stools, raising possibility of obstructing lesion in colon, but now patient has been having regular BMs. He had a colonoscopy 3 years ago and reports no abnormalities. Patient was discharged from [facility] and was asked to follow up with oncology in [place], patient has not yet made an appointment. ER ADMISSION AFTER PRESENTING WITH CO DIFFUSE WEAKNESS, RELEASED FROM [facility] ON 09/12 AFTER HE WAS SENT FROM [facility] FOR EVALUATION AND TREATMENT OF POSSIBLE MALIGNANCY OF PANCREAS, LIVER, COLON. PT STATES HE HAD A MRI, BUT DID NOT HAVE BIOPSY. RECORDS FROM [place] - Past Medical History Past Medical History: Coronary Artery Disease, Hypertension, Dyslipidemia, Depression, Anxiety, Hypothyroidism, CVA, GERD - Past Surgical History Surgical History: Angioplasty/Stents, CABG/Valve Surgery - Family History Family Medical History: Diabetes Mellitus, Cancer, [place], Coronary Artery Disease, Heart Failure, Hypertension - Social History Does patient currently use any type of tobacco product: No Type of Tobacco Use: None Alcohol Use: None Drug Use: None - Medications Home Medications: Iodinated Contrast Media Allergy (Verified 09/11/24 15:52) Penicillins Allergy (Verified 09/11/24 15:52) CONTINUE taking the following medications sertraline 50 mg tablet (Zoloft) 50 mg PO HS 09/12/24 [History] - Review of Systems Constitutional: Weakness. denies: No Symptoms Reported, See HPI, Fever, Chills, Sweats, Malaise, Other Eyes: denies: No Symptoms Reported, See HPI, Pain, Vision Change, Conjunctivae Inflammation, Eyelid Inflammation, Redness, Other ENT: denies: No Symptoms Reported, See HPI, Ear Pain, Ear Discharge, Nose Pain, Nose Discharge, Nose Congestion, Mouth Pain, Mouth Swelling, Throat Pain, Throat Swelling, Other Respiratory: See HPI. denies: No Symptoms Reported, Cough, Dry, Shortness of Breath, Hemoptysis, SOB with Excertion, Pleuritic Pain, Sputum, Wheezing, Other Cardiovascular: No Symptoms Reported. denies: Chest Pain, See HPI, Palpitations, Orthopnea, Paroxysmal Noc. Dyspnea, Edema, Light Headedness, Other Gastrointestinal: See HPI. denies: No Symptoms Reported, Nausea, Vomiting, Abdominal Pain, Diarrhea, Constipation, Melena, Hematochezia, Other Genitourinary: denies: No Symptoms Reported, See HPI, Dysuria, Frequency, Incontinence, Hematuria, Retention, Other Musculoskeletal: denies: No Symptoms Reported, See HPI, Shoulder Pain, Arm Pain, Back Pain, Hand Pain, Leg Pain, Foot Pain, Neck Pain, Other Skin: denies: No Symptoms Reported, See HPI, Rash, Lesions, Jaundice, Bruising, Wound, Ecchymosis, Other Neurological: denies: No Symptoms Reported, See HPI, Weakness, Numbness, Incoordination, Change in Speech, Confusion, Seizures, Other - Physical Exam Vital Signs: Vital Signs Temperature 98.1 F Pulse Rate [Left] 109 Respiratory Rate 19 Blood Pressure [Left Arm] 103/61 O2 Sat by Pulse Oximetry 97 Oriented: Normal. negative: Time, Person, Place, Not Oriented, Unable to test, Other Eyes: Other (Icterus). negative: Normal, Blurred Vision, Diplopia, Discharge, Pain, Redness, Photophobia Ear: Normal. negative: Right, Left, Swelling, Ecchymosis, Hemotypanum, Abrasion, Laceration Nose: Normal. negative: Injected, Discharge, Blood, Other Throat: Normal. negative: Tonsillar Hypertrophy, Red, Exudate, Dry, Other Respiratory: Clear Throughout. negative: Diminished Throughout, Rhonchi Throughout, Rales Throughout, Wheezes Throughout, RUL Clear, RML Clear, RLL Clear, GELY Clear, LML Clear, LLL Clear, RUL Diminished, RML Diminished, RLL Diminished, GELY Diminished, LML Diminished, LLL Diminished, RUL Absent, RML Absent, RLL Absent, GELY Absent, LML Absent, LLL Absent, RUL Rhonchi, RML Rhonchi, RLL Rhonchi, GELY Rhonchi, LML Rhonchi, LLL Rhonchi, RUL Insp. Wheeze, RML Insp. Wheeze, RLL Insp. Wheeze, GELY Insp.Wheeze, LML Insp.Wheeze, LLL Insp.Wheeze, RUL Exp. Wheeze, RML Exp. Wheeze, RLL Exp. Wheeze, GELY Exp. Wheeze, LML Exp. Wheeze, LLL Exp. Wheeze, RUL Rales, RML Rales, RLL Rales, GELY Rales, LML Rales, LLL Rales, RUL Rub, RML Rub, RLL Rub, GELY Rub, LML Rub, LLL Rub, RUL Squeak, RML Squeak, RLL Squeak, GELY Squeak, LML Squeak, LLL Squeak Cardiovascular: Normal. negative: Tachycardia, Bradycardia, Irregular, S3, S4, Systolic, Diastolic, Murmur, Edema, Other : Normal. negative: Dysuria, Hematuria, Frequency, Discharge, Testicular Pain, Bleeding, , Other Auscultation: Bowel Sounds: Normal. negative: Bruit, Absent, Increased, Decreased, High Pitched, Other Tenderness: Normal. negative: Diffuse, RUQ, RLQ, LUQ, LLQ, Epigastric, Periumbilical, Suprapubic, Mild, Moderate, Severe, Rebound, Guarding, Rigidity, Other Skin: Other (Jaundice). negative: Normal, Decreased Turgur, Rash, Papular, Macular, Maculopapular, Vesicular, Pustular, Petechial, Red, Tender, Hot, Diaphoresis, Wound, Bruising, Ecchymosis Musculoskeletal: Normal. negative: Right, Left, Shoulder, Clavicle, Arm, Elbow, Forearm, Wrist, Hand, Hip, Thigh, Knee, Leg, Ankle, Foot, Back:Thoracic, Back:Lumbar, Back:Midline, Back:Paraspinous, Pelvis, Swelling, Tender, Deformity, Pulse Deficit, Motor Deficit, Sensory Deficit, Instability, Crepitance Psychiatric: Normal. negative: Anxiety, Depression, Agitation, Other Mood Description: Calm. negative: Angry, Apathetic, Depressed, Fearful, Flat, Happy, Hostile, Sad, Suspicious, Withdrawn, Anxious, Appropriate, Labile Affect: Normal. negative: Angry, Anxious, Depressed, Flat, Hysterical, Quiet, Violent Speech Pattern: Clear, Appropriate. negative: Unclear, Inappropriate, Delayed, Slurred, Excessive, Aphasic, Artificially Ventilated, Trach(not ventilated), Unable to speak - Plan Plan: Assessment. 1. 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 2. Abnormal LFTs, secondary to above. 3. Constipation, resolved. Plan: Recommend CT-guided liver biopsy by radiology. Serologic liver workup ordered, monitor LFTs. Tumor markers, CA19-9, AFP, CEA ordered. Follow up results. Once tissue diagnosis is available, patient is recommended to follow up with oncologist of his choice. He has been referred to Dr. Guevara in [place]. Patient seen and examined by Dr. Alexander - Allergies Allergies/Adverse Reactions: Allergies Allergy/AdvReac Type Severity Reaction Status Date / Time Iodinated Contrast Media Allergy Verified 09/11/24 15:52 Penicillins Allergy Verified 09/11/24 15:52
--- NOTE | 2024-09-13 17:33 | PCM.PROG ---
Progress Note Progress Note for Day of Date of Exam: 09/13/24 Subjective Subjective: PT IS 84 WM, ER ADMISSION WITH DIFFUSE WEAKNESS FROM EXTENDED ILLNESS ONSET ~3 WEEKS AGO. PT HAS DIFFUSE ABDOMINAL DISTENTION WITH MRI DOCUMENTING LIVER AND PANCREATIC LESIONS. PT IS AWARE OF THE DIAGNOSTIC TEST RESULTS. PT IS CURRENTLY ON KVO ELECTROLYTE REPLACEMENT THERAPY. PT HAD DIFFUSE BILATERAL LOWER EXTREMITY EDEMA ON ADMISSION. PT WAS TREATED WITH ONE DOSE OF IV ALBUMIN AND LASIX THERAPY WITH IMRPOVEMENT IN SWELLING THIS MORNING. PT REFUSED ANTIEMETIC MEDICATION DUE TO "CAUSES DIARRHEA" PT ENCOURAGED ORAL NUTRITION AND ORAL HYDRATION. DR GONG HAS BEEN CONSULTING FOR GASTROENTERLOGY EVALUATION. PT IS ASKING TO "PLEASE HAVE TESTING IN [place] IF POSSIBLE" DUE TO EXTREME WEAKNESS AND PT DOES NOT WANT TO BE TRANSFERRED AGAIN. PT HAS AGREED TO ONCOLOGY REFERRAL WHEN A TISSUE BIOPSY IS AVAILABLE. HGB AT 7.7, WITH NEGATIVE OCCULT STOOL. PT IS ON HEMOCYTE PLUS IRON REPLACEMENT AND TYPE AND CROSS OBTAINED. WE WILL TRANSFUSE PRBC WITH HGB<7. Past Medical Family Social History Allergies: Allergies Iodinated Contrast Media Allergy (Verified 09/11/24 15:52) pt states that last time he had contrast he felt like he was burning up and was having a little hard time breathing Penicillins Allergy (Verified 09/11/24 15:52) Vital Signs and I&O's Vital Signs: Vital Signs Temperature 98.3 F Temperature 98.1 F Pulse Rate [Left] 106 Pulse Rate [Left] 109 Respiratory Rate 18 Respiratory Rate 19 Blood Pressure [Left Arm] 149/75 Blood Pressure [Left Arm] 103/61 O2 Sat by Pulse Oximetry 100 O2 Sat by Pulse Oximetry 97 Intake and Output: Intake & Output 09/11/24 09/12/24 09/13/24 09/14/24 11:59 11:59 11:59 11:59 Intake Total 720 / 720 1099 / 1099 181 / 181 Balance 720 / 720 1099 / 1099 181 / 181 Physical Exam Oriented: Normal; negative Time, Person, Place, Not Oriented, Unable to test or Other Eyes: Other (Icterus); negative Normal, Blurred Vision, Diplopia, Discharge, Pain, Redness or Photophobia Ear: Normal; negative Right, Left, Swelling, Ecchymosis, Hemotypanum, Abrasion or Laceration Nose: Normal; negative Injected, Discharge, Blood or Other Throat: Normal; negative Tonsillar Hypertrophy, Red, Exudate, Dry or Other Respiratory: Diminished Cardiovascular: Normal; negative Tachycardia, Bradycardia, Irregular, S3, S4, Systolic, Diastolic, Murmur, Edema or Other : Normal; negative Dysuria, Hematuria, Frequency, Discharge, Testicular Pain, Bleeding, or Other Auscultation: Bowel Sounds: Normal; negative Bruit, Absent, Increased, Decreased, High Pitched or Other Tenderness: Normal; negative Diffuse, RUQ, RLQ, LUQ, LLQ, Epigastric, Periumbilical, Suprapubic, Mild, Moderate, Severe, Rebound, Guarding, Rigidity or Other Skin: Other (Jaundice); negative Normal, Decreased Turgur, Rash, Papular, Macular, Maculopapular, Vesicular, Pustular, Petechial, Red, Tender, Hot, Diaphoresis, Wound, Bruising or Ecchymosis Musculoskeletal: Normal; negative Right, Left, Shoulder, Clavicle, Arm, Elbow, Forearm, Wrist, Hand, Hip, Thigh, Knee, Leg, Ankle, Foot, Back:Thoracic, Back:Lumbar, Back:Midline, Back:Paraspinous, Pelvis, Swelling, Tender, D eformity, Pulse Deficit, Motor Deficit, Sensory Deficit, Instability or Crepitance Psychiatric: Normal; negative Anxiety, Depression, Agitation or Other Mood Description: Calm; negative Angry, Apathetic, Depressed, Fearful, Flat, Happy, Hostile, Sad, Suspicious, Withdrawn, Anxious, Appropriate or Labile Affect: Normal; negative Angry, Anxious, Depressed, Flat, Hysterical, Quiet or Violent Speech Pattern: Clear and Appropriate; negative Unclear, Inappropriate, Delayed, Slurred, Excessive, Aphasic, Artificially Ventilated, Trach(not ventilated) or Unable to speak Laboratory and Diagnostics 09/13/24 05:55 09/13/24 05:55 Labs: 09/11/24 19:55 Blood Blood Culture - Preliminary 09/11/24 19:45 Blood Blood Culture - Preliminary Laboratory WBC 15.7 X10^3/uL (3.6-10.0) H 09/13/24 05:55 RBC 2.76 X10^6/uL (4.7-6.0) L 09/13/24 05:55 Hgb 7.7 g/dL (13.5-18.0) L 09/13/24 05:55 Hct 23.3 % (42.0-54.0) L 09/13/24 05:55 MCV 84.4 fL (80.0-100.0) 09/13/24 05:55 MCH 28.1 pg (27.0-34.0) 09/13/24 05:55 MCHC 33.3 g/dL (33.0-35.0) 09/13/24 05:55 RDW 20.3 % (11.6-16.5) H 09/13/24 05:55 Plt Count 215 X10^3/uL (150.0-450.0) 09/13/24 05:55 Plt Count Comment Adequate (ADEQUATE) 09/13/24 05:55 MPV 9.0 fL (7.4-11.0) 09/13/24 05:55 Neut % (Auto) 78.2 % (42.0-75.0) H 09/13/24 05:55 Lymph % (Auto) 10.9 % (21.0-51.0) L 09/13/24 05:55 [place] % (Auto) 7.0 % (0.0-13.0) 09/13/24 05:55 Eos % (Auto) 2.8 % (0.9-2.9) 09/13/24 05:55 Baso % (Auto) 1.1 % (0.2-1.0) H 09/13/24 05:55 Neut # (Auto) 12.2 x10^3/uL (2.2-4.8) H 09/13/24 05:55 Lymph # (Auto) 1.7 X10^3/uL (1.3-2.9) 09/13/24 05:55 [place] # (Auto) 1.1 x10^3/uL (0.3-0.8) H 09/13/24 05:55 Eos # (Auto) 0.4 x10^3/uL (0.0-0.2) H 09/13/24 05:55 Baso # (Auto) 0.2 X10^3/uL (0.0-0.1) H 09/13/24 05:55 Absolute Nucleated RBC 0.0 /100WBC 09/13/24 05:55 Total Counted 100 09/11/24 15:57 Neutrophils % (Manual) 85 % (39-76) H 09/11/24 15:57 Band Neutrophils % 2 % (0-10) 09/11/24 15:57 Lymphocytes % (Manual) 7 % (13-43) L 09/11/24 15:57 Monocytes % (Manual) 6 % (4-9) 09/11/24 15:57 Plt Morphology Comment Normal (NORMAL) 09/13/24 05:55 RBC Morphology Abnormal (NORMAL) 09/13/24 05:55 Anisocytosis 1+ A 09/13/24 05:55 Target Cells Slight A 09/13/24 05:55 D-Dimer 4.33 ug/ml (0.0-0.57) H 09/11/24 15:57 Sodium 139 mmol/L (136-145) 09/13/24 05:55 Corrected Sodium TNP 09/13/24 05:55 Potassium 3.1 mmol/L (3.5-5.1) L 09/13/24 05:55 Chloride 102 mmol/L (98-107) 09/13/24 05:55 Carbon Dioxide 26.6 mmol/L (21-32) 09/13/24 05:55 BUN 25 mg/dL (7-18) H 09/13/24 05:55 Creatinine 1.93 mg/dL (0.70-1.30) H 09/13/24 05:55 Est GFR (MDRD) Af Amer 43 (>60) L 09/13/24 05:55 Est GFR (MDRD) Non-Af 35 (>60) L 09/13/24 05:55 Glucose 91 mg/dL (65-99) 09/13/24 05:55 Calcium 8.4 mg/dL (8.5-10.1) L 09/13/24 05:55 Corrected Calcium 10.2 mg/dL (8.5-10.1) H 09/13/24 05:55 Magnesium 2.0 mg/dL (2.0-2.9) 09/13/24 05:55 Iron 23 ug/dL (50-175) L 09/13/24 05:55 TIBC 88 ug/dL (250-450) L 09/13/24 05:55 Ferritin 2472 ng/mL (26-388) H 09/13/24 05:55 Total Bilirubin 2.00 mg/dL (0.2-1.0) H 09/13/24 05:55 AST 100 Units/L (15-37) H 09/13/24 05:55 ALT 48 Units/L (12-78) 09/13/24 05:55 Alkaline Phosphatase 199 Units/L (46-116) H 09/13/24 05:55 Lactate Dehydrogenase 321 Units/L (85-227) H 09/12/24 04:15 Total Protein 4.8 g/dL (6.4-8.2) L 09/13/24 05:55 Albumin 1.8 g/dL (3.4-5.0) L 09/13/24 05:55 Globulin 3.0 g/dL (2.5-4.5) 09/13/24 05:55 Albumin/Globulin Ratio 0.6 Ratio (1.1-2.1) L 09/13/24 05:55 Amylase 15 Units/L (25-115) L 09/12/24 04:15 Lipase 37 Units/L (16-77) 09/12/24 04:15 Stl Occult Blood (IFOB) Negative (NEGATIVE) 09/12/24 14:02 Blood Type B NEGATIVE 09/13/24 08:45 Antibody Screen Negative 09/13/24 08:45 Plan (1) Pancreatic mass: Status: Acute Plan: RECORDS FROM [facility], CXR STRICT I&OS, SUPPLEMENTAL O2 OCCULT STOOL, BP AND CARDIAC MONITORING GI CONSULT (2) Liver masses: Status: Acute (3) Adult failure to thrive: Status: Acute (4) Anemia: Status: Chronic Qualifiers: Anemia type: unspecified type Qualified Code(s): D64.9 - Anemia, unspecified (5) Abnormal MRI of abdomen: Status: Acute (6) CAD (coronary artery disease): Status: Chronic Qualifiers: Coronary Disease-Associated Artery/Lesion type: bypass graft [place] vs. transplanted heart: [place] heart Associated angina: without angina Qualified Code(s): I25.810 - Atherosclerosis of coronary artery bypass graft(s) without angina pectoris (7) Hypothyroidism: Status: Chronic Qualifiers: Hypothyroidism type: acquired Qualified Code(s): E03.9 - Hypothyroidism, unspecified (8) Hypomagnesemia: Status: Acute
[2024-09-13] MEDS: DUONEB 0.5 MG/3 MG (3 mL) NEB SCH (17:34)
[2024-09-13] MEDS ORDERED: PULMICORT NEB TX 0.5 MG NEB ONE (19:55)
[2024-09-13] MEDS: PULMICORT NEB TX 0.5 MG NEB SCH (23:42)
[2024-09-14 06:36] LABS: ALANINE AMINOTRANSFERASE 49 Units/L (12-78); ALBUMIN 1.6 g/dL (3.4-5.0); ALKALINE PHOSPHATASE 210 Units/L (46-116); ASPARTATE AMINO TRANSFERASE 94 Units/L (15-37); BASOPHILS # (AUTO) 0.1 X10^3/uL (0.0-0.1); BASOPHILS % (AUTO) 0.5 % (0.2-1.0); BLOOD UREA NITROGEN 22 mg/dL (7-18); CALCIUM 8.6 mg/dL (8.5-10.1); CARBON DIOXIDE 24.9 mmol/L (21-32); CHLORIDE 101 mmol/L (98-107); COR CA(FOR HYPOALB) 10.5 mg/dL (8.5-10.1); CREATININE 1.93 mg/dL (0.70-1.30); EOSINOPHILS # (AUTO) 0.6 x10^3/uL (0.0-0.2); EOSINOPHILS % (AUTO) 3.6 % (0.9-2.9); GLUCOSE 83 mg/dL (65-99); HEMATOCRIT 23.5 % (42.0-54.0); HEMOGLOBIN 7.8 g/dL (13.5-18.0); LYMPHOCYTES # (AUTO) 1.9 X10^3/uL (1.3-2.9); LYMPHOCYTES % (AUTO) 11.6 % (21.0-51.0); MEAN CORPUSCULAR HEMOGLOBIN 28.2 pg (27.0-34.0); MEAN CORPUSCULAR VOLUME 85.3 fL (80.0-100.0); MEAN PLATELET VOLUME 9.3 fL (7.4-11.0); MONOCYTES # (AUTO) 1.4 x10^3/uL (0.3-0.8); MONOCYTES % (AUTO) 8.8 % (0.0-13.0); NEUTROPHILS # (AUTO) 12.3 x10^3/uL (2.2-4.8); NEUTROPHILS % (AUTO) 75.5 % (42.0-75.0); PLATELET COUNT 198 X10^3/uL (150.0-450.0); POTASSIUM 3.3 mmol/L (3.5-5.1); RED BLOOD COUNT 2.76 X10^6/uL (4.7-6.0); RED CELL DISTRIBUTION WIDTH 20.9 % (11.6-16.5); SODIUM 138 mmol/L (136-145); TOTAL PROTEIN 4.6 g/dL (6.4-8.2); WHITE BLOOD COUNT 16.3 X10^3/uL (3.6-10.0); eGFR NON BLACK RACES 35 (>60)
[2024-09-14 07:34] LABS: PLATELET MORPHOLOGY COMMENT NORMAL (NORMAL)
[2024-09-14 07:35] LABS: ANISOCYTOSIS 1+; HELMET CELLS SLIGHT; OVALOCYTES SLIGHT
[2024-09-14] MEDS: K-DUR TAB 20 MEQ PO SCH (08:53)
[2024-09-14] MEDS: LASIX IVP ONE (08:58)
[2024-09-14] MEDS: ROCEPHIN VIAL 1 GRAM 1 G in NS 100 ML IV 100 ML IV SCH (08:58)
--- NOTE | 2024-09-14 09:35 | RAD ---
EXAMINATION:ACUTE ABDOMEN SERI ESHISTORY:CONSTIPATION ; .COMPARISON STUDY:Chest x-ray 08/28/2024TECHNIQUE:Single frontal view of the chest and three views of the abdomenFINDINGS:The lungs are expanded. Streaky opacity left pulmonary base with blunted CP angle. Heart size and pulmonary vascular pattern appear normal. Postsurgical changes mediastinum.Mild amount of bowel-gas. Minimal gaseous distention of the stomach. No evidence of intraperitoneal free air. The visualized soft tissue outlines and osseous structures appear intact. Inferior pelvis was not fully imaged.IMPRESSION:Streaky opacity left pulmonary base with blunted CP angle.Normal bowel-gas pattern.THIS IS AN ELECTRONICALLY VERIFIED FINAL [id number] 9:32 AM - Electronically signed by Julia Naylor MD
[2024-09-14 19:42] LABS: HEMATOCRIT 28.9 % (42.0-54.0); HEMOGLOBIN 9.5 g/dL (13.5-18.0)
[2024-09-15 07:04] LABS: BASOPHILS # (AUTO) 0.1 X10^3/uL (0.0-0.1); BASOPHILS % (AUTO) 0.4 % (0.2-1.0); EOSINOPHILS # (AUTO) 0.4 x10^3/uL (0.0-0.2); HEMATOCRIT 27.9 % (42.0-54.0); HEMOGLOBIN 9.4 g/dL (13.5-18.0); LYMPHOCYTES # (AUTO) 1.7 X10^3/uL (1.3-2.9); LYMPHOCYTES % (AUTO) 9.1 % (21.0-51.0); MEAN CORPUSCULAR HEMOGLOBIN 27.9 pg (27.0-34.0); MEAN CORPUSCULAR HGB CONC 33.6 g/dL (33.0-35.0); MEAN CORPUSCULAR VOLUME 82.9 fL (80.0-100.0); MONOCYTES # (AUTO) 1.4 x10^3/uL (0.3-0.8); MONOCYTES % (AUTO) 7.3 % (0.0-13.0); NEUTROPHILS # (AUTO) 15.3 x10^3/uL (2.2-4.8); NEUTROPHILS % (AUTO) 81.2 % (42.0-75.0); PLATELET COUNT 172 X10^3/uL (150.0-450.0); RED BLOOD COUNT 3.36 X10^6/uL (4.7-6.0); RED CELL DISTRIBUTION WIDTH 20.5 % (11.6-16.5); WHITE BLOOD COUNT 18.8 X10^3/uL (3.6-10.0)
[2024-09-15 07:30] LABS: ANISOCYTOSIS 1+; PLATELET MORPHOLOGY COMMENT NORMAL (NORMAL)
[2024-09-15 07:35] LABS: ALANINE AMINOTRANSFERASE 56 Units/L (12-78); ALBUMIN 1.7 g/dL (3.4-5.0); ALKALINE PHOSPHATASE 227 Units/L (46-116); ASPARTATE AMINO TRANSFERASE 100 Units/L (15-37); BLOOD UREA NITROGEN 20 mg/dL (7-18); CALCIUM 8.9 mg/dL (8.5-10.1); CARBON DIOXIDE 24.2 mmol/L (21-32); CHLORIDE 99 mmol/L (98-107); COR CA(FOR HYPOALB) 10.7 mg/dL (8.5-10.1); CREATININE 2.08 mg/dL (0.70-1.30); GLUCOSE 80 mg/dL (65-99); MAGNESIUM 1.9 mg/dL (2.0-2.9); POTASSIUM 4.1 mmol/L (3.5-5.1); SODIUM 137 mmol/L (136-145); TOTAL PROTEIN 5.1 g/dL (6.4-8.2); eGFR NON BLACK RACES 32 (>60)
[2024-09-15 07:36] LABS: TARGET CELLS PRESENT
[2024-09-15] MEDS: CREON PO SCH (12:37)
[2024-09-15] MEDS: KLONOPIN TAB 0.5 MG PO SCH (12:37)
[2024-09-15] MEDS: LEXAPRO PO SCH (12:38)
[2024-09-15] MEDS: LEXAPRO ONE (12:43)
[2024-09-16] MEDS: NS + KCL 20 MEQ/L 1,000 ML with MAGNESIUM SULFATE 50% INJ VIAL 1 G IV ONE (02:04)
[2024-09-16 06:14] LABS: BASOPHILS # (AUTO) 0.1 X10^3/uL (0.0-0.1); BASOPHILS % (AUTO) 0.2 % (0.2-1.0); EOSINOPHILS # (AUTO) 0.3 x10^3/uL (0.0-0.2); HEMATOCRIT 30.3 % (42.0-54.0); HEMOGLOBIN 9.9 g/dL (13.5-18.0); LYMPHOCYTES # (AUTO) 1.7 X10^3/uL (1.3-2.9); LYMPHOCYTES % (AUTO) 6.7 % (21.0-51.0); MEAN CORPUSCULAR HEMOGLOBIN 27.5 pg (27.0-34.0); MEAN CORPUSCULAR HGB CONC 32.6 g/dL (33.0-35.0); MEAN CORPUSCULAR VOLUME 84.2 fL (80.0-100.0); MEAN PLATELET VOLUME 9.2 fL (7.4-11.0); MONOCYTES # (AUTO) 1.9 x10^3/uL (0.3-0.8); MONOCYTES % (AUTO) 7.7 % (0.0-13.0); NEUTROPHILS # (AUTO) 21.1 x10^3/uL (2.2-4.8); NEUTROPHILS % (AUTO) 84.4 % (42.0-75.0); PLATELET COUNT 151 X10^3/uL (150.0-450.0); RED BLOOD COUNT 3.59 X10^6/uL (4.7-6.0); RED CELL DISTRIBUTION WIDTH 23.1 % (11.6-16.5)
[2024-09-16 06:29] LABS: ALANINE AMINOTRANSFERASE 61 Units/L (12-78); ALBUMIN 1.7 g/dL (3.4-5.0); ALKALINE PHOSPHATASE 250 Units/L (46-116); ASPARTATE AMINO TRANSFERASE 95 Units/L (15-37); BLOOD UREA NITROGEN 19 mg/dL (7-18); CARBON DIOXIDE 20.3 mmol/L (21-32); CHLORIDE 97 mmol/L (98-107); COR CA(FOR HYPOALB) 10.8 mg/dL (8.5-10.1); CREATININE 1.76 mg/dL (0.70-1.30); GLUCOSE 83 mg/dL (65-99); MAGNESIUM 1.8 mg/dL (2.0-2.9); POTASSIUM 3.9 mmol/L (3.5-5.1); SODIUM 136 mmol/L (136-145); TOTAL PROTEIN 5.4 g/dL (6.4-8.2); eGFR NON BLACK RACES 39 (>60)
[2024-09-16 06:54] LABS: ANISOCYTOSIS 2+; PLATELET MORPHOLOGY COMMENT NORMAL (NORMAL)
[2024-09-16] MEDS ORDERED: CONSULT PHARMACY - POTASSIUM & MAGNESIUM XX SCH (07:00)
[2024-09-16] MEDS: MAG-OX TAB PO SCH (09:54)
[2024-09-16] MEDS: K-DUR TAB 20 MEQ PO SCH (09:55)
[2024-09-16] MEDS: MAALOX or MYLANTA PO PRN (10:35)
[2024-09-16] MEDS: LEXAPRO ONE (12:19)
[2024-09-16] MEDS: NS 250 ML IV 250 ML IV ONE (12:19)
[2024-09-16] MEDS: ZOFRAN TAB 4 MG PO PRN (12:49)
[2024-09-16] MEDS: NS + KCL 20 MEQ/L 1,000 ML with MAGNESIUM SULFATE 50% INJ VIAL 1 G IV SCH (13:45)
[2024-09-17 04:43] LABS: BILIRUBIN,URINE NEGATIVE (NEGATIVE); BLOOD/HEMOGLOBIN,URINE 1+ (NEGATIVE); GLUCOSE, URINE NEGATIVE (NEGATIVE); KETONES,URINE 2+ (NEGATIVE); LEUKOCYTE ESTERASE ,URINE NEGATIVE (NEGATIVE); NITRITES,URINE NEGATIVE (NEGATIVE); PROTEIN,URINE 2+ (NEGATIVE); UROBILINOGEN,URINE NORMAL (NORMAL)
[2024-09-17 04:54] LABS: APPEARANCE,URINE CLEAR (CLEAR); BACTERIA,URINE TRACE /HPF (NEGATIVE); COARSE GRANULAR CASTS,URINE FEW /HPF (NEGATIVE); COLOR,URINE YELLOW (YELLOW); SQUAMOUS EPITHELIAL CELL,UR RARE /HPF (NEGATIVE)
[2024-09-17 06:21] LABS: BASOPHILS # (AUTO) 0.1 X10^3/uL (0.0-0.1); BASOPHILS % (AUTO) 0.4 % (0.2-1.0); EOSINOPHILS # (AUTO) 0.7 x10^3/uL (0.0-0.2); EOSINOPHILS % (AUTO) 2.9 % (0.9-2.9); HEMATOCRIT 27.5 % (42.0-54.0); HEMOGLOBIN 9.2 g/dL (13.5-18.0); LYMPHOCYTES # (AUTO) 1.5 X10^3/uL (1.3-2.9); LYMPHOCYTES % (AUTO) 6.8 % (21.0-51.0); MEAN CORPUSCULAR HGB CONC 33.3 g/dL (33.0-35.0); MEAN CORPUSCULAR VOLUME 84.1 fL (80.0-100.0); MEAN PLATELET VOLUME 9.4 fL (7.4-11.0); MONOCYTES # (AUTO) 1.3 x10^3/uL (0.3-0.8); MONOCYTES % (AUTO) 5.5 % (0.0-13.0); NEUTROPHILS # (AUTO) 19.1 x10^3/uL (2.2-4.8); NEUTROPHILS % (AUTO) 84.4 % (42.0-75.0); PLATELET COUNT 120 X10^3/uL (150.0-450.0); RED BLOOD COUNT 3.27 X10^6/uL (4.7-6.0); RED CELL DISTRIBUTION WIDTH 22.8 % (11.6-16.5); WHITE BLOOD COUNT 22.6 X10^3/uL (3.6-10.0)
[2024-09-17 06:45] LABS: ALANINE AMINOTRANSFERASE 50 Units/L (12-78); ALBUMIN 1.5 g/dL (3.4-5.0); ALKALINE PHOSPHATASE 208 Units/L (46-116); ASPARTATE AMINO TRANSFERASE 88 Units/L (15-37); BLOOD UREA NITROGEN 19 mg/dL (7-18); CALCIUM 9.2 mg/dL (8.5-10.1); CARBON DIOXIDE 21.3 mmol/L (21-32); CHLORIDE 98 mmol/L (98-107); COR CA(FOR HYPOALB) 11.2 mg/dL (8.5-10.1); CREATININE 1.66 mg/dL (0.70-1.30); GLUCOSE 78 mg/dL (65-99); MAGNESIUM 2.2 mg/dL (2.0-2.9); POTASSIUM 4.1 mmol/L (3.5-5.1); SODIUM 135 mmol/L (136-145); TOTAL PROTEIN 4.9 g/dL (6.4-8.2); eGFR NON BLACK RACES 42 (>60)
[2024-09-17 06:59] LABS: BAND NEUTROPHILS % 1 % (0-10)
[2024-09-17 07:00] LABS: ANISOCYTOSIS 2+; PLATELET MORPHOLOGY COMMENT NORMAL (NORMAL)
[2024-09-17] MEDS: LEXAPRO PO SCH (08:43)
[2024-09-17] MEDS: LEXAPRO ONE (09:50)
[2024-09-17] MEDS ORDERED: RESTORIL CAP 15 MG PO PRN (12:29)
[2024-09-17] MEDS ORDERED: KLONOPIN TAB 0.5 MG PO PRN (12:39)
--- NOTE | 2024-09-17 12:51 | EKG ---
Test Reason : HR Blood Pressure : */* mmHG Vent. Rate : 112 BPM Atrial Rate : 112 BPM P-R Int : 130 ms QRS Dur : 76 ms QT Int : 328 ms P-R-T Axes : 38 -29 23 degrees QTc Int : 447 ms Sinus tachycardia Anterior infarct , age undetermined Abnormal ECG When compared with ECG of 28-AUG-2024 04:07, Nonspecific T wave abnormality, improved in Inferior leads Nonspecific T wave abnormality no longer evident in Lateral leads Confirmed by Mario Gilman MD ([id number]) on 09/18/2024 7:34:38 AM Referred By: Confirmed By: Mario Gilman MD
--- NOTE | 2024-09-17 13:25 | PCM.PROG ---
Progress Note Progress Note for Day of Date of Exam: 09/17/24 Subjective Subjective: PT IS 84 WM, ER ADMISSION WITH DIFFUSE WEAKNESS FROM EXTENDED ILLNESS ONSET ~3 WEEKS AGO. PT HAS DIFFUSE ABDOMINAL DISTENTION WITH MRI DOCUMENTING LIVER AND PANCREATIC LESIONS. PT IS AWARE OF THE DIAGNOSTIC TEST RESULTS. PT IS CURRENTLY ON KVO ELECTROLYTE REPLACEMENT THERAPY. PT HAD DIFFUSE BILATERAL LOWER EXTREMITY EDEMA ON ADMISSION. PT WAS TREATED WITH ONE DOSE OF IV ALBUMIN AND LASIX THERAPY WITH IMRPOVEMENT IN SWELLING THIS MORNING. PT REFUSED ANTIEMETIC MEDICATION DUE TO "CAUSES DIARRHEA" PT ENCOURAGED ORAL NUTRITION AND ORAL HYDRATION. DR GONG HAS BEEN CONSULTING FOR GASTROENTERLOGY EVALUATION. PT IS ASKING TO "PLEASE HAVE TESTING IN [place] IF POSSIBLE" DUE TO EXTREME WEAKNESS AND PT DOES NOT WANT TO BE TRANSFERRED AGAIN. PT HAS AGREED TO ONCOLOGY REFERRAL WHEN A TISSUE BIOPSY IS AVAILABLE. HGB 9.2 THIS AM, WBC 22.6, PT HAS REPEAT CXR THIS AM WITH RESULTS PENDING. PT NEEDS ORAL NUTRITION AND PHYSICAL THERAPY. Past Medical Family Social History Allergies: Allergies Iodinated Contrast Media Allergy (Verified 09/11/24 15:52) pt states that last time he had contrast he felt like he was burning up and was having a little hard time breathing Penicillins Allergy (Verified 09/11/24 15:52) Vital Signs and I&O's Vital Signs: Vital Signs Temperature 98.6 F Temperature 97.6 F Pulse Rate [Left] 113 Pulse Rate [Left] 112 Pulse Rate 103 Respiratory Rate 16 Respiratory Rate 19 Blood Pressure [Left Arm] 103/63 Blood Pressure [Left Arm] 109/66 O2 Sat by Pulse Oximetry 95 O2 Sat by Pulse Oximetry 95 O2 Sat by Pulse Oximetry 97 Intake and Output: Intake & Output 09/15/24 09/16/24 09/17/24 09/18/24 11:59 11:59 11:59 11:59 Intake Total 2036 / 2037 1591 / 1591 1437 / 1437 Output Total 3150 / 3150 1000 / 1000 1300 / 1300 Balance -1113 / -1113 591 / 591 137 / 137 Physical Exam Oriented: Normal; negative Time, Person, Place, Not Oriented, Unable to test or Other Eyes: Other (Icterus); negative Normal, Blurred Vision, Diplopia, Discharge, Pain, Redness or Photophobia Ear: Normal; negative Right, Left, Swelling, Ecchymosis, Hemotypanum, Abrasion or Laceration Nose: Normal; negative Injected, Discharge, Blood or Other Throat: Normal; negative Tonsillar Hypertrophy, Red, Exudate, Dry or Other Respiratory: Diminished Cardiovascular: Normal; negative Tachycardia, Bradycardia, Irregular, S3, S4, Systolic, Diastolic, Murmur, Edema or Other : Normal; negative Dysuria, Hematuria, Frequency, Discharge, Testicular Pain, Bleeding, or Other Auscultation: Bowel Sounds: Normal; negative Bruit, Absent, Increased, Decreased, High Pitched or Other Tenderness: Normal; negative Diffuse, RUQ, RLQ, LUQ, LLQ, Epigastric, Periumbilical, Suprapubic, Mild, Moderate, Severe, Rebound, Guarding, Rigidity or Other Skin: Other (Jaundice); negative Normal, Decreased Turgur, Rash, Papular, Macular, Maculopapular, Vesicular, Pustular, Petechial, Red, Tender, Hot, Diaphoresis, Wound, Bruising or Ecchymosis Musculoskeletal: Normal; negative Right, Left, Shoulder, Clavicle, Arm, Elbow, Forearm, Wrist, Hand, Hip, Thigh, Knee, Leg, Ankle, Foot, Back:Thoracic, Back:Lumbar, Back:Midline, Back:Paraspinous, Pelvis, Swelling, Tender, Deformity, Pulse Deficit, Motor Deficit, Sensory Deficit, Instability or Crepitance Psychiatric: Normal; negative Anxiety, Depression, Agitation or Other Mood Description: Calm; negative Angry, Apathetic, Depressed, Fearful, Flat, Happy, Hostile, Sad, Suspicious, Withdrawn, Anxious, Appropriate or Labile Affect: Normal; negative Angry, Anxious, Depressed, Flat, Hysterical, Quiet or Violent Speech Pattern: Clear Laboratory and Diagnostics 09/17/24 05:45 09/17/24 05:45 Labs: 09/11/24 19:55 Blood Blood Culture - Final 09/11/24 19:45 Blood Blood Culture - Final Laboratory WBC 22.6 X10^3/uL (3.6-10.0) H 09/17/24 05:45 RBC 3.27 X10^6/uL (4.7-6.0) L 09/17/24 05:45 Hgb 9.2 g/dL (13.5-18.0) L 09/17/24 05:45 Hct 27.5 % (42.0-54.0) L 09/17/24 05:45 MCV 84.1 fL (80.0-100.0) 09/17/24 05:45 MCH 28.0 pg (27.0-34.0) 09/17/24 05:45 MCHC 33.3 g/dL (33.0-35.0) 09/17/24 05:45 RDW 22.8 % (11.6-16.5) H 09/17/24 05:45 Plt Count 120 X10^3/uL (150.0-450.0) L 09/17/24 05:45 Plt Count Comment Decreased (ADEQUATE) 09/17/24 05:45 MPV 9.4 fL (7.4-11.0) 09/17/24 05:45 Neut % (Auto) 84.4 % (42.0-75.0) H 09/17/24 05:45 Lymph % (Auto) 6.8 % (21.0-51.0) L 09/17/24 05:45 [place] % (Auto) 5.5 % (0.0-13.0) 09/17/24 05:45 Eos % (Auto) 2.9 % (0.9-2.9) 09/17/24 05:45 Baso % (Auto) 0.4 % (0.2-1.0) 09/17/24 05:45 Neut # (Auto) 19.1 x10^3/uL (2.2-4.8) H 09/17/24 05:45 Lymph # (Auto) 1.5 X10^3/uL (1.3-2.9) 09/17/24 05:45 [place] # (Auto) 1.3 x10^3/uL (0.3-0.8) H 09/17/24 05:45 Eos # (Auto) 0.7 x10^3/uL (0.0-0.2) H 09/17/24 05:45 Baso # (Auto) 0.1 X10^3/uL (0.0-0.1) 09/17/24 05:45 Absolute Nucleated RBC 0.0 /100WBC 09/17/24 05:45 Total Counted 100 09/17/24 05:45 Neutrophils % (Manual) 88 % (39-76) H 09/17/24 05:45 Band Neutrophils % 1 % (0-10) 09/17/24 05:45 Lymphocytes % (Manual) 9 % (13-43) L 09/17/24 05:45 Monocytes % (Manual) 2 % (4-9) L 09/17/24 05:45 Plt Morphology Comment Normal (NORMAL) 09/17/24 05:45 RBC Morphology Abnormal (NORMAL) 09/17/24 05:45 Anisocytosis 2+ A 09/17/24 05:45 Target Cells Present 09/15/24 06:28 Ovalocytes Slight A 09/14/24 05:35 Helmet Cells Slight A 09/14/24 05:35 D-Dimer 4.33 ug/ml (0.0-0.57) H 09/11/24 15:57 Sodium 135 mmol/L (136-145) L 09/17/24 05:45 Corrected Sodium TNP 09/17/24 05:45 Potassium 4.1 mmol/L (3.5-5.1) 09/17/24 05:45 Chloride 98 mmol/L (98-107) 09/17/24 05:45 Carbon Dioxide 21.3 mmol/L (21-32) 09/17/24 05:45 BUN 19 mg/dL (7-18) H 09/17/24 05:45 Creatinine 1.66 mg/dL (0.70-1.30) H 09/17/24 05:45 Est GFR (MDRD) Af Amer 51 (>60) L 09/17/24 05:45 Est GFR (MDRD) Non-Af 42 (>60) L 09/17/24 05:45 Glucose 78 mg/dL (65-99) 09/17/24 05:45 Calcium 9.2 mg/dL (8.5-10.1) 09/17/24 05:45 Corrected Calcium 11.2 mg/dL (8.5-10.1) H 09/17/24 05:45 Magnesium 2.2 mg/dL (2.0-2.9) 09/17/24 05:45 Iron 23 ug/dL (50-175) L 09/13/24 05:55 TIBC 88 ug/dL (250-450) L 09/13/24 05:55 Ferritin 2472 ng/mL (26-388) H 09/13/24 05:55 Total Bilirubin 1.60 mg/dL (0.2-1.0) H 09/17/24 05:45 AST 88 Units/L (15-37) H 09/17/24 05:45 ALT 50 Units/L (12-78) 09/17/24 05:45 Alkaline Phosphatase 208 Units/L (46-116) H 09/17/24 05:45 Lactate Dehydrogenase 321 Units/L (85-227) H 09/12/24 04:15 B-Natriuretic Peptide 123 pg/mL (0-79) H 09/14/24 05:35 Total Protein 4.9 g/dL (6.4-8.2) L 09/17/24 05:45 Albumin 1.5 g/dL (3.4-5.0) L 09/17/24 05:45 Globulin 3.4 g/dL (2.5-4.5) 09/17/24 05:45 Albumin/Globulin Ratio 0.4 Ratio (1.1-2.1) L 09/17/24 05:45 Amylase 15 Units/L (25-115) L 09/12/24 04:15 Lipase 37 Units/L (16-77) 09/12/24 04:15 Specimen Type Catherized urine 09/17/24 04:00 Urine Color Yellow (YELLOW) 09/17/24 04:00 Urine Appearance Clear (CLEAR) 09/17/24 04:00 Urine pH 6.0 (5.0 - 8.0) 09/17/24 04:00 Ur Specific [place] 1.020 (1.000-1.030) 09/17/24 04:00 Urine Protein 2+ (NEGATIVE) 09/17/24 04:00 Urine Glucose (UA) Negative (NEGATIVE) 09/17/24 04:00 Urine Ketones 2+ (NEGATIVE) 09/17/24 04:00 Urine Blood 1+ (NEGATIVE) 09/17/24 04:00 Urine Nitrite Negative (NEGATIVE) 09/17/24 04:00 Urine Bilirubin Negative (NEGATIVE) 09/17/24 04:00 Urine Urobilinogen Normal (NORMAL) 09/17/24 04:00 Ur Leukocyte Esterase Negative (NEGATIVE) 09/17/24 04:00 Urine RBC 3-5 /HPF (0-3) A 09/17/24 04:00 Urine WBC 0-2 /HPF (0-5) 09/17/24 04:00 Ur Squamous Epith Cells Rare /HPF (NEGATIVE) 09/17/24 04:00 Amorphous Sediment 3+ /HPF (NEGATIVE) 09/17/24 04:00 Urine Bacteria Trace /HPF (NEGATIVE) 09/17/24 04:00 Coarse Granular Casts Few /HPF (NEGATIVE) 09/17/24 04:00 Ur Culture Indicated? No/not indicated 09/17/24 04:00 Stl Occult Blood (IFOB) Negative (NEGATIVE) 09/12/24 14:02 SHELBY Screen See scanned report 09/13/24 15:31 SHELBY Titer See scanned report 09/13/24 15:31 SHELBY Pattern See scanned report 09/13/24 15:31 Hepatitis A IgM Ab See scanned report 09/13/24 15:31 Hep Bs Antigen See scanned report 09/13/24 15:31 Hep B Core IgM Ab See scanned report 09/13/24 15:31 Hepatitis C Ab Index See scanned report IV 09/13/24 15:31 Hep C RIBA Interpret See scanned report 09/13/24 15:31 Hepatitis Interpret See scanned report 09/13/24 15:31 Resp Viral Panel (PCR) See scanned report 09/13/24 14:11 Blood Type B NEGATIVE 09/13/24 08:45 Antibody Screen Negative 09/13/24 08:45 Crossmatch See Detail 09/13/24 08:45 Plan (1) Pneumonia: Status: Acute Qualifiers: Pneumonia type: due to unspecified organism Laterality: left Lung location: lower lobe of lung Qualified Code(s): J18.9 - Pneumonia, unspecified organism Plan: IV ATBX, RESP THERAPY, PHYSICAL THERAPY ENCOURAGE ORAL HYDRATION AMBULATE PT IF POSSIBLE PRN SUPPLEMENTAL O2, REPEAT AM CXR (2) Pancreatic mass: Status: Acute Plan: RECORDS FROM [facility], CXR STRICT I&OS, SUPPLEMENTAL O2 OCCULT STOOL, BP AND CARDIAC MONITORING GI CONSULT (3) Liver masses: Status: Acute (4) Adult failure to thrive: Status: Acute (5) Anemia: Status: Chronic Qualifiers: Anemia type: unspecified type Qualified Code(s): D64.9 - Anemia, unspecified (6) Abnormal MRI of abdomen: Status: Acute (7) CAD (coronary artery disease): Status: Chronic Qualifiers: Coronary Disease-Associated Artery/Lesion type: bypass graft [place] vs. transplanted heart: [place] heart Associated angina: without angina Qualified Code(s): I25.810 - Atherosclerosis of coronary artery bypass graft(s) without angina pectoris (8) Hypothyroidism: Status: Chronic Qualifiers: Hypothyroidism type: acquired Qualified Code(s): E03.9 - Hypothyroidism, unspecified (9) Hypomagnesemia: Status: Acute
[2024-09-17 16:34] LABS: INR 1.23 (0.8-1.3)
[2024-09-18 06:13] LABS: BASOPHILS # (AUTO) 0.2 X10^3/uL (0.0-0.1); BASOPHILS % (AUTO) 0.8 % (0.2-1.0); EOSINOPHILS # (AUTO) 0.3 x10^3/uL (0.0-0.2); EOSINOPHILS % (AUTO) 1.4 % (0.9-2.9); HEMOGLOBIN 7.9 g/dL (13.5-18.0); LYMPHOCYTES # (AUTO) 1.7 X10^3/uL (1.3-2.9); LYMPHOCYTES % (AUTO) 7.7 % (21.0-51.0); MEAN CORPUSCULAR HEMOGLOBIN 27.8 pg (27.0-34.0); MEAN CORPUSCULAR HGB CONC 32.9 g/dL (33.0-35.0); MEAN CORPUSCULAR VOLUME 84.5 fL (80.0-100.0); MEAN PLATELET VOLUME 9.5 fL (7.4-11.0); MONOCYTES # (AUTO) 1.2 x10^3/uL (0.3-0.8); MONOCYTES % (AUTO) 5.4 % (0.0-13.0); NEUTROPHILS # (AUTO) 18.3 x10^3/uL (2.2-4.8); NEUTROPHILS % (AUTO) 84.7 % (42.0-75.0); PLATELET COUNT 108 X10^3/uL (150.0-450.0); RED BLOOD COUNT 2.84 X10^6/uL (4.7-6.0); RED CELL DISTRIBUTION WIDTH 23.3 % (11.6-16.5); WHITE BLOOD COUNT 21.6 X10^3/uL (3.6-10.0)
[2024-09-18 06:22] LABS: ALANINE AMINOTRANSFERASE 46 Units/L (12-78); ALBUMIN 1.3 g/dL (3.4-5.0); ALKALINE PHOSPHATASE 159 Units/L (46-116); ASPARTATE AMINO TRANSFERASE 105 Units/L (15-37); BLOOD UREA NITROGEN 23 mg/dL (7-18); CALCIUM 8.9 mg/dL (8.5-10.1); CARBON DIOXIDE 22.7 mmol/L (21-32); CHLORIDE 100 mmol/L (98-107); COR CA(FOR HYPOALB) 11.1 mg/dL (8.5-10.1); CREATININE 1.74 mg/dL (0.70-1.30); GLUCOSE 76 mg/dL (65-99); POTASSIUM 3.9 mmol/L (3.5-5.1); SODIUM 136 mmol/L (136-145); TOTAL PROTEIN 4.4 g/dL (6.4-8.2); eGFR NON BLACK RACES 40 (>60)
[2024-09-18 07:00] LABS: ANISOCYTOSIS 2+; BAND NEUTROPHILS % 4 % (0-10); PLATELET MORPHOLOGY COMMENT NORMAL (NORMAL)
--- NOTE | 2024-09-18 07:20 | RAD ---
EXAM:CHEST, 1 VIEWHISTORY:SOB, PNEUMONIA;COMPARISON:Prior study or studies were utilized for comparison during interpretation with the most relevant dated 09/13/2024TECHNIQUE:CHEST, 1 VIEWFINDINGS:Chest:Lines and tubes: Cardiac leads overlie the chest.Mediastinum: Median sternotomy wires are present. Cardiac shadow is normal in size.Pulmonary vessels: No pulmonary vascular congestion.Lung calle: No suspicious airspace opacity.Pleura: There is blunting of the left costophrenic angle. No pneumothorax.Bones and soft tissues: No acute osseous or soft tissue abnormality.IMPRESSION:1. Small left pleural effusionTHIS IS AN ELECTRONICALLY VERIFIED FINAL [id number]/2024 7:17 AM - Electronically signed by Juan Claros MD
[2024-09-18] MEDS: ALBUMIN HUMAN 25%- 100 ML 100 ML IV ONE (10:32)
[2024-09-18] MEDS ORDERED: PHARMACY CONSULT - TPN XX SCH (13:00)
[2024-09-18] MEDS ORDERED: LASIX IVP ONE (13:42)
[2024-09-18] MEDS: K-DUR TAB 20 MEQ PO SCH (13:49)
[2024-09-18] MEDS: LASIX IVP ONE (13:49)
[2024-09-18] MEDS: CLINIMIX 4.25%-5% 1,000 ML with MVI INJ (ADULT) 10 ML IV SCH (13:53)
[2024-09-18] MEDS: DRUG FILTER EXTENSION SET ONE (13:53)
[2024-09-18 16:11] VITALS: BMI 25.2
[2024-09-19] MEDS ORDERED: DRUG FILTER EXTENSION SET ONE (01:02)
[2024-09-19 06:07] LABS: BASOPHILS # (AUTO) 0.1 X10^3/uL (0.0-0.1); BASOPHILS % (AUTO) 0.5 % (0.2-1.0); EOSINOPHILS # (AUTO) 0.8 x10^3/uL (0.0-0.2); EOSINOPHILS % (AUTO) 3.9 % (0.9-2.9); HEMATOCRIT 26.1 % (42.0-54.0); HEMOGLOBIN 8.5 g/dL (13.5-18.0); LYMPHOCYTES # (AUTO) 1.7 X10^3/uL (1.3-2.9); LYMPHOCYTES % (AUTO) 8.3 % (21.0-51.0); MEAN CORPUSCULAR HEMOGLOBIN 27.7 pg (27.0-34.0); MEAN CORPUSCULAR HGB CONC 32.7 g/dL (33.0-35.0); MEAN PLATELET VOLUME 9.6 fL (7.4-11.0); MONOCYTES # (AUTO) 1.2 x10^3/uL (0.3-0.8); NEUTROPHILS # (AUTO) 16.7 x10^3/uL (2.2-4.8); NEUTROPHILS % (AUTO) 81.3 % (42.0-75.0); PLATELET COUNT 114 X10^3/uL (150.0-450.0); RED BLOOD COUNT 3.07 X10^6/uL (4.7-6.0); RED CELL DISTRIBUTION WIDTH 23.5 % (11.6-16.5); WHITE BLOOD COUNT 20.6 X10^3/uL (3.6-10.0)
[2024-09-19 06:29] LABS: ALANINE AMINOTRANSFERASE 44 Units/L (12-78); ALBUMIN 1.7 g/dL (3.4-5.0); ALKALINE PHOSPHATASE 159 Units/L (46-116); ASPARTATE AMINO TRANSFERASE 84 Units/L (15-37); BLOOD UREA NITROGEN 26 mg/dL (7-18); CALCIUM 9.1 mg/dL (8.5-10.1); CARBON DIOXIDE 22.2 mmol/L (21-32); CHLORIDE 98 mmol/L (98-107); COR CA(FOR HYPOALB) 10.9 mg/dL (8.5-10.1); CREATININE 1.79 mg/dL (0.70-1.30); GLUCOSE 103 mg/dL (65-99); POTASSIUM 3.4 mmol/L (3.5-5.1); SODIUM 134 mmol/L (136-145); TOTAL PROTEIN 4.9 g/dL (6.4-8.2); eGFR NON BLACK RACES 39 (>60)
[2024-09-19 06:45] LABS: ANISOCYTOSIS 2+; PLATELET MORPHOLOGY COMMENT NORMAL (NORMAL)
[2024-09-19] MEDS: NS 1,000 ML IV 1,000 ML IV SCH (08:32)
[2024-09-19] MEDS: CLINIMIX 4.25%-5% 1,000 ML with MVI INJ (ADULT) 10 ML, POTASSIUM CHLORIDE INJ 40 MEQ VI... IV SCH (08:39)
[2024-09-19] MEDS: DRUG FILTER EXTENSION SET ONE ×2 (08:51→20:00)
--- NOTE | 2024-09-19 09:10 | RAD ---
EXAM: CHEST, 1 VIEW HISTORY: PNEUMONIA; COMPARISON: 09/17/2024 FINDINGS: The lungs are not well inflated. As a result, there are hypoventilatory changes in the bases. Probab le focal scarring at the left costophrenic angle has been present on prior exams. No evidence for pn eumonia or significant effusion. Heart size is magnified because of technique. The bones are unremarkable. Median sternotomy fixation hardware is present. EKG leads are noted. IMPRESSION: 1. No significant abnormality THIS IS AN ELECTRONICALLY VERIFIED FINAL REPORT 09/19/2024 9:06 AM - Electronically signed by Brent Bill MD
[2024-09-19] MEDS: ZOFRAN INJ 4 MG VIAL IVP PRN (15:56)
[2024-09-20] MEDS: TUMS PO PRN (03:06)
[2024-09-20 06:01] LABS: BASOPHILS # (AUTO) 0.1 X10^3/uL (0.0-0.1); BASOPHILS % (AUTO) 0.4 % (0.2-1.0); EOSINOPHILS # (AUTO) 0.1 x10^3/uL (0.0-0.2); EOSINOPHILS % (AUTO) 0.5 % (0.9-2.9); HEMATOCRIT 28.8 % (42.0-54.0); HEMOGLOBIN 9.2 g/dL (13.5-18.0); LYMPHOCYTES # (AUTO) 1.5 X10^3/uL (1.3-2.9); LYMPHOCYTES % (AUTO) 5.5 % (21.0-51.0); MEAN CORPUSCULAR HEMOGLOBIN 27.5 pg (27.0-34.0); MEAN CORPUSCULAR HGB CONC 32.1 g/dL (33.0-35.0); MEAN CORPUSCULAR VOLUME 85.8 fL (80.0-100.0); MEAN PLATELET VOLUME 9.8 fL (7.4-11.0); MONOCYTES # (AUTO) 1.6 x10^3/uL (0.3-0.8); MONOCYTES % (AUTO) 6.1 % (0.0-13.0); NEUTROPHILS # (AUTO) 23.4 x10^3/uL (2.2-4.8); NEUTROPHILS % (AUTO) 87.5 % (42.0-75.0); PLATELET COUNT 119 X10^3/uL (150.0-450.0); RED BLOOD COUNT 3.35 X10^6/uL (4.7-6.0); RED CELL DISTRIBUTION WIDTH 23.3 % (11.6-16.5); WHITE BLOOD COUNT 26.8 X10^3/uL (3.6-10.0)
[2024-09-20 06:33] LABS: ALANINE AMINOTRANSFERASE 47 Units/L (12-78); ALBUMIN 1.7 g/dL (3.4-5.0); ALKALINE PHOSPHATASE 187 Units/L (46-116); ASPARTATE AMINO TRANSFERASE 73 Units/L (15-37); BLOOD UREA NITROGEN 30 mg/dL (7-18); CALCIUM 8.9 mg/dL (8.5-10.1); CARBON DIOXIDE 16.4 mmol/L (21-32); CHLORIDE 96 mmol/L (98-107); COR CA(FOR HYPOALB) 10.7 mg/dL (8.5-10.1); CREATININE 1.73 mg/dL (0.70-1.30); GLUCOSE 94 mg/dL (65-99); POTASSIUM 3.9 mmol/L (3.5-5.1); SODIUM 132 mmol/L (136-145); TOTAL PROTEIN 5.4 g/dL (6.4-8.2); eGFR NON BLACK RACES 40 (>60)
[2024-09-20 07:23] LABS: ANISOCYTOSIS 2+; BAND NEUTROPHILS % 5 % (0-10); PLATELET MORPHOLOGY COMMENT NORMAL (NORMAL)
--- NOTE | 2024-09-20 07:49 | RAD ---
EXAM:AP chestHISTORY:PneumoniaCOMPARISON: 024FINDINGS:Heart size continues normal with sternal wires. The right chest remains clear. Indistinct parenchymal density is similar at the left base as previously described. The left upper lobe is normal.IMPRESSION:No change. The described findings at the left base may represent chronic scarring or mild chronic atelectasis; the longstanding findings are against diagnosis of an acute pneumonia.THIS IS AN ELECTRONICALLY VERIFIED FINAL [id number]/20/2024 7:45 AM - Electronically signed by Rigoberto Higgins MD
[2024-09-20 08:25] LABS: AMYLASE 18 Units/L (25-115); LIPASE 43 Units/L (16-77)
[2024-09-20] MEDS: CIPRO IV 400 MG PREMIX* 400 MG/200 ML IV.SOLN. IV SCH (09:53)
[2024-09-20] MEDS: DRUG FILTER EXTENSION SET ONE (10:06)
[2024-09-20] MEDS: ZOFRAN INJ 4 MG VIAL IVP SCH (10:45)
[2024-09-20] MEDS: PROTONIX INJ 40 MG VIAL IVP SCH ×2 (11:45→20:28)
--- NOTE | 2024-09-20 12:33 | EKG ---
Test Reason : > HR Blood Pressure : */* mmHG Vent. Rate : 125 BPM Atrial Rate : 125 BPM P-R Int : 130 ms QRS Dur : 110 ms QT Int : 326 ms P-R-T Axes : 33 -55 84 degrees QTc Int : 470 ms Sinus tachycardia Left axis deviation Septal infarct (cited on or before 17-SEP-2024) Abnormal ECG When compared with ECG of 17-SEP-2024 12:31, QRS duration has increased Non-specific change in ST segment in Lateral leads Nonspecific T wave abnormality no longer evident in Inferior leads Confirmed by Mario Gilman MD ([id number]) on 09/21/2024 7:48:07 AM Referred By: Confirmed By: Mario Gilman MD
--- NOTE | 2024-09-20 12:55 | CT ---
EXAM:CT abdomen pelvis without contrastHISTORY:Abdominal pain, leukocytosisTECHNIQUE:Axial noncontrast images with coronal and sagittal reformats. Dose reduction procedures were used with mA/kv adjusted for body size. This examination is limited due to the lack of intravenous and oral contrast. The examination was done in this unenhanced manner at the SOLE DIRECTION of the ordering caregiver. Radiology was afforded no input as to how this examination was performed.COMPARISON:08/28/2024FINDINGS: Bilateral small pleural effusions are present left slightly greater than right. Lung bases are clear. Heart is enlarged. The liver is enlarged and in homogeneously decreased in attenuation. On the recent prior examination this was felt to represent possible fatty infiltration which may be the case. However in certain areas of the decreased attenuation has a somewhat nodular appearance. Metastatic disease is not entirely excluded. Hepatic sonography is recommended for further evaluation. If that studies unrewarding than MRI may be required in order to exclude hepatic metastatic disease. No opaque stones are present in a somewhat contracted gallbladder. Spleen, adrenal glands, and pancreas appear within normal limits to the limitations of an unenhanced examination. Kidneys are unobstructed and without stones. There is a l 3.6 x 2.9 cm left renal mass present which is slightly less in attenuation than the adjacent parenchyma. This is felt to most likely represent a cyst however left renal sonography is recommended in order to confirm that this is a cyst rather than a non-cystic mass. No ureteral calculi are identified. Appendix is not identified with absolute certainty. No secondary signs of appendicitis are present. There has been interval development since the prior examination of a moderate amount of ascites. Abdominal aorta is normal in caliber. No enlarged intraperitoneal retroperitoneal lymphadenopathy identified. There are no definite findings suggestive of enteritis, colitis, or diverticulitis. Examination of the pelvis demonstrated no evidence for pelvic masses. Fluid is present within the lower peritoneum and pelvis related to the patient's recent onset of ascites. Bladder is drained by a Daly catheter. Air within the bladder is likely related to the Daly catheter. Redemonstrated is a moderately large left inguinal hernia containing mesenteric fat and a loop of unobstructed sigmoid colon. There is increasing fluid present when compared with the prior examination. No definite findings suggestive of strangulation. Incarceration must be clinically excluded. Surgical evaluation recommended if not already performed. There is worsening diffuse anasarca when compared with the prior examination. No lytic or blastic skeletal lesions of significance identified.IMPRESSION:Interval development of moderate ascites since the prior examinationWorsening anasarca when compared with the prior examinationHepatomegaly with inhomogeneous areas of decreased attenuation which were felt to represent inhomogeneous fatty infiltration on the prior examination, however, on today's examination there are some more nodular areas of slightly decreased attenuation make it impossible to exclude diffuse hepatic metastatic disease. Recommend hepatic sonography and if this study is unrewarding MRI may be required for further evaluation3.6 x 2.9 cm left renal mass possibly a slightly hyperdense renal cyst however correlation with left renal sonography is recommended in order to exclude solid lesion.Redemonstration of a sigmoid colon containing moderately large left inguinal hernia containing increased fluid when compared with the prior examination likely ascites fluid. No definite findings to suggest strangulation. Incarceration should be clinically excluded. Surgical evaluation recommended if not already performed.Interval development of bilateral pleural effusions since the prior examinationTHIS IS AN ELECTRONICALLY VERIFIED FINAL [id number]/2024 12:45 PM - Electronically signed by Jose Pride MD
[2024-09-20] MEDS ORDERED: PROTONIX INJ 40 MG VIAL ONE (19:03)
[2024-09-21] MEDS: DRUG FILTER EXTENSION SET ONE (03:25)
[2024-09-21 14:36] LABS: BASOPHILS # (AUTO) 0.2 X10^3/uL (0.0-0.1); BASOPHILS % (AUTO) 0.4 % (0.2-1.0); EOSINOPHILS # (AUTO) 0.1 x10^3/uL (0.0-0.2); EOSINOPHILS % (AUTO) 0.3 % (0.9-2.9); HEMATOCRIT 26.5 % (42.0-54.0); HEMOGLOBIN 8.5 g/dL (13.5-18.0); LYMPHOCYTES # (AUTO) 1.7 X10^3/uL (1.3-2.9); LYMPHOCYTES % (AUTO) 4.5 % (21.0-51.0); MEAN CORPUSCULAR HEMOGLOBIN 28.3 pg (27.0-34.0); MEAN CORPUSCULAR HGB CONC 32.3 g/dL (33.0-35.0); MEAN CORPUSCULAR VOLUME 87.7 fL (80.0-100.0); MEAN PLATELET VOLUME 10.1 fL (7.4-11.0); MONOCYTES # (AUTO) 0.8 x10^3/uL (0.3-0.8); MONOCYTES % (AUTO) 2.1 % (0.0-13.0); NEUTROPHILS # (AUTO) 34.5 x10^3/uL (2.2-4.8); NEUTROPHILS % (AUTO) 92.7 % (42.0-75.0); PLATELET COUNT 116 X10^3/uL (150.0-450.0); RED BLOOD COUNT 3.02 X10^6/uL (4.7-6.0); RED CELL DISTRIBUTION WIDTH 22.9 % (11.6-16.5)
[2024-09-21 14:42] LABS: ALANINE AMINOTRANSFERASE 38 Units/L (12-78); ALBUMIN 1.7 g/dL (3.4-5.0); ALKALINE PHOSPHATASE 175 Units/L (46-116); ASPARTATE AMINO TRANSFERASE 99 Units/L (15-37); BLOOD UREA NITROGEN 34 mg/dL (7-18); CALCIUM 8.8 mg/dL (8.5-10.1); CARBON DIOXIDE 15.3 mmol/L (21-32); CHLORIDE 97 mmol/L (98-107); COR CA(FOR HYPOALB) 10.6 mg/dL (8.5-10.1); CREATININE 1.73 mg/dL (0.70-1.30); GLUCOSE 67 mg/dL (65-99); POTASSIUM 4.6 mmol/L (3.5-5.1); SODIUM 131 mmol/L (136-145); TOTAL PROTEIN 5.3 g/dL (6.4-8.2); eGFR NON BLACK RACES 40 (>60)
[2024-09-21 14:48] LABS: WHITE BLOOD COUNT 37.2 X10^3/uL (3.6-10.0)
[2024-09-21 15:11] LABS: BAND NEUTROPHILS % 1 % (0-10)
[2024-09-21 15:12] LABS: ANISOCYTOSIS 2+; PLATELET MORPHOLOGY COMMENT NORMAL (NORMAL)
[2024-09-21] MEDS: POTASSIUM CHLORIDE IV SCH (17:14)
[2024-09-21] MEDS: [UNRECOGNIZED DRUG - OTHER] IV SCH (17:14)
[2024-09-21] MEDS: CLINIMIX IV SCH (17:14)
[2024-09-22 06:45] LABS: BASOPHILS # (AUTO) 0.1 X10^3/uL (0.0-0.1); BASOPHILS % (AUTO) 0.5 % (0.2-1.0); EOSINOPHILS # (AUTO) 0.1 x10^3/uL (0.0-0.2); EOSINOPHILS % (AUTO) 0.5 % (0.9-2.9); HEMATOCRIT 23.2 % (42.0-54.0); HEMOGLOBIN 7.4 g/dL (13.5-18.0); LYMPHOCYTES # (AUTO) 2.1 X10^3/uL (1.3-2.9); LYMPHOCYTES % (AUTO) 6.3 % (21.0-51.0); MEAN CORPUSCULAR HEMOGLOBIN 28.2 pg (27.0-34.0); MONOCYTES # (AUTO) 1.8 x10^3/uL (0.3-0.8); MONOCYTES % (AUTO) 5.5 % (0.0-13.0); NEUTROPHILS # (AUTO) 28.8 x10^3/uL (2.2-4.8); NEUTROPHILS % (AUTO) 87.2 % (42.0-75.0); PLATELET COUNT 121 X10^3/uL (150.0-450.0); RED BLOOD COUNT 2.64 X10^6/uL (4.7-6.0); RED CELL DISTRIBUTION WIDTH 23.7 % (11.6-16.5)
[2024-09-22 06:47] LABS: ALANINE AMINOTRANSFERASE 47 Units/L (12-78); ALBUMIN 1.7 g/dL (3.4-5.0); ALKALINE PHOSPHATASE 166 Units/L (46-116); ASPARTATE AMINO TRANSFERASE 164 Units/L (15-37); BLOOD UREA NITROGEN 38 mg/dL (7-18); CALCIUM 8.9 mg/dL (8.5-10.1); CARBON DIOXIDE 16.7 mmol/L (21-32); CHLORIDE 96 mmol/L (98-107); COR CA(FOR HYPOALB) 10.7 mg/dL (8.5-10.1); CREATININE 1.81 mg/dL (0.70-1.30); GLUCOSE 95 mg/dL (65-99); POTASSIUM 4.1 mmol/L (3.5-5.1); SODIUM 131 mmol/L (136-145); TOTAL PROTEIN 5.2 g/dL (6.4-8.2); eGFR NON BLACK RACES 38 (>60)
[2024-09-22 07:27] LABS: ANISOCYTOSIS 2+; PLATELET MORPHOLOGY COMMENT NORMAL (NORMAL)
[2024-09-22] MEDS: POTASSIUM CHLORIDE IV SCH (10:07)
[2024-09-22] MEDS: [UNRECOGNIZED DRUG - OTHER] IV SCH (10:07)
[2024-09-22] MEDS: CLINIMIX IV SCH (10:07)
[2024-09-22] MEDS: DRUG FILTER EXTENSION SET ONE (10:09)
[2024-09-22 15:20] LABS: HEMATOCRIT 24.2 % (42.0-54.0); HEMOGLOBIN 7.6 g/dL (13.5-18.0)
--- NOTE | 2024-09-22 18:06 | PCM.PROG ---
Progress Note Progress Note for Day of Date of Exam: 09/22/24 Subjective Subjective: History/Background PT IS 84 WM, ER ADMISSION WITH DIFFUSE WEAKNESS FROM EXTENDED ILLNESS ONSET ~3 WEEKS AGO. PT HAS DIFFUSE ABDOMINAL DISTENTION WITH MRI DOCUMENTING LIVER AND PANCREATIC LESIONS. PT IS AWARE OF THE DIAGNOSTIC TEST RESULTS. PT IS CURRENTLY ON KVO ELECTROLYTE REPLACEMENT THERAPY. PT HAD DIFFUSE BILATERAL LOWER EXTREMITY EDEMA ON ADMISSION. PT WAS TREATED WITH ONE DOSE OF IV ALBUMIN AND LASIX THERAPY WITH IMRPOVEMENT IN SWELLING THIS MORNING. PT REFUSED ANTIEMETIC MEDICATION DUE TO "CAUSES DIARRHEA" PT ENCOURAGED ORAL NUTRITION AND ORAL HYDRATION. DR GONG HAS BEEN CONSULTING FOR GASTROENTERLOGY EVALUATION. PT IS ASKING TO "PLEASE HAVE TESTING IN [place] IF POSSIBLE" DUE TO EXTREME WEAKNESS AND PT DOES NOT WANT TO BE TRANSFERRED AGAIN. PT HAS AGREED TO ONCOLOGY REFERRAL WHEN A TISSUE BIOPSY IS AVAILABLE. Tuesday, 22 September 2024 Patient has pancreatic cancer with metastasis to the liver. CT scan showed a 3.6 by 2.9 centimeter left renal mass, possibly a complex renal cyst also. MRI on the revealed an ill-defined T2 hyper-intense lesion in the tail of the pancreas and innumerable T2 hyper-intense lesions in both lobes of the liver. Patient had a liver biopsy yesterday. Patient is currently on TPN for nutrition. Clinical Observations: Patient is alert but confused this morning. Patient denies pain from liver biopsy site. Patient reports sleeping "pretty good" at night. Vital signs: Pulse 109, Blood pressure 114/70. Lab results: Hemoglobin: 7.4 (down from 8.5 yesterday) Platelets: 121,000 (up from 116,000 yesterday) Creatinine: 1.81 Estimated GFR: 38 (down from 40 yesterday) Calcium: 10.7 (up from 10.6 yesterday) Total bilirubin: 1.2 (down from 1.7 yesterday) AST: 164 (up from 99 yesterday) ALT: 47 (normal) Alkaline phosphatase: 166 (down from 175 yesterday) Albumin: 1.7 (unchanged for past 3 days) Patient appears dehydrated based on creatinine levels. Patient is anemic. Patient's CA19-9 level was previously reported as 1,068.2. Past Medical Family Social History Allergies: Allergies Iodinated Contrast Media Allergy (Verified 09/11/24 15:52) pt states that last time he had contrast he felt like he was burning up and was having a little hard time breathing Penicillins Allergy (Verified 09/11/24 15:52) Review of Systems ROS: No change since H&P Vital Signs and I&O's Vital Signs: Vital Signs Temperature 97.4 F Temperature 97.5 F Pulse Rate [Left] 102 Pulse Rate [Left] 103 Respiratory Rate 19 Respiratory Rate 18 Blood Pressure [Left Arm] 109/65 Blood Pressure [Left Arm] 105/70 O2 Sat by Pulse Oximetry 99 O2 Sat by Pulse Oximetry 100 Intake and Output: Intake & Output 09/20/24 09/21/24 09/22/24 09/23/24 11:59 11:59 11:59 11:59 Intake Total 3171 / 3171 2723 / 2723 2031 / 2031 1282 / 1282 Output Total 1550 / 1550 1350 / 1350 530 / 530 Balance 1621 / 1621 1373 / 1373 1502 / 1502 1282 / 1282 Physical Exam Oriented: Normal; negative Time, Person, Place, Not Oriented, Unable to test or Other Eyes: Other (Icterus); negative Normal, Blurred Vision, Diplopia, Discharge, Pain, Redness or Photophobia Ear: Normal; negative Right, Left, Swelling, Ecchymosis, Hemotypanum, Abrasion or Laceration Nose: Normal; negative Injected, Discharge, Blood or Other Throat: Normal; negative Tonsillar Hypertrophy, Red, Exudate, Dry or Other Respiratory: Diminished Cardiovascular: Normal; negative Tachycardia, Bradycardia, Irregular, S3, S4, Systolic, Diastolic, Murmur, Edema or Other : Normal; negative Dysuria, Hematuria, Frequency, Discharge, Testicular Pain, Bleeding, or Other Auscultation: Bowel Sounds: Normal; negative Bruit, Absent, Increased, Decreased, High Pitched or Other Tenderness: Normal; negative Diffuse, RUQ, RLQ, LUQ, LLQ, Epigastric, Periumbilical, Suprapubic, Mild, Moderate, Severe, Rebound, Guarding, Rigidity or Other Skin: Other (Jaundice); negative Normal, Decreased Turgur, Rash, Papular, Macular, Maculopapular, Vesicular, Pustular, Petechial, Red, Tender, Hot, Diaphoresis, Wound, Bruising or Ecchymosis Musculoskeletal: Normal; negative Right, Left, Shoulder, Clavicle, Arm, Elbow, Forearm, Wrist, Hand, Hip, Thigh, Knee, Leg, Ankle, Foot, Back:Thoracic, Back:Lumbar, Back:Midline, Back:Paraspinous, Pelvis, Swelling, Tender, Deformity, Pulse Deficit, Motor Deficit, Sensory Deficit, Instability or C repitance Psychiatric: Normal; negative Anxiety, Depression, Agitation or Other Mood Description: Calm; negative Angry, Apathetic, Depressed, Fearful, Flat, Happy, Hostile, Sad, Suspicious, Withdrawn, Anxious, Appropriate or Labile Affect: Normal; negative Angry, Anxious, Depressed, Flat, Hysterical, Quiet or Violent Speech Pattern: Clear Laboratory and Diagnostics 09/22/24 15:11 09/22/24 05:17 Labs: 09/20/24 10:40 Urine,Clean Catch Urine Culture - Final 09/20/24 10:53 Blood Blood Culture - Preliminary 09/20/24 10:30 Blood Blood Culture - Preliminary 09/11/24 19:55 Blood Blood Culture - Final 09/11/24 19:45 Blood Blood Culture - Final Laboratory WBC 33.0 X10^3/uL (3.6-10.0) H* 09/22/24 05:17 RBC 2.64 X10^6/uL (4.7-6.0) L 09/22/24 05:17 Hgb 7.6 g/dL (13.5-18.0) L 09/22/24 15:11 Hct 24.2 % (42.0-54.0) L 09/22/24 15:11 MCV 88.0 fL (80.0-100.0) 09/22/24 05:17 MCH 28.2 pg (27.0-34.0) 09/22/24 05:17 MCHC 32.0 g/dL (33.0-35.0) L 09/22/24 05:17 RDW 23.7 % (11.6-16.5) H 09/22/24 05:17 Plt Count 121 X10^3/uL (150.0-450.0) L 09/22/24 05:17 Plt Count Comment Decreased (ADEQUATE) 09/22/24 05:17 MPV 10.0 fL (7.4-11.0) 09/22/24 05:17 Neut % (Auto) 87.2 % (42.0-75.0) H 09/22/24 05:17 Lymph % (Auto) 6.3 % (21.0-51.0) L 09/22/24 05:17 [place] % (Auto) 5.5 % (0.0-13.0) 09/22/24 05:17 Eos % (Auto) 0.5 % (0.9-2.9) L 09/22/24 05:17 Baso % (Auto) 0.5 % (0.2-1.0) 09/22/24 05:17 Neut # (Auto) 28.8 x10^3/uL (2.2-4.8) H 09/22/24 05:17 Lymph # (Auto) 2.1 X10^3/uL (1.3-2.9) 09/22/24 05:17 [place] # (Auto) 1.8 x10^3/uL (0.3-0.8) H 09/22/24 05:17 Eos # (Auto) 0.1 x10^3/uL (0.0-0.2) 09/22/24 05:17 Baso # (Auto) 0.1 X10^3/uL (0.0-0.1) 09/22/24 05:17 Absolute Nucleated RBC 0.1 /100WBC 09/22/24 05:17 Total Counted 100 09/21/24 14:01 Neutrophils % (Manual) 92 % (39-76) H 09/21/24 14:01 Band Neutrophils % 1 % (0-10) 09/21/24 14:01 Lymphocytes % (Manual) 3 % (13-43) L 09/21/24 14:01 Monocytes % (Manual) 4 % (4-9) 09/21/24 14:01 Eosinophils % (Manual) 1 % (0-6) 09/18/24 05:25 Plt Morphology Comment Normal (NORMAL) 09/22/24 05:17 RBC Morphology Abnormal (NORMAL) 09/22/24 05:17 Anisocytosis 2+ A 09/22/24 05:17 Target Cells Present 09/15/24 06:28 Ovalocytes Slight A 09/14/24 05:35 Helmet Cells Slight A 09/14/24 05:35 PT 15.2 SECONDS (11.8-14.3) 09/17/24 15:56 INR Target Range - 09/17/24 15:56 INR 1.23 (0.8-1.3) 09/17/24 15:56 APTT 38.8 SECONDS (22.9-36.5) H 09/17/24 15:56 PTT Comment - 09/17/24 15:56 D-Dimer 4.33 ug/ml (0.0-0.57) H 09/11/24 15:57 Sodium 131 mmol/L (136-145) L 09/22/24 05:17 Corrected Sodium TNP 09/22/24 05:17 Potassium 4.1 mmol/L (3.5-5.1) 09/22/24 05:17 Chloride 96 mmol/L (98-107) L 09/22/24 05:17 Carbon Dioxide 16.7 mmol/L (21-32) L 09/22/24 05:17 BUN 38 mg/dL (7-18) H 09/22/24 05:17 Creatinine 1.81 mg/dL (0.70-1.30) H 09/22/24 05:17 Est GFR (MDRD) Af Amer 46 (>60) L 09/22/24 05:17 Est GFR (MDRD) Non-Af 38 (>60) L 09/22/24 05:17 Glucose 95 mg/dL (65-99) 09/22/24 05:17 Calcium 8.9 mg/dL (8.5-10.1) 09/22/24 05:17 Corrected Calcium 10.7 mg/dL (8.5-10.1) H 09/22/24 05:17 Magnesium 2.0 mg/dL (2.0-2.9) 09/22/24 05:17 Iron 23 ug/dL (50-175) L 09/13/24 05:55 TIBC 88 ug/dL (250-450) L 09/13/24 05:55 Ferritin 2472 ng/mL (26-388) H 09/13/24 05:55 Total Bilirubin 1.20 mg/dL (0.2-1.0) H 09/22/24 05:17 AST 164 Units/L (15-37) H 09/22/24 05:17 ALT 47 Units/L (12-78) 09/22/24 05:17 Alkaline Phosphatase 166 Units/L (46-116) H 09/22/24 05:17 Lactate Dehydrogenase 321 Units/L (85-227) H 09/12/24 04:15 B-Natriuretic Peptide 123 pg/mL (0-79) H 09/14/24 05:35 Total Protein 5.2 g/dL (6.4-8.2) L 09/22/24 05:17 Albumin 1.7 g/dL (3.4-5.0) L 09/22/24 05:17 Globulin 3.5 g/dL (2.5-4.5) 09/22/24 05:17 Albumin/Globulin Ratio 0.5 Ratio (1.1-2.1) L 09/22/24 05:17 [id number] See scanned report 09/13/24 15:31 Amylase 18 Units/L (25-115) L 09/20/24 05:10 Lipase 43 Units/L (16-77) 09/20/24 05:10 Alpha Fetoprotein Cancelled 09/13/24 15:31 Tumor Marker AFP See scanned report 09/13/24 15:31 Specimen Type Catherized urine 09/17/24 04:00 Urine Color Yellow (YELLOW) 09/17/24 04:00 Urine Appearance Clear (CLEAR) 09/17/24 04:00 Urine pH 6.0 (5.0 - 8.0) 09/17/24 04:00 Ur Specific [place] 1.020 (1.000-1.030) 09/17/24 04:00 Urine Protein 2+ (NEGATIVE) 09/17/24 04:00 Urine Glucose (UA) Negative (NEGATIVE) 09/17/24 04:00 Urine Ketones 2+ (NEGATIVE) 09/17/24 04:00 Urine Blood 1+ (NEGATIVE) 09/17/24 04:00 Urine Nitrite Negative (NEGATIVE) 09/17/24 04:00 Urine Bilirubin Negative (NEGATIVE) 09/17/24 04:00 Urine Urobilinogen Normal (NORMAL) 09/17/24 04:00 Ur Leukocyte Esterase Negative (NEGATIVE) 09/17/24 04:00 Urine RBC 3-5 /HPF (0-3) A 09/17/24 04:00 Urine WBC 0-2 /HPF (0-5) 09/17/24 04:00 Ur Squamous Epith Cells Rare /HPF (NEGATIVE) 09/17/24 04:00 Amorphous Sediment 3+ /HPF (NEGATIVE) 09/17/24 04:00 Urine Bacteria Trace /HPF (NEGATIVE) 09/17/24 04:00 Coarse Granular Casts Few /HPF (NEGATIVE) 09/17/24 04:00 Ur Culture Indicated? No/not indicated 09/17/24 04:00 Stl Occult Blood (IFOB) Negative (NEGATIVE) 09/12/24 14:02 SHELBY Screen See scanned report 09/13/24 15:31 SHELBY Titer See scanned report 09/13/24 15:31 SHELBY Pattern See scanned report 09/13/24 15:31 Anti-Mitochondrial Ab See scanned report Units 09/13/24 15:31 Smooth Muscle Ab Titer See scanned report 09/13/24 15:31 Hepatitis A IgM Ab See scanned report 09/13/24 15:31 Hep Bs Antigen See scanned report 09/13/24 15:31 Hep B Core IgM Ab See scanned report 09/13/24 15:31 Hepatitis C Ab Index See scanned report IV 09/13/24 15:31 Hep C RIBA Interpret See scanned report 09/13/24 15:31 Hepatitis Interpret See scanned report 09/13/24 15:31 Resp Viral Panel (PCR) See scanned report 09/13/24 14:11 Blood Type B NEGATIVE 09/13/24 08:45 Antibody Screen Negative 09/13/24 08:45 Crossmatch See Detail 09/13/24 08:45 Radiology Reviewed: Yes Plan (1) Pneumonia: Status: Acute Qualifiers: Pneumonia type: due to unspecified organism Laterality: left Lung location: lower lobe of lung Qualified Code(s): J18.9 - Pneumonia, unspecified organism Narrative Support Text: Elevated white blood cell count today at 33,000 down from 37,200 yesterday. Plan: IV ATBX, RESP THERAPY, PHYSICAL THERAPY ENCOURAGE ORAL HYDRATION AMBULATE PT IF POSSIBLE PRN SUPPLEMENTAL O2, REPEAT AM CXR (2) Pancreatic mass: Status: Acute Plan: RECORDS FROM [facility], CXR STRICT I&OS, SUPPLEMENTAL O2 OCCULT STOOL, BP AND CARDIAC MONITORING GI CONSULT (3) Liver masses: Status: Acute Plan: Follow-up liver biopsy results. Suspect metastatic pancreatic cancer. (4) Adult failure to thrive: Status: Acute (5) Anemia: Status: Chronic Qualifiers: Anemia type: unspecified type Qualified Code(s): D64.9 - Anemia, unspecified (6) Abnormal MRI of abdomen: Status: Acute (7) CAD (coronary artery disease): Status: Chronic Qualifiers: Coronary Disease-Associated Artery/Lesion type: bypass graft [place] vs. transplanted heart: [place] heart Associated angina: without angina Qualified Code(s): I25.810 - Atherosclerosis of coronary artery bypass graft(s) without angina pectoris (8) Hypothyroidism: Status: Chronic Qualifiers: Hypothyroidism type: acquired Qualified Code(s): E03.9 - Hypothyroidism, unspecified (9) Hypomagnesemia: Status: Acute
[2024-09-23 06:00] LABS: BASOPHILS # (AUTO) 0.1 X10^3/uL (0.0-0.1); BASOPHILS % (AUTO) 0.3 % (0.2-1.0); EOSINOPHILS # (AUTO) 0.1 x10^3/uL (0.0-0.2); EOSINOPHILS % (AUTO) 0.5 % (0.9-2.9); HEMATOCRIT 24.8 % (42.0-54.0); HEMOGLOBIN 7.7 g/dL (13.5-18.0); LYMPHOCYTES # (AUTO) 1.5 X10^3/uL (1.3-2.9); LYMPHOCYTES % (AUTO) 5.4 % (21.0-51.0); MEAN CORPUSCULAR HEMOGLOBIN 27.6 pg (27.0-34.0); MEAN CORPUSCULAR VOLUME 89.1 fL (80.0-100.0); MEAN PLATELET VOLUME 9.7 fL (7.4-11.0); MONOCYTES # (AUTO) 1.5 x10^3/uL (0.3-0.8); MONOCYTES % (AUTO) 5.5 % (0.0-13.0); NEUTROPHILS # (AUTO) 24.3 x10^3/uL (2.2-4.8); NEUTROPHILS % (AUTO) 88.3 % (42.0-75.0); PLATELET COUNT 135 X10^3/uL (150.0-450.0); RED BLOOD COUNT 2.78 X10^6/uL (4.7-6.0); RED CELL DISTRIBUTION WIDTH 25.1 % (11.6-16.5); WHITE BLOOD COUNT 27.5 X10^3/uL (3.6-10.0)
[2024-09-23 06:15] LABS: ALANINE AMINOTRANSFERASE 51 Units/L (12-78); ALBUMIN 1.6 g/dL (3.4-5.0); ALKALINE PHOSPHATASE 192 Units/L (46-116); ASPARTATE AMINO TRANSFERASE 140 Units/L (15-37); BLOOD UREA NITROGEN 39 mg/dL (7-18); CALCIUM 8.6 mg/dL (8.5-10.1); CARBON DIOXIDE 15.9 mmol/L (21-32); CHLORIDE 96 mmol/L (98-107); COR CA(FOR HYPOALB) 10.5 mg/dL (8.5-10.1); CREATININE 1.82 mg/dL (0.70-1.30); GLUCOSE 89 mg/dL (65-99); POTASSIUM 3.9 mmol/L (3.5-5.1); SODIUM 129 mmol/L (136-145); TOTAL PROTEIN 5.4 g/dL (6.4-8.2); eGFR NON BLACK RACES 38 (>60)
[2024-09-23 07:01] LABS: ANISOCYTOSIS 3+; PLATELET MORPHOLOGY COMMENT NORMAL (NORMAL)
[2024-09-23] MEDS: CLINIMIX IV SCH (11:44)
[2024-09-23] MEDS: POTASSIUM CHLORIDE IV SCH (11:44)
[2024-09-23] MEDS: [UNRECOGNIZED DRUG - OTHER] IV SCH (11:44)
[2024-09-23] MEDS: DRUG FILTER EXTENSION SET ONE ×2 (13:29→19:00)
[2024-09-23] MEDS: ALBUMIN HUMAN 25%- 100 ML 100 ML IV ONE (15:23)
[2024-09-23] MEDS ORDERED: DRUG FILTER EXTENSION SET ONE (18:57)
[2024-09-23] MEDS: PULMICORT NEB TX 0.5 MG NEB ONE (19:00)
--- NOTE | 2024-09-23 20:29 | PCM.PROG ---
Progress Note Progress Note for Day of Date of Exam: 09/23/24 Subjective Subjective: History/Background PT IS 84 WM, ER ADMISSION WITH DIFFUSE WEAKNESS FROM EXTENDED ILLNESS ONSET ~3 WEEKS AGO. PT HAS DIFFUSE ABDOMINAL DISTENTION WITH MRI DOCUMENTING LIVER AND PANCREATIC LESIONS. PT IS AWARE OF THE DIAGNOSTIC TEST RESULTS. PT IS CURRENTLY ON KVO ELECTROLYTE REPLACEMENT THERAPY. PT HAD DIFFUSE BILATERAL LOWER EXTREMITY EDEMA ON ADMISSION. PT WAS TREATED WITH ONE DOSE OF IV ALBUMIN AND LASIX THERAPY WITH IMRPOVEMENT IN SWELLING THIS MORNING. PT REFUSED ANTIEMETIC MEDICATION DUE TO "CAUSES DIARRHEA" PT ENCOURAGED ORAL NUTRITION AND ORAL HYDRATION. DR GONG HAS BEEN CONSULTING FOR GASTROENTERLOGY EVALUATION. PT IS ASKING TO "PLEASE HAVE TESTING IN [place] IF POSSIBLE" DUE TO EXTREME WEAKNESS AND PT DOES NOT WANT TO BE TRANSFERRED AGAIN. PT HAS AGREED TO ONCOLOGY REFERRAL WHEN A TISSUE BIOPSY IS AVAILABLE. Tuesday, 23 September 2024 The patient was recently found to have a mass in the tail of his pancreas with multiple liver lesions which most likely represent a primary pancreatic cancer with metastatic disease to his liver. CT scan showed a 3.6 by 2.9 centimeter left renal mass, possibly a complex renal cyst also. MRI on the revealed an ill-defined T2 hyper-intense lesion in the tail of the pancreas and innumerable T2 hyper-intense lesions in both lobes of the liver. The patient had a liver biopsy yesterday. The patient is currently on TPN for nutrition. The patient is confused again this morning. He did not know who I was during a.m. rounds. Currently, he states that he is not in any pain and that he does not not need anything at this time. Overall, the patient has a poor prognosis. It is noted that his white blood cell count is improved today as it has come down to 27,500. Continue current treatment at this time. Past Medical Family Social History Allergies: Allergies Iodinated Contrast Media Allergy (Verified 09/11/24 15:52) pt states that last time he had contrast he felt like he was burning up and was having a little hard time breathing Penicillins Allergy (Verified 09/11/24 15:52) Review of Systems ROS: No change since H&P Vital Signs and I&O's Vital Signs: Vital Signs Temperature 97.9 F Temperature 97.8 F Pulse Rate [Left] 103 Pulse Rate [Left] 104 Respiratory Rate 22 Respiratory Rate 18 Blood Pressure [Left Arm] 110/70 Blood Pressure [Left Arm] 100/56 O2 Sat by Pulse Oximetry 97 O2 Sat by Pulse Oximetry 98 Intake and Output: Intake & Output 09/21/24 09/22/24 09/23/24 09/24/24 11:59 11:59 11:59 11:59 Intake Total 2723 / 2723 2031 240 / 240 520 / 520 Output Total 1350 / 1350 530 / 530 310 / 310 Balance 1373 / 1373 1502 / 1502 2091 / 2091 520 / 520 Physical Exam Oriented: Normal; negative Time, Person, Place, Not Oriented, Unable to test or Other Eyes: Other (Icterus); negative Normal, Blurred Vision, Diplopia, Discharge, Pain, Redness or Photophobia Ear: Normal; negative Right, Left, Swelling, Ecchymosis, Hemotypanum, Abrasion o r Laceration Nose: Normal; negative Injected, Discharge, Blood or Other Throat: Normal; negative Tonsillar Hypertrophy, Red, Exudate, Dry or Other Respiratory: Diminished Cardiovascular: Normal; negative Tachycardia, Bradycardia, Irregular, S3, S4, Systolic, Diastolic, Murmur, Edema or Other : Normal; negative Dysuria, Hematuria, Frequency, Discharge, Testicular Pain, Bleeding, or Other Auscultation: Bowel Sounds: Normal; negative Bruit, Absent, Increased, Decreased, High Pitched or Other Tenderness: Normal; negative Diffuse, RUQ, RLQ, LUQ, LLQ, Epigastric, Periumbilical, Suprapubic, Mild, Moderate, Severe, Rebound, Guarding, Rigidity or Other Skin: Other (Jaundice); negative Normal, Decreased Turgur, Rash, Papular, Macular, Maculopapular, Vesicular, Pustular, Petechial, Red, Tender, Hot, Diaphoresis, Wound, Bruising or Ecchymosis Musculoskeletal: Normal; negative Right, Left, Shoulder, Clavicle, Arm, Elbow, Forearm, Wrist, Hand, Hip, Thigh, Knee, Leg, Ankle, Foot, Back:Thoracic, Back:Lumbar, Back:Midline, Back:Paraspinous, Pelvis, Swelling, Tender, Deformi ty, Pulse Deficit, Motor Deficit, Sensory Deficit, Instability or Crepitance Psychiatric: Normal; negative Anxiety, Depression, Agitation or Other Mood Description: Calm; negative Angry, Apathetic, Depressed, Fearful, Flat, Happy, Hostile, Sad, Suspicious, Withdrawn, Anxious, Appropriate or Labile Affect: Normal; negative Angry, Anxious, Depressed, Flat, Hysterical, Quiet or Violent Speech Pattern: Clear Laboratory and Diagnostics 09/23/24 05:44 09/23/24 05:44 Labs: 09/20/24 10:40 Urine,Clean Catch Urine Culture - Final 09/20/24 10:53 Blood Blood Culture - Preliminary 09/20/24 10:30 Blood Blood Culture - Preliminary 09/11/24 19:55 Blood Blood Culture - Final 09/11/24 19:45 Blood Blood Culture - Final Laboratory WBC 27.5 X10^3/uL (3.6-10.0) H 09/23/24 05:44 RBC 2.78 X10^6/uL (4.7-6.0) L 09/23/24 05:44 Hgb 7.7 g/dL (13.5-18.0) L 09/23/24 05:44 Hct 24.8 % (42.0-54.0) L 09/23/24 05:44 MCV 89.1 fL (80.0-100.0) 09/23/24 05:44 MCH 27.6 pg (27.0-34.0) 09/23/24 05:44 MCHC 31.0 g/dL (33.0-35.0) L 09/23/24 05:44 RDW 25.1 % (11.6-16.5) H 09/23/24 05:44 Plt Count 135 X10^3/uL (150.0-450.0) L 09/23/24 05:44 Plt Count Comment Decreased (ADEQUATE) 09/23/24 05:44 MPV 9.7 fL (7.4-11.0) 09/23/24 05:44 Neut % (Auto) 88.3 % (42.0-75.0) H 09/23/24 05:44 Lymph % (Auto) 5.4 % (21.0-51.0) L 09/23/24 05:44 [place] % (Auto) 5.5 % (0.0-13.0) 09/23/24 05:44 Eos % (Auto) 0.5 % (0.9-2.9) L 09/23/24 05:44 Baso % (Auto) 0.3 % (0.2-1.0) 09/23/24 05:44 Neut # (Auto) 24.3 x10^3/uL (2.2-4.8) H 09/23/24 05:44 Lymph # (Auto) 1.5 X10^3/uL (1.3-2.9) 09/23/24 05:44 [place] # (Auto) 1.5 x10^3/uL (0.3-0.8) H 09/23/24 05:44 Eos # (Auto) 0.1 x10^3/uL (0.0-0.2) 09/23/24 05:44 Baso # (Auto) 0.1 X10^3/uL (0.0-0.1) 09/23/24 05:44 Absolute Nucleated RBC 0.0 /100WBC 09/23/24 05:44 Total Counted 100 09/23/24 05:44 Neutrophils % (Manual) 94 % (39-76) H 09/23/24 05:44 Band Neutrophils % 1 % (0-10) 09/21/24 14:01 Lymphocytes % (Manual) 4 % (13-43) L 09/23/24 05:44 Monocytes % (Manual) 2 % (4-9) L 09/23/24 05:44 Eosinophils % (Manual) 1 % (0-6) 09/18/24 05:25 Plt Morphology Comment Normal (NORMAL) 09/23/24 05:44 RBC Morphology Abnormal (NORMAL) 09/23/24 05:44 Anisocytosis 3+ A 09/23/24 05:44 Target Cells Present 09/15/24 06:28 Ovalocytes Slight A 09/14/24 05:35 Helmet Cells Slight A 09/14/24 05:35 PT 15.2 SECONDS (11.8-14.3) 09/17/24 15:56 INR Target Range - 09/17/24 15:56 INR 1.23 (0.8-1.3) 09/17/24 15:56 APTT 38.8 SECONDS (22.9-36.5) H 09/17/24 15:56 PTT Comment - 09/17/24 15:56 D-Dimer 4.33 ug/ml (0.0-0.57) H 09/11/24 15:57 Sodium 129 mmol/L (136-145) L 09/23/24 05:44 Corrected Sodium TNP 09/23/24 05:44 Potassium 3.9 mmol/L (3.5-5.1) 09/23/24 05:44 Chloride 96 mmol/L (98-107) L 09/23/24 05:44 Carbon Dioxide 15.9 mmol/L (21-32) L 09/23/24 05:44 BUN 39 mg/dL (7-18) H 09/23/24 05:44 Creatinine 1.82 mg/dL (0.70-1.30) H 09/23/24 05:44 Est GFR (MDRD) Af Amer 46 (>60) L 09/23/24 05:44 Est GFR (MDRD) Non-Af 38 (>60) L 09/23/24 05:44 Glucose 89 mg/dL (65-99) 09/23/24 05:44 Calcium 8.6 mg/dL (8.5-10.1) 09/23/24 05:44 Corrected Calcium 10.5 mg/dL (8.5-10.1) H 09/23/24 05:44 Magnesium 2.0 mg/dL (2.0-2.9) 09/22/24 05:17 Iron 23 ug/dL (50-175) L 09/13/24 05:55 TIBC 88 ug/dL (250-450) L 09/13/24 05:55 Ferritin 2472 ng/mL (26-388) H 09/13/24 05:55 Total Bilirubin 1.10 mg/dL (0.2-1.0) H 09/23/24 05:44 AST 140 Units/L (15-37) H 09/23/24 05:44 ALT 51 Units/L (12-78) 09/23/24 05:44 Alkaline Phosphatase 192 Units/L (46-116) H 09/23/24 05:44 Lactate Dehydrogenase 321 Units/L (85-227) H 09/12/24 04:15 B-Natriuretic Peptide 123 pg/mL (0-79) H 09/14/24 05:35 Total Protein 5.4 g/dL (6.4-8.2) L 09/23/24 05:44 Albumin 1.6 g/dL (3.4-5.0) L 09/23/24 05:44 Globulin 3.8 g/dL (2.5-4.5) 09/23/24 05:44 Albumin/Globulin Ratio 0.4 Ratio (1.1-2.1) L 09/23/24 05:44 [id number] See scanned report 09/13/24 15:31 Amylase 18 Units/L (25-115) L 09/20/24 05:10 Lipase 43 Units/L (16-77) 09/20/24 05:10 Alpha Fetoprotein Cancelled 09/13/24 15:31 Tumor Marker AFP See scanned report 09/13/24 15:31 Specimen Type Catherized urine 09/17/24 04:00 Urine Color Yellow (YELLOW) 09/17/24 04:00 Urine Appearance Clear (CLEAR) 09/17/24 04:00 Urine pH 6.0 (5.0 - 8.0) 09/17/24 04:00 Ur Specific [place] 1.020 (1.000-1.030) 09/17/24 04:00 Urine Protein 2+ (NEGATIVE) 09/17/24 04:00 Urine Glucose (UA) Negative (NEGATIVE) 09/17/24 04:00 Urine Ketones 2+ (NEGATIVE) 09/17/24 04:00 Urine Blood 1+ (NEGATIVE) 09/17/24 04:00 Urine Nitrite Negative (NEGATIVE) 09/17/24 04:00 Urine Bilirubin Negative (NEGATIVE) 09/17/24 04:00 Urine Urobilinogen Normal (NORMAL) 09/17/24 04:00 Ur Leukocyte Esterase Negative (NEGATIVE) 09/17/24 04:00 Urine RBC 3-5 /HPF (0-3) A 09/17/24 04:00 Urine WBC 0-2 /HPF (0-5) 09/17/24 04:00 Ur Squamous Epith Cells Rare /HPF (NEGATIVE) 09/17/24 04:00 Amorphous Sediment 3+ /HPF (NEGATIVE) 09/17/24 04:00 Urine Bacteria Trace /HPF (NEGATIVE) 09/17/24 04:00 Coarse Granular Casts Few /HPF (NEGATIVE) 09/17/24 04:00 Ur Culture Indicated? No/not indicated 09/17/24 04:00 Stl Occult Blood (IFOB) Negative (NEGATIVE) 09/12/24 14:02 SHELBY Screen See scanned report 09/13/24 15:31 SHELBY Titer See scanned report 09/13/24 15:31 SHELBY Pattern See scanned report 09/13/24 15:31 Anti-Mitochondrial Ab See scanned report Units 09/13/24 15:31 Smooth Muscle Ab Titer See scanned report 09/13/24 15:31 Hepatitis A IgM Ab See scanned report 09/13/24 15:31 Hep Bs Antigen See scanned report 09/13/24 15:31 Hep B Core IgM Ab See scanned report 09/13/24 15:31 Hepatitis C Ab Index See scanned report IV 09/13/24 15:31 Hep C RIBA Interpret See scanned report 09/13/24 15:31 Hepatitis Interpret See scanned report 09/13/24 15:31 Resp Viral Panel (PCR) See scanned report 09/13/24 14:11 Blood Type B NEGATIVE 09/13/24 08:45 Antibody Screen Negative 09/13/24 08:45 Crossmatch See Detail 09/13/24 08:45 Plan (1) Pneumonia: Status: Acute Qualifiers: Pneumonia type: due to unspecified organism Laterality: left Lung location: lower lobe of lung Qualified Code(s): J18.9 - Pneumonia, unspecified organism Plan: IV ATBX, RESP THERAPY, PHYSICAL THERAPY ENCOURAGE ORAL HYDRATION AMBULATE PT IF POSSIBLE PRN SUPPLEMENTAL O2, REPEAT AM CXR (2) Pancreatic mass: Status: Acute Plan: 1. Continue current treatment 2. Maintain limited DNR status and continue supportive care 3. Continue IV ceftriaxone and ciprofloxacin for leukocytosis 4. Continue TPN for nutrition supplementation 5. Administer 25% albumin, 100 mL IV today for edema 6. Provide comfort measures for pain control and anxiety if needed 7. Continue GI protection with Pantoprazole 40 mg IV BID 8. Monitor and manage hypercalcemia, hyperbilirubinemia, chronic kidney disease, hyponatremia, leukocytosis, anemia, and thrombocytopenia RECORDS FROM [facility], CXR STRICT I&OS, SUPPLEMENTAL O2 OCCULT STOOL, BP AND CARDIAC MONITORING GI CONSULT (3) Liver masses: Status: Acute Plan: Follow-up liver biopsy results. (4) Adult failure to thrive: Status: Acute (5) Anemia: Status: Chronic Qualifiers: Anemia type: unspecified type Qualified Code(s): D64.9 - Anemia, unspecified (6) Abnormal MRI of abdomen: Status: Acute (7) CAD (coronary artery disease): Status: Chronic Qualifiers: Coronary Disease-Associated Artery/Lesion type: bypass graft [place] vs. transplanted heart: [place] heart Associated angina: without angina Qualified Code(s): I25.810 - Atherosclerosis of coronary artery bypass graft(s) without angina pectoris (8) Hypothyroidism: Status: Chronic Qualifiers: Hypothyroidism type: acquired Qualified Code(s): E03.9 - Hypothyroidism, unspecified (9) Hypomagnesemia: Status: Acute
[2024-09-24 06:55] LABS: BASOPHILS # (AUTO) 0.1 X10^3/uL (0.0-0.1); BASOPHILS % (AUTO) 0.3 % (0.2-1.0); EOSINOPHILS # (AUTO) 0.2 x10^3/uL (0.0-0.2); EOSINOPHILS % (AUTO) 1.1 % (0.9-2.9); HEMATOCRIT 22.8 % (42.0-54.0); HEMOGLOBIN 7.3 g/dL (13.5-18.0); LYMPHOCYTES # (AUTO) 1.5 X10^3/uL (1.3-2.9); LYMPHOCYTES % (AUTO) 6.9 % (21.0-51.0); MEAN CORPUSCULAR HEMOGLOBIN 28.5 pg (27.0-34.0); MEAN CORPUSCULAR HGB CONC 32.1 g/dL (33.0-35.0); MEAN CORPUSCULAR VOLUME 88.9 fL (80.0-100.0); MEAN PLATELET VOLUME 9.4 fL (7.4-11.0); MONOCYTES # (AUTO) 1.3 x10^3/uL (0.3-0.8); MONOCYTES % (AUTO) 6.3 % (0.0-13.0); NEUTROPHILS # (AUTO) 18.1 x10^3/uL (2.2-4.8); NEUTROPHILS % (AUTO) 85.4 % (42.0-75.0); PLATELET COUNT 121 X10^3/uL (150.0-450.0); RED BLOOD COUNT 2.56 X10^6/uL (4.7-6.0); RED CELL DISTRIBUTION WIDTH 25.7 % (11.6-16.5); WHITE BLOOD COUNT 21.2 X10^3/uL (3.6-10.0)
[2024-09-24 07:05] LABS: ALANINE AMINOTRANSFERASE 44 Units/L (12-78); ALBUMIN 1.8 g/dL (3.4-5.0); ALKALINE PHOSPHATASE 188 Units/L (46-116); ASPARTATE AMINO TRANSFERASE 95 Units/L (15-37); BLOOD UREA NITROGEN 38 mg/dL (7-18); CALCIUM 8.2 mg/dL (8.5-10.1); CARBON DIOXIDE 18.2 mmol/L (21-32); CHLORIDE 98 mmol/L (98-107); CREATININE 1.88 mg/dL (0.70-1.30); GLUCOSE 70 mg/dL (65-99); POTASSIUM 3.6 mmol/L (3.5-5.1); SODIUM 131 mmol/L (136-145); eGFR NON BLACK RACES 37 (>60)
[2024-09-24 07:25] LABS: ANISOCYTOSIS 3+; BAND NEUTROPHILS % 1 % (0-10); PLATELET MORPHOLOGY COMMENT NORMAL (NORMAL)
[2024-09-24] MEDS ORDERED: LASIX IVP ONE (08:37)
[2024-09-24] MEDS: K-DUR TAB 20 MEQ PO SCH (09:10)
[2024-09-24] MEDS: SEROquel TAB 25 mg PO SCH (11:29)
--- NOTE | 2024-09-24 11:38 | DR.UPDATE ---
H&P Update Prescription drug monitoring program results: PDMP was not reviewed H&P Reviewed: Yes Any changes to H&P?: No Patient was examined?: Yes Vital Signs: Temp Pulse Pulse Resp BP Pulse Ox O2 Del Method 09/24/24 09:19 90 95 09/24/24 09:19 Room Air 09/24/24 07:00 Room Air 09/24/24 07:46 97.1 F L 09/24/24 07:34 96.4 F L 99 H 19 99/69 100 Room Air 09/24/24 04:00 97.5 F L 97 H 20 98/61 99 Room Air 09/23/24 23:52 97.7 F 103 H 21 112/74 99 Room Air 09/23/24 20:38 71 95 09/23/24 20:38 Room Air 09/23/24 19:34 97.9 F 103 H 22 110/70 97 Room Air 09/23/24 19:00 Room Air 09/23/24 16:00 97.8 F 104 H 18 100/56 98 Room Air 09/23/24 12:00 97.4 F L 99 H 19 108/66 98 Room Air 09/23/24 07:00 Room Air 09/23/24 08:00 97.4 F L 97 H 18 95/59 100 Room Air 09/23/24 04:00 97.9 F 101 H 20 91/51 99 09/22/24 23:31 97.9 F 99 H 19 117/74 100 Room Air 09/22/24 20:00 80 96 09/22/24 20:00 Room Air 09/22/24 20:00 97.9 F 99 H 18 98/61 100 Room Air 09/22/24 19:00 Room Air 09/22/24 16:00 97.4 F L 102 H 19 109/65 99 09/22/24 12:00 97.5 F L 103 H 18 105/70 100 Room Air 09/22/24 07:00 Room Air 09/22/24 08:00 97.4 F L 108 H 18 105/69 100 Room Air 09/22/24 09:11 109 H 93 L 09/22/24 04:00 97.7 F 108 H 22 114/70 96 Room Air 09/22/24 00:00 98.5 F 97 H 19 105/67 100 Room Air 09/21/24 20:00 97.9 F 97 H 21 93/61 100 Room Air 09/21/24 19:00 Room Air 09/21/24 20:48 Room Air 09/21/24 16:00 97.6 F 103 H 18 90/63 98 Room Air Procedures (ALL) - Central Line Placement PCM.CLCO: written consent Time out performed: Yes Patient placed pm monitor/pulse ox: Yes MD prep: mask, gown, gloves, other Centrial line prep: chlorhexidine scrub, sterile drapes applied Local anesthsia used: lidocane 1% Ultrasound used for placement: Yes (left basilic v cannulated under direct u/s visualization) Central line lumen ininserted: double (5.5fr arrowpic. trimmed to 45cm with 2cm exposed) Post procedure: good blood return, all ports aspirated, flushed,capped, sterile dressing applied Post procedure xray: tip oc catheter in good position (appears distal svc. radi ology report pending) Patient tolerated procedure: Yes Complications: none
[2024-09-24] MEDS: NS 250 ML IV 250 ML IV ONE (14:35)
[2024-09-24] MEDS ORDERED: CLINIMIX IV SCH (15:00)
[2024-09-24] MEDS ORDERED: TPN ELECTROLYTES IV SCH (15:00)
[2024-09-24] MEDS ORDERED: [UNRECOGNIZED DRUG - OTHER] IV SCH (15:00)
[2024-09-24] MEDS ORDERED: MVI IV SCH (15:00)
[2024-09-24] MEDS: [UNRECOGNIZED DRUG - OTHER] IV SCH (15:45)
[2024-09-24] MEDS: CLINIMIX IV SCH (15:45)
[2024-09-24] MEDS: TPN ELECTROLYTES IV SCH (15:45)
[2024-09-24] MEDS: MVI IV SCH (15:45)
--- NOTE | 2024-09-24 15:50 | RAD ---
EXAM:CHEST x-ray, 1 VIEWHISTORY:PICC PLACEMENT -COMPARISON:X-ray 09/19/2024FINDINGS:Left-sided PICC line terminates in the region of the right atrium of the heart. Heart is likely normal in size. There is persistent blunting of the left CP angle that may be due to a small to moderate pleural effusion.IMPRESSION:PICC line terminates in the region of the right atrium of the heart.THIS IS AN ELECTRONICALLY VERIFIED FINAL KCHOBE8609/24/2024 3:47 PM - Electronically signed by Bill Phipps MD
[2024-09-24] MEDS: DRUG FILTER EXTENSION SET ONE (15:51)
[2024-09-24] MEDS: LASIX IVP ONE (16:50)
[2024-09-24 17:30] LABS: HEMATOCRIT 25.9 % (42.0-54.0); HEMOGLOBIN 8.4 g/dL (13.5-18.0)
[2024-09-25] MEDS: DRUG FILTER EXTENSION SET ONE (04:24)
[2024-09-25 05:29] LABS: BASOPHILS # (AUTO) 0.1 X10^3/uL (0.0-0.1); BASOPHILS % (AUTO) 0.4 % (0.2-1.0); EOSINOPHILS # (AUTO) 0.6 x10^3/uL (0.0-0.2); EOSINOPHILS % (AUTO) 2.7 % (0.9-2.9); HEMATOCRIT 33.3 % (42.0-54.0); LYMPHOCYTES # (AUTO) 1.3 X10^3/uL (1.3-2.9); LYMPHOCYTES % (AUTO) 5.9 % (21.0-51.0); MEAN CORPUSCULAR HEMOGLOBIN 29.1 pg (27.0-34.0); MEAN CORPUSCULAR HGB CONC 32.1 g/dL (33.0-35.0); MEAN CORPUSCULAR VOLUME 90.5 fL (80.0-100.0); MEAN PLATELET VOLUME 10.3 fL (7.4-11.0); MONOCYTES # (AUTO) 1.2 x10^3/uL (0.3-0.8); MONOCYTES % (AUTO) 5.1 % (0.0-13.0); NEUTROPHILS # (AUTO) 19.4 x10^3/uL (2.2-4.8); NEUTROPHILS % (AUTO) 85.9 % (42.0-75.0); PLATELET COUNT 121 X10^3/uL (150.0-450.0); RED BLOOD COUNT 3.68 X10^6/uL (4.7-6.0); RED CELL DISTRIBUTION WIDTH 24.4 % (11.6-16.5); WHITE BLOOD COUNT 22.6 X10^3/uL (3.6-10.0)
[2024-09-25 05:38] LABS: ALBUMIN 1.9 g/dL (3.4-5.0); CALCIUM 8.6 mg/dL (8.5-10.1); CARBON DIOXIDE 15.9 mmol/L (21-32); COR CA(FOR HYPOALB) 10.3 mg/dL (8.5-10.1); CREATININE 1.84 mg/dL (0.70-1.30); TOTAL PROTEIN 6.1 g/dL (6.4-8.2)
[2024-09-25 05:57] LABS: HEMOGLOBIN 10.7 g/dL (13.5-18.0)
[2024-09-25 05:58] LABS: ANISOCYTOSIS 3+; BURR CELLS PRESENT; PLATELET MORPHOLOGY COMMENT NORMAL (NORMAL); POIKILOCYTOSIS PRESENT
[2024-09-25 09:22] VITALS: O2SAT 99
[2024-09-25] MEDS: MORPHINE SULFATE INJ 2 MG INJ IVP ONE (10:03)
[2024-09-25] MEDS: MORPHINE SULFATE INJ 2 MG INJ ONE (10:06)
[2024-09-25] MEDS ORDERED: MORPHINE SULFATE INJ 2 MG INJ IVP PRN (11:26)
[2024-09-25] MEDS: ZOFRAN INJ 4 MG VIAL IVP ONE (11:28)
[2024-09-25] MEDS: PEPCID 20 MG VIAL 20 MG in NS 50 ML IV 50 ML IV ONE (11:28)
[2024-09-25 12:49] VITALS: BP 118/64; PULSE 91; RESP 18; TEMP 96.5
[2024-09-26] MEDS ORDERED: SEROquel TAB 25 mg PO SCH (09:00)
== END 2024-09-25 13:50 | DRG 194 ==
LOC: ER 15:06 → U 15:06 → MED/SURG 09-12 13:55
PROVIDERS: ADMIT Internal Medicine; ATTEND Internal Medicine
DX: I25.810 Atherosclerosis of coronary artery bypass graft(s) without angina pectoris; E83.42 Hypomagnesemia; J18.8 Other pneumonia, unspecified organism; I87.2 Venous insufficiency (chronic) (peripheral); F41.8 Other specified anxiety disorders; D64.89 Other specified anemias; E86.0 Dehydration; E03.8 Other specified hypothyroidism; R60.0 Localized edema; K59.09 Other constipation; C25.9 Malignant neoplasm of pancreas, unspecified; C78.7 Secondary malignant neoplasm of liver and intrahepatic bile duct; R06.02 Shortness of breath; R13.11 Dysphagia, oral phase; R53.1 Weakness; R93.5 Abnormal findings on diagnostic imaging of other abdominal regions, including retroperitoneum; R62.7 Adult failure to thrive; R26.89 Other abnormalities of gait and mobility; R94.31 Abnormal electrocardiogram [ECG] [EKG]; E87.29 Other acidosis; L89.152 Pressure ulcer of sacral region, stage 2